=== PATIENT | male | born 1950 | race Caucasian/White ===

== ENCOUNTER → 2018-09-11 07:25 | Outpatient (CLI) | payer MEDICARE, SELFPAY ==
[2016-05-30 12:38] VITALS: BMI 26.3
[2018-09-11 08:30] LABS: PSA,Total - Annual Screen 5.43 ng/mL (0.00-4.00)
== END ==
PROVIDERS: Family Provider Family Medicine; PCP Family Medicine; Referring Provider Urology; Visit Provider Urology
DX: Z12.5 Encounter for screening for malignant neoplasm of prostate (principal)
CPT/HCPCS: 36415; 84153; G0103

== ENCOUNTER → 2019-07-04 13:02 | Outpatient (CLI) | payer MEDICARE, OTHER, SELFPAY ==
--- NOTE | 2019-07-04 13:06 | CDU_ITS ---
Reason For Study: Syncope Rt. Velocities/BP Lt. Velocities/BP Prox CCA 100.8/17.3 cm/sec. Prox CCA 110.1/22.5 cm/sec. Mid CCA 96.9/23.9 cm/sec. Mid CCA 101/22.5 cm/sec. Dist CCA 93/23.9 cm/sec. Dist CCA 88.8/17.6 cm/sec. Prox ICA 104.7/26.1 cm/sec. Prox ICA 84.6/11.5 cm/sec. Mid ICA 130.2/38.9 cm/sec. Mid ICA 72.9/21.2 cm/sec. Dist ICA 87.2/31.1 cm/sec. Dist ICA 70.7/20.1 cm/sec. Rt. ICA/CCA = 1.3. Lt. ICA/CCA = 0.8. Prox ECA 119.3/17 cm/sec. Prox ECA 104.8/13.9 cm/sec. Rt. Vert. 36.9/9.9 cm/sec. Lt. Vert. 21.8/6.2 cm/sec. Right Extracranial There is homogeneous, smooth atherosclerotic plaque noted in the right common carotid artery. There is heterogeneous, irregular atherosclerotic plaque noted in the right internal carotid artery. There is no significant atherosclerotic plaque noted in the right external carotid artery. Antegrade flow is noted in the right vertebral artery. Left Extracranial There is homogeneous, smooth atherosclerotic plaque noted in the left common carotid artery. There is homogeneous, smooth atherosclerotic plaque noted in the left internal carotid artery. There is no significant atherosclerotic plaque noted in the left external carotid artery. Antegrade flow is noted in the left vertebral artery. Procedure Carotid Duplex [id number]. Exam performed in department. Interpretation Summary Mild (<50%) stenosis right extracranial internal carotid. Mild (<50%) stenosis left extracranial internal carotid. Flow within the vertebral arteries is antegrade bilaterally. Ordering Physician: Perico Streeter Referring Physician: Perico Streeter Performed By: Annika Nunez RVT
== END ==
PROVIDERS: Family Provider Family Medicine; PCP Family Medicine; Referring Provider Family Medicine; Visit Provider Family Medicine
DX: R55 Syncope and collapse (principal)
CPT/HCPCS: 93880

== ENCOUNTER → 2019-07-11 07:39 | Outpatient (CLI) | payer MEDICARE, OTHER, SELFPAY ==
[2016-05-30 12:38] VITALS: BMI 26.3
--- NOTE | 2019-07-11 07:56 | CT_ITS ---
STUDY: CT BRAIN WITHOUT CONTRAST REASON FOR EXAM: Male, 69 years old. RADIATION DOSAGE (If Supplied By Facility): CTDIvol = ( 44.99 ) mGy, DLP = ( 796.11 ) mGycm TECHNIQUE: Transaxial CT imaging of the brain was performed without administration of intravenous contrast material. Individualized dose optimization techniques were used for this CT. COMPARISON: No relevant priors. FINDINGS: Normal soft tissue structures. Normal calvarium. Normal size ventricles and extra-axial spaces for the patient's age. Normal white matter tracts of the cerebral hemispheres. Normal basal ganglia and thalami. Normal brainstem. Normal cerebellum. There is no intracranial hemorrhage. There are no findings of an acute ischemic infarction. Normal visualized paranasal sinuses. CT/Brain/Head without Contrast IMPRESSION: Normal unenhanced CT scan of the brain. Electronically Signed: Elliott Gracia, at 15:08 EST Tel , Service support ,
[2019-07-11 09:04] LABS: Absolute Lymphocyte Count 1.39 X10^3/uL (0.83-4.51); Absolute Neutrophil Count 3.1 X10^3/uL (2.0-7.7); Basophil# 0.04 X10^3/uL; Basophil% 0.8 % (0-1); Eosinophil# 0.11 X10^3/uL; Eosinophils% 2.2 % (0-5); Hematocrit 50.1 % (40-54); Hemoglobin 16.6 g/dL (13.0-16.5); Lymphocyte # 1.39 X10^3/ul (4.0); Lymphocyte % 27.5 % (19-41); Mean Corp Hgb Conc 33.1 g/dL (32-36); Mean Corpuscular Hgb 29.9 pg (27.0-32.0); Mean Corpuscular Volume 90.3 fL (80-94); Mean Platelet Vol. 10.7 fl (6.2-12.0); Monocyte# 0.41 X10^3/uL; Monocyte% 8.1 % (0-10); NRBC Flagged by Analyzer 0 % (0-5); Neutrophil % 61.2 % (47-70); Platelet Count 247 K/mm3 (150-450); RBC Distribution Width CV 11.8 % (11.6-14.6); Red Blood Count 5.55 M/mm3 (4.6-6.2); White Blood Count 5.1 K/mm3 (4.4-11.0)
[2019-07-11 09:34] LABS: ALB/GLOB Ratio 1.1 RATIO (0.9-2.4); AST(SGOT) 19 U/L (15-37); Alanine Aminotransfer ALT/SGPT 30 U/L (16-61); Albumin, Serum 3.7 g/dL (3.2-5.0); Alkaline Phosphatase 93 U/L (45-117); Anion Gap 7 (5-15); BUN 11 mg/dL (7-18); CRP, High Sensitivity Cardiac < 0.16 mg/L; Calcium,Total 8.7 mg/dL (8.5-10.1); Chloride 105 mmol/L (98-107); Creatinine, Serum 0.73 mg/dL (0.70-1.30); EST Glomerular Filtration Rate 113 mL/min (>60); Est Glom Filt Rate - Afr Amer 137 mL/min (>60); Globulin 3.3 g/dL (2.2-4.2); Glucose 98 mg/dL (74-106); Potassium 3.9 mmol/L (3.5-5.1); Sodium Level 139 mmol/L (136-145)
[2019-07-11 09:50] LABS: Vitamin B12 565 pg/mL (211-911)
== END ==
PROVIDERS: Family Provider Family Medicine; PCP Family Medicine; Referring Provider Family Medicine; Visit Provider Family Medicine
DX: Z91.89 Other specified personal risk factors, not elsewhere classified (principal); Z86.59 Personal history of other mental and behavioral disorders; E78.5 Hyperlipidemia, unspecified
CPT/HCPCS: 36415; 70450; 80053; 82607; 85025; 86141

== ENCOUNTER → 2019-07-12 09:59 | Outpatient (CLI) | payer MEDICARE, OTHER, SELFPAY ==
[2016-05-30 12:38] VITALS: BMI 26.3
--- NOTE | 2019-07-12 10:01 | ECHOCS_ITS ---
Reason For Study: SYNCOPE Procedure This was a 2D Doppler, Color Flow transthoracic echocardiogram. The study was technically difficult. Contrast injection was performed. Exam performed in department. Left Ventricle Normal LV size. Left ventricular systolic function is normal. The estimated ejection fraction is 55 %. No regional wall motion abnormalities noted. Right Ventricle Normal RV size. Normal systolic function. Atria Normal left atrium. Normal right atrium. Mitral Valve Normal mitral valve. Tricuspid Valve Normal tricuspid valve. Mild tricuspid valve insufficiency. Aortic Valve The aortic valve is not well visualized. Pulmonic Valve Normal pulmonic valve. Great Vessels Normal aortic root. Pericardium/Pleural No pericardial effusion. Medication 22 gauge I.V. with prn adaptor inserted into right arm. Diluted definity 4.0ml given slow IV push to enhance endocardial definition. MMode/2D Measurements & Calculations LVIDd: 5.1 cm IVSd: 0.76 cm Ao root diam: 3.1 cm LVIDs: 3.4 cm LVPWd: 0.73 cm RVDd: 3.1 cm FS: 33.8 % LAV(MOD-bp): 36.8 ml LVAd ap4: 34.1 cm2 SV(MOD-sp4): 56.1 ml LAV(MOD-bp) Indexed: 19.8 ml/m2 EDV(MOD-sp4): 115.4 ml LAV(MOD-sp2): 37.4 ml EDV(sp4-el): 121.4 ml LAV(MOD-sp4): 30.1 ml LVAs ap4: 23.2 cm2 ESV(MOD-sp4): 59.3 ml ESV(sp4-el): 62.8 ml EF(MOD-sp4): 48.6 % EF(sp4-el): 48.3 % SV(sp4-el): 58.7 ml LA A4 area: 14.2 cm2 LA dimension(2D): 2.8 cm RA A4 area: 11.8 cm2 Time Measurements MV dec time: 0.17 sec Doppler Measurements & Calculations MV E max oziel: 67.7 cm/sec Lat Peak E' Oziel: 9.5 cm/sec Med Peak E' Oziel: 8.8 cm/sec MV A max oziel: 73.1 cm/sec E/E' lat: 7.1 E/E' med: 7.7 MV E/A: 0.93 Ao V2 max: 125.1 cm/sec LV V1 max: 87.6 cm/sec PA V2 max: 91.4 cm/sec Ao max P.3 mmHg LV V1 max P.1 mmHg PI end-d oziel: 78.1 cm/sec TR max oziel: 219.8 cm/sec TR max P.3 mmHg Interpretation Summary Normal LV size. Left ventricular systolic function is normal. The estimated ejection fraction is 55 %. Mild tricuspid valve insufficiency. Contrast injection was performed. Ordering Physician: Perico Alatorre Referring Physician: JUAN F ALATORRE Performed By: Enid Guardado RDCS, RVT
== END ==
PROVIDERS: Family Provider Family Medicine; PCP Family Medicine; Referring Provider Family Medicine; Visit Provider Family Medicine
DX: I07.1 Rheumatic tricuspid insufficiency (principal); R55 Syncope and collapse
CPT/HCPCS: 93306; Q9957; A4216; C8929

== ENCOUNTER → 2019-07-20 13:55 | Outpatient (CLI) | payer MEDICARE, OTHER, SELFPAY ==
[2016-05-30 12:38] VITALS: BMI 26.3
--- NOTE | 2019-07-20 14:06 | CT_ITS ---
STUDY: CARDIAC CALCIUM SCORING - CT CHEST REASON FOR EXAM: Male, 69 years old. Cardiac risk factors. RADIATION DOSAGE (If Supplied By Facility): CTDIvol = ( 24.98 ) mGy, DLP = ( 997.06 ) mGycm TECHNIQUE: Axial non-enhanced images were acquired through the heart for the sole purpose of measuring coronary artery calcium. Individualized dose optimization techniques were used for this CT. COMPARISON: None. FINDINGS: This portion of the report is being generated solely for the evaluation of noncoronary artery structures which have been assessed on plain another report. The visualized lungs are clear and free of infiltrate or mass. Heart is normal in size. There are coronary artery calcifications. There are calcifications at the root of the aorta. Nonspecific subcentimeter mediastinal lymphadenopathy. Normal agnieszka. Normal visualized pulmonary arteries. Normal visualized aorta. There are degenerative changes of the thoracic spine. Normal visualized upper abdomen. IMPRESSION: Coronary artery and aortic root calcifications. There is no other evidence of anatomic abnormality. Electronically Signed: Jesus Manuel White DO at 3:08 EST Tel [phone], Service support , STUDY: CARDIAC CALCIUM SCORING - CT CHEST REASON FOR EXAM: Male, 69 years old. Cardiac risk factors. RADIATION DOSAGE (If Supplied By Facility): CTDIvol = ( 24.98 ) mGy, DLP = ( 997.06 ) mGycm TECHNIQUE: Axial non-enhanced images were acquired through the heart for the sole purpose of measuring coronary artery calcium. Individualized dose optimization techniques were used for this CT. COMPARISON: None. FINDINGS: This portion of the report is being generated solely for the evaluation of noncoronary artery structures which have been assessed on plain another report. The visualized lungs are clear and free of infiltrate or mass. Heart is normal in size. There are coronary artery calcifications. There are calcifications at the root of the aorta. Nonspecific subcentimeter mediastinal lymphadenopathy. Normal agnieszka. Normal visualized pulmonary arteries. Normal visualized aorta. There are degenerative changes of the thoracic spine. Normal visualized upper abdomen. CT/Limited Chest CT w/CCTA IMPRESSION: Coronary artery and aortic root calcifications. There is no other evidence of anatomic abnormality. Electronically Signed: Jesus Manuel White DO at 3:01 EST Tel [phone], Service support ,
[2019-07-20 14:22] VITALS: BP 136/75; PULSE 68; RESP 16; O2SAT 96; BMI 27.4
[2019-07-20 14:49] VITALS: PULSE 68
[2019-07-20] MEDS: Nitroglycerin SL (ED/IMG/CATH) 0.4 MG TABLET SUBLINGUAL (14:49)
[2019-07-20 14:57] VITALS: BP 113/59; PULSE 68; RESP 16; O2SAT 93
--- NOTE | 2019-07-21 12:49 | CCTA.WCONT ---
CCTA w/Cont Coronary Arteries Date of Study:: 07/20/19 Cardiac risk factors The patient was brought to the radiology department and high-resolution computed tomographic imaging was performed with particular attention paid to the coronary arteries. Prospective gated coronary artery calcium scoring was performed images from the examination were analyzed for the presence and extent of coronary artery calcification as well as coronary angiography. Appropriate nitroglycerin as well as beta-bernadette doses were administered. The study quality was excellent. LEFT MAIN CORONARY ARTERY: The left main coronary artery demonstrated mild calcification with a total calcium score 34.2. No significant stenosis was noted in this vessel. [] LEFT ANTERIOR DESCENDING CORONARY ARTERY: [The left anterior descending artery was also noted to have an eccentric proximal calcification with approximately 50% luminal stenosis. The coronary calcium score was noted to be 62. The vessel coursed towards the apex giving off the first diagonal vessel with no significant stenosis noted.] LEFT CIRCUMFLEX CORONARY ARTERY: [The left circumflex artery was a nondominant but large vessel. There were mild eccentric scattered calcification areas noted. The coronary calcium score was noted to be 22. No significant stenosis was noted.] RIGHT CORONARY ARTERY: [This was a dominant vessel arising out of the right coronary cusp. It terminated with the posterior descending artery and posterolateral branch no significant plaque was noted in this vessel and the coronary calcium score was noted to be 0.] CORONARY CALCIUM SCORE: The total coronary calcium score was noted to be 118 with a percentile ranking of 25 to 50%. The above was suggestive of moderate nonobstructive coronary artery disease. [] Conclusion: Moderate nonobstructive coronary artery disease plaquing, especially in the left anterior descending artery distribution with no high-grade obstruction or stenosis noted.
== END ==
PROVIDERS: Family Provider Family Medicine; PCP Family Medicine; Referring Provider Family Medicine; Visit Provider Family Medicine
DX: I25.10 Atherosclerotic heart disease of native coronary artery without angina pectoris (principal); Z91.89 Other specified personal risk factors, not elsewhere classified; Z86.59 Personal history of other mental and behavioral disorders
CPT/HCPCS: 75571; 75574; 76380; Q9967; A4216

== ENCOUNTER → 2019-10-04 15:36 | Outpatient (CLI) | payer MEDICARE, OTHER, SELFPAY ==
[2019-07-20 14:22] VITALS: BMI 27.4
[2019-10-04 16:59] LABS: PSA,Total - Annual Screen 5.97 ng/mL (0.00-4.00)
== END ==
PROVIDERS: PCP Family Medicine; Referring Provider Urology; Visit Provider Urology
DX: Z12.5 Encounter for screening for malignant neoplasm of prostate (principal)
CPT/HCPCS: 36415; 84153; G0103

== ENCOUNTER → 2020-11-05 16:23 | Outpatient (CLI) | payer MEDICARE, SELFPAY ==
[2020-08-01 16:02] VITALS: BMI 26.7
[2020-11-05 17:38] LABS: PSA,Total- Diagnostic 7.82 ng/mL (0.0-4.0)
== END ==
PROVIDERS: PCP Internal Medicine; Referring Provider Urology; Visit Provider Urology
DX: R97.20 Elevated prostate specific antigen [PSA] (principal)
CPT/HCPCS: 36415; 84153

== ENCOUNTER → 2021-06-04 07:39 | Outpatient (CLI) | payer MEDICARE, SELFPAY ==
[2020-08-01 16:02] VITALS: BMI 26.7
[2021-06-04 09:23] LABS: PSA,Total- Diagnostic 7.68 ng/mL (0.0-4.0)
== END ==
PROVIDERS: PCP Internal Medicine; Referring Provider Urology; Visit Provider Urology
DX: R97.20 Elevated prostate specific antigen [PSA] (principal)
CPT/HCPCS: 36415; 84153

== ENCOUNTER → 2022-11-27 | Outpatient (CLI) | payer BC, MEDICARE, SELFPAY ==
[2022-11-27 17:16] LABS: PSA,Total- Diagnostic 9.52 ng/mL (0.0-4.0)
== END | disposition home or self-care (01) ==
LOC: LAB 16:22
PROVIDERS: PCP Internal Medicine; Visit Provider Urology
DX: R97.20 Elevated prostate specific antigen [PSA] (principal)
CPT/HCPCS: 36415; 84153

== ENCOUNTER → 2022-12-11 | Outpatient (CLI) | payer MEDICARE, SELFPAY ==
--- NOTE | 2022-12-11 08:15 | MRI_ITS ---
INDICATION: ELEVATED PSA, NO PREV BIOPSIES DONE EXAMINATION: MRI - MR Pelvis Male WO/W Contrast TECHNIQUE: Multiplanar and multisequence MR images of the pelvis were obtained. IV Contrast Dosage and Agent: 15cc clariscan 15 ML IV CLARISCAN COMPARISON: None. FINDINGS: Severe enlargement of the prostate. Prostate measures 6.6 cm transverse by 5.38 cm AP by 5.67 cm coronal. Within the anterior superior prostate there is a nodule visualized with peripheral contrast enhancement. This nodule measures 2.5 cm transverse. There is an adjacent nodule further anteriorly into the left measuring 1.06 cm in diameter with more subtle contrast enhancement. In the inferior right central zone there is a third nodule which is enhancing. This measures 2.36 cm. A fourth nodule is seen in the inferior central zone on the left with more subtle contrast enhancement 0.82 cm transverse. These nodules are seen within the central zone. The peripheral zone is hypertrophic but no evidence of discrete nodule. The capsule of the prostate is intact. There is no evidence of pelvic adenopathy. Bony pelvis is intact. MRI/Pelvis W/WO Contrast IMPRESSION: Multiple nodules within central zone. Given patient''s elevated PSA, if biopsy is, attention towards these nodules is advised. Electronically Signed: Avila Martinez MD, OLE at 18:28 EDT ,
[2022-12-11 08:41] LABS: CREATININE FINGERSTICK < 0.9 mg/dL (0.70-1.30); EGFR FINGERSTICK > 60.0000 mL/min (>60)
== END | disposition home or self-care (01) ==
PROVIDERS: PCP Internal Medicine; Referring Provider Urology; Visit Provider Urology
DX: N40.1 Benign prostatic hyperplasia with lower urinary tract symptoms (principal); R97.20 Elevated prostate specific antigen [PSA]
CPT/HCPCS: 72197; A9575; A4216

== ENCOUNTER 2023-02-05 08:40 | Day surgery (SDC) | payer MEDICARE, SELFPAY ==
[2023-02-05] VITALS (7 sets, daily range): BP systolic 104–140; BP diastolic 71–89; PULSE 77–95; RESP 16; TEMP 36.3–36.6; O2SAT 96–100; BMI 25.4
[2023-02-05] MEDS: Lactated Ringers 1,000 ML 15 ML IV (09:05)
--- NOTE | 2023-02-05 09:21 | PCM.HP.BLA ---
History and Physical Date of Admission: 02/05/23 Visit Reasons:?UPPER AND LOWER SCOPE Chief Complaint: c-scope/EGD [employer] Required: No Is patient in pain?: No Allergies terbinafine [From Lamisil] Allergy (Verified 12/19/22 07:45) Shortness of breathciprofloxacin [From Cipro] Adverse Reaction (Verified 12/19/22 07:45) PALPITATIONS Medications vitamin K2 40 mcg tablet 40 mcg PO DAILY 05/24/20 [History Confirmed 12/19/22] zinc gluconate-zinc picolinate 30 mg capsule mg PO 08/01/20 [History Confirmed 12/19/22] betainine hcl with pepsin PO 10/15/22 [History Confirmed 12/19/22] cbd oil PO 10/15/22 [History Confirmed 12/19/22] gummies for sleep PO 10/15/22 [History Confirmed 12/19/22] homestine PO 10/15/22 [History Confirmed 12/19/22] magnesium PO 10/15/22 [History Confirmed 12/19/22] magnesium PO 10/15/22 [History Confirmed 12/19/22] triamcinolone acetonide 0.1 % topical cream 1 applic topical BID 14 days #30 grams 10/15/22 [Rx Confirmed 12/19/22] PFSH Medical History? Arthritis Jha syndrome Osteopenia prostate issues Vision problem Surgical History? History of colonoscopy History of endoscopy History of scapula, ulna, humerous reconstruction Family History? Aunt Breast cancerUncle Colon cancer Diabetes Heart diseaseMother Cancer DiabetesOther Alcoholism Anxiety and depression Liver disease Melanoma Osteoporosis Social History? Smoking Status:? Former smoker alcohol intake:? current HPI HPI HPI: 72-year-old gentleman who is referred by Dr. Omaira Weir for surgical consultation regarding Jha's esophagus and need for screening colonoscopy.? A written copy of my surgical consult recommendations will return to him.? The patient is here to discuss his biopsy-proven history of Jha's esophagus and the need for screening colonoscopy.? He states that he takes Pepcid AC 2 tablets either twice or 3 times daily.? His reflux symptoms he says are controlled with that.? He was a [id number] history of smoking but he quit.? He now embraces a more healthy lifestyle including a healthy diet.? Previous screening colonoscopy approximately 2016.? The patient does recall that in the past he has had colon polyps.? No definitive of direct family member with colon cancer. ROS General General: No weight change, appetite, fatigue, colon cancer, breast cancer or weakness HEENT HEENT: No difficulty swallowing, eye injury, eye surgery, swollen glands or hoarseness Endo Endocrine: No thyroid disease, diabetes mellitus, thyroid cancer, Hair loss, heat intolerance or cold intolerance Skin Skin: No rash or changing moles Breast Breast: No left breast lump, right breast lump, nipple discharge, breast pain, abnormal mammogram, abnormal US or breast enlargement Musc Musculoskeletal: Yes arthritis; No back problems, rheumatoid arthritis, gout or joint pain Cardio Cardiovascular: No murmur, pacemaker, heart disease, atrial fibrillation, high blood pressure, heart attack, heart stent, palpitations, shortness of breat with exertion or chest pain Psych Psychiatric: No depression, anxiety or hearing voices Resp Respiratory: No shortness of breath, No sleep apnea, No cough, No COPD, No asthma, No emphysema and No wheezing Gastro Gastrointestinal: No abdominal pain, No nausea or vomiting, No diarrhea, No constipation, No blood in stool, No acid reflux, No hemorrhoids, No ulcers, No gallbladder problem and No black,tarry stools Edward Hematologic: No blood thinners, No blood disorders, No bleeding, No anemia and No blood clots Neuro Neurologic: No system reviewed and no additional complaints, except as documented, No as per HPI, No abnormal gait, No abnormal hearing, No abnormal movements, No abnormal speech, No behavioral changes, No burning sensations, No confusion, No convulsions, No disequilibrium, No dizziness, No localized weakness, No frequent falls, No headache(s), No lack of coordination, No loss of vision, No memory loss, Yes numbness, No other visual disturbances, No radicular pain, No restless legs, No sensory deficit, No syncope, Yes tingling, No tremor(s), No weakness and No other Exam Const General: cooperative, comfortable and no acute distress Nutritional Appearance: average body habitus HENMT Head: normal to inspection Eyes General: appearance normal, both eyes and all related structures Neck Neck: normal visual inspection Chest Chest palpation & inspection: normal inspection of the chest Resp Effort & Inspection: normal respiratory effort Auscultation: clear to auscultation bilaterally Cardio Rate: regular rate Rhythm: regular rhythm GI Inspection: normal to inspection Palpation: soft and no hepatosplenomegaly Musc Other: Mild kyphosis Skin General: no rashes or lesions noted Neuro General: patient alert, patient awake and patient oriented x3 Extrem General: no calf tenderness Psych Appearance: grossly normal Assessment and Plan Assessment and Plan (1) Jha syndrome: ?Status:?Acute ?Plan: I recommended the patient esophagogastroduodenoscopy with anticipated Jha's biopsies.? I have also recommended the patient a screening colonoscopy with possible biopsy or polypectomy.? Previous colonoscopy 2016.? By patient report personal history of colon polyps.? He is aware of the technique, benefit, risk, alternatives.? I appreciate the opportunity of assisting with the surgical care.? We will schedule and proceed at his discretion. Copy: Dr. Omaira Dockery M.D., F.A.C.S. I have examined the patient the following changes are noted: Rios Dockery M.D., F.A.C.S.
--- NOTE | 2023-02-05 09:45 | EGD_PTH ---
PATIENT: JYOTI CHOI LOC: EN U#:[id number] AGE/SX: 72/M ROOM: RE02/05/[address]: Dr. Rios Dockery MD : 1950 BED: DIS: 02/05/2023 SPEC #: [id number] RECD: 02/05/23 12:56 STATUS: JAI AKUA #: [id number] KHADAR: 02/05/23 09:[address]: Rios Dockery DEPT: SURGICAL PATHOLOGY RECD BY: Danita Yuen ENTERED: 02/05/23 13:23 SP TYPE: EGD BIOPSY LUIS DR: Dr. Omaira Weir MD Tissues: A - Duodenum, NOS B - Gastric mucous membrane C - Esophagus, NOS D - Sigmoid colon biopsy Procedures: Surgery Specimen Level IV HEADER OPERATION: Colonoscopy with biopsy, EGD ([facility] [place] with biopsies PRE-OP DIAGNOSIS: Jha?s syndrome TISSUE SUBMITTED: A ? Duodenum biopsy, B ? Antrum biopsy for H. pylori and histology, C ? Distal esophagus at EG junction biopsies 8.0 cm, D ? Distal sigmoid polyp biopsy x3 MICROSCOPIC DIAGNOSIS A. Duodenum, biopsy: Focal gastric metaplasia. Mild nonspecific chronic inflammation. B. Gastric antrum, biopsy: Mild chronic inflammation. See comment. C. Distal esophagus at EG junction, biopsy: Gastroesophageal junctional mucosa with chronic inflammation. 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 No evidence of dysplasia. See comment. D. Distal sigmoid colon polyp, biopsy: Fragments of hyperplastic polyp. AM:james 02/06/2023 COMMENT B. The results of immunohistochemistry for Helicobacter pylori will be reported separately ([id number]). C. Immunohistochemistry ([id number]) for P53 and Ki-67 will be performed and results will be reported separately. MICROSCOPIC DESCRIPTION Slides are reviewed. GROSS DESCRIPTION A - Received in fixative is one container labeled with the patient's name and designated duodenum biopsy. The specimen consists of one irregular fragment of light linares soft tissue that measures 0.5 x 0.5 x 0.1 cm. The specimen is totally submitted in one cassette. B - Received in fixative is one container labeled with the patient's name and designated antrum biopsy. The specimen consists of one irregular fragment of light linares soft tissue that measures 0.6 x 0.3 x 0.1 cm. The specimen is totally submitted in one cassette. C - Received in fixative is one container labeled with the patient's name and designated distal esophagus biopsy. The specimen consists of multiple irregular fragments of light linares soft tissue that in aggregate measure 2.0 x 1.0 x 0.1 cm. The specimen is totally submitted in one cassette. D - Received in fixative is one container labeled with the patient's name and designated distal sigmoid polyp. The specimen consists of multiple irregular fragments of light linares soft tissue that in aggregate measure 1.0 x 0.5 x 0.1 cm. The specimen is totally submitted in one cassette. / AM:james 02/05/2023 TC:3 CPT: 96960 x4
--- NOTE | 2023-02-05 09:45 | IMM_PTH ---
PATIENT: JYOTI CHOI LOC: EN U#:[id number] AGE/SX: 72/M ROOM: RE02/05/[address]: Dr. Rios Dockery MD : 1950 BED: DIS: 02/05/2023 SPEC #: [id number] RECD: 02/05/23 13:52 STATUS: JAI MARINDanielle #: [id number] KHADAR: 02/05/23 09:[address]: Rios Dockery DEPT: IMMUNOHISTOCHEMISTRY RECD BY: Marcela Max ENTERED: 02/05/23 13:53 SP TYPE: IMMUNO OTHR DR: Dr. Omaira Weir MD Tissues: B - Stomach, NOS C - Esophageal mucous membrane Procedures: H Pylori (initial) P53 (initial) KI-67 (add) PHYSICIAN & INSTITUTION [place] [phone] SPECIMEN INFORMATION: Tissue Source: B ? Antrum biopsy, C ? Distal esophagus Clinical Info: Jha?s syndrome Specimen Number: [id number] B & C CPT code: 61806 x2, 91614 METHODOLOGY: Deparaffinized sections of prefer/formalin-fixed tissue or PAP/DQ stained slides are incubated with monoclonal/polyclonal antibodies/oligonucleotide probes. Localization is made via biotin free immunoperoxidase method. Appropriate controls are performed and reacted as expected. Results on target cell population are indicated in the following table: RESULTS: ANTIBODY / CLONE RESULT Block B H Pylori (polyclonal) negative Block C P53 (DO-7) negative, wild-type pattern present Ki-67 (30-9) positive, low These tests were developed and their performance characteristics determined by [facility]. They may not have been cleared or approved by the U.[place]. Food and Drug Administration. The FDA has determined that such clearance or approval is not necessary. The above immunohistochemical/dualISH markers are ordered and reviewed by the Pathologist. INTERPRETATION: B. Antrum, biopsy: Negative for Helicobacter pylori organisms. C. Distal esophagus, biopsy: No evidence of dysplasia. AM:james 02/09/2023
--- NOTE | 2023-02-05 11:26 | OP.CCLET_ITS ---
02/05/2023 Omaira Weir [facility] [address] [place] [address] Re : Upper GI endoscopy procedure for Jeffrey Salvador Dear Dr. Weir This procedure was performed on January. My impressions and recommendations are as follows: Impressions : - Medium-sized hiatal hernia. 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 Biopsied. - Erythematous mucosa in the antrum. Biopsied. - Erythematous duodenopathy. Biopsied. Recommendations : - Discharge patient to home. - Resume previous diet. - Continue present medications. - Telephone my office for pathology results in 1 week. Multiple biopsies obtained at various levels very long segment Jha's at 8 cm. Pathology pending. The patient may very well benefit from consultation for ablative treatment. My findings are described in the full procedure note, which is enclosed. If I can be of further assistance, please feel free to contact me at Doctor phone number(s): Work: . Sincerely, Rios Dockery MD 02/05/2023 11:25:29 AM This report has been signed electronically.
--- NOTE | 2023-02-05 11:26 | OP.EGD_ITS ---
Patient Name: Jeffrey Franco Procedure Date: 02/05/2023 10:29 AM Date of : 1950 Age: 72 Procedure: Upper GI endoscopy Indications: Jha's esophagus Providers: Rios Dockery MD Referring MD: Rios Dockery MD Medicines: See the Anesthesia note for documentation of the administered medications Complications: No immediate complications. Procedure: Pre-Anesthesia Assessment: - Prior to the procedure, a History and Physical was performed, and patient medications and allergies were reviewed. The patient's tolerance of previous anesthesia was also reviewed. The risks and benefits of the procedure and the sedation options and risks were discussed with the patient. All questions were answered, and informed consent was obtained. Prior Anticoagulants: The patient has taken no previous anticoagulant or antiplatelet agents. ASA Grade Assessment: II - A patient with mild systemic disease. After reviewing the risks and benefits, the patient was deemed in satisfactory condition to undergo the procedure. After obtaining informed consent, the endoscope was passed under direct vision. Throughout the procedure, the patient's blood pressure, pulse, and oxygen saturations were monitored continuously. The was introduced through the mouth, and advanced to the second part of duodenum. The upper GI endoscopy was accomplished without difficulty. The patient tolerated the procedure well. Scope In: 10:36:35 AM Scope Out: 10:55:07 AM Total Procedure Duration Time 0 hours 18 minutes 32 seconds Findings: A medium-sized hiatal hernia was present. There were esophageal mucosal changes secondary to established long-segment Jha's disease present in the lower third of the esophagus. The maximum longitudinal extent of these mucosal changes was 8 cm in length. Mucosa was biopsied with a cold forceps for histology in 4 quadrants in the lower third of the esophagus. Diffuse mildly erythematous mucosa without bleeding was found in the gastric antrum. Biopsies were taken with a cold forceps for histology. Diffuse mildly erythematous mucosa without active bleeding and with no stigmata of bleeding was found in the duodenal bulb. Biopsies were taken with a cold forceps for histology. Impression: - Medium-sized hiatal hernia. 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 Biopsied. - Erythematous mucosa in the antrum. Biopsied. - Erythematous duodenopathy. Biopsied. Recommendation: - Discharge patient to home. - Resume previous diet. - Continue present medications. - Telephone my office for pathology results in 1 week. Multiple biopsies obtained at various levels very long segment Jha's at 8 cm. Pathology pending. The patient may very well benefit from consultation for ablative treatment. Procedure Code(s): --- Professional --- 90562, Esophagogastroduodenoscopy, flexible, transoral; with biopsy, single or multiple Diagnosis Code(s): --- Professional --- K44.9, Diaphragmatic hernia without obstruction or gangrene K22.70, Jha's esophagus without dysplasia K31.89, Other diseases of stomach and duodenum CPT copyright 2017 [employer]. All rights reserved. The codes documented in this report are preliminary and upon detective private eye review may be revised to meet current compliance requirements. Rios Dockery MD 02/05/2023 11:25:29 AM This report has been signed electronically. Number of Addenda: 0 Note Initiated On: 02/05/2023 10:29 AM
--- NOTE | 2023-02-05 11:31 | OP.COLON_ITS ---
Patient Name: Jeffrey Franco Procedure Date: 02/05/2023 10:56 AM Date of : 1950 Age: 72 Procedure: Colonoscopy Indications: Screening for colorectal malignant neoplasm Providers: Rios Dockery MD Referring MD: Rios Dockery MD Medicines: See the Anesthesia note for documentation of the administered medications Patient Profile: Last Colonoscopy: date unknown. Complications: No immediate complications. Procedure: Pre-Anesthesia Assessment: - Prior to the procedure, a History and Physical was performed, and patient medications and allergies were reviewed. The patient's tolerance of previous anesthesia was also reviewed. The risks and benefits of the procedure and the sedation options and risks were discussed with the patient. All questions were answered, and informed consent was obtained. Prior Anticoagulants: The patient has taken no previous anticoagulant or antiplatelet agents. ASA Grade Assessment: II - A patient with mild systemic disease. After reviewing the risks and benefits, the patient was deemed in satisfactory condition to undergo the procedure. After I obtained informed consent, the scope was passed under direct vision. Throughout the procedure, the patient's blood pressure, pulse, and oxygen saturations were monitored continuously. The Colonoscope was introduced through the anus and advanced to the cecum, identified by appendiceal orifice and ileocecal valve. The colonoscopy was performed without difficulty. The patient tolerated the procedure well. The quality of the bowel preparation was fair. The ileocecal valve and the appendiceal orifice were photographed. Scope In: 10:57:03 AM Scope Withdrawal Time 0 hours 12 minutes 18 seconds Scope Out: 11:18:35 AM Total Procedure Duration Time 0 hours 21 minutes 32 seconds Findings: The digital rectal exam findings include non-thrombosed external hemorrhoids, non-thrombosed internal hemorrhoids, internal hemorrhoids that prolapse with straining, but spontaneously regress to the resting position (Grade II) and enlarged prostate. Three sessile polyps were found in the distal sigmoid colon. The polyps were 3 to 4 mm in size. These polyps were removed with a cold biopsy forceps. Resection and retrieval were complete. Multiple diverticula were found in the left colon. Impression: - Preparation of the colon was fair. - Non-thrombosed external hemorrhoids, non-thrombosed internal hemorrhoids, internal hemorrhoids that prolapse with straining, but spontaneously regress to the resting position (Grade II) and enlarged prostate found on digital rectal exam. - Three 3 to 4 mm polyps in the distal sigmoid colon, removed with a cold biopsy forceps. Resected and retrieved. - Diverticulosis in the left colon. Recommendation: - Discharge patient to home. - Resume previous diet. - Continue present medications. - Repeat colonoscopy in 5 years for surveillance based on pathology results. - Telephone my office for pathology results in 1 week. Procedure Code(s): --- Professional --- 03797, Colonoscopy, flexible; with biopsy, single or multiple Diagnosis Code(s): --- Professional --- Z12.11, Encounter for screening for malignant neoplasm of colon K64.1, Second degree hemorrhoids K64.4, Residual hemorrhoidal skin tags D12.5, Benign neoplasm of sigmoid colon K57.30, Diverticulosis of large intestine without perforation or abscess without bleeding N40.0, Benign prostatic hyperplasia without lower urinary tract symptoms CPT copyright 2017 [employer]. All rights reserved. The codes documented in this report are preliminary and upon bridge rigger review may be revised to meet current compliance requirements. Rios Dockery MD 02/05/2023 11:31:16 AM This report has been signed electronically. Number of Addenda: 0 Note Initiated On: 02/05/2023 10:56 AM
--- NOTE | 2023-02-05 11:32 | OP.CCLET_ITS ---
02/05/2023 Omaira Weir [facility] [address] [place] [address] Re : Colonoscopy procedure for Jeffrey Franco Dear Dr. Weir This procedure was performed on January. My impressions and recommendations are as follows: Impressions : - Preparation of the colon was fair. - Non-thrombosed external hemorrhoids, non-thrombosed internal hemorrhoids, internal hemorrhoids that prolapse with straining, but spontaneously regress to the resting position (Grade II) and enlarged prostate found on digital rectal exam. - Three 3 to 4 mm polyps in the distal sigmoid colon, removed with a cold biopsy forceps. Resected and retrieved. - Diverticulosis in the left colon. Recommendations : - Discharge patient to home. - Resume previous diet. - Continue present medications. - Repeat colonoscopy in 5 years for surveillance based on pathology results. - Telephone my office for pathology results in 1 week. My findings are described in the full procedure note, which is enclosed. If I can be of further assistance, please feel free to contact me at Doctor phone number(s): Work: . Sincerely, Rios Dockery MD 02/05/2023 11:31:16 AM This report has been signed electronically.
== END 2023-02-05 12:13 | disposition home or self-care (01) ==
LOC: EN 08:41 → AC 08:42
PROVIDERS: PCP Internal Medicine; Referring Provider Internal Medicine; Visit Provider Surgery
PROC: 0DJD8ZZ Inspection of Lower Intestinal Tract, Via Natural or Artificial Opening Endoscopic (ICD-10-PCS; CPT 45378; principal; 2023-02-05 09:40)
DX: K57.30 Diverticulosis of large intestine without perforation or abscess without bleeding (principal); Z87.891 Personal history of nicotine dependence; K64.4 Residual hemorrhoidal skin tags; Z80.0 Family history of malignant neoplasm of digestive organs; K44.9 Diaphragmatic hernia without obstruction or gangrene; K22.70 Barrett's esophagus without dysplasia; N40.0 Benign prostatic hyperplasia without lower urinary tract symptoms; K64.1 Second degree hemorrhoids; D12.5 Benign neoplasm of sigmoid colon; K31.89 Other diseases of stomach and duodenum
CPT/HCPCS: 43239; 45380; 88305; 88341; 88342; J7120; J2405

== ENCOUNTER → 2023-08-21 | Outpatient (CLI) | payer SELFPAY | END | disposition home or self-care (01) | PROVIDERS: PCP Internal Medicine | DX: Z13.6 Encounter for screening for cardiovascular disorders (principal); E78.2 Mixed hyperlipidemia; R03.0 Elevated blood-pressure reading, without diagnosis of hypertension ==

== ENCOUNTER → 2023-08-27 | Outpatient (CLI) | payer SELFPAY ==
--- NOTE | 2023-08-27 14:57 | CT_ITS ---
STUDY: CT CHEST WITHOUT CONTRAST REASON FOR EXAM: Male, 73 years old. CAD SCREEN RADIATION DOSAGE (If Supplied By Facility): CTDIvol = ( 12.19 ) mGy, DLP = ( 219.42 ) mGycm TECHNIQUE: Transaxial imaging was performed without the administration of intravenous contrast material. Cardiac over read examination. Individualized dose optimization techniques were used for this CT. COMPARISON: No relevant priors. FINDINGS: CHEST Mild increased markings at the lung bases suggests mild scarring. There is no demonstrated pleural abnormality. There are calcifications of the coronary arteries. There are small lymph nodes within the mediastinum, which are normal in size and morphology most compatible with reactive lymph hyperplasia. Normal hilar regions. Normal unenhanced pulmonary arteries. Normal aorta arch and descending thoracic aorta. There are degenerative changes of the thoracic spine. There is no demonstrated abnormality of the visualized upper abdomen. CT/Limited Chest CT Cardiac Only IMPRESSION: Coronary artery calcification. Electronically Signed: Ta Byrnes MD at 15:49 EST ,
--- OUTSIDE RECORDS SUMMARY | 2023-08-27 15:05 | XMS RPT_ITS | CCD ---
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 investigate or prosecute any alcohol or drug abuse patient.[facility] the event this information is protected by the Federal Confidentiality of Alcohol and Drug Abuse Patient Records regulations: The Federal rules restrict any use of the information to criminally investigate or prosecute any alcohol or drug abuse patient.[facility] the event this information is protected by the Federal Confidentiality of Alcohol and Drug Abuse Patient Records regulations: The Federal rules restrict any use of the information to criminally investigate or prosecute any alcohol or drug abuse patient.[facility] Reason for Visit (unrecogniz ed section and content) Reason Comments NutrEval Reason Comments Established Patient Hood's esophagus Care Teams (unrecognized sec tion and content) Base Ply Hand Relationship Specialty Start Date End Date Juan F Streeter MD [address], [place] [phone] PCP - General Family Medicine 05/09/16 Base Ply Hand Relationship Specialty Start Date End Date Juan F Streeter MD [address] [place] [place] [phone] PCP - General Family Medicine 05/09/16 Base Ply Hand Relationship Specialty Start Date End Date Juan F Streeter MD [address] [place] [address] PCP - General Family Medicine 05/09/16 Base Ply Hand Relationship Specialty Start Date End Date Juan F Streeter MD [address] [place] [address] PCP - General Family Medicine 05/09/16 Base Ply Hand Relationship Specialty Start Date End Date Juan F Streeter MD [address] [place] [address] PCP - General Family Medicine 05/09/16 Base Ply Hand Relationship Specialty Start Date End Date Juan F Streeter MD [address] [place] [address] PCP - General Family Medicine 05/09/16 Base Ply Hand Relationship Specialty Start Date End Date Juan F Streeter MD [address] [place] [address] PCP - General Family Medicine 05/09/16 Base Ply Hand Relationship Specialty Start Date End Date Juan F Streeter MD [address] [place] [address] PCP - General Family Medicine 05/09/16 Base Ply Hand Relationship Specialty Start Date End Date Juan F Streeter MD [address] [place] [address] PCP - General Family Medicine 05/09/16 Base Ply Hand Relationship Specialty Start Date End Date Juan F Streeter MD [address] [place] [address] PCP - General Family Medicine 05/09/16 Base Ply Hand Relationship Specialty Start Date End Date Juan F Streeter MD [address] [place], [place] [id number] PCP - [facility] 05/09/16 Base Ply Hand Relationship Specialty Start Date End Date Juan F Streeter MD [address] [address] PCP - [facility] 05/09/16 (unrecognized sect ion and content) No Status Records Found INFORMATION SOURCE (unrecogn ized section and content) FOR RECORDS PERTAINING TO PATIENTS WHO ARE OR HAVE BEEN ENROLLED IN A CHEMICAL DEPENDENCY/SUBSTANCEABUSE PROGRAM, SOME INFORMATION MAY BE OMITTED. This clinical summary was aggregated from multiple sources. Caution should be exercised in using it in the provision of clinical care. This summary normalizes information from multiple sources, and as a consequence, information in this document may materially change the coding, format and clinical context of patient data. In addition, data may be omitted in some cases. CLINICAL DECISIONS SHOULD BE BASED ON THE PRIMARY CLINICAL RECORDS. [facility] [employer] [facility]. provides no warranty or guarantee of the accuracy or completeness of information in this document.
--- NOTE | 2023-08-27 19:34 | CA.SCORE ---
Calcium Scoring Date of Study:: 08/27/23 Indications Indications: High coronary disease risk Coronary Calcium Scoring: High-resolution Computed Tomographic imaging of the chest was performed on [08/27/2023], with particular attention paid to the coronary arteries. Images from the examination were analyzed for the presence and extent of coronary artery calcification , using coronary calcium quantification software. The patient tolerated the procedure well and there were no complications. The results of the coronary calcification analysis are provided below. Findings Coronary Artery Left Main (LM): 130 Left Anterior Descending (LAD): 54 Left Circumflex (LCX): 27 Right Coronary Artery (RCA): 3 Total Agatston Score: 214 Percentile Rankinth to 50th percentile Calcium Scoring Interpretation: Different methods to categorize the overall amount of coronary plaque. Overall amount CAC SIS Visual of coronary plaque P1 Mild -100 <2 1-2 vessels with mild amount of plaque P2 Moderate 101-300 3-4 1-2 vessels with moderate amount, 3 vessels with mild amount of plaque P3 Severe 301-999 5-7 3 vessels with moderate amount, 1 vessel with severe amount of plaque P4 Extensive >1000 >8 2-3 vessels with severe amount of plaque Calcium Score: Moderate: 1-2 vessels w/moderate amt, 3 vessels w/mild amt of plaque Conclusion: Moderate 1-2 vessel plaque noted involving parts of the left main and the left anterior descending artery.
== END | disposition home or self-care (01) ==
PROVIDERS: PCP Internal Medicine
DX: Z13.6 Encounter for screening for cardiovascular disorders (principal); E78.2 Mixed hyperlipidemia; R03.0 Elevated blood-pressure reading, without diagnosis of hypertension; N48.89 Other specified disorders of penis
CPT/HCPCS: 75571; 76380

== ENCOUNTER 2023-09-16 08:36 | Day surgery (SDC) | payer MEDICARE, SELFPAY ==
[2023-09-16] VITALS (8 sets, daily range): BP systolic 101–148; BP diastolic 61–89; PULSE 74–95; RESP 16–17; TEMP 36.2–36.6; O2SAT 16–100; BMI 25.8
[2023-09-16] MEDS: Lactated Ringers 1,000 ML 15 ML IV (08:55)
--- NOTE | 2023-09-16 08:59 | HP.PCM_ITS ---
History and Physical Date of Admission: 09/16/23 73 M who presents to the office today for initial consult. 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 WSA established 12.19.22 noting GERD well managed with use of Pepcid.?EGD and colonoscopy 02.05.23?EGD medium hiatal hernia; Jha?s changes, metaplasia +; gastritis; duodenitis, gastric metaplasia +. H.pylori neg? Colonoscopy hemorrhoids; three hyperplastic polyps; diverticulosis? OV 08.18.23- Pt reports long hx of Jha's that was dx 4-5 years ago. Was instructed to follow up with us for management. Has been taking OTC Pepcid daily. Sx are under control with medication and diet. Kulwant dysphagia. BM are normal. No other concerns. ROS Const Constitutional: No fatigue ENT ENT: No difficulty swallowing Gastro GI: No abdominal pain, belching, bloating, change in bowel habits, change in stool character, coffee ground emesis, constipation, cramping, diarrhea, heartburn, difficulty swallowing, feeling full early, excessive flatus, incontinent of stools, Vomiting blood/hematemesis, Blood in stool, loose stools, Black,tarry stools, nausea/dyspepsia, pain with swallowing, vomiting or other Musc Musculoskeletal: Positive for joint pain, numbness, tingling and Arthritis Skin Skin: No yellowing of the eye or itchy eyes Neuro Neurology: Positive for numbness and tingling Psych Psychiatric: No anxiety and No depression Endo Endocrine: No fatigue Aller/Imm Allergy/Immunologic: No itchy eyes Edward/Lymp Hematologic/Lymphatic: No easy bleeding or easy bruising Exam Const General: cooperative and comfortable Nutritional Appearance: average body habitus and well nourished HENMT Head: normal to inspection Ears: hearing grossly normal bilaterally Nose: external nose normal Face and sinus: normal facial exam Mouth: oral mucosae normal Throat: posterior oropharynx normal Eyes General: appearance normal, both eyes and all related structures Neck Neck: normal visual inspection Chest Chest palpation & inspection: normal inspection of the chest and normal palpation of entire chest wall Resp Effort & Inspection: normal respiratory effort Auscultation: Bilateral: Clear to Auscultation Cardio Palpation: normal PMI Rate: regular rate Rhythm: regular rhythm GI Inspection: normal to inspection Auscultation: normal bowel sounds Percussion: normal to percussion Palpation: no hepatosplenomegaly Skin General: no rashes or lesions noted Neuro General: patient alert Extrem General: normal to inspection Psych Affect: normal affect Quality Reporting Tobacco Screening ([facility] 138) Smoking Status: Former smoker Assessment and Plan Assessment and Plan (1) Jha syndrome: Status: Acute Qualifiers: Jha's esophagus type: without dysplasia Qualified Code(s): K22.70 - Jha's esophagus without dysplasia Plan: Very pleasant 72-year-old gentleman referred by Dr. 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 He has been on a H2 receptor bernadette for multiple years instead of a PPI because he does not want to have side effects from The proton pump inhibitors. He underwent a surveillance endoscopy back in January [address] Rios Dockery. During that endoscopy he was discovered to have 8 cm segment of Jha's esophagus. There was no hiatal hernia noted or signs of abnormal motility of the esophagus. Biopsies were positive for intestinal metaplasia and all the biopsies. There was no signs of low-grade, high-grade dysplasia or adenocarcinoma. He has lost a significant amount of weight and his reflux has gotten a lot better. He was getting symptoms more frequently but he does not have any symptoms with the use of famotidine and lifestyle changes. He does not drink any alcohol. He still does not smoke any cigarettes. He has no family history of gastrointestinal cancer except for a first-degree relative that did have stomach cancer. I discussed with him the current guidelines from [employer] [employer] and [place] [employer] for gastrointestinal endoscopy along with his recommendations from the [place] [employer] regarding nondysplastic Jha's esophagus. There have been some studies that have shown improved outcome of the patients that have long segment Jha's esophagus without dysplasia. However this has not admitted to mainstream guidelines. I told him that is very difficult to do surveillance on very long Jha's esophagus. Therefore I would recommend that he undergo ablation with HALO 360. However I do not know if his insurance will cover the radiofrequency ablation procedure because it is 3 procedures and not 1 procedure for eradication of long segment Jha's esoph ruma. He said he would get in contact with his insurance company and he would let us know as he does not want to pay [id number] for this procedure at this time. I did recommend him to take a proton pump inhibitor twice a day on a daily basis for prophylaxis of progression of his Jha's esophagus. He is already making lifestyle changes which I think are very beneficial. I have examined the patient and the H&P has been reviewed. There are no clinical changes since date of exam.
--- NOTE | 2023-09-16 09:30 | EGD_PTH ---
PATHOLOGY RESULTS PATIENT: JYOTI CHOI LOC: EN U#:[id number] AGE/SX: 73/M ROOM: RE09/16/[address]: Dr. Cameron Cohen DO : 1950 BED: DIS: 09/16/2023 SPEC #: [id number] RECD: 09/16/23 12:18 STATUS: JAI AKUA #: [id number] KHADAR: 09/16/23 09:[address]: Cameron Cohen DEPT: SURGICAL PATHOLOGY RECD BY: Silvia Rivers ENTERED: 09/16/23 12:18 SP TYPE: EGD BIOPSY LUIS DR: Dr. Omaira Weir MD Tissues: Esophageal mucous membrane Procedures: Special Stain Group II Surgery Specimen Level IV Alcian Blue/PAS (control) HEADER OPERATION: EGD with RFA, biopsy, hemostasis PRE-OP DIAGNOSIS: Jha's syndrome TISSUE SUBMITTED: Distal esophagus MICROSCOPIC DIAGNOSIS Distal esophagus, biopsy: Gastroesophageal junctional mucosa with chronic inflammation. 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 Focal changes of reflux. No evidence of dysplasia. See comment. AM:james 09/17/2023 COMMENT Alcian blue/PAS stain with matched control supports the above diagnosis. Immunohistochemistry ([id number]) for P53 and Ki-67 will be performed and results will be reported separately. MICROSCOPIC DESCRIPTION Slides are reviewed. GROSS DESCRIPTION Received in fixative is one container labeled with the patient's name and designated distal esophagus. The specimen consists of multiple irregular fragments of light linares soft tissue that in aggregate measure 2.5 x 0.5 x 0.1 cm. The specimen is totally submitted in one cassette. / SJ:james 09/16/2023 TC:3 CPT: 66182, 01821
--- NOTE | 2023-09-16 10:31 | OP.EGD_ITS ---
Patient Name: Jeffrey Franco Procedure Date: 09/16/2023 9:28 AM Date of : 1950 Age: 73 Procedure: Upper GI endoscopy Indications: For therapy of Jha's esophagus Providers: Cameron Cohen DO Medicines: Monitored Anesthesia Care Patient Profile: This is a 73 year old male. Refer to note in patient chart for documentation of history and physical. Patient has symptoms of chronic heartburn. Complications: No immediate complications. Procedure: Pre-Anesthesia Assessment: - Prior to the procedure, a History and Physical was performed, and patient medications and allergies were reviewed. The patient is competent. The risks and benefits of the procedure and the sedation options and risks were discussed with the patient. All questions were answered and informed consent was obtained. Patient identification and proposed procedure were verified by the physician in the pre-procedure area. Mental Status Examination: alert and oriented. Airway Examination: normal oropharyngeal airway and neck mobility. Respiratory Examination: clear to auscultation. CV Examination: normal. Prophylactic Antibiotics: The patient does not require prophylactic antibiotics. Prior Anticoagulants: The patient has taken no anticoagulant or antiplatelet agents. ASA Grade Assessment: II - A patient with mild systemic disease. After reviewing the risks and benefits, the patient was deemed in satisfactory condition to undergo the procedure. The anesthesia plan was to use monitored anesthesia care (MAC). Immediately prior to administration of medications, the patient was re-assessed for adequacy to receive sedatives. The heart rate, respiratory rate, oxygen saturations, blood pressure, adequacy of pulmonary ventilation, and response to care were monitored throughout the procedure. The physical status of the patient was re-assessed after the procedure. After obtaining informed consent, the endoscope was passed under direct vision. Throughout the procedure, the patient's blood pressure, pulse, and oxygen saturations were monitored continuously. The gastroscope was introduced through the mouth, and advanced to the second part of duodenum. The upper GI endoscopy was accomplished without difficulty. The patient tolerated the procedure well. Scope In: 9:44:07 AM Scope Out: 10:19:00 AM Total Procedure Duration Time 0 hours 34 minutes 53 seconds Findings: The esophagus and gastroesophageal junction were examined with white light and narrow band imaging (NBI) from a forward view and retroflexed position. There were esophageal mucosal changes secondary to established long-segment Jha's disease. These changes involved the mucosa at the upper extent of the gastric folds (42 cm from the incisors) extending to the Z-line (31 cm from the incisors). The maximum longitudinal extent of these esophageal mucosal changes was 11 cm in length. Mucosa was biopsied with a cold forceps for histology in 4 quadrants at intervals of 1 cm in the middle third of the esophagus and in the lower third of the esophagus. One specimen bottle was sent to pathology. Estimated blood loss: none. Circumferential radiofrequency ablation of Jha's esophagus was performed using the [employer] 360 Express catheter and balloon-based endoscopic ablation system. With the endoscope in place, the position and extent of the Jha's mucosa and the anatomic landmarks including proximal and distal extent of Jha's mucosa, top of gastric folds and crural pinch were noted. Endoscopic visualization identified an ablation site including the entire visible Jha's segment. The Jha's mucosa was irrigated with saline. Gastric contents were suctioned. A guidewire was passed down the biopsy channel of the endoscope. As the endoscope was withdrawn from the mouth, the guidewire was left in place. An auto-sizing radiofrequency ablation balloon catheter was passed transorally over the guidewire into the esophagus. The endoscope was introduced in a [id number] manner with the ablation catheter. Under direct endoscopic visualization, the balloon ablation catheter was positioned so that the proximal edge of the electrode was at 30 cm from the incisors. The balloon was automatically inflated, and energy was applied at 10 J/cm2. The balloon electrode was moved 4 cm distally, so that the proximal edge of the electrode was aligned with the distal edge of the ablation zone. The process of balloon inflation and ablation was repeated until the top of the gastric folds was reached. The ablation catheter and guidewire were removed, and the balloon was cleaned. The ablation zone was then cleaned of overlying coagulative debris using irrigation and suction via the endoscope and a cleaning cap. The guidewire was reinserted, and then the ablation catheter was reintroduced into the esophagus over the wire. The ablation catheter was positioned under direct endoscopic visualization so that the proximal edge of the electrode was at the proximal edge of the ablation zone. Reinflation and a second round of ablation were performed with the application of 10 J/cm2 to re-treat the Jha's epithelium already treated with the first round of ablation. The ablation catheter and guidewire were then removed. The areas of the esophagus where Jha's mucosa had been ablated were then examined with the endoscope. Areas of visible Jha's esophagus were completely ablated. A medium-sized hiatal hernia was present. No other significant abnormalities were identified in a careful examination of the stomach. The duodenal bulb was normal. Impression: - Esophageal mucosal changes secondary to established long-segment Jha's disease. Biopsied. Treated with radiofrequency ablation. - Medium-sized hiatal hernia. - Normal duodenal bulb. Recommendation: - Discharge patient to home. - Clear liquid diet. - Continue present medications. - Await pathology results. - Repeat upper endoscopy in 3 months per protocol. Procedure Code(s): --- Professional --- 27944, Esophagogastroduodenoscopy, flexible, transoral; with ablation of tumor(s), polyp(s), or other lesion(s) (includes pre- and post-dilation and guide wire passage, when performed) 91033, 59,51, Esophagogastroduodenoscopy, flexible, transoral; with biopsy, single or multiple CPT copyright 2021 [employer]. All rights reserved. The codes documented in this report are preliminary and upon desk pen set assembler review may be revised to meet current compliance requirements. Cameron Cohen DO 09/16/2023 10:30:45 AM This report has been signed electronically. Number of Addenda: 0 Note Initiated On: 09/16/2023 9:28 AM
--- NOTE | 2023-09-16 10:31 | OP.CCLET_ITS ---
09/16/2023 Omaira Weir [facility] [address] [place] [address] Re : Upper GI endoscopy procedure for Jeffrey Franco Dear Dr. Weir This procedure was performed on Saturday, September 16, 2023. My impressions and recommendations are as follows: Impressions : - Esophageal mucosal changes secondary to established long-segment Jha's disease. Biopsied. Treated with radiofrequency ablation. - Medium-sized hiatal hernia. - Normal duodenal bulb. Recommendations : - Discharge patient to home. - Clear liquid diet. - Continue present medications. - Await pathology results. - Repeat upper endoscopy in 3 months per protocol. My findings are described in the full procedure note, which is enclosed. If I can be of further assistance, please feel free to contact me at . Sincerely, Cameron Cohen, 09/16/2023 10:30:45 AM This report has been signed electronically.
[2023-09-16] MEDS: Pantoprazole Sodium 40 MG in 0.9% Normal Saline (100mL MB+) 100 ML 330 MG IV (10:34)
--- NOTE | 2023-09-17 | IMM_PTH ---
PATHOLOGY RESULTS PATIENT: JYOTI CHOI LOC: EN U#:[id number] AGE/SX: 73/M ROOM: RE09/16/[address]: Dr. Cameron Cohen DO : 1950 BED: DIS: 09/16/2023 SPEC #: [id number] RECD: 09/17/23 11:32 STATUS: JAI REDanielle #: [id number] KHADAR: 09/17/23 00:[address]: Cmaeron Cohen DEPT: IMMUNOHISTOCHEMISTRY RECD BY: Silvia Rivers ENTERED: 09/17/23 11:33 SP TYPE: IMMUNO OT DR: Dr. Omaira Weir MD Tissues: Esophageal mucous membrane Procedures: P53 (initial) KI-67 (add) MOC-31 (add) PHYSICIAN & INSTITUTION [place] [id number] SPECIMEN INFORMATION: Tissue Source: Distal Esophagus Clinical Info: Jha's syndrome Specimen Number: [id number] CPT code: 01404, 11651 x2 METHODOLOGY: Deparaffinized sections of prefer/formalin-fixed tissue or PAP/DQ stained slides are incubated with monoclonal/polyclonal antibodies/oligonucleotide probes. Localization is made via biotin free immunoperoxidase method. Appropriate controls are performed and reacted as expected. Results on target cell population are indicated in the following table: RESULTS: ANTIBODY / CLONE RESULT P53 (DO-7) positive, wild type pattern Ki-67 (30-9) positive MOC-31 (4561) positive These tests were developed and their performance characteristics determined by [facility]. They may not have been cleared or approved by the U.S. Food and Drug Administration. The FDA has determined that such clearance or approval is not necessary. The above immunohistochemical/dualISH markers are ordered and reviewed by the Pathologist. INTERPRETATION: Distal esophagus, biopsy: No evidence of dysplasia. AM:james 09/18/2023
== END 2023-09-16 11:50 | disposition home or self-care (01) ==
LOC: EN 08:41 → AC 08:41
PROVIDERS: PCP Internal Medicine; Referring Provider Internal Medicine; Visit Provider Internal Medicine Gastroenterology
PROC: (CPT 43257; principal; 2023-09-16 09:25)
DX: K22.70 Barrett's esophagus without dysplasia (principal); K44.9 Diaphragmatic hernia without obstruction or gangrene
CPT/HCPCS: 43239; 43270; 81002; 88305; 88313; 88341; 88342; J7120; C1769; J2405

== ENCOUNTER → 2023-09-24 | Outpatient (CLI) | payer MEDICARE, SELFPAY ==
--- OUTSIDE RECORDS SUMMARY | 2023-09-24 06:48 | XMS RPT_ITS | CCD ---
Author Name Unknown Address [id number] [place] [address] Organization [facility] Care Team Providers Care Delivery And Mail Sorter Name Role Phone Juan F Streeter MD Primary Care Provider KOCZAB, KERRY Referring Unavailable JUAN F STREETER Primary Care Unavailabl e JUAN F STREETER Primary Care Unavailabl e KOCZAB, KERRY Referring Unavailable JUAN F STREETER [...] [MILK] Drug Allergy 05-05-2016 Other: See Comments [place] Work Phone: (19 sources) terbinafine; Translations: [TERBINAFINE HCL] Drug Allergy 07-03-2016 Intolerance [place] Medications Completed/Discontinued Medications Medication Drug Class(es) Dates [...] other disease; Translations: [Compound heterozygous MTHFR mutation C677T/[id number]] Onset: Episodic Results Test Name Value Interpretation Reference Range Facil ity Vital Signs Date Time Vital Sign Value Performing Clinician Roque vu 08-28-2022 15:11-0500 Body height 170.2 cm Kerry Srtong DO Work Phone: [place] 08-28-2022 15:11-0500 Body temperature 98.01 [degF] Kerry Koczab DO Work Phone: [place] 08-28-2022 15:11-0500 Body weight 80.38 kg Kerry Koczab DO Work Phone: [place] 08-28-2022 15:11-0500 Diastolic blood pressure 83 mm[Hg] Kerry Koczab DO Work Phone: [place] 08-28-2022 15:11-0500 Heart rate 81 /min Kerry Koczab DO Work Phone: [place] 08-28-2022 15:11-0500 SaO2% (BldA) [Mass fraction] 97 % Kerry Koczab DO Work Phone: [place] 08-28-2022 15:11-0500 Systolic blood pressure 131 mm[Hg] Kerry Koczab DO Work Phone: [place] 06-05-2022 14:44-0400 Body height 170.2 cm Kerry Koczab DO Work Phone: [place] 06-05-2022 14:44-0400 Body temperature 97.81 [degF] Kerry Koczab DO Work Phone: [place] 06-05-2022 14:44-0400 Body weight 79.74 kg Kerry Koczab DO Work Phone: [place] 06-05-2022 14:44-0400 Diastolic blood pressure 75 mm[Hg] Kerry Koczab DO Work Phone: [place] 06-05-2022 14:44-0400 Heart rate 95 /min Kerry Koczab DO Work Phone: [place] 06-05-2022 14:44-0400 SaO2% (BldA) [Mass fraction] 95 % Kerry Koczab DO Work Phone: [place] 06-05-2022 14:44-0400 Systolic blood pressure 160 mm[Hg] Kerry Koczab DO Work Phone: [facility] Encounters Encounter Date Encounter Type Care Provider Facility Start: 08-12-2023 ambulatory Kerry Brook durand DO Work Phone: Functional Medicine Procedures Date Procedure Procedure Detail Performing Clinician Start: 12-21-2015 Colonoscopy Kerry Strong DO Work Phone: Plan of Treatment Date Care Activity Detail Author Start: 07-22-2026 Diabetes Screening Diabetes Screening [facility] Start: 10-24-2025 DIABETES SCREEN DIABETES SCREEN [place] Start: 10-24-2025 Diabetes Screening Diabetes Screening [place] Start: 06-30-2025 DIABETES SCREEN DIABETES SCREEN [place] Start: 06-21-2024 DIABETES SCREEN DIABETES SCREEN [facility] Start: 01-27-2024 Urine microalbumin profile DTaP,Tdap,Td Vaccine (2 - Td or Tdap) [facility] Start: 07-17-2023 End: 10-16-2023 25-hydroxyvitamin D3 [Mass/volume] in Serum or Plasma VITAMIN D 25 HYDROXY Lab Routine Hood's esophagus without dysplasia Mixed hyperlipidemia Vitamin deficiency Expected: 07/17/2023, Expires: 10/16/2023 [facility] Work Phone: Immunizations Immunization Date Immunization Notes Care Provider Fa miguel 06-06-2021 influenza virus vacc ine, unspecified formulation Kerry Strong DO Work Phone: [place] Payers Date Payer Category Payer Unknown [facility] [employer] [employer] O [id number] 2021-Present [phone] [address] [place] [address] O [id number] 2021 Unknown [id number] Social History Date Type Detail Facility Start: 06-05-2022 Tobacco smoking stat us NHIS Ex-smoker [place] End: 08-17-2004 History of tobacco use Current smoker [place] End: 08-17-2004 History of tobacco use Cigarette Smoker [place] Start: 06-05-2022 Tobacco use and exposure Smoke less tobacco non-user [facility] Start: 06-05-2022 End: 08-28-2022 Alcohol intake Current drinker of alcohol (finding) [facility] Start: 06-05-2022 End: 02-12-2023 Alcohol intake [facility] Start: 1950 Sex Assigned At Male C [facility] Start: 05-03-2022 End: 05-13-2022 Exposure to SARS-CoV-2 (event) Not sure [facility] Start: 08-28-2022 End: 02-12-2023 Tobacco use panel [place] National Score (1-10 0), lower number is lower risk 75 [place] Start: 12-05-2018 Gender identity Identifies as male gender (finding) [facility] Start: 12-05-2018 Sexual orientation Heterosexual (fin ding) [facility] Clinical Notes 06-05-2022 to 07-17-2023 Patient Kerry Shen DO - 07/17/2023 9:30 AM ESTTelephone Encounter - Jessica Borrero LPN - 07/03/2023 9:02 AM ESTPatient InstructionsKerry Strong DO - 02/12/2023 1:45 PM EDT Note Date & Type Note Facility 07-17-2023 Note HNO ID: [id number] Author: Kerry Strong DO Service: ? Author Type: Physician Type: Progress Notes Filed: 07/17/2023 10:01 AM Note Text: Follow-up Visit Virtual visit I have communicated my name and active licensure. The patient's identity and physical location were verified at the time of this visit. Either the patient or their legal marketing representative has been informed of the risks [...] daily, with a meal, 60 ct Homocysteine [place] (Equipio.com) Take 2 capsules by mouth daily with [...] high number of small particles. Consider taking [place]-Sitosterol 2.0 by Sogou, one tablet three times daily with meals. Had a normal calcium score test many years ago at [facility] 07/11 High need for Mg and B12 [...] tested for c (more content not included)... [facility] 07-17-2023 Instructions Kerry Strong DO - 07/17/2023 9:56 AM EST Plan: -Check labs -Stop BPC-157 -Consider adding a high quality multivitamin such as Phytomulti by Sogou, or ONE multi by Grid2020 Encapsulations (these contain high amounts of methylated [...] one of the Heart Math booklets off [employer] that fits your 'go to' emotion - [...] the [facility] Living Store at https://store.ProviderTrust .incuBET/ as we have thoroughly evaluated the research and use only highest quality supplements. Next available appointment During the next 6-8 weeks you'll be working on your diet plan discussed with our hot top liner helper, allowing for gentle detoxification and decreasing inflammation - while we are gathering your lab results and combining those with your complete history to formulate a very personalized treatment plan. LAB results: Due to the complexity of the testing performed, we are not able to review labs via MaestroDevhart or over the phone, but please know, [...] Also make sure to schedule with the hot top liner helper (this will not happen) documented in this encounter [place] 07-17-2023 History of Presen t illness Narrative Follow-up Visit Virtual visit I have communicated my name and active licensure. The patient's identity and physical location were verified at the time of this visit. Either the patient or their legal marketing representative has been informed of the risks [...] daily, with a meal, 60 ct Homocysteine [place] (Equipio.com) Take 2 capsules by mouth daily with [...] high number of small particles. Consider taking [place]-Sitosterol 2.0 by Sogou, one tablet three times daily with meals. Had a normal calcium score test many years ago at [facility] 07/11 High need for Mg and B12 [...] 730 am 1.multi pure encapsulation o.n.e. multi https://protect-Footbalistic.Casentric /s/[email or web address]-?doma in=2.omega 3 950 mg 3 times a day 3.tart granado 1200mg 4.zinc 50mg 1 a day https://protect-Footbalistic.Casentric /s/IDppF3ysYdipoX40yyDdrhu?doma in=5.red yeast rice 2-each day 6.vitamin k [...] still hard; if he uses chamomile, cortisol home health care case manager, red glasses, epsom salt bath for [...] on weekends. 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 He is looking forward to that Primary Concern: Transfer from [facility] 04/21/17 Ongoing Health Concerns : 1 - [...] high quality multivitamin such as Phytomulti by Sogou, or ONE multi by Pure Encapsulations (these [...] one of the Heart Math booklets off [employer] that fits your 'go to' emotion - [...] visit: I recommend the supplements from the [place] [employer] Store at https://store.ROVOP/ as we have thoroughly evaluated the research and use only highest quality supplements. Next available appointment During the next 6-8 weeks you'll be working on your diet plan discussed with our hot top liner helper, allowing for gentle detoxification and decreasing inflammation - while we are gathering your lab results and combining those with your complete history to formulate a very personalized treatment plan. LAB results: Due to the complexity of the testing performed, we are not able to review labs via DNA Responset or over the phone, but please know, [...] Also make sure to schedule with the hot top liner helper (this will not happen) Time spend with patient: 30 minutes and more than 50% of the time spent counseling, as regards above Kerry Strong DO documented in this encounter [place] 07-03-2023 Miscellaneous Notes how long i need to ta ke the bcp 157? documented in this encounter [place] 02-12-2023 Note HNO ID: [id number] Author: Kerry Strong DO Service: ? Author Type: Physician Type: Progress Notes Filed: 02/12/2023 2:22 PM Note Text: Follow-up Visit Virtual visit I have communicated my name and active licensure. The patient's identity and physical location were verified at the time of this visit. Either the patient or their legal marketing representative has been informed of the risks [...] Outpatient Medications Medication Sig Dispense Refill Homocysteine [place] (Equipio.com) Take 2 capsules by mouth daily with [...] menthol 4% - Rosa's Web Hemp Extract Prescott 450 mg No current facility-administered medications for [...] well balanced diet (more content not included)... [facility] 02-12-2023 Instructions Kerry Strong, - 02/12/2023 2:16 PM EDT Plan: Trial of BPC-157 PURE Peptide caps one daily on for 5 days off for 2. Stay on this until your next EGD https://EPISpeptides.com / 2. D3 4000 international unit(s) per [...] one of the Heart Math booklets off [employer] that fits your 'go to' emotion - [...] visit: I recommend the supplements from the [place] Healthy Living Store at https://store.ProviderTrust .incuBET/ as we have thoroughly evaluated the research and use only highest quality supplements. Next available appointment 6 mos During the next 6-8 weeks you'll be working on your diet plan discussed with our hot top liner helper, allowing for gentle detoxification and decreasing inflammation - while we are gathering your lab results and combining those with your complete history to formulate a very personalized treatment plan. LAB results: Due to the complexity of the testing performed, we are not able to review labs via DNA Responset or over the phone, but please know, [...] Also make sure to schedule with the hot top liner helper (this will not happen) Kerry Strong DO documented in this encounter [place] 02-12-2023 History of Presen t illness Narrative Follow-up Visit Virtual visit I have communicated my name and active licensure. The patient's identity and physical location were verified at the time of this visit. Either the patient or their legal marketing representative has been informed of the risks [...] Outpatient Medications Medication Sig Dispense Refill Homocysteine [place] (Equipio.com) Take 2 capsules by mouth daily with [...] menthol 4% - Rosa's Web Hemp Extract Prescott 450 mg No current facility-administered medications for [...] high number of small particles. Consider taking [place]-Sitosterol 2.0 by Sogou, one tablet three times daily with meals. Had a normal calcium score test many years ago at [facility] 07/11 High need for Mg and B12 [...] 730 am 1.multi pure encapsulation o.n.e. multi https://protectPensqr.Casentric /s/78SUO6xpCoAHhU44xsPKSX-?doma in=2.omega 3 950 mg 3 times a day 3.tart granado 1200mg 4.zinc 50mg 1 a day https://protectBraingaze /s/JBpgL2doPdnvjM71ckGxikq?doma in=5.red yeast rice 2-each day 6.vitamin k [...] still hard; if he uses chamomile, cortisol home health care case manager, red glasses, epsom salt bath for [...] on weekends. 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 He is looking forward to that Primary Concern: Transfer from [facility] 04/21/17 Ongoing Health Concerns : 1 - [...] plan -see Dr. Taina Watt, GI at [facility] main to follow up on Hood's -Continue Mg glycinate, Zinc, K Force, CBD, GoodPatch, Hemp extract, Pepsin HCL -Add Homocysteine supreme by BeanJockey 2 capsules per day for arterial health [...] Stay on this until your next EGD https://EPISpeptides.com / 2. D3 4000 international unit(s) per [...] one of the Heart Math booklets off [employer] that fits your 'go to' emotion - [...] visit: I recommend the supplements from the [place] [employer] at https://[employer].ProviderTrust .incuBET/ as we have thoroughly evaluated the research and use only highest quality supplements. Next available appointment 6 mos During the next 6-8 weeks you'll be working on your diet plan discussed with our hot top liner helper, allowing for gentle detoxification and decreasing inflammation [...] Also make sure to schedule with the hot top liner helper (this will not happen) Time spend with patient: 30 minutes and more than 50% of the time spent counseling, as regards above Kerry Strong DO documented in this encounter [place] 08-28-2022 Note HNO ID: [id number] Author: Kerry Strong DO Service: ? Author Type: Physician Type: Progress Notes Filed: 08/28/2022 3:47 PM Note Text: Follow-up Visit Patient: Jeffrey Franco ALLERGIES Allergen Reactions Lamisil [Terbinafin* Intolerance heart palp. Milk Other: See Comments phlegm, avoids daily Current Outpatient Medications Medication Sig Dispense Refill Homocysteine [place] (Equipio.com) Take 2 capsules by mouth daily with [...] menthol 4% - Rosa's Web Hemp Extract Prescott 450 mg No current facility-administered medications for [...] high number of small particles. Consider taking [place]-Sitosterol 2.0 by Sogou, one tablet three times daily with meals. Had a normal calcium score test many years ago at [facility] 07/11 High need for Mg and B12 [...] sleeping until 6a (more content not included)... [facility] 08-28-2022 Instructions Kerry Strong, - 08/28/2022 3:47 PM EST Plan/Instructions/Resources: Recommendations: -Continue current diet plan -see Dr. Taina Watt, GI at [facility] main to follow up on Hood's -Continue Mg glycinate, Zinc, K Force, CBD, GoodPatch, Hemp extract, Pepsin HCL -Add Homocysteine supreme [facility] 2 capsules per day for [...] one of the Heart Math booklets off [employer] that fits your 'go to' emotion - [...] Medications/Supplements Recommended: Orders Placed This Encounter Homocysteine [place] (imbookin (Pogby) for Geoloqi) Sig: Take 2 capsules by mouth daily with food. Follow up visit: I recommend the supplements from the [place] [employer] Store at https://store.ProviderTrust .incuBET/ as we have thoroughly evaluated the research and use only highest quality supplements. Follow up 6 months During the next 6-8 weeks you'll be working on your diet plan discussed with our hot top liner helper, allowing for gentle detoxification and decreasing inflammation [...] Also make sure to schedule with the hot top liner helper (this will not happen) Kerry Strong DO documented in this encounter [place] 08-28-2022 History of Presen t illness Narrative Follow-up Visit Patient: Jeffrey Franco ALLERGIES Allergen Reactions Lamisil [Terbinafin* Intolerance heart palp. Milk Other: See Comments phlegm, avoids daily Current Outpatient Medications Medication Sig Dispense Refill Homocysteine [place] (imbookin (Pogby) for Geoloqi) Take 2 capsules by mouth daily with [...] menthol 4% - Rosa's Web Hemp Extract Prescott 450 mg No current facility-administered medications for [...] high number of small particles. Consider taking [place]-Sitosterol 2.0 by Sogou, one tablet three times daily with meals. Had a normal calcium score test many years ago at [facility] 07/11 High need for Mg and B12 [...] rosehip,elderberrie,orange ,lemon juice half squessed dash of [facility] salt steeped 730 am 1.multi pure encapsulation o.n.e. multi https://protect-Footbalistic.Casentric /s/47NGD0cpNhQCpP28ufSMLE-?doma in=2.omega 3 950 mg 3 times a day 3.tart granado 1200mg 4.zinc 50mg 1 a day https://protectPensqr.Casentric /s/RMzjP5kjVernkW67rkQhgfm?doma in=5.red yeast rice 2-each day 6.vitamin k vegan 1 a day 7. kulwinder gla 1 a day Breakfast food rotate oats/rice cereal With flax ,cinnamin fresh fruit Breaktime in mornings Fredy/sunflower butter/avocado/raisins Coffee with almond milk daily Late morning Light cooked carrots small jar 4 ounces or so organic chicken bone broth Lunc Light cooked broccoli,cauliflower,steam spinach light salt [facility] and pepper With avocado Supper I home [...] still hard; if he uses chamomile, cortisol home health care case manager, red glasses, epsom salt bath for [...] on weekends. 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 He is looking forward to that Primary Concern: Transfer from [facility] 04/21/17 Ongoing Health Concerns : 1 - [...] Plan/Instructions/Resources: When NoW 3-6-9 runs out, get [employer] Algae based omega-3 Assessment P ICD-10-CM PL 1. Compound heterozygous MTHFR mutation C677T/[id number] Z15.89 Change Dx 2. Deficiency of nutrient [...] plan -see Dr. Taina Watt, GI at [facility] main to follow up on Hood's [...] one of the Heart Math booklets off [employer] that fits your 'go to' emotion - [...] Medications/Supplements Recommended: Orders Placed This Encounter Homocysteine (imbookin (Pogby) for Geoloqi) Sig: Take 2 capsules by mouth daily with food. Follow up visit: I recommend the supplements from the [place] [employer] at https://store.ROVOP/ as we have thoroughly evaluated the research and use only highest quality supplements. Follow up 6 months During the next 6-8 weeks you'll be working on your diet plan discussed with our hot top liner helper, allowing for gentle detoxification and decreasing inflammation - while we are gathering your lab results and combining those with your complete history to formulate a very personalized treatment plan. LAB results: Due to the complexity of the testing performed, we are not able to review labs via DNA Responset or over the phone, but please know, [...] Also make sure to schedule with the hot top liner helper (this will not happen) Time spend with patient: 30 minutes and more than 50% of the time spent counseling, as regards above Kerry Strong DO documented in this encounter [place] 06-23-2022 Miscellaneous Notes Patient called back with [...] menthol 4% - Rosa's Web Hemp Extract Prescott 450 mg Images from the original note [...] & Pains Cream Rosa's Web Hemp Extract Prescott 450 mg documented in this encounter [place] 06-05-2022 History of Presen t illness Narrative Follow-up Visit Patient: Jeffrey Franco ALLERGIES Allergen Reactions Lamisil [Terbinafin* Intolerance heart palp. Milk Other: See Comments phlegm, avoids daily Current Outpatient Medications Medication Sig Dispense Refill Digestion GB 180 ct. (Pure Encapsulations) Take 1 capsule with meals GI-Revive 225 gram Powder (Equipio.com) Take 1 tablespoons twice daily (1 tablespoon = 1.5 grams L-glut) PhytoMulti (Metagenics) 2 capsules daily with food Vitamin D [place] (Equipio.com) Take 1 capsule by mouth daily with food. OTC PRODUCT - Vitamin C 500 mg once daily - Pure Encapsulations Multivitamin once daily - Devers 3 950 mg twice daily (Devers EPA 504 DHA 378) - Betaine HCL [...] 730 am 1.multi pure encapsulation o.n.e. multi https://protect-Footbalistic.Casentric /s/32AUJ9meSdVUoC09isDRCP-?doma in=2.omega 3 950 mg 3 times a day 3.tart granado 1200mg 4.zinc 50mg 1 a day https://protectPensqr.Casentric /s/GAsmL2qnGycchS75yaMrrat?doma in=5.red yeast rice 2-each day 6.vitamin k [...] still hard; if he uses chamomile, cortisol home health care case manager, red glasses, epsom salt bath for [...] on weekends. 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 He is looking forward to that Primary Concern: Transfer from [facility] 04/21/17 Ongoing Health Concerns : 1 - [...] Plan/Instructions/Resources: When NoW 3-6-9 runs out, get [place] [employer] Algae based omega-3 Future Plans: Functional [...] one of the Heart Math booklets off [employer] that fits your 'go to' emotion - [...] 10 days) Insight Meditation Timer- (Free)-Great all-around richadr to use for guided meditations of many [...] visit: I recommend the supplements from the [place] Healthy Living Store at https://store.ProviderTrust .incuBET/ as we have thoroughly evaluated the research and use only highest quality supplements. Follow up in 8-10 weeks During the next 6-8 weeks you'll be working on your diet plan discussed with our hot top liner helper, allowing for gentle detoxification and decreasing inflammation - while we are gathering your lab results and combining those with your complete history to formulate a very personalized treatment plan. 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 of nutrient element Unspecified nutritional deficiency Mixed hyperlipidemia documented [facility]* Diagnosis Mixed hyperlipidemia- Primary Borderline diabetes mellitus Other abnormal glucose Hood's esophagus without dysplasia Hood's esophagus Abnormal stool test Nonspecific abnormal finding in stool contents documented [facility]* Diagnosis Hood's esophagus without dysplasia- Primary Hood's esophagus Vitamin deficiency Unspecified vitamin deficiency Mixed hyperlipidemia [facility] in [facility]* Diagnosis Hood's esophagus without dysplasia- Primary Hood's esophagus Mixed hyperlipidemia Vitamin deficiency Unspecified vitamin deficiency [facility]* Diagnosis Increased glucose level- Primary Other abnormal glucose Hood's esophagus without dysplasia Hood's esophagus documented in this encounter [place] Summary Purpose Family History No Family History [...] or prosecute any alcohol or drug abuse patient.[place] the event this information is protected by the Federal Confidentiality of Alcohol and Drug Abuse Patient Records regulations: The Federal rules restrict any use of the information to criminally investigate or prosecute any alcohol or drug abuse patient.CentervilleIn the event this information is protected by the Federal Confidentiality of Alcohol and Drug Abuse Patient Records regulations: The Federal rules restrict any use of the information to criminally investigate or prosecute any alcohol or drug abuse patient.CentervilleIn the event this information is protected by the Federal Confidentiality of Alcohol and Drug Abuse Patient Records regulations: The Federal rules restrict any use of the information to criminally investigate or prosecute any alcohol or drug abuse patient.CentervilleIn the event this information is protected by the Federal Confidentiality of Alcohol and Drug Abuse Patient Records regulations: The Federal rules restrict any use of the information to criminally investigate or prosecute any alcohol or drug abuse patient.CentervilleIn the event this information is protected by the Federal Confidentiality of Alcohol and Drug Abuse Patient Records regulations: The Federal rules restrict any use of the information to criminally investigate or prosecute any alcohol or drug abuse patient.CentervilleIn the event this information is protected by the Federal Confidentiality of Alcohol and Drug Abuse Patient Records regulations: The Federal rules restrict any use of the information to criminally investigate or prosecute any alcohol or drug abuse patient.CentervilleIn the event this information is protected by the Federal Confidentiality of Alcohol and Drug Abuse Patient Records regulations: The Federal rules restrict any use of the information to criminally investigate or prosecute any alcohol or drug abuse patient.CentervilleIn the event this information is protected by the Federal Confidentiality of Alcohol and Drug Abuse Patient Records regulations: The Federal rules restrict any use of the information to criminally investigate or prosecute any alcohol or drug abuse patient.CentervilleIn the event this information is protected by the Federal Confidentiality of Alcohol and Drug Abuse Patient Records regulations: The Federal rules restrict any use of the information to criminally investigate or prosecute any alcohol or drug abuse patient.CentervilleIn the event this information is protected by the Federal Confidentiality of Alcohol and Drug Abuse Patient Records regulations: The Federal rules restrict any use of the information to criminally investigate or prosecute any alcohol or drug abuse patient.CentervilleIn the event this information is protected by the Federal Confidentiality of Alcohol and Drug Abuse Patient Records regulations: The Federal rules restrict any use of the information to criminally investigate or prosecute any alcohol or drug abuse patient.CentervilleIn the event this information is protected by the Federal Confidentiality of Alcohol and Drug Abuse Patient Records regulations: The Federal rules restrict any use of the information to criminally investigate or prosecute any alcohol or drug abuse patient.CentervilleIn the event this information is protected by the Federal Confidentiality of Alcohol and Drug Abuse Patient Records regulations: The Federal rules restrict any use of the information to criminally investigate or prosecute any alcohol or drug abuse patient.CentervilleIn the event this information is protected by the Federal Confidentiality of Alcohol and Drug Abuse Patient Records regulations: The Federal rules restrict any use of the information to criminally investigate or prosecute any alcohol or drug abuse patient.CentervilleIn the event this information is protected by the Federal Confidentiality of Alcohol and Drug Abuse Patient Records regulations: The Federal rules restrict any use of the information to criminally investigate or prosecute any alcohol or drug abuse patient.CentervilleIn the event this information is protected by the Federal Confidentiality of Alcohol and Drug Abuse Patient Records regulations: The Federal rules restrict any use of the information to criminally investigate or prosecute any alcohol or drug abuse patient.CentervilleIn the event this information is protected by the Federal Confidentiality of Alcohol and Drug Abuse Patient Records regulations: The Federal rules restrict any use of the information to criminally investigate or prosecute any alcohol or drug abuse patient.[place] Reason for Visit (unrecogniz ed section and content) Reason Comments NutrEval Reason Comments Established Patient Hood's esophagus Care Teams (unrecognized sec tion and content) Delivery And Mail Sorter Relationship Specialty Start Date End Date Juan F Streeter MD [address], [place] [id number] PCP - General Family Medicine 05/09/16 Delivery And Mail Sorter Relationship Specialty Start Date End Date Juan F Streeter MD [address] [facility] [place] [place] [id number] PCP - General Family Medicine 05/09/16 Delivery And Mail Sorter Relationship Specialty Start Date End Date Juan F Streeter MD [address] [place] [address] PCP - General Family Medicine 05/09/16 Delivery And Mail Sorter Relationship Specialty Start Date End Date Juan F Streeter MD [address] [place] [address] PCP - General Family Medicine 05/09/16 Delivery And Mail Sorter Relationship Specialty Start Date End Date Juan F Streeter MD [address] [place] [address] PCP - General Family Medicine 05/09/16 Delivery And Mail Sorter Relationship Specialty Start Date End Date Juan F Streeter MD [address] [place] [address] PCP - General Family Medicine 05/09/16 Delivery And Mail Sorter Relationship Specialty Start Date End Date Juan F Streeter MD [address] [place] [address] PCP - General Family Medicine 05/09/16 Delivery And Mail Sorter Relationship Specialty Start Date End Date Juan F Streeter MD [address] [facility] [place] [address] PCP - General Family Medicine 05/09/16 Delivery And Mail Sorter Relationship Specialty Start Date End Date Juan F Streeter MD [address] [place] [address] PCP - General Family Medicine 05/09/16 Delivery And Mail Sorter Relationship Specialty Start Date End Date Juan F Streeter MD [address] [place] [address] PCP - General Family Medicine 05/09/16 Delivery And Mail Sorter Relationship Specialty Start Date End Date Juan F Streeter MD [address] [facility] [place], [place] [address] PCP - [facility] 05/09/16 Delivery And Mail Sorter Relationship Specialty Start Date End Date Juan F Streeter MD [address] [place] [address] PCP - [facility] 05/09/16 (unrecognized sect ion and content) [...] BE BASED ON THE PRIMARY CLINICAL RECORDS. [facility] [employer] [facility]. provides no warranty or guarantee of the accuracy or completeness of information in this document.
--- NOTE | 2023-09-24 15:37 | STRESSREP_ITS ---
Stress Test Report Date: 09/24/2023 Procedure: Exercise tolerance test/imaging study Indications: Coronary artery disease Consent: Per the patient Procedure: The patient exercised on a Suraj protocol for 3 minutes and 30 seconds achieving a peak heart rate of 151 bpm (101% predicted maximal heart rate) with a peak blood pressure 160/72 mmHg and a peak MET capacity of 5.8 METs. The baseline ECG demonstrated sinus rhythm with nonspecific ST changes. The peak exercise ECG demonstrated exaggeration of the baseline ST changes. There were no cardiac dysrhythmias pretest, during exercise, or recovery. The functional capacity was considered below average. There was no complaint of chest discomfort during exercise or recovery. The examination was discontinued secondary to target heart rate being achieved. The patient was injected with 12.0 mCi of technetium 99m Cardiolite and subsequently rest SPECT Cardiolite nuclear imaging was obtained in the horizontal long, vertical long, and short axis views. Post-exercise, the patient was injected with 34.8 mCi of technetium 99m Cardiolite and subsequently stress SPECT Cardiolite nuclear imaging was obtained in the horizontal long, vertical long, and short axis views. A gated Cardiolite study at peak stress was obtained. Rest and stress SPECT Cardiolite nuclear imaging status post realignment, normalization, and attenuation correction, demonstrates the appearance of relative uniform tracer uptake and myocardial perfusion appearing within normal limits. There is end systolic thickening and brightening. The gated Cardiolite study demonstrates myocardial thickening and inward wall motion. The reported LVEF is 62%. Impression: 1. Technically adequate (percent predicted maximal heart rate greater than 85%) exercise tolerance test 2. Peak exercise ECG with exaggeration of the baseline changes. Nondiagnostic. 3. There were no cardiac dysrhythmias pretest, during exercise, or recovery 4. Rest and stress SPECT Cardiolite nuclear imaging demonstrate relative uniform tracer uptake and myocardial perfusion appearing within normal limits. 5. The gated Cardiolite study reports an LVEF of 62%. This note was generated with [employer] software. It may contain incorrect words, spelling, and punctuation that were not noted in checking the note before signing.
== END | disposition home or self-care (01) ==
LOC: CVS 06:45
PROVIDERS: PCP Internal Medicine; Referring Provider Internal Medicine; Visit Provider Internal Medicine
DX: R94.31 Abnormal electrocardiogram [ECG] [EKG] (principal); R93.1 Abnormal findings on diagnostic imaging of heart and coronary circulation
CPT/HCPCS: 78452; 93017; A9500; A4216

== ENCOUNTER → 2023-10-05 | Outpatient (CLI) | payer MEDICARE, SELFPAY | END | disposition home or self-care (01) | PROVIDERS: PCP Internal Medicine; Referring Provider Internal Medicine; Visit Provider Internal Medicine | DX: E78.5 Hyperlipidemia, unspecified (principal) | CPT/HCPCS: 36415 ==

== ENCOUNTER 2023-10-22 08:27 | Day surgery (SDC) | payer MEDICARE, SELFPAY ==
--- NOTE | 2023-10-22 | ESO_PTH ---
PATHOLOGY RESULTS PATIENT: JYOTI CHOI LOC: EN U#:[id number] AGE/SX: 73/M ROOM: RE10/22/[address]: Dr. Cameron Cohen DO : 1950 BED: DIS: 10/22/2023 SPEC #: [id number] RECD: 10/22/23 13:43 STATUS: JAI AKUA #: [id number] KHADAR: 10/22/23 00:[address]: Cameron Cohen DEPT: SURGICAL PATHOLOGY RECD BY: Nishant Hartley ENTERED: 10/22/23 13:43 SP TYPE: JAYDON SMITH DR: Dr. Omaira Weir MD Tissues: Esophagus, NOS Procedures: Special Stain Group II Surgery Specimen Level IV Alcian Blue/PAS (control) HEADER OPERATION: EGD with radiofrequency ablation and biopsies PRE-OP DIAGNOSIS: Jha's syndrome TISSUE SUBMITTED: 35.0 cm in esophagus at 7 o'clock position biopsy MICROSCOPIC DIAGNOSIS Esophagus at 35.0 cm, 7 o'clock position, biopsy: Fragments of gastroesophageal mucosa with focal intestinal metaplasia (goblet cell metaplasia), consistent with Jha's esophagus. Focal ulceration, acute and chronic inflammation. Negative for dysplasia. See comment. ERIKA:james 10/23/2023 COMMENT Alcian blue/PAS stain with matched control is used in the evaluation of the specimen. Immunohistochemistry ([id number]) for P53 and Ki-67 will be performed and results will be reported separately. MICROSCOPIC DESCRIPTION Slides are reviewed. GROSS DESCRIPTION Received in fixative is one container labeled with the patient's name and designated 35.0 cm in esophagus at 7 o'clock position. The specimen consists of multiple irregular fragments of light linares soft tissue that in aggregate measure 0.8 x 0.2 x 0.1 cm. The specimen is totally submitted in one cassette. / ERIKA:james 10/22/2023 TC:5 CPT: 17463, 11810
--- NOTE | 2023-10-22 | IMM_PTH ---
PATHOLOGY RESULTS PATIENT: JYOTI CHOI LOC: EN U#:[id number] AGE/SX: 73/M ROOM: RE10/22/[address]: Dr. Cameron Cohen DO : 1950 BED: DIS: 10/22/2023 SPEC #: [id number] RECD: 10/23/23 12:43 STATUS: JAI REDanielle #: [id number] KHADAR: 10/22/23 00:[address]: Cameron Cohen DEPT: IMMUNOHISTOCHEMISTRY RECD BY: Marcela Max ENTERED: 10/23/23 12:44 SP TYPE: IMMUNO OTHR DR: Dr. Omaira Weir MD Tissues: Esophagus, NOS Procedures: P53 (initial) KI-67 (add) PHYSICIAN & INSTITUTION [address] [address] SPECIMEN INFORMATION: Tissue Source: Esophagus at 35.0 cm, 7 o'clock position Clinical Info: Jha's syndrome Specimen Number: [id number] CPT code: 57190, 28485 METHODOLOGY: Deparaffinized sections of prefer/formalin-fixed tissue or PAP/DQ stained slides are incubated with monoclonal/polyclonal antibodies/oligonucleotide probes. Localization is made via biotin free immunoperoxidase method. Appropriate controls are performed and reacted as expected. Results on target cell population are indicated in the following table: RESULTS: ANTIBODY / CLONE RESULT P53 (DO-7) positive, focal (wild type pattern) Ki-67 (30-9) positive, low These tests were developed and their performance characteristics determined by [facility]. They may not have been cleared or approved by the U.S. Food and Drug Administration. The FDA has determined that such clearance or approval is not necessary. The above immunohistochemical/dualISH markers are ordered and reviewed by the Pathologist. INTERPRETATION: Esophagus at 35.0 cm, 7 o'clock position, biopsy: Negative for dysplasia. ERIKA:james 10/26/2023
[2023-10-22 08:51] VITALS: BP 138/77; PULSE 78; RESP 17; TEMP 36.4; O2SAT 98; BMI 25.5
[2023-10-22] MEDS: Lactated Ringers 1,000 ML 15 ML IV (08:54)
--- NOTE | 2023-10-22 09:01 | HP.PCM_ITS ---
History and Physical Date of Admission: 10/22/23 73 M who presents to the office today for initial consult. 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 WSA established 12.19.22 noting GERD well managed with use of Pepcid.?EGD and colonoscopy 02.05.23?EGD medium hiatal hernia; Jha?s changes, metaplasia +; gastritis; duodenitis, gastric metaplasia +. H.pylori neg? Colonoscopy hemorrhoids; three hyperplastic polyps; diverticulosis? OV .24- Pt reports long hx of Jha's that was dx 4-5 years ago. Was instructed to follow up with us for management. Has been taking OTC Pepcid daily. Sx are under control with medication and diet. Kulwant dysphagia. BM are normal. No other concerns. ROS Const Constitutional: No fatigue ENT ENT: No difficulty swallowing Gastro GI: No abdominal pain, belching, bloating, change in bowel habits, change in stool character, coffee ground emesis, constipation, cramping, diarrhea, heartburn, difficulty swallowing, feeling full early, excessive flatus, incontinent of stools, Vomiting blood/hematemesis, Blood in stool, loose stools, Black,tarry stools, nausea/dyspepsia, pain with swallowing, vomiting or other Musc Musculoskeletal: Positive for joint pain, numbness, tingling and Arthritis Skin Skin: No yellowing of the eye or itchy eyes Neuro Neurology: Positive for numbness and tingling Psych Psychiatric: No anxiety and No depression Endo Endocrine: No fatigue Aller/Imm Allergy/Immunologic: No itchy eyes Edward/Lymp Hematologic/Lymphatic: No easy bleeding or easy bruising Exam Const General: cooperative and comfortable Nutritional Appearance: average body habitus and well nourished HENMT Head: normal to inspection Ears: hearing grossly normal bilaterally Nose: external nose normal Face and sinus: normal facial exam Mouth: oral mucosae normal Throat: posterior oropharynx normal Eyes General: appearance normal, both eyes and all related structures Neck Neck: normal visual inspection Chest Chest palpation & inspection: normal inspection of the chest and normal palpation of entire chest wall Resp Effort & Inspection: normal respiratory effort Auscultation: Bilateral: Clear to Auscultation Cardio Palpation: normal PMI Rate: regular rate Rhythm: regular rhythm GI Inspection: normal to inspection Auscultation: normal bowel sounds Percussion: normal to percussion Palpation: no hepatosplenomegaly Skin General: no rashes or lesions noted Neuro General: patient alert Extrem General: normal to inspection Psych Affect: normal affect Quality Reporting Tobacco Screening ([facility] 138) Smoking Status: Former smoker Assessment and Plan Assessment and Plan (1) Jha syndrome: Status: Acute Qualifiers: Jha's esophagus type: without dysplasia Qualified Code(s): K22.70 - Jha's esophagus without dysplasia Plan: Very pleasant 72-year-old gentleman referred by Dr. 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 He has been on a H2 receptor bernadette for multiple years instead of a PPI because he does not want to have side effects from The proton pump inhibitors. He underwent a surveillance endoscopy back in January [address] Rios Dockery. During that endoscopy he was discovered to have 8 cm segment of Jha's esophagus. There was no hiatal hernia noted or signs of abnormal motility of the esophagus. Biopsies were positive for intestinal metaplasia and all the biopsies. There was no signs of low-grade, high-grade dysplasia or adenocarcinoma. He has lost a significant amount of weight and his reflux has gotten a lot better. He was getting symptoms more frequently but he does not have any symptoms with the use of famotidine and lifestyle changes. He does not drink any alcohol. He still does not smoke any cigarettes. He has no family history of gastrointestinal cancer except for a first-degree relative that did have stomach cancer. I discussed with him the current guidelines from [place] [employer] and [place] [employer] for gastrointestinal endoscopy along with his recommendations from the [place] [employer] regarding nondysplastic Jha's esophagus. There have been some studies that have shown improved outcome of the patients that have long segment Jha's esophagus without dysplasia. However this has not admitted to mainstream guidelines. I told him that is very difficult to do surveillance on very long Jha's esophagus. Therefore I would recommend that he undergo ablation with HALO 360. However I do not know if his insurance will cover the radiofrequency ablation procedure because it is 3 procedures and not 1 procedure for eradication of long segment Jha's esoph ruma. He said he would get in contact with his insurance company and he would let us know as he does not want to pay [id number] for this procedure at this time. I did recommend him to take a proton pump inhibitor twice a day on a daily basis for prophylaxis of progression of his Jha's esophagus. He is already making lifestyle changes which I think are very beneficial. I have examined the patient and the H&P has been reviewed. There are no clinical changes since date of exam.
[2023-10-22 09:45] VITALS: BP 138/77; BP 99/70; PULSE 98; RESP 18; TEMP 36.5; O2SAT 94
[2023-10-22 09:50] VITALS: BP 110/76; BP 138/77; PULSE 85; RESP 18; O2SAT 94
[2023-10-22 09:55] VITALS: BP 125/82; BP 138/77; PULSE 95; RESP 18; O2SAT 94
[2023-10-22 10:00] VITALS: BP 124/84; BP 138/77; PULSE 78; RESP 18; TEMP 36.3; O2SAT 96
[2023-10-22 10:13] VITALS: BP 138/77
== END 2023-10-22 10:34 | disposition home or self-care (01) ==
LOC: EN 08:27 → AC 08:28
PROVIDERS: PCP Internal Medicine; Referring Provider Internal Medicine; Visit Provider Internal Medicine Gastroenterology
PROC: (CPT 43257; principal; 2023-10-22 09:25)
DX: K22.70 Barrett's esophagus without dysplasia (principal); K44.9 Diaphragmatic hernia without obstruction or gangrene; Z90.49 Acquired absence of other specified parts of digestive tract; Z87.891 Personal history of nicotine dependence
CPT/HCPCS: 43270; 43239; 88305; 88313; 88341; 88342; J7120; C1769; J2405

== ENCOUNTER → 2023-11-30 | Outpatient (CLI) | payer MEDICARE, SELFPAY ==
[2023-12-02 13:08] LABS: PSA, Free 2.32 ng/mL; PSA, Free % 21.7 % (.)
== END | disposition home or self-care (01) ==
LOC: LAB 16:22
PROVIDERS: PCP Internal Medicine; Referring Provider Urology; Visit Provider Urology
DX: R97.20 Elevated prostate specific antigen [PSA] (principal)
CPT/HCPCS: 36415; 84153; 84154

== ENCOUNTER 2023-12-03 05:28 | Day surgery (SDC) | payer MEDICARE, SELFPAY ==
[2023-12-03] VITALS (7 sets, daily range): BP systolic 102–131; BP diastolic 67–82; PULSE 71–80; RESP 16–18; TEMP 36.2–36.6; O2SAT 84–99; BMI 24.5
[2023-12-03] MEDS: Lactated Ringers 1,000 ML 15 ML IV (06:05)
--- NOTE | 2023-12-03 06:45 | PCM.HP.BLA ---
History and Physical Date of Admission: 12/03/23 73 M who presents to the office today for initial consult. 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 WSA established 12.19.22 noting GERD well managed with use of Pepcid.?EGD and colonoscopy 02.05.23?EGD medium hiatal hernia; Jha?s changes, metaplasia +; gastritis; duodenitis, gastric metaplasia +. H.pylori neg? Colonoscopy hemorrhoids; three hyperplastic polyps; diverticulosis? OV ..24- Pt reports long hx of Jha's that was dx 4-5 years ago. Was instructed to follow up with us for management. Has been taking OTC Pepcid daily. Sx are under control with medication and diet. Kulwant dysphagia. BM are normal. No other concerns. ROS Const Constitutional: No fatigue ENT ENT: No difficulty swallowing Gastro GI: No abdominal pain, belching, bloating, change in bowel habits, change in stool character, coffee ground emesis, constipation, cramping, diarrhea, heartburn, difficulty swallowing, feeling full early, excessive flatus, incontinent of stools, Vomiting blood/hematemesis, Blood in stool, loose stools, Black,tarry stools, nausea/dyspepsia, pain with swallowing, vomiting or other Musc Musculoskeletal: Positive for joint pain, numbness, tingling and Arthritis Skin Skin: No yellowing of the eye or itchy eyes Neuro Neurology: Positive for numbness and tingling Psych Psychiatric: No anxiety and No depression Endo Endocrine: No fatigue Aller/Imm Allergy/Immunologic: No itchy eyes Edward/Lymp Hematologic/Lymphatic: No easy bleeding or easy bruising Exam Const General: cooperative and comfortable Nutritional Appearance: average body habitus and well nourished HENMT Head: normal to inspection Ears: hearing grossly normal bilaterally Nose: external nose normal Face and sinus: normal facial exam Mouth: oral mucosae normal Throat: posterior oropharynx normal Eyes General: appearance normal, both eyes and all related structures Neck Neck: normal visual inspection Chest Chest palpation & inspection: normal inspection of the chest and normal palpation of entire chest wall Resp Effort & Inspection: normal respiratory effort Auscultation: Bilateral: Clear to Auscultation Cardio Palpation: normal PMI Rate: regular rate Rhythm: regular rhythm GI Inspection: normal to inspection Auscultation: normal bowel sounds Percussion: normal to percussion Palpation: no hepatosplenomegaly Skin General: no rashes or lesions noted Neuro General: patient alert Extrem General: normal to inspection Psych Affect: normal affect Quality Reporting Tobacco Screening ([facility] 138) Smoking Status: Former smoker Assessment and Plan Assessment and Plan (1) Jha syndrome: Status: Acute Qualifiers: Jha's esophagus type: without dysplasia Qualified Code(s): K22.70 - Jha's esophagus without dysplasia Plan: Very pleasant 72-year-old gentleman referred by Dr. 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 He has been on a H2 receptor bernadette for multiple years instead of a PPI because he does not want to have side effects from The proton pump inhibitors. He underwent a surveillance endoscopy back in January [address] Rios Dockery. During that endoscopy he was discovered to have 8 cm segment of Jha's esophagus. There was no hiatal hernia noted or signs of abnormal motility of the esophagus. Biopsies were positive for intestinal metaplasia and all the biopsies. There was no signs of low-grade, high-grade dysplasia or adenocarcinoma. He has lost a significant amount of weight and his reflux has gotten a lot better. He was getting symptoms more frequently but he does not have any symptoms with the use of famotidine and lifestyle changes. He does not drink any alcohol. He still does not smoke any cigarettes. He has no family history of gastrointestinal cancer except for a first-degree relative that did have stomach cancer. I discussed with him the current guidelines from [employer] [place] [employer] and [place] [employer] for gastrointestinal endoscopy along with his recommendations from the [employer] [place] [employer] regarding nondysplastic Jha's esophagus. There have been some studies that have shown improved outcome of the patients that have long segment Jha's esophagus without dysplasia. However this has not admitted to mainstream guidelines. I told him that is very difficult to do surveillance on very long Jha's esophagus. Therefore I would recommend that he undergo ablation with HALO 360. However I do not know if his insurance will cover the radiofrequency ablation procedure because it is 3 procedures and not 1 procedure for eradication of long segment Jha's esophagus. He said he would get in contact with his insurance company and he would let us know as he does not want to pay [id number] for this procedure at this time. I did recommend him to take a proton pump inhibitor twice a day on a daily basis for prophylaxis of progression of his Jha's esophagus. He is already making lifestyle changes which I think are very beneficial. I have examined the patient and the H&P has been reviewed. There are no clinical changes since date of exam.
--- NOTE | 2023-12-03 07:20 | OP.EGD_ITS ---
Patient Name: Jeffrey Franco Procedure Date: 12/03/2023 6:25 AM Date of : 1950 Age: 73 Procedure: Upper GI endoscopy Indications: For therapy of Jha's esophagus Providers: Cameron Cohen DO Referring MD: Omaira Weir Medicines: Monitored Anesthesia Care Patient Profile: This is a 73 year old male. Refer to note in patient chart for documentation of history and physical. Patient has symptoms of chronic heartburn. Complications: No immediate complications. Procedure: Pre-Anesthesia Assessment: - Prior to the procedure, a History and Physical was performed, and patient medications and allergies were reviewed. The patient is competent. The risks and benefits of the procedure and the sedation options and risks were discussed with the patient. All questions were answered and informed consent was obtained. Patient identification and proposed procedure were verified by the physician. Mental Status Examination: alert and oriented. Airway Examination: normal oropharyngeal airway and neck mobility. Respiratory Examination: clear to auscultation. CV Examination: normal. Prophylactic Antibiotics: The patient does not require prophylactic antibiotics. Prior Anticoagulants: The patient has taken no anticoagulant or antiplatelet agents. ASA Grade Assessment: II - A patient with mild systemic disease. After reviewing the risks and benefits, the patient was deemed in satisfactory condition to undergo the procedure. The anesthesia plan was to use monitored anesthesia care (MAC). Immediately prior to administration of medications, the patient was re-assessed for adequacy to receive sedatives. The heart rate, respiratory rate, oxygen saturations, blood pressure, adequacy of pulmonary ventilation, and response to care were monitored throughout the procedure. The physical status of the patient was re-assessed after the procedure. After obtaining informed consent, the endoscope was passed under direct vision. Throughout the procedure, the patient's blood pressure, pulse, and oxygen saturations were monitored continuously. The Endoscope was introduced through the mouth, and advanced to the second part of duodenum. The upper GI endoscopy was accomplished without difficulty. The patient tolerated the procedure well. Scope In: 6:50:56 AM Scope Out: 7:10:46 AM Total Procedure Duration Time 0 hours 19 minutes 50 seconds Findings: There were esophageal mucosal changes consistent with long-segment Jha's esophagus present in the lower third of the esophagus. The maximum longitudinal extent of these mucosal changes was 7 cm in length. Circumferential radiofrequency ablation of Jha's esophagus was performed using the Barrx 360 Express catheter and balloon-based endoscopic ablation system. With the endoscope in place, the position and extent of the Jha's mucosa and the anatomic landmarks including top of gastric folds were noted. Endoscopic visualization identified an ablation site including the entire visible Jha's segment. The Jha's mucosa was irrigated with water. Gastric contents were suctioned. A guidewire was passed down the biopsy channel of the endoscope. As the endoscope was withdrawn from the mouth, the guidewire was left in place. An auto-sizing radiofrequency ablation balloon catheter was passed transorally over the guidewire into the esophagus. The endoscope was introduced in a [id number] manner with the ablation catheter. Under direct endoscopic visualization, the balloon ablation catheter was positioned so that the proximal edge of the electrode was slightly above the proximal edge of the Jha's mucosa. The balloon was automatically inflated, and energy was applied at 10 J/cm2. The balloon electrode was moved 4 cm distally, so that the proximal edge of the electrode was aligned with the distal edge of the ablation zone. The process of balloon inflation and ablation was repeated until the top of the gastric folds was reached. The ablation catheter and guidewire were removed, and the balloon was cleaned. The ablation zone was then cleaned of overlying coagulative debris using irrigation and suction via the endoscope and a cleaning cap. The guidewire was reinserted, and then the ablation catheter was reintroduced into the esophagus over the wire. The ablation catheter was positioned under direct endoscopic visualization so that the proximal edge of the electrode was at the proximal edge of the ablation zone. Reinflation and a second round of ablation were performed with the application of 10 J/cm2 to re-treat the Jha's epithelium already treated with the first round of ablation. The ablation catheter and guidewire were then removed. The areas of the esophagus where Jha's mucosa had been ablated were then examined with the endoscope. Areas of visible Jha's esophagus were completely ablated. A hiatal hernia was present. No gross lesions were noted in the first portion of the duodenum. Impression: - Esophageal mucosal changes consistent with long-segment Jha's esophagus. Treated with radiofrequency ablation. - Hiatal hernia. - No gross lesions in the first portion of the duodenum. - No specimens collected. Recommendation: - Discharge patient to home. - Full liquid diet. - Continue present medications. Procedure Code(s): --- Professional --- 88597, Esophagogastroduodenoscopy, flexible, transoral; with ablation of tumor(s), polyp(s), or other lesion(s) (includes pre- and post-dilation and guide wire passage, when performed) CPT copyright 2021 [employer]. All rights reserved. The codes documented in this report are preliminary and upon florist designer review may be revised to meet current compliance requirements. Cameron Cohen DO 12/03/2023 7:19:29 AM This report has been signed electronically. Number of Addenda: 0 Note Initiated On: 12/03/2023 6:25 AM
--- NOTE | 2023-12-03 07:20 | OP.CCLET_ITS ---
12/03/2023 Omaira Weir [facility] [address] [place] [address] Re : Upper GI endoscopy procedure for Jeffrey Franco Dear Dr. Weir This procedure was performed on November. My impressions and recommendations are as follows: Impressions : - Esophageal mucosal changes consistent with long-segment Jha's esophagus. Treated with radiofrequency ablation. - Hiatal hernia. - No gross lesions in the first portion of the duodenum. - No specimens collected. Recommendations : - Discharge patient to home. - Full liquid diet. - Continue present medications. My findings are described in the full procedure note, which is enclosed. If I can be of further assistance, please feel free to contact me at . Sincerely, Cameron Cohen, 12/03/2023 7:19:29 AM This report has been signed electronically.
== END 2023-12-03 08:03 | disposition home or self-care (01) ==
LOC: EN 05:30 → AC 05:31
PROVIDERS: PCP Internal Medicine; Referring Provider Internal Medicine; Visit Provider Internal Medicine Gastroenterology
PROC: 0DJ08ZZ Inspection of Upper Intestinal Tract, Via Natural or Artificial Opening Endoscopic (ICD-10-PCS; CPT 43235; principal; 2023-12-03 06:25)
DX: K22.70 Barrett's esophagus without dysplasia (principal); K44.9 Diaphragmatic hernia without obstruction or gangrene; Z87.891 Personal history of nicotine dependence
CPT/HCPCS: 43270; J7120; C1769; J2405

== ENCOUNTER → 2024-09-01 | Outpatient (CLI) | payer MEDICARE, SELFPAY ==
[2024-09-01 10:49] LABS: AST(SGOT) 20 U/L (15-37); Alanine Aminotransfer ALT/SGPT 30 U/L (16-61); Albumin, Serum 3.7 g/dL (3.2-5.0); Alkaline Phosphatase 101 U/L (45-117); Bilirubin, Direct 0.14 mg/dL (0.00-0.30); Cholesterol 274 mg/dL (200); Globulin 3.4 g/dL (2.2-4.2); High Density Lipoprotein 61 mg/dL; Protein, Total 7.1 g/dL (6.4-8.2); Triglycerides 82 mg/dL; Very Low Density Lipoprotein 16 mg/dL (5-40)
== END | disposition home or self-care (01) ==
PROVIDERS: PCP Internal Medicine; Referring Provider Internal Medicine Cardiovascular Disease; Visit Provider Internal Medicine Cardiovascular Disease
DX: R06.09 Other forms of dyspnea (principal); E78.5 Hyperlipidemia, unspecified
CPT/HCPCS: 36415; 80061; 80076

== ENCOUNTER → 2024-09-06 | Outpatient (CLI) | payer MEDICARE, SELFPAY | END | disposition home or self-care (01) | LOC: PSN 06:57 | PROVIDERS: PCP Internal Medicine; Referring Provider Internal Medicine Cardiovascular Disease; Visit Provider Internal Medicine Cardiovascular Disease | DX: R06.09 Other forms of dyspnea (principal) | CPT/HCPCS: 94060; 94726; 94729 ==

== ENCOUNTER → 2024-09-21 | Outpatient (CLI) | payer MEDICARE, SELFPAY ==
--- NOTE | 2024-09-21 08:08 | ECHOD_ITS ---
Reason For Study: Dyspnea/SOB Procedure This was a 2D Doppler, Color Flow transthoracic echocardiogram. Technically difficult apical images, patient unable to raise left arm. Exam performed in department. Left Ventricle Normal LV size. Left ventricular systolic function is normal. The left ventricular ejection fraction is 55 %. Stage 1 diastolic dysfunction. No regional wall motion abnormalities noted. Right Ventricle Normal RV size. Normal systolic function. Atria Normal left atrium. Normal right atrium. Mitral Valve Normal mitral valve. Tricuspid Valve Normal tricuspid valve. Aortic Valve Trisinus/trileaflet aortic valve. Pulmonic Valve Normal pulmonic valve. Great Vessels Normal aortic root. The pulmonary artery is normal size. Normal inferior vena cava. Pericardium/Pleural No pericardial effusion. MMode/2D Measurements & Calculations LVIDd: 4.2 cm IVSd: 1.2 cm Ao root diam: 3.2 cm LVIDs: 2.8 cm LVPWd: 0.99 cm RVDd: 3.8 cm FS: 33.3 % _ LAV(MOD-bp): 26.6 ml LVAd ap4: 29.5 cm2 SV(MOD-sp4): 53.2 ml LAV(MOD-bp) Indexed: 13.9 ml/m2 LVLd ap4: 7.3 cm SI(MOD-sp4): 27.7 ml/m2 LAV(MOD-sp2): 22.6 ml EDV(MOD-sp4): 97.0 ml LAV(MOD-sp4): 27.0 ml EDV(sp4-el): 101.5 ml LVAs ap4: 17.7 cm2 LVLs ap4: 6.0 cm ESV(MOD-sp4): 43.8 ml ESV(sp4-el): 44.5 ml EF(MOD-sp4): 54.9 % EF(sp4-el): 56.2 % _ SV(sp4-el): 57.0 ml LA A4 area: 12.5 cm2 LA dimension(2D): 3.3 cm _ RA A4 area: 12.2 cm2 TAPSE: 1.5 cm Time Measurements MV dec time: 0.21 sec Doppler Measurements & Calculations MV E max oziel: 61.5 cm/sec Lat Peak E' Oziel: 10.8 cm/sec Med Peak E' Oziel: 11.8 cm/sec MV A max oziel: 82.7 cm/sec E/E' lat: 5.7 E/E' med: 5.2 MV E/A: 0.74 _ MV V2 max: 94.1 cm/sec MV P1/2t max oziel: 70.4 cm/sec Ao V2 max: 109.1 cm/sec MV max P.5 mmHg MV P1/2t: 70.8 msec Ao max P.8 mmHg MV V2 mean: 52.7 cm/sec Ao V2 mean: 74.2 cm/sec MV mean P.3 mmHg MV dec slope: 291.1 cm/sec2 Ao mean P.5 mmHg MV V2 VTI: 18.9 cm MVA(P1/2t): 3.1 cm2 Ao V2 VTI: 21.2 cm AV (velocity ratio): 0.80 _ LV V1 max: 81.1 cm/sec PA V2 max: 86.5 cm/sec LV V1 max P.6 mmHg LV V1 mean P.3 mmHg LV V1 mean: 51.4 cm/sec LV V1 VTI: 16.9 cm ECHO/Echo Complete Interpretation Summary Normal LV size. Left ventricular systolic function is normal. The left ventricular ejection fraction is 55 %. Stage 1 diastolic dysfunction. Structurally normal valves. Ordering Physician: Felipe Landis Referring Physician: Felipe Landis Performed By: Scott Randolph RCS
== END | disposition home or self-care (01) ==
LOC: CVS 08:07
PROVIDERS: PCP Internal Medicine; Referring Provider Internal Medicine Cardiovascular Disease; Visit Provider Internal Medicine Cardiovascular Disease
DX: R06.09 Other forms of dyspnea (principal)
CPT/HCPCS: 93306

== ENCOUNTER → 2024-10-12 | Outpatient (CLI) | payer MEDICARE, SELFPAY ==
[2024-10-12 10:49] LABS: AST(SGOT) 33 U/L (<=37); Alanine Aminotransfer ALT/SGPT 40 U/L (<=46); Albumin, Serum 4.3 g/dL (3.4-4.8); Alkaline Phosphatase 89 U/L (40-129); Bilirubin, Direct 0.26 mg/dL (0.00-0.30); Cholesterol 149 mg/dL (<=200); Globulin 2.6 g/dL (2.2-4.2); High Density Lipoprotein 67 mg/dL; Low Density Lipoprotein Calc. 71 mg/dL; Protein, Total 6.8 g/dL (5.9-8.4); Total Bilirubin 0.59 mg/dL (0.00-1.30); Triglycerides 58 mg/dL; Very Low Density Lipoprotein 12 mg/dL (5-40); cholesterol:hdl ratio screen 2.22
== END | disposition home or self-care (01) ==
LOC: MTLAB 07:28
PROVIDERS: PCP Internal Medicine; Referring Provider Internal Medicine Cardiovascular Disease; Visit Provider Internal Medicine Cardiovascular Disease
DX: E78.00 Pure hypercholesterolemia, unspecified (principal)
CPT/HCPCS: 36415; 80061; 80076

== ENCOUNTER 2024-10-31 07:27 | Day surgery (SDC) | payer MEDICARE, SELFPAY ==
--- NOTE | 2024-10-26 12:36 | HP.PCM_ITS ---
History and Physical Date of Admission: 10/31/24 Patient is a very pleasant 74-year-old white male who works at [employer]. Patient comes in as a new patient referral for abnormal EKG and dyspnea on exertion. The patient reports that he has been doing fairly well in his home environment he walks routinely but when he walks fast he is noticed to be short of breath by his and other individuals. He does not personally feel like that he is short of breath. He denies any chest tightness or squeezing denies any claudication denies any PND orthopnea or any lower extremity edema. The patient's EKG in the office here showed a normal sinus rhythm and is within normal limits. He did have some old EKGs that were read as left atrial enlargement which is really borderline looking at the EKG and a possible old anterior septal infarct. The patient had a remote echocardiogram in 2018 that showed a normal EF of 55% mild TR and otherwise was unremarkable. He had negative carotids done June 2019. The patient had a coronary calcium scoring in 2022 that was about 100 this was repeated August 2023 and had increased to 214. It was still under the significant threshold of 400. The patient subsequent underwent a stress test where he only went a little over 3 minutes. He had some nonspecific ST changes and the Cardiolite nuclear scan showed no evidence of ischemia. His gated EF was estimated at 60%. Apparently the stress test was stopped due to shortness of breath and attaining 85% of age- predicted heart rate at a low level of activity. The patient O2 saturation was 91% at rest in the office we had him walk up and down the halls and his heart rate went up to 115 but his O2 sat remained 91%. The patient does have a [id number] smoking history by his report. He stopped smoking in 2004. The patient does have a significant family history for coronary disease and he has significant hyperlipidemia LDL cholesterol was 184 in March 2024 he was either on no treatment or red yeast rice at the time. Pt underwent a PFT in 08/2024m this demonstrated Irreversible mild large airways obstructive ventilatory defect with preserved lung volumes and diffusing capacity. Echo in 2024 is essentially normal for his age. LVEF 55%, normal valves and all chambers are normal size. With his decrease in exercise tolerance, abnormal coronary calcium score and normal echocardiogram and pulmonary function test with his continued shortness of breath it was recommended that he undergo of right and left heart catheterization. [facility] Medical History Carpal tunnel syndrome, bilateral Dyspnea on exertion Poor historian History of stress test Wears glasses Alcohol use Back pain History of hiatal hernia Former smoker History of echocardiogram Jha syndrome prostate issues Osteopenia Arthritis Surgical History Hx of appendectomy History of scapula, ulna, humerous reconstruction History of endoscopy History of colonoscopy Family History Aunt Breast cancer Uncle Colon cancer Diabetes Heart disease Mother Cancer Diabetes Other Alcoholism Anxiety and depression Liver disease Melanoma Osteoporosis Social History Smoking Status: Former smoker alcohol intake: current substance use type: does not use caffeine: Yes ROS Const Const: Negative for fatigue or weakness ENT ENT: Negative for dizziness or balance problems Cardio Chest Pain: No Palpitations: No Edema: None Muscle aches with walking: None Resp Respiratory: Positive for SOB with activity (pt states other people think I'm gasping for air); Negative for SOB at rest or SOB orthopnea\SOB lying down GI GI: Negative nausea, vomiting or heartburn Musc Musc: Negative for muscle weakness or balance problems Neuro Neuro: Negative for dizziness, lightheadedness, near syncope, syncope or weakness Endo Endo: Negative for fatigue Cardiology Exam Const Appearance: cooperative, comfortable, no acute distress and well developed Head Head: normal to inspection Eyes General: appearance normal, both eyes and all related structures Neck Neck: normal visual inspection and no JVD Carotids: Negative bruit Chest Chest inspection: normal inspection of the chest Auscultation: Bilateral: Clear to Auscultation Cardio Rate: regular rate Rhythm: regular rhythm Heart sounds: S1 normal and S2 normal; Negative rub, gallop or murmur GI GI: normal to inspection and soft Neuro General: patient alert and patient oriented x3 Skin Skin: no rashes or lesions noted Extremities Pulses: Normal: Right Posterior Tibial Pulse, Left Posterior Tibial Pulse, Right Radial Pulse and Left Radial Pulse Lower Extremity Edema: None: Bilateral Psych Psychological: normal affect Assessment & Plan Assessment/Plan (1) Abnormal findings on diagnostic imaging of heart/coronary circulation: (2) Dyspnea on exertion: PLAN: Plan Patient is scheduled to undergo a right and left heart catheterization. Follow- up will be based upon findings.
--- NOTE | 2024-10-26 17:11 | RAD_ITS ---
PROCEDURE: CHEST PA AND LATERAL REASON FOR EXAM: FOR CARDIAC CATHETERIZATION TECHNIQUE: Frontal and lateral views of the chest. COMPARISON: None. FINDINGS: Cardiomediastinal silhouette is within normal limits. Lungs are clear. No sizable pneumothorax. RAD/Chest PA and Lateral IMPRESSION: No acute airspace abnormality. Reading Location: [facility]
[2024-10-26 17:33] LABS: Prothrombin Time (Protime)PT. 12.9 SECONDS (11.7-14.9)
[2024-10-26 18:42] LABS: ALB/GLOB Ratio 1.6 RATIO (0.9-2.4); AST(SGOT) 24 U/L (<=37); Alanine Aminotransfer ALT/SGPT 26 U/L (<=46); Albumin, Serum 4.3 g/dL (3.4-4.8); Alkaline Phosphatase 101 U/L (40-129); Anion Gap 10 (5-15); BUN 12 mg/dL (4-19); BUN/Creat Ratio 14.3 RATIO (10-20); Calcium,Total 9.9 mg/dL (7.6-11.0); Carbon Dioxide 27.6 mmol/L (21.0-32.0); Chloride 98 mmol/L (98-108); EST Glomerular Filtration Rate 94 (>60); Globulin 2.7 g/dL (2.2-4.2); Glucose 117 mg/dL (70-99); Potassium 4.4 mmol/L (3.3-5.1); Sodium Level 136 mmol/L (133-145); Total Bilirubin 0.33 mg/dL (0.00-1.30)
[2024-10-28 09:13] VITALS: BMI 27.0
--- NOTE | 2024-10-31 10:01 | CL.D_ITS ---
Patient Name: JYOTI CHOI Study Date: 10/31/2024 Performing: Brendan Mantilla MD Ht: 68 inches 172.72 cm : 1950 Wt: 178 lbs 80.74 kg Age: 74 Gender: male BSA: 1.95 PROCEDURE(S) PERFORMED DC01-(50050)LHC/COR/LV CLINICAL PROFILE AND INDICATIONS Indications: Suspected CAD Heart Failure: None Stress/Imaging Coronary Calcium Score: Yes Calcium Score: 200Calcium Score: 200 CAD Presentations: Other: SOB CONCLUSIONS Severe single-vessel disease involving the second obtuse marginal branch and a small vessel with 2 areas of high-grade stenosis and collateralization present. The rest of the vessels have mild diffuse disease and proximal calcification of the right coronary artery and the left main coronary artery. Preserved ejection fraction. RECOMMENDATIONS Medical therapy Will recommend increase statin and add calcium bernadette 5 mg a day of amlodipine. DESCRIPTION OF PROCEDURE The patient arrived to the procedure lab. The risks and benefits of the procedure as well as a full description of our services here and current unavailability of surgical backup were fully explained to the patient and/or their significant other prior to the catheterization. The Timeout was completed, verifying the correct patient and procedure. The patient's procedural site was prepped and draped in the usual fashion. Local anesthetic was given subcutaneously to right radial region with Lidocaine 2%. Using a modified Seldinger technique, arterial access was obtained via the right radial artery, a 6Fr sheath was inserted. Right Coronary Artery selective angiography was then performed in multiple views using a 5 Fr. 4.0 [place] catheter. Left Coronary Artery selective angiography was performed in multiple views using a 5 Fr. 4.0 [place] catheter. Left Ventriculography was performed in [place] projection using a 5 Fr. Pig[place] catheter. LV to AO pullback pressures were then recorded.The arterial sheath was pulled and a TR Band was applied for hemostasis CORONARY ANGIOGRAPHY DOMINANCE: Right Dominant LEFT HEART ASSESSMENT Left Ventricular Ejection Fraction: by LV Gram 60 % Normal LV wall motion Normal Left Ventricular systolic function LEFT MAIN: Mild calcification, Non-obstructive LEFT ANTERIOR DESCENDING ARTERY: Left anterior descending artery is a medium size vessel with a first diagonal branch with mild luminal irregularities. CIRCUMFLEX ARTERY: Mild luminal irregularities less than 30% OM 2: Proximal - 80 presents proximal stenosis and distal 80% stenosis prior to bifurcation any small vessel measuring at most 2 mm. RIGHT CORONARY ARTERY: Mild luminal irregularities less than 30% COLLATERAL FLOW: Collateral flow from Right to Left COMPLICATIONS No Complications PROCEDURE MEDICATIONS Versed 1 mg IV Fentanyl 50 mcg IV Versed 1 mg IV Versed 1 mg IV Oxygen: 2 L/min via nasal cannula Baby Aspirin (81mg) 1 Tabs PO @ 10/31/2024 07:45:21 SUMMARY OF HEMODYNAMIC DATA Time AIR REST ECG 07:47:44 AO 148/76 (111) SA 08:55:45 LV 127/-2, 28 09:03:24 LV 128/0, 7 09:03:31 LV 114/2, 15 09:04:06 LV 118/2, 15 09:04:13 LVp 119/2, 14 09:04:16 AOp 131/69 (99) 09:04:21 Signed By Brendan Mantilla MD On 10/31/2024 10:00:05 Brendan Mantilla MD
== END 2024-10-31 11:11 | disposition home or self-care (01) ==
PROVIDERS: Internal Medicine Cardiovascular Disease; PCP Internal Medicine; Referring Provider Internal Medicine Cardiovascular Disease; Visit Provider Internal Medicine Cardiovascular Disease
DX: I25.10 Atherosclerotic heart disease of native coronary artery without angina pectoris (principal); E11.9 Type 2 diabetes mellitus without complications; R06.09 Other forms of dyspnea; Z87.891 Personal history of nicotine dependence; R94.31 Abnormal electrocardiogram [ECG] [EKG]; E78.5 Hyperlipidemia, unspecified
CPT/HCPCS: 36415; 71046; 80053; 85610; 93458; 99152; 99153; Q9967; C1769; C1894

== ENCOUNTER → 2024-11-18 | Outpatient (CLI) | payer MEDICARE, SELFPAY | END | disposition home or self-care (01) | LOC: MTLAB 16:47 | PROVIDERS: PCP Internal Medicine; Referring Provider Urology; Visit Provider Urology | DX: R97.20 Elevated prostate specific antigen [PSA] (principal) | CPT/HCPCS: 36415; 84153 ==

== ENCOUNTER → 2024-12-06 | Outpatient (CLI) | payer MEDICARE, SELFPAY ==
--- NOTE | 2024-12-06 08:00 | PROSBIL_PTH ---
PATIENT: JYOTI CHOI LOC: [facility] U#:[id number] AGE/SX: 74/M ROOM: RE12/06/[address]: Dr. Bertrand Zapien MD : 1950 BED: DIS: 12/06/2024 SPEC #: [id number] RECD: 12/06/24 15:35 STATUS: JAI REDanielle #: [id number] KHADAR: 12/06/24 08:[address]: Bertrand Zapien DEPT: SURGICAL PATHOLOGY RECD BY: Danita Yuen ENTERED: 12/07/24 08:21 SP TYPE: PROST BX LUIS DR: Dr. Omaira Weir MD Tissues: A - PROSTATE RIGHT B - PROSTATE RIGHT C - PROSTATE RIGHT D - PROSTATE LEFT E - PROSTATE LEFT F - PROSTATE LEFT Procedures: PROSTATE BX HEADER OPERATION: Prostate biopsy PRE-OP DIAGNOSIS: Elevated PSA TISSUE SUBMITTED: A - Right apex, B - Right mid, C - Right base, D - Left apex, E - Left mid, F - Left base MICROSCOPIC DIAGNOSIS A. Prostate, right apex, biopsy: * Benign prostate tissue. B. Prostate, right mid, biopsy: * Benign prostate tissue with focal acute inflammation. C. Prostate, right base, biopsy: * Benign prostate tissue. D. Prostate, left apex, biopsy: * Benign prostate tissue with focal mild acute inflammation. E. Prostate, left mid, biopsy: * Benign prostate tissue with focal mild acute inflammation. F. 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 MICROSCOPIC DESCRIPTION Slides are reviewed. GROSS DESCRIPTION A. Received in formalin in a container labeled with the patient's name, date of , and RA are 2 white and wispy core biopsies of soft tissue each measuring 1.2 x 0.1 cm. Submitted in toto in A1. B. Received in formalin in a container labeled with the patient's name, date of , and RM are 2 white and wispy core biopsies of soft tissue measuring 1.2 x 0.1 cm and 1.5 x 0.1 cm. Submitted in toto in B1. C. Received in formalin in a container labeled with the patient's name, date of , and RM are 2 white and wispy core biopsies of soft tissue each measuring 1.0 x 0.1 cm. Submitted in toto in C1. D. Received in formalin in a container labeled with the patient's name, date of , and LA is a 1.2 x 0.1 cm white and wispy core biopsy of soft tissue. Submitted in toto in D1. E. Received in formalin in a container labeled with the patient's name, date of , and LM are 2 white and wispy core biopsies of soft tissue measuring 0.9 x 0.1 cm and 1.1 x 0.1 cm. Submitted in toto in E1. F. Received in formalin in a container labeled with the patient's name, date of , and LB are 2 white and wispy core biopsies of soft tissue each measuring 1.0 x 0.1 cm. Submitted in toto in F1. [facility] 12/07/2024 CPT:G0146
== END | disposition home or self-care (01) ==
LOC: LABSPEC 15:41
PROVIDERS: PCP Internal Medicine; Referring Provider Urology; Visit Provider Urology
DX: C61 Malignant neoplasm of prostate (principal); R97.20 Elevated prostate specific antigen [PSA]
CPT/HCPCS: 88305; G0416

== ENCOUNTER → 2024-12-22 | Outpatient (CLI) | payer MEDICARE, SELFPAY ==
[2024-12-22 11:16] LABS: Absolute Lymphocyte Count 1.55 X10^3/uL (0.83-4.51); Absolute Neutrophil Count 4.9 X10^3/uL (2.0-7.7); Basophil# 0.06 X10^3/uL; Basophil% 0.8 % (0-1); Eosinophil# 0.13 X10^3/uL; Eosinophils% 1.8 % (0-5); Hematocrit 46.8 % (40-54); Hemoglobin 15.5 g/dL (13.0-16.5); Lymphocyte # 1.55 X10^3/ul (0.83-4.51); Lymphocyte % 21.1 % (19-41); Mean Corp Hgb Conc 33.1 g/dL (32-36); Mean Corpuscular Hgb 28.9 pg (27.0-32.0); Mean Corpuscular Volume 87.2 fL (80-94); Mean Platelet Vol. 10.7 fl (6.2-12.0); Monocyte# 0.65 X10^3/uL; Monocyte% 8.9 % (0-10); NRBC Flagged by Analyzer 0 % (0-5); Neutrophil # 4.92 X10^3/uL (2.7-7.7); Neutrophil % 67.1 % (47-70); Platelet Count 278 K/mm3 (150-450); RBC Distribution Width CV 12.1 % (11.6-14.6); RBC Distribution Width SD 38.7 fl (35.1-43.9); Red Blood Count 5.37 M/mm3 (4.6-6.2); White Blood Count 7.3 K/mm3 (4.4-11.0)
[2024-12-22 11:33] LABS: Anion Gap 9 (5-15); BUN 12 mg/dL (4-19); BUN/Creat Ratio 14.3 RATIO (10-20); Calcium,Total 9.5 mg/dL (7.6-11.0); Carbon Dioxide 27.5 mmol/L (21.0-32.0); Chloride 98 mmol/L (98-108); Creatinine, Serum 0.85 mg/dL (0.70-1.20); EST Glomerular Filtration Rate 92 (>60); Glucose 90 mg/dL (70-99); Potassium 3.9 mmol/L (3.3-5.1); Sodium Level 135 mmol/L (133-145)
== END | disposition home or self-care (01) ==
LOC: MTLAB 08:00
PROVIDERS: PCP Internal Medicine; Referring Provider Internal Medicine Cardiovascular Disease; Visit Provider Internal Medicine Cardiovascular Disease
DX: I10 Essential (primary) hypertension (principal); R93.1 Abnormal findings on diagnostic imaging of heart and coronary circulation
CPT/HCPCS: 36415; 80048; 85025

== ENCOUNTER → 2025-01-10 | Outpatient (CLI) | payer MEDICARE, SELFPAY | END | disposition home or self-care (01) | LOC: LABSPEC 16:40 | PROVIDERS: PCP Internal Medicine; Visit Provider Physician Assistant | DX: R30.0 Dysuria (principal) | CPT/HCPCS: 87086 ==

== ENCOUNTER → 2025-06-07 | Outpatient (CLI) | payer MEDICARE, SELFPAY ==
--- OUTSIDE RECORDS SUMMARY | 2025-06-07 06:55 | XMS RPT_ITS | CCD ---
Author Organization [facility] Care Team Providers Care Web Consultant Name Role Phone Juan F Streeter MD Primary Care Provider Dr. Omaira Weir Primary Care Provider Dr. Omaira Weir Attending Provider Dr. Omaira Weir Primary Care Provider Dr. Omaira Weir Attending Provider Dr. Omaira Weir Referring Provider Dr. Rios Dockery Attending Provider Dr. Rios Dockery Other Provider Juan F Streeter MD Primary Care Provider Juan F Streeter MD Primary Care Provider Juan F Streeter MD Primary Care Provider Dr. Omaira Weir Primary Care Provider Dr. Omaira Weir Referring Provider Dr. Cameron Cohen Attending Provider [phone] KERRY STRONG Referring Provider KERRY STRONG Other Provider Dr. Brendan Mantilla Attending Provider Dr. Omaira Weir Attending Provider Dr. Cameron Cohen Other Provider Dr. Omaira Weir Other Provider Dr. Ramses Conway Attending Provider Dr. Omaira Weir Primary Care Provider Dr. Omaira Weir Referring Provider Dr. Cameron Cohen Attending Provider [phone] KOCZAB, KERRY Referring Provider KOCZAB, KERRY Other Provider Dr. Brendan Mantilla Attending Provider Dr. Omaira Weir Attending Provider Dr. Cameron Cohen Other Provider Dr. Omaira Weir Other Provider Dr. Ramses Conway Attending Provider Ferdinand SAHU, Juan F Patel Primary Care Provider KOCZAB, KERRY Referring Unavailable RANNEY, CHRISTOPHER B Primary Care Unavailabl e RANCARMEN, CHRISTOPHER B Primary Care Unavailabl e KOCZAB, KERRY Referring Unavailable RANNEY, CHRISTOPHER B Primary Care Unavailabl e KOCZAB, KERRY Attending Unavailable KOCZAB, KERRY Referring Unavailable RANNEY, CHRISTOPHER B Primary Care Unavailabl e KOCZAB, KERRY Attending Unavailable RANNEY, CHRISTOPHER B Primary Care Unavailabl e KOCZAB, KERRY Referring Unavailable RANNEY, CHRISTOPHER B Primary Care Unavailabl brad Weir MD, Dr. Castano Primary Care Provider Dr. Omaira Weir MD Attending Provider Dr. Omaira Weir MD Referring Provider Dr. Cameron Cohen DO Attending Provider Dr. Felipe Landis MD Attending Provider Dr. Felipe Landis MD Referring Provider Dr. Brendan Mantilla MD Attending Provider [phone] Dr. Brendan Mantilla MD Other Provider Yuki Shepard Attending Provider [phone] Dr. Brendan Mantilla MD Referring Provider [phone] Boby SAHU, Dr. Wang Other Provider [phone] Carmella SAHU, Dr. Castano Primary Care Provider [phone] Carmella SAHU, Dr. Castano Attending Provider Curry SAHU, Dr. Bertrand Josue Attending Provider Curry SAHU, Dr. Bertrand Josue Referring Provider [phone] Carmella SAHU, Dr. Castano Primary Care Provider [phone] Carmella SAHU, Dr. Castano Referring Provider CAROLYN, LAURA Attending Unavailable JUAN F STREETER Primary Care Unavailabl e SELF Referring Unavailable SAMARA COVINGTON Attending Unavailable JUAN F STREETER Primary Care Unavailabl e CAROLYN, LAURA Referring Unavailable JUAN F STREETER Primary Care Unavailabl e SELF Referring Unavailable SAMARA COVINGTON Attending Unavailable JUAN F STREETER Primary Care Unavailabl e CAROLYN, LAURA Referring Unavailable JUAN F STREETER Primary Care Unavailabl e Carmella SAHU, Dr. Castano Primary Care Provider [phone] Boby SAHU, Dr. Wang Attending Provider Boby SAHU, Dr. Wang Referring Provider Carmella SAHU, Dr. Castano Referring Provider Wan Dave Attending Provider [phone] Carmella SAHU, Dr. Castano Primary Care Provider [phone] Jose Rafael SAHU, Dr. Cardona Attending Provider [phone] Boby SAHU, Dr. Wang Attending Provider Boby SAHU, Dr. Wang Referring Provider Yuki Shepard Attending Provider [phone] Carmella SAHU, Dr. Castano Primary Care Provider [phone] Boby SAHU, Dr. Wang Attending Provider Carmella SAHU, Dr. Castano Referring Provider Carmella SAHU, Dr. Castano Attending Provider Omaira Weir Attending Unavailable Carmella, Omaira Primary Care Unavailable Carmella, Omaira Primary Care Unavailable Carmella, Omaira Attending Unavailable Carmella, Omaira Referring Unavailable Carmella, Omaira Primary Care Unavailable Yuki Shepard Attending Unavail able Carmella, Omaira Primary Care Unavailable Jose Rafael, Brendan Attending Unavailable Carmella, Omaira Referring Unavailable Carmella, Omaira Attending Unavailable Carmella, Omaira Primary Care Unavailable Carmella, Omaira Primary Care Unavailable Felipe Landis Referring Unavailable Felipe Landis Attending Unavailable Boby, Felipe Referring Unavailable Carmella, Omaira Primary Care Unavailable Felipe Landis Attending Unavailable Curry, Bertrand Josue Attending Unavailable Carmella, Omaira Primary Care Unavailable CurryBerrtand Referring Unavailable Felipe Landis Consulting Unavailable Carmella, Omaira Primary Care Unavailable Jose Rafael, [place] Attending Unavailable Jose Rafael, Brendan Referring Unavailable Boby, Felipe Referring Unavailable Carmella, Omaira Primary Care Unavailable Felipe Landis Attending Unavailable Carmella, Omaira Primary Care Unavailable Jose Rafael, [place] Consulting Unavailable Yuki Shepard Attending Unavail able CarmellaOmaira Attending Unavailable Carmella, Omaira Primary Care Unavailable Carmella, Omaira Referring Unavailable Carmella, Omaira Primary Care Unavailable Wan Dave Attending Unavailable Carmella, Omaira Referring Unavailable Carmella, Omaira Primary Care Unavailable Felipe Landis Attending Unavailable Felipe Landis Referring Unavailable Carmella, Omaira Primary Care Unavailable Felipe Landis Attending Unavailable Carmella, Omaira Primary Care Unavailable Wan Dave Attending Unavailable CurryBertrand Referring Unavailable CurryBertrand Attending Unavailable Carmella, Omaira Primary Care Unavailable Felipe Landis Attending Unavailable Felipe Landis Referring Unavailable Carmella, Omaira Primary Care Unavailable Carmella, Omaira Primary Care Unavailable Felipe Landis Referring Unavailable Felipe Landis Attending Unavailable Boby, Felipe Referring Unavailable Carmella, Omaira Primary Care Unavailable Felipe Landis Attending Unavailable CurryBertrand Attending Unavailable Carmella, Omaira Primary Care Unavailable Carmella, Omaira Primary Care Unavailable Carmella, Omaira Attending Unavailable Carmella, Omaira Primary Care Unavailable Carmella, Omaira Referring Unavailable Cameron Cohen Attending Unavailable Carmella, Omaira Primary Care Unavailable Omaira Weir Referring Unavailable Felipe Landis Attending Unavailable Allergies Allergy Classification Reported Allergen(s) Allergy Type Date of Onset Reaction(s) Facility (20 sources) cow milk allergenic extract; Translations: [MILK] Drug Allergy 6 Other: See Comments [facility] Work Phone: (20 sources) terbinafine; Translations: [TERBINAFINE HCL] Drug Allergy 6 Intolerance [facility] (20 sources) Ciprofloxacin Drug Allergy 3 PALPITATIONS [facility] (20 sources) terbinafine Drug Allergy 3 Shortness of breath [facility] (1 source) Ciprofloxacin Drug Allergy 5 [facility] Repository (1 source) terbinafine Drug Allergy 5 [facility] Repository Medications Current Medications Medication Drug Class(es) Dates Sig (Normalized) Sig (Original) amLODIPine 5 mg oral tablet (11 sources) Dihydropyridine Calcium Channel Bernadette Start: 10-31-2024 End: 02-28-2025 take 1 tablet by mouth once daily Amlodipine (Norvasc) 5 mg tablet Active 5 mg PO daily 90 3 February 28, 2025 8:44am ascorbic acid 500 mg oral tablet (1 source) Vitamin C Start: 10-19-2023 take 1 tablet by mouth once daily Ascorbic Acid (Vitamin C) (Vitamin C) 500 mg tablet Active 500 MG PO DAILY October 19, 2023 12:00am aspirin 81 mg chewable tablet (15 sources) Platelet Aggregation Inhibitor, Nonsteroidal Anti-inflammatory Drug Start: 08-31-2024 take 1 tablet by mouth once daily Aspirin 81 mg tablet,chewable Active 81 mg PO daily 30 August 31, 2024 1:00am aspirin 81 mg ca p Take by mouth once daily. Active betainine hcl with pepsin (2 sources) Start: 10-15-2022 betainine hcl with pepsin Active PO October 15, 2022 1:00am biotin 2.5 mg oral capsule (18 sources) Start: 10-19-2023 take 2500 ug by mouth once daily Biotin Active 2500 MCG PO DAILY October 19, 2023 12:00am Start: 08-31-2023 End: 10-19-2023 biotin Discontinued PO 2023 1:00am October 19, 2023 4:24pm 250mg Start: 08-31-2023 End: 10-19-2023 biotin Discontinued PO 2023 12:00am October 19, 2023 3:24pm 250mg Start: 08-31-2023 biotin Active PO August 31, 2023 12:00am 250mg carvedilol 6.25 mg oral tablet (4 sources) alpha-Adrenergic Bernadette, beta-Adrenergic Bernadette Start: 01-24-2025 End: 02-28-2025 take 1 tablet by mouth twice daily at mealtime Carvedilol (Coreg) 6.25 mg tablet Active 6.25 mg PO TWICE A DAY 180 3 February 28, 2025 8:44am must administer with a meal/food cbd oil (2 sources) Start: 10-15-2022 cbd oil Active PO October 15, 2022 1:00am chlorel/chloroph/D3/B 2/FA/iron (CHLORELLA CAPS ORAL) (5 sources) take 1 capsule by mouth once daily chlorel/chloroph/D3/B 2/FA/iron (CHLORELLA CAPS ORAL) Take 5 mg by mouth once daily. Active dimercaptosuccinic acid (DMSA) capsule 500 mg (CPD) (2 sources) Start: 03-08-2024 End: 03-08-2024 take 2 capsules by mouth once dimercaptosuccinic acid (DMSA) capsule 500 mg (CPD) Indications: Heavy metal exposure Take 2 capsules by mouth one time only for 1 dose. 2 capsule 0 03/08/2024 03/08/2024 Active Start: 2024 End: 2024 take 2 capsules by mouth once dimercaptosuccinic acid (DMSA) capsule 500 mg (CPD) Indications: Heavy metal exposure Take 2 capsules by mouth one time only for 1 dose. 2 capsule 0 2024 2024 Active finasteride 5 mg oral tablet (3 sources) 5-alpha Reductase Inhibitor Start: 01-16-2025 take 1 tablet by mouth once daily Finasteride 5 mg tablet Active 5 mg PO daily January 16, 2025 12:00am gummies for sleep (2 sources) Start: 10-15-2022 gummies for sleep Active PO October 15, 2022 1:00am homestine (2 sources) Start: 10-15-2022 homestine Active PO October 15, 2022 1:00am hydroCHLOROthiazide 12.5 mg oral capsule (9 sources) Thiazide Diuretic Start: 11-29-2024 End: 02-28-2025 take 1 capsule by mouth once daily in the morning Hydrochlorothiazide 12.5 mg capsule Active 12.5 mg PO EVERY MORNING 90 3 February 28, 2025 8:44am kforce (5 sources) Start: 08-31-2023 kforce Active PO August 31, 2023 12:00am Magnesium (20 sources) Start: 10-19-2023 take 1 tablet by mouth once daily Magnesium 250 mg tablet Active 250 mg PO DAILY October 19, 2023 1:00am Start: 10-19-2023 take 250 mg by mouth once daily Magnesium Active 250 MG PO DAILY October 19, 2023 1:00am Start: 10-19-2023 take 250 mg by mouth once daily Magnesium Active 250 MG PO DAILY October 19, 2023 12:00am Start: 08-31-2023 End: 10-19-2023 magnesium Discontinued PO [facility] 2023 1:00am October 19, 2023 4:25pm 350 mg Start: 08-31-2023 End: 10-19-2023 magnesium Discontinued PO [facility] 2023 12:00am October 19, 2023 3:25pm 350 mg Start: 08-31-2023 magnesium Acti ve PO August 31, 2023 12:00am 350 mg Start: 10-15-2022 magnesium Acti ve PO October 15, 2022 1:00am 300gm 4 daily Start: 10-15-2022 take 300 mg by mouth four times daily magnesium Active PO October 15, 2022 1:00am 300mg 4 times daily magnesium gluconate 500 mg oral tablet (1 source) Start: 04-20-2025 Magnesium Gluc lucy 27 mg magnesium (500 mg) tablet Active mg PO April 20, 2025 12:00am Magnesium glycinate (5 sources) take 350 mg by mouth once daily MAGNESIUM GLYCINATE ORAL Take 350 mg by mouth once daily. (SOLARAY) Active melatonin 3 mg oral capsule (1 source) Start: 04-20-2025 take 1 capsule by mouth at bedtime as needed Melatonin 3 mg capsule Active 3 mg PO BEDTIME as needed April 20, 2025 12:00am Multivitamin preparation (20 sources) Start: 08-31-2023 take 1 tablet by mouth once daily Multivitamin Active 1 TABLET PO DAILY August 31, 2023 1:00am Start: 08-31-2023 take 1 tablet by galilea once daily Multivitamin Active 1 TABLET PO DAILY August 31, 2023 12:00am Start: 07-17-2023 O.N.E. Multivi tamin (Pure Encapsulations) Indications: Hood's esophagus without dysplasia , Mixed hyperlipidemia , Vitamin deficiency 1 capsule daily, with a meal, 60 ct 07/17/2023 Active Start: 07-17-2023 O.N.E. Multivi tamin (Pure Encapsulations) Indications: Hood's esophagus without dysplasia , Mixed hyperlipidemia , Vitamin deficiency 1 capsule daily, with a meal, 60 ct 0 07/17/2023 Active Start: 05-24-2020 End: 10-15-2022 take 1 capsule by mouth once daily multivitamin Discontinued 1 CAP PO DAILY May 23, 2020 11:00pm October 15, 2022 8:13am Start: 05-24-2020 End: 10-15-2022 take 1 capsule by mouth once daily multivitamin Discontinued 1 CAP PO DAILY May 24, 2020 12:00am October 15, 2022 9:13am Comment on above: 1 capsule daily, wit h a meal, 60 ct Multivitamin tablet (10 sources) Start: 4 Multivitamin tablet Active 1 {tbl} PO DAILY August 31, 2023 1:00am Ov-1-Ihd-Epa-Fish Oil-Vit D3 (7 sources) Start: 4 take 1 capsule by mouth once daily Er-2-Hgc-Epa-Fish Oil-Vit D3 Active 1 CAP PO DAILY August 31, 2023 1:00am Start: 08-31-2023 take 1 capsule by mo [facility] once daily Qr-4-Mqv-Epa-Fish Oil-Vit D3 Active 1 CAP PO DAILY August 31, 2023 12:00am Start: 08-31-2023 Gj-0-Awf-Epa-F aaron Oil-Vit D3 Active CAP PO August 31, 2023 12:00am Ma-0-Eex-Epa-Fish Oil-Vit D3 [id number] rq-me-nu-unit capsule (10 sources) Start: 08-31-2023 Me-3-Knr-Epa-Fish Oil-Vit D3 [phone] et-bk-fs-unit capsule Active 1 NMA PO DAILY August 31, 2023 1:00am omega-3 fatty acids/fish oil (OMEGA 3 FISH OIL ORAL) (5 sources) take 1000 mg by mouth twice daily omega-3 fatty acids/fish oil (OMEGA 3 FISH OIL ORAL) Take 1,000 mg by mouth two times a day. (NOW) Active ondansetron 4 mg disintegrating oral tablet (4 sources) Serotonin-3 Receptor Antagonist Start: 09-16-2023 take 4 mg by mouth every eight hours Ondansetron Active 4 MG PO Q8H September 16, 2023 12:00am oxyCODONE hydrochloride 5 mg oral tablet (4 sources) Opioid Agonist Start: 09-16-2023 take 5 mg by mouth every six hours Oxycodone Active 5 MG PO EVERY 6 HOURS 20 September 16, 2023 pantoprazole 40 mg delayed release oral tablet (20 sources) Proton Pump Inhibitor Start: 10-19-2023 End: 02-27-2025 take 1 tablet by mouth once daily Pantoprazole 40 mg tablet,delayed release (DR/EC) Active 40 mg PO daily 180 0 February 27, 2025 11:06am Start: 09-16-2023 End: 10-19-2023 take 1 tablet by mouth every twelve hours Pantoprazole 40 mg tablet,delayed release (DR/EC) Discontinued 40 mg PO Q12H 180 90 September 16, 2023 1:00am October 19, 2023 4:15pm take 40 mg by mouth once daily p antoprazole sodium (PANTOPRAZOLE ORAL) Take 40 mg by mouth once daily. Active rosuvastatin calcium 20 mg oral tablet (20 sources) HMG-CoA Reductase Inhibitor Start: 10-31-2024 End: 02-28-2025 take 1 tablet by mouth once daily Rosuvastatin 20 mg tablet Active 20 mg PO daily 90 3 February 28, 2025 8:44am Start: 10-18-2024 End: 10-31-2024 take 10 mg by mouth once daily Rosuvastatin 20 mg tabl et Discontinued 10 mg PO daily 30 October 18, 2024 5:31pm October 31, 2024 9:29am Start: 08-31-2024 End: 10-18-2024 take 1 tablet by mouth once daily Rosuvastatin 20 mg tablet Discontinued 20 mg PO daily 30 August 31, 2024 1:00am October 18, 2024 5:32pm take 1 tablet by galilea th once daily rosuvastatin (CRESTOR) 10 mg tablet Take 10 mg by mouth once daily. Active sucralfate 100 mg/ml oral suspension (17 sources) Aluminum Complex Start: 10-19-2023 take 1 g by mouth at bedtime Sucralfate Active 1 GM PO BEFORE MEALS AND AT BEDTIME October 19, 2023 12:00am Start: 09-16-2023 End: 10-19-2023 take 1 mL by mouth every six hours Sucralfate (Carafate) 100 mg/mL suspension Discontinued 10 mL PO EVERY 6 HOURS 200 5 0 September 16, 2023 1:00am October 19, 2023 4:15pm triamcinolone acetonide 1 mg/ml topical cream (2 sources) Corticosteroid Start: 10-15-2022 Triamcinolone Acetonide Active 1 APPLIC TOPICAL TWICE A DAY October 15, 2022 1:00am vitamin k2 0.04 mg oral tablet (2 sources) Start: 05-24-2020 take 40 ug by mouth once daily Vitamin K2 Active 40 MCG PO DAILY May 24, 2020 12:00am zinc gluconate-zinc picolinate 30 mg capsule (2 sources) Start: 08-01-2020 zinc gluconate -zinc picolinate 30 mg capsule Active MG PO August 01, 2020 1:00am Completed/Discontinued Medications Medication Drug Class(es) Dates Sig (Normalized) Sig (Original) azithromycin 250 mg oral tablet (8 sources) Macrolide Antimicrobial Start: 11-02-2024 End: 11-29-2024 Azithromycin 250 mg tablet Discontinued 0 PO .COMPLEX 6 0 November 02, 2024 12:00am November 29, 2024 10:57am For 250 mg dose pack: take 500 mg today (day 1), then 250 mg for 4 days (days 2-5) PO betamethasone 3 mg/ml / betamethasone acetate 3 mg/ml injectable suspension (10 sources) Corticosteroid Start: 10-21-2024 End: 10-21-2024 6 mg, Injection - FOR ORTHO USE ONLY, ONCE, 1 dose, Starting on Thu10/21/24 at 1148, Until Thu10/21/24 at 1148 Start: 10-21-2024 End: 10-21-2024 betamethasone acetate-betame thasone sodium phosphate 6 mg injection (CELESTONE) Start: 06-08-2024 End: 06-08-2024 betamethasone acetate-betame thasone sodium phosphate 12 mg injection (CELESTONE) Start: 06-08-2024 End: 06-08-2024 12 mg, Injection - FOR ORTHO USE ONLY, ONCE, 1 dose, Starting on Thu06/08/24 at 1322, Until Thu06/08/24 at 1322 biocidin (20 sources) Start: 08-01-2020 End: 10-15-2022 biocidin Discontinued PO 0 D ecember 2019 1:00am October 15, 2022 9:12am Start: 08-01-2020 End: 10-15-2022 biocidin Discontinued PO Dec 2019 12:00am October 15, 2022 8:12am Start: 08-01-2020 End: 10-15-2022 biocidin Discontinued PO Dec ember 2019 1:00am October 15, 2022 9:12am brown rice preparation (10 sources) Non-Standardized Food Allergenic Extract Start: 05-11-2024 End: 08-31-2024 red rice Discontinued PO May 11, 2024 12:00am August 31, 2024 10:02am bid, somtimes qd per pt cephalexin 500 mg oral capsule (5 sources) Cephalosporin Antibacterial Start: 01-10-2025 End: 01-16-2025 take 1 capsule by mouth three times daily Cephalexin 500 mg capsule Discontinued 500 mg PO THREE TIMES A DAY 15 0 January 10, 2025 12:00am January 16, 2025 9:38am cholest (17 sources) Start: 08-31-2023 End: 10-19-2023 cholest Discontinued PO August 31, 2023 1:00am October 19, 2023 4:24pm Start: 08-31-2023 End: 10-19-2023 cholest Discontinued PO James [email or web address] 12:00am October 19, 2023 3:24pm Start: 08-31-2023 cholest Active PO August 31, 2023 12:00am ciprofloxacin 250 mg oral tablet (2 sources) Quinolone Antimicrobial Start: 01-16-2025 End: 01-23-2025 take 1 tablet by mouth twice daily at mealtime Ciprofloxacin Hcl 250 mg tablet Discontinued 250 mg PO TWICE A DAY 14 7 0 January 16, 2025 12:00am January 22, 2025 12:00am January 23, 2025 12:07am Take with food. Cranberry Fruit (20 sources) Non-Standardized Food Allergenic Extract, Non-Standardized Plant Allergenic Extract Start: 05-24-2020 End: 10-15-2022 take 1 capsule by mouth once daily Cranberry Fruit 400 mg capsule Discontinued 400 mg PO DAILY May 24, 2020 12:00am October 15, 2022 9:13am administer with a meal Start: 05-24-2020 End: 10-15-2022 take 400 mg by mouth once daily Cranberry Discontinued 400 MG PO DAILY May 23, 2020 11:00pm October 15, 2022 8:13am administer with a meal Start: 05-24-2020 End: 10-15-2022 take 400 mg by mouth once daily Cranberry Discontinued 400 MG PO DAILY May 24, 2020 12:00am October 15, 2022 9:13am administer with a meal Digestion GB 180 ct. (Pure Encapsulations) (1 source) Start: 07-01-2021 End: 06-05-[address] (Pure Encapsulations) Take 1 capsule with meals 0 07/01/2021 06/05/2022 Discontinued (Course of therapy completed) Comment on above: Take 1 capsule with meals GI-Revive 225 gram Powder (Newshubby) (1 source) Start: 07-01-2021 End: 06-05-2022 GI-Revive 225 gram Powder (Newshubby) Take 1 tablespoons twice daily (1 tablespoon = 1.5 grams L-glut) 0 07/01/2021 06/05/2022 Discontinued (Course of therapy completed) Comment on above: Take 1 tablespoons t wice daily (1 tablespoon = 1.5 grams L-glut) Jazmín (19 sources) Start: 02-02-2023 End: 08-31-2023 Jazmín Discontinued 1 NMA SL/PO TWICE A DAY February 02, 2023 12:00am August 31, 2023 11:32am Start: 02-02-2023 End: 08-31-2023 take 1 capsule by mouth twice daily Jazmín Discontinued 1 CAP SL/PO TWICE A DAY February 02, 2023 12:00am August 31, 2023 11:32am Start: 02-02-2023 End: 08-31-2023 take 1 capsule by mouth twice daily Jazmín Discontinued 1 CAP SL/PO TWICE A DAY February 01, 2023 11:00pm August 31, 2023 10:32am Start: 02-02-2023 take 1 capsule by mo uth twice daily Luciastein Active 1 CAP SL/PO TWICE A DAY February 01, 2023 11:00pm Start: 02-02-2023 take 1 capsule by mo uth twice daily Luciastein Active 1 CAP SL/PO TWICE A DAY February 02, 2023 12:00am Homocysteine [place] (Newshubby) (14 sources) Start: 08-28-2022 End: 2024 take 2 capsules by mouth once daily at mealtime Homocysteine [place] (Newshubby) Indications: Compound heterozygous MTHFR mutation 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 0 08/28/2022 2024 Discontinued Start: 08-28-2022 take 2 capsules by m outh once daily at mealtime Homocysteine [place] (Newshubby) Indications: Compound heterozygous MTHFR mutation [id number] , Deficiency of nutrient element , Mixed hyperlipidemia Take 2 capsules by mouth daily with food. 0 08/28/2022 Active Comment on above: Take 2 capsules by m outh daily with food. K-Force (OrthoMolecular) (1 source) Start: 08-12-2023 End: 2024 K-Force (OrthoMolecular) 1 capsule per day or as recommended by your health chronic care nurse 0 08/12/2023 2024 Discontinued Lactobac 40-Bifido 3-S.Thermop (Probiotic) 100 billion cell Capsule (19 sources) Start: 02-02-2023 End: 08-31-2023 Lactobac 40-Bifido 3-S.Thermop (Probiotic) 100 billion cell Capsule Discontinued 50 NMA PO DAILY February 02, 2023 12:00am August 31, 2023 11:31am Start: 02-02-2023 End: 08-31-2023 Lactobac 40-Bifido 3-S.Therm op (Probiotic) 100 billion cell Capsule Discontinued 50 CAP PO DAILY February 02, 2023 12:00am August 31, 2023 11:31am Start: 02-02-2023 End: 08-31-2023 Lactobac 40-Bifido 3-S.Therm op (Probiotic) 100 billion cell Capsule Discontinued 50 CAP PO DAILY February 01, 2023 11:00pm August 31, 2023 10:31am Start: 02-02-2023 Lactobac 40-Bi fido 3-S.Thermop (Probiotic) 100 billion cell Capsule Active 50 CAP PO DAILY February 01, 2023 11:00pm Start: 02-02-2023 Lactobac 40-Bi fido 3-S.Thermop (Probiotic) 100 billion cell Capsule Active 50 CAP PO DAILY February 02, 2023 12:00am Lidocaine (14 sources) Antiarrhythmic, Amide Local Anesthetic Start: 10-21-2024 End: 10-21-2024 lidocaine 10 mg/mL (1 %) 1 mL injection (XYLOCAINE) Start: 10-21-2024 End: 10-21-2024 1 mL, Injection - FOR ORTHO USE ONLY, ONCE, 1 dose, Starting on Thu10/21/24 at 1148, Until Thu10/21/24 at 1148 Start: 10-21-2024 End: 10-21-2024 lidocaine 10 mg/mL (1 %) 1 m L injection (XYLOCAINE) Start: 10-21-2024 End: 10-21-2024 1 mL, Injection - FOR ORTHO USE ONLY, ONCE, 1 dose, Starting on Thu10/21/24 at 1147, Until Thu10/21/24 at 1147 Start: 06-08-2024 End: 06-08-2024 lidocaine 10 mg/mL (1 %) 1 m L injection (XYLOCAINE) Start: 06-08-2024 End: 06-08-2024 1 mL, Injection - FOR ORTHO USE ONLY, ONCE, 1 dose, Starting on Thu06/08/24 at 1322, Until 10/23/24 at 1322 Start: 09-16-2023 Lidocaine Hcl (Lidocaine Viscous) 2 % solution Active 1 APPLIC MUCOUS MEM Q3H 100 2 September 16, 2023 12:00am MEDICATION, NON-DATABASE (15 sources) End: 07-17-2023 MEDICATION, NON-DATABASE -Pu re Encapsulation ONE a Day Multi - CBD [...] menthol 4% - [employer] Hemp Extract [place] 450 mg 0 07/17/2023 Discontinued MEDICATION, NON- DATABASE -Pure Encapsulation ONE a Day Multi - [...] menthol 4% - [employer] Hemp Extract [place] 450 mg 0 Active MEDICATION, NON- DATABASE - Barlean's CBD Oil 25 mg, 2 [...] menthol 4% - [employer] Hemp Extract [place] 450 mg 0 Active Comment on above: - [employer]lean's CBD Oil 25 mg, 2 [...] menthol 4% - [employer] Hemp Extract [place] 450 mg -Pure Encapsulation ONE a Day Multi - [...] menthol 4% - [employer] Hemp Extract [place] 450 mg metoprolol tartrate 50 mg oral tablet (1 source) beta-Adrenergic Bernadette Start: 08-25-19 End: 03-03-20 take 1 tablet by mouth once metoprolol tartrate, short acting, (LOPRESSOR) 50 mg tablet Indications: Elevated blood pressure reading Take 1 tablet by mouth one time only for 1 dose. 1 tablet 0 08/25/2023 2024 Discontinued Multivitamin capsule (10 sources) Start: 05-24-20 End: 10-16-19 Multivitamin capsule Discontinued 1 NMA PO DAILY May 24, 2020 12:00am October 15, 2022 9:13am naltrexone hydrochloride 50 mg oral tablet (20 sources) Opioid Antagonist Start: 08-01-20 End: 10-16-19 take 1 tablet by mouth once daily Naltrexone 50 mg tablet Discontinued 4 mg PO DAILY August 01, 2020 1:00am October 15, 2022 9:13am Start: 08-01-2020 End: 10-15-2022 take 4 mg by mouth once daily Naltrexone Discontinued 4 MG PO DAILY August 01, 2020 1:00am October 15, 2022 9:13am [place]-3 Fatty Acids (11 sources) Start: 05-24-2020 End: 10-15-2022 take 1000 mg by mouth twice daily [place]-3 Fatty Acids Discontinued 1000 MG PO TWICE A DAY May 23, 2020 11:00pm October 15, 2022 8:13am Start: 05-24-2020 End: 10-15-2022 take 1000 mg by mouth twice daily [place]-3 Fatty Acids Discontinued 1000 MG PO TWICE A DAY May 24, 2020 12:00am October 15, 2022 9:13am [place]-3 Fatty Acids 1,000 mg capsule (10 sources) Start: 05-24-2020 End: 10-15-2022 take 1 capsule by mouth twice daily [place]-3 Fatty Acids 1,000 mg capsule Discontinued 1000 mg PO TWICE A DAY May 24, 2020 12:00am October 15, 2022 9:13am OTC PRODUCT (1 source) End: 06-05-2022 apply 10 mg transdermal route once daily at bedtime OTC PRODUCT - Vitamin C 500 mg once daily - Pure Encapsulations Multivitamin once daily - [place] 3 950 mg twice daily ([place] EPA 504 DHA 378) - Betaine HCL + Pepsin 250 mg, 2 capsules twice daily - Tart Wu - Celery Seed - Melatonin Gummies at bedtime - "Pain patch" (name not specified) 20 mg. 1 patch "as needed" - Immunity patch (name not specified) - (handwritten list ilegible) + Hemp Extra, 30 mg at bedtime - Red Yeast Rice 600mg 2 times daily - Kulwinder GLA with sesame lignans 1 softgel daily (400mg gla sesame seed ligns extract 10mg) 0 06/05/2022 Discontinued (Course of therapy completed) Comment on above: - Vitamin C 500 mg once daily - Pure Encapsulations Multivitamin once daily - [place] 3 950 mg twice daily ([place] EPA 504 DHA 378) - Betaine HCL + Pepsin 250 mg, 2 capsules twice daily - Tart Wu - Celery Seed - Melatonin Gummies at bedtime - "Pain patch" (name not specified) 20 mg. 1 patch "as needed" - "Immunity patch" (name not specified) - (handwritten list ilegible) + Hemp Extra, 30 mg at bedtime - Red Yeast Rice 600mg 2 times daily - Kulwinder GLA with sesame lignans 1 softgel daily (400mg gla sesame seed ligns extract 10mg) PhytoMulti (Metagenics) (1 source) Start: 07-01-2021 End: 06-05-2022 PhytoMulti (Metagenics) 2 capsules daily with food 0 07/01/2021 06/05/2022 Discontinued (Course of therapy completed) Comment on above: 2 capsules daily with food red yeast rice 600 mg oral capsule (20 sources) Start: 05-24-2020 End: 10-15-2022 take 1 capsule by mouth once daily Red Yeast Rice 600 mg capsule Discontinued 600 mg PO DAILY May 24, 2020 12:00am October 15, 2022 9:13am give with meal/snack vit c (17 sources) Start: 08-31-2023 End: 10-19-2023 vit c Discontinued PO August 31, 2023 1:00am October 19, 2023 4:25pm Start: 08-31-2023 End: 10-19-2023 vit c Discontinued PO 2023 12:00am October 19, 2023 3:25pm Start: 08-31-2023 vit c Active P O August 31, 2023 12:00am Vitamin D [place] ([place]) (1 source) Start: 07-01-2021 End: 06-05-2022 take 1 capsule by mouth once daily at mealtime Vitamin D [place] ([place]) Take 1 capsule by mouth daily with food. 0 07/01/2021 06/05/2022 Discontinued Comment on above: Take 1 capsule by mouth daily with food. Zinc (17 sources) Start: 08-31-2023 End: 10-19-2023 zinc Discontinued PO August 31, 2023 1:00am October 19, 2023 4:26pm 50mg Start: 08-31-2023 End: 10-19-2023 zinc Discontinued PO August 31, 2023 12:00am October 19, 2023 3:26pm 50mg Start: 08-31-2023 zinc Active PO August 31, 2023 12:00am 50mg Problems Active Problems Problem Classification Problem Date Documented Da te Episodic/Chronic Cancer of prostate (5 sources) Malignant tumor of prostate; Translations: [Malignant neoplasm of prostate] Onset: 04-20-2025 01-16-2025 Chronic Cardiac dysrhythmias (2 sources) Paroxysmal atrial fibrillation; Translations: [Unspecified atrial flutter] Onset: 12-30-2024 Chronic Coronary atherosclerosis and other heart disease (5 sources) Coronary arteriosclerosis; Translations: [Atherosclerotic heart disease of [place] coronary artery without angina pectoris] Onset: 02-28-2025 02-28-2025 Chronic Coronary atherosclerosis and other heart disease (2 sources) Coronary atherosclerosis and other heart disease Disorders of lipid metabolism (20 sources) Mixed hyperlipidemia; Translations: [Mixed hyperlipidemia] Onset: 05-05-2016 Chronic Esophageal disorders (20 sources) Hood's esophagus; Translations: [Hood's esophagus without dysplasia] Onset: 05-05-2016 Chronic Essential hypertension (16 sources) Hypertensive disorder; Translations: [Essential (primary) hypertension] Onset: 02-28-2025 11-29-2024 Chronic Hyperplasia of prostate (4 sources) Large prostate ; Translations: [Benign prostatic hyperplasia without lower urinary tract symptoms] 01-16-2025 Chronic Nutritional deficiencies (15 sources) Vitamin deficiency; Translations: [Deficiency of nutrient element, unspecified] Onset: 03-23-2024 Episodic Open wounds of head; neck; and trunk (20 sources) Laceration - injury; Translations: [Laceration] 01-27-2014 Episodic Osteoarthritis (20 sources) Arthritis; Translations: [Unspecified osteoarthritis, unspecified site] Onset: 10-21-2024 10-15-2022 Chronic Other connective tissue disease (4 sources) Pain of bilateral hands; Translations: [Pain in right hand] 06-04-2024 Episodic Other connective tissue disease (6 sources) Triggering of digit; Translations: [Trigger finger, right little finger] 10-21-2024 Episodic Other connective tissue disease (1 source) Trigger finger, right little finger; Translations: [Trigger little finger of right hand] Onset: 10-21-2024 Episodic Other connective tissue disease (1 source) Trigger finger, right middle finger; Translations: [Trigger middle finger of right hand] Onset: 10-21-2024 Episodic Other connective tissue disease (1 source) Trigger finger, left little finger; Translations: [Trigger little finger of left hand] Onset: 10-21-2024 Episodic Other ear and sense organ disorders (20 sources) Impacted cerumen; Translations: [Impacted cerumen, right ear] 12-31-2021 Episodic Other gastrointestinal disorders (2 sources) Abnormal feces; Translations: [Other fecal abnormalities] Episodic Other lower respiratory disease (20 sources) Dyspnea on exertion; Translations: [Other forms of dyspnea] 07-21-2024 Episodic Other lower respiratory disease (2 sources) Other forms of dyspnea; Translations: [Other forms of dyspnea] Onset: 10-06-2024 Episodic Other nervous system disorders (4 sources) Bilateral carpal tunnel syndrome; Translations: [Carpal tunnel syndrome, bilateral upper limbs] 06-01-2024 Chronic Other nervous system disorders (10 sources) Carpal tunnel syndrome; Translations: [Carpal tunnel syndrome, bilateral upper limbs] 08-15-2024 Chronic Other nervous system disorders (1 source) Carpal tunnel syndrome, bilateral upper limbs; Translations: [Carpal tunnel syndrome, bilateral] Onset: 10-21-2024 Chronic Other non-traumatic joint disorders (1 source) Arthritis of first carpometacarpal joint of left hand 10-21-2024 Chronic Other non-traumatic joint disorders (1 source) Arthritis of first carpometacarpal joint of right hand 10-21-2024 Chronic Other non-traumatic joint disorders (20 sources) Pain in wrist; Translations: [Pain in unspecified wrist] 10-15-2022 Episodic Other non-traumatic joint disorders (20 sources) Pain in left knee; Translations: [Left knee pain] 11-26-2021 Episodic Other non-traumatic joint disorders (3 sources) Pain in unspecified wrist; Translations: [Pain in joint, forearm] 10-15-2022 Episodic Other skin disorders (20 sources) Eruption; Translations: [Rash and other nonspecific skin eruption] 10-15-2022 Episodic Other skin disorders (3 sources) Rash and other nonspecific skin eruption; Translations: [Rash and other nonspecific skin eruption] 10-15-2022 Episodic Other upper respiratory infections (15 sources) Acute sinusitis; Translations: [Acute sinusitis, unspecified] 11-02-2024 Episodic Residual codes; unclassified (16 sources) Pain; Translations: [Pain, unspecified] 09-16-2023 Episodic Residual codes; unclassified (3 sources) Contact with and (suspected) exposure to other hazardous metals; Translations: [Contact with and (suspected) exposure to other hazardous metals] 2024 Episodic Residual codes; unclassified (2 sources) Difficulty sleeping ; Translations: [Sleep disorder, unspecified] 04-20-2025 Episodic Past or Other Problems Problem Classification Problem Date Documented Date Episodic/Chronic Cardiac dysrhythmias (1 source) Palpitations; Translations: [Palpitations] Onset: 12-31-19 Episodic Diabetes mellitus without complication (20 sources) Prediabetes; Translations: [Prediabetes] Onset: 05-05-20 Episodic Genitourinary symptoms and ill-defined conditions (6 sources) Dysuria; Translations: [Dysuria] Onset: 01-17-20 25 01-16-2025 Episodic Miscellaneous mental health disorders (20 sources) Acute insomnia; Translations: [Adjustment insomnia] Onset: 05-05-20 16 05-05-2016 Episodic Mycoses (20 sources) Candidiasis; Translations: [Candidiasis, unspecified] Onset: 07-03-20 16 07-03-2016 Episodic Other circulatory disease (20 sources) Elevated blood pressure; Translations: [Elevated blood-pressure reading, without diagnosis of hypertension] Onset: 09-01-19 18 09-01-2017 Episodic Other connective tissue disease (1 source) Pain in right hand; Translations: [Bilateral hand pain] Onset: 06-08-20 Episodic Other connective tissue disease (1 source) Pain in left hand; Translations: [Bilateral hand pain] Onset: 06-08-20 Episodic Other non-traumatic joint disorders (11 sources) Shoulder pain; Translations: [Pain in left shoulder] Onset: 05-05-20 16 05-05-2016 Episodic Other non-traumatic joint disorders (20 sources) Pain in left shoulder; Translations: [Pain in joint, shoulder region] Onset: 05-05-20 16 05-05-2016 Episodic Other screening for suspected conditions (not mental disorders or infectious disease) (20 sources) Patient encounter status; Translations: [Encounter for screening for malignant neoplasm of intestinal tract, unspecified] Onset: 11-09-19 25 12-19-2022 Episodic Residual codes; unclassified (20 sources) Heterozygous methylenetetrahydrofolate reductase mutation; Translations: [Genetic susceptibility to other disease] Onset: 07-03-20 16 07-03-2016 Episodic Unclassified (20 sources) History of scapula, ulna, humerous reconstruction 03-06-2022 Comment on above: LEFT SHOULDER Unclassified (20 sources) prostate issues 03-06-2022 Results Test Name Value Interpretation Reference Range Facility MR/IMBon 04-20-2025 MR/BMSMorenaB [facility] [address] [place], [place] [address] OFFICE VISIT Date of Service: 04/20/25 MR#: [id number] Acct: [id number] Name: JYOTI CHOI Rep #: [id number] : 1950 Provider: Dr. Omaira stein MD Age/Sex: 75/M Location: [facility] Status: Signed Intake Vital Signs 02/28/25 08:22 04/20/25 08:02 Height 5 ft 8 in 5 ft 8 in Weight: 171 lb 172 lb BMI 25.9 26.1 BP 113/68 142/81 H Blood Pressure Location Lt brachial Lt brachial Position Sitting Sitting Respiration 16 16 Pulse 66 80 Pulse Source NIBP Monitor Temp 98.4 F Temp Source Temporal Pulse Oximetry (%) 92 Oxygen Delivery Method room air Intake Visit Reasons: Insomnia Chief Complaint: Trouble sleeping Air Sampler Required: No Accompanied by: Self Is patient in pain?: No Allergies terbinafine (From Lamisil) Allergy (Verified 04/20/25 07:55) Shortness of breath ciprofloxacin (From Cipro) Adverse Reaction (Verified 04/20/25 07:55) PALPITATIONS Medications ???Medication ???Instructions ???Recorded ???Confirmed ???Type multivitamin 1 tab PO DAILY 08/31/23 04/20/25 H istory omega-3 650 mg-dha 400 mg-epa 200 1 cap PO DAILY 08/31/23 04/20/25 History mg-fish oil-vit D3 300 unit capsule magnesium 250 mg tablet 250 mg PO DAILY 10/19/23 04/20/25 History aspirin 81 mg chewable tablet 81 mg PO QDAY #30 tabs 08/31/24 Rx finasteride 5 mg tablet 5 mg PO QDAY 01/16/25 04/20/25 His tory pantoprazole 40 mg tablet,delayed 40 mg PO QDAY #180 TABLETS 04/20/25 Rx release amlodipine 5 mg tablet (Norvasc) 5 mg PO QDAY #90 tabs 02/28/2512/09 Rx carvedilol 6.25 mg tablet (Coreg) 6.25 mg PO BID #180 tabs 02/28/25 04/20/25 Rx hydrochlorothiazide 12.5 mg capsule 12.5 mg PO QAM #90 caps 5 04/20/25 Rx rosuvastatin 20 mg tablet 20 mg PO QDAY #90 tabs 02/28/25 Rx magnesium gluconate 27 mg mg PO 04/20/25 04/20/25 History magnesium (500 mg) tablet melatonin 3 mg capsule 3 mg PO HS PRN 04/20/25 04/20/25 H istory trazodone 50 mg tablet 25 mg (1/2 x 50 mg) PO QHS PRN 12/0904/20/25 Rx sleep #14 tabs Have you fallen in the past year?: No PFSH Medical History (Updated 04/20/25 @ 08:[address] Omaira Weir MD) Difficulty sleeping CAD (coronary artery disease) Enlarged prostate Prostate cancer Dysuria Acute sinusitis Carpal tunnel syndrome, bilateral Dyspnea on exertion Poor historian History of stress test Wears glasses Alcohol use Back pain History of hiatal hernia Former smoker History of echocardiogram Hood syndrome prostate issues Osteopenia Arthritis Surgical History History of biopsy H/O cardiac catheterization Hx of appendectomy History of scapula, ulna, humerous reconstruction History of endoscopy History of colonoscopy Family History Aunt Breast cancer Uncle Colon cancer Diabetes Heart disease Mother Cancer Diabetes Other Alcoholism Anxiety and depression Liver disease Melanoma Osteoporosis Social History Smoking Status: Former smoker alcohol intake: current substance use type: does not use caffeine: Yes HPI HPI Chief Complaint: Trouble sleeping Details: JYOTI CHOI, is a 75 M who presents to the office today for an acute care follow-up visit. 75-year-old gentleman has a history of CAD, hypertension, issues that have been stable. GERD. He is on rosuvastatin, pantoprazole, low-dose HCTZ, finasteride, carvedilol, aspirin and Norvasc. He has been having difficulties with sleep for some time. See prior notes where we have at least partially addressed this. He notes, sometimes he is waking up around 2 to 3 AM in the morning. He ultimately is able to go back to sleep but tends to get up around 530 on a regular basis. That is his normal schedule. He does try and do some things with sleep hygiene, avoiding light in the evening time. He is well read, well-informed about issues such as this. He is doing some delta 9 supplement after discussing with the [employer] store staff. That seems to help. He is using melatonin 3 mg which seems to help to some degree he states. He has some sleep teas, chamomile that he has been using if needed as well. He and his spouse sleep in separate rooms and that has just been perhaps the last 6 months or so he states. He does not feel that he wakes up with snoring, does not wake up abruptly short of breath or gasping. He is not overweight. He does not feel as if he has any abnormal limb movement issues. He states his usual lifetime pattern has been 1 where he does not routinely dream. Review of systems per chart. (more content not included)... Normal [facility] Cardiology Visit Reporton Cardiology Visit Report [facility] [address] [place] [address]. [address] [place] [address] OFFICE VISIT Date of Service: 02/28/25 MR#: [id number] Acct: [id number] Name: JYOTI CHOI Rep #: [id number] : 1950 Provider: KYLIE Melgoza Age/Sex: 74/M [place] [facility] Status: Signed HPI HPI History of Present Illness Details: Patient comes in today for monitoring of his cardiovascular status. Patient undergone left heart catheterization in October of 2024 which showed a small posterolateral circumflex with severe disease. He was not felt that this was clinically significant and he has been treated medically. He also has a history of hypertension and hyperlipidemia. He was recently diagnosed with prostate cancer. They are just monitoring this. From a cardiac standpoint, patient is doing well. He does not have any chest discomfort/heaviness/tig htness. His exercise tolerance is stable for his age. He does not have any worsening symptoms of shortness of breath. He denies any PND. He does not have any orthopnea. He does not have any symptoms of congestive heart failure. He does not have any palpitations that he is aware of. He does not have any lightheadedness or dizziness. He does not have any near-syncope or syncope. He does not have any lower extremity edema. He does not have any symptoms of claudication. Intake Vital Signs 11/29/24 10:55 01/16/25 09:42 02/28/25 08:22 Height 5 ft 8 in 5 ft 8 in 5 ft 8 in Weight: 171 lb BMI 25.9 BP 113/68 Blood Pressure Location Lt brachial Position Sitting Respiration 16 Pulse 66 Pulse Source NIBP Intake Visit Reasons: 3 M FU Allergies terbinafine (From Lamisil) Allergy (Verified 01/16/25 09:31) Shortness of breath ciprofloxacin (From Cipro) Adverse Reaction (Verified 01/16/25 09:31) PALPITATIONS Medications ???Medication ???Instructions ???Recorded ???Confirmed ???Type multivitamin 1 tab PO DAILY 08/31/23 02/28/25 H istory omega-3 650 mg-dha 400 mg-epa 200 1 cap PO DAILY 08/31/23 02/28/25 History mg-fish oil-vit D3 300 unit capsule magnesium 250 mg tablet 250 mg PO DAILY 10/19/23 02/28/25 History aspirin 81 mg chewable tablet 81 mg PO QDAY #30 tabs 08/31/24 Rx finasteride 5 mg tablet 5 mg PO QDAY 01/16/25 02/28/25 His tory pantoprazole 40 mg tablet,delayed 40 mg PO QDAY #180 TABLETS 02/28/25 Rx release amlodipine 5 mg tablet (Norvasc) 5 mg PO QDAY #90 tabs 02/28/25 Rx carvedilol 6.25 mg tablet (Coreg) 6.25 mg PO BID #180 tabs 02/28/25 02/28/25 Rx hydrochlorothiazide 12.5 mg capsule 12.5 mg PO QAM #90 caps 5 02/28/25 Rx rosuvastatin 20 mg tablet 20 mg PO QDAY #90 tabs 02/28/25 Rx Ejection fraction %: 55 Have you fallen in the past year?: No PFSH Medical History (Updated 02/28/25 @ 08:42 by Yuki Vicente PA, PA) CAD (coronary artery disease) Enlarged prostate Prostate cancer Dysuria Acute sinusitis Carpal tunnel syndrome, bilateral Dyspnea on exertion Poor historian History of stress test Wears glasses Alcohol use Back pain History of hiatal hernia Former smoker History of echocardiogram Hood syndrome prostate issues Osteopenia Arthritis Surgical History History of biopsy H/O cardiac catheterization Hx of appendectomy History of scapula, ulna, humerous reconstruction History of endoscopy History of colonoscopy Family History Aunt Breast cancer Uncle Colon cancer Diabetes Heart disease Mother Cancer Diabetes Other Alcoholism Anxiety and depression Liver disease Melanoma Osteoporosis Social History Smoking Status: Former smoker alcohol intake: current substance use type: does not use caffeine: Yes ROS Const Const: Negative for fatigue or weakness Eyes Eyes: Negative for change in vision ENT ENT: Negative for dizziness or balance problems Cardio Chest Pain: No Palpitations: Yes (infrequently) Edema: None Resp Respiratory: Negative for SOB with activity, SOB at rest or SOB orthopnea SOB lying down GI GI: Negative nausea or heartburn Musc Musc: Negative for balance problems Neuro Neuro: Negative for dizziness, lightheadedness, near syncope, syncope or weakness Endo Endo: Negative for fatigue Cardiology Exam Const Appearance: cooperative, healthy appearing, comfortable, no acute distress and well developed Head Head: normal to inspection Eyes General: appearance normal, both eyes and all related structures Neck Neck: normal visual inspection and no JVD Carotids: Negative bruit Chest Chest inspection: normal inspection of the chest Auscultation: (more content not included)... Normal [facility] - Chemistry and C hemistry - challengeOrdered By: Omaira Weir on 01-16-2025 Bilirubin Ql (U) Negative [facility] Glucose Ql (U) Negative [facility] Ketones Ql (U) Negative [facility] pH (U) 6.5 [pH] [facility] Specific gravity (U) [Rel density] 1.015 [facility] Urobilinogen (U) [Mass/Vol] 0.5382768 mg/dL [facility] - Hematology and Cell countsOrdered By: Omaira Weir on 01-16-2025 Hemoglobin Ql (U) Negative [facility] - Specimen inform ationOrdered By: Omaira Weir on 01-16-2025 Clarity (U) Clear [facility] Color (U) YELLOW [facility] - UrinalysisOrder ed By: Omaira Weir on 01-16-2025 Nitrite Ql (U) Negative [facility] Protein Ql (U) Negative [facility] MR/BMS.IMBon 01-16-2025 MR/BMS.B [facility] [address] [place] [address] OFFICE VISIT Date of Service: 01/16/25 MR#: [id number] Acct: [id number] Name: JYOTI CHOI Rep #: [id number] : 1950 Provider: Dr. Omaira stein MD Age/Sex: 74/M Location: [facility] Status: Signed Intake Vital Signs 01/10/25 15:42 01/16/25 09:42 Height 5 ft 8 in 5 ft 8 in Weight: 169 lb 8 oz 168 lb 4 oz BMI 25.7 25.5 BP 142/84 H 153/71 H Blood Pressure Location Rt brachial Position Sitting Sitting Respiration 16 Pulse 98 90 Pulse Source Monitor Temp 97.4 F L 98.6 F Temp Source Oral Temporal Pulse Oximetry (%) 98 95 Oxygen Delivery Method room air room air Intake Visit Reasons: FU [facility] Chief Complaint: [facility] FU Air Sampler Required: No Accompanied by: Self Is patient in pain?: No Allergies terbinafine (From Lamisil) Allergy (Verified 01/16/25 09:31) Shortness of breath ciprofloxacin (From Cipro) Adverse Reaction (Verified 01/16/25 09:31) PALPITATIONS Medications ???Medication ???Instructions ???Recorded ???Confirmed ???Type multivitamin 1 tab PO DAILY 08/31/23 01/16/25 H istory omega-3 650 mg-dha 400 mg-epa 200 1 cap PO DAILY 08/31/23 01/16/25 History mg-fish oil-vit D3 300 unit capsule magnesium 250 mg tablet 250 mg PO DAILY 10/19/23 01/16/25 History pantoprazole 40 mg tablet,delayed 40 mg PO DAILY 10/19/23 01/16/25 History release aspirin 81 mg chewable tablet 81 mg PO QDAY #30 tabs 08/31/24 Rx amlodipine 5 mg tablet (Norvasc) 5 mg PO QDAY #60 tabs 10/31/2410/11 Rx rosuvastatin 20 mg tablet 20 mg PO QDAY #30 tabs 10/31/24 Rx hydrochlorothiazide 12.5 mg capsule 12.5 mg PO QAM #30 caps 5 01/16/25 Rx ciprofloxacin HCl 250 mg tablet 250 mg PO BID 7 days #14 tabs 10/1101/16/25 Rx finasteride 5 mg tablet 5 mg PO QDAY 01/16/25 01/16/25 His tory Have you fallen in the past year?: No PFSH Medical History (Updated 01/16/25 @ 10:[address] Omaira Weir MD) Enlarged prostate Prostate cancer Dysuria Acute sinusitis Carpal tunnel syndrome, bilateral Dyspnea on exertion Poor historian History of stress test Wears glasses Alcohol use Back pain History of hiatal hernia Former smoker History of echocardiogram Hood syndrome prostate issues Osteopenia Arthritis Surgical History (Updated 01/16/25 @ 09:41 by Khushbu Salomon RN) History of biopsy H/O cardiac catheterization Hx of appendectomy History of scapula, ulna, humerous reconstruction History of endoscopy History of colonoscopy Family History Aunt Breast cancer Uncle Colon cancer Diabetes Heart disease Mother Cancer Diabetes Other Alcoholism Anxiety and depression Liver disease Melanoma Osteoporosis Social History Smoking Status: Former smoker alcohol intake: current substance use type: does not use caffeine: Yes HPI HPI Chief Complaint: [facility] FU Details: JYOTI CHOI, is a 74 M who presents to the office today for an acute care follow-up visit. 74-year-old gentleman who has a history of BPH, LUTS, with rising PSA, following with local urology. He underwent biopsy about a month ago. I do not have those reports as they were not sent to me. The biopsy shows: A. Prostate, right apex, biopsy: * Benign prostate tissue. B. Prostate, right mid, biopsy: * Benign prostate tissue with focal acute inflammation. C. Prostate, right base, biopsy: * Benign prostate tissue. D. Prostate, left apex, biopsy: * Benign prostate tissue with focal mild acute inflammation. E. Prostate, left mid, biopsy: * Benign prostate tissue with focal mild acute inflammation. F. Prostate, left base, biopsy: * Adenocarcinoma [place] 3+3=6, 2 of 2 cores, involving 40% of the tissue. He states he was seemingly doing okay after the biopsy. On 10 January, [facility] for concerns about possible UTI. Urine showed some elevated WBC counts, few red cells, prompting a course of cephalexin. He states that he did get improvement in the symptoms after the course of cephalexin but not completely. States last night, felt slight bit of discomfort once again similar to when he went to urgent care. Has been trying to push more fluids, keeping concentrated beverages out, and particularly limiting caffeinated beverages such as coffee or tea. He does not drink pop, overall continues to eat a very good high-quality diet. Cipro is listed as an allergy per the chart although he states it was "a long time ago." He did not have allergy per se, but thought it may have been associated with palpitations. Review of systems per chart. Physical exam. Vital s (more content not included)... Normal [facility] No Panel InformationOrdered By: Omaira Weir on 01-16-2025 Urine Leukocytes Negatve [facility] Urine Non-Hemolyzed Blood Negative [facility] Urine Cultureon 01-11-2025 URC Culture exhibits no growth. Normal [facility] Comment on above: Performed By: #### M 100.2200 ####[facility] [id number] [place], [address] Laboratory - Chemistry and C hemistry - challengeOrdered By: Wan Plaza on 01-10-2025 Bilirubin Ql (U) Negative [facility] Glucose Ql (U) Negative [facility] Ketones Ql (U) Moderate (40+) [facility] pH (U) 6.0 [pH] [facility] Specific gravity (U) [Rel density] 1.010 [facility] Urobilinogen (U) [Mass/Vol] 0.9058138 mg/dL [facility] Laboratory - Hematology and Cell countsOrdered By: Wan Plaza on 01-10-2025 Hemoglobin Ql (U) Moderate [facility] Laboratory - Specimen inform ationOrdered By: Wan Plaza on 01-10-2025 Clarity (U) Clear [facility] Color (U) YELLOW [facility] Laboratory - UrinalysisOrder ed By: Wan Plaza on 01-10-2025 Nitrite Ql (U) Negative [facility] Protein Ql (U) Negative [facility] No Panel InformationOrdered By: Wan Plaza on 01-10-2025 Urine Leukocytes Positive [facility] Comment on above: Trace Urine Non-Hemolyzed Blood Non-Hemolyzed [facility] Urgent Care Visit Reporton 0 01-10-2025 Urgent Care Visit Report [facility] [address], [address] [place] [address] OFFICE VISIT Date of Service: 01/10/25 MR#: [id number] Acct: [id number] Name: JYOTI CHOI Rep #: [id number] : 1950 Provider: KYLIE Ho Age/Sex: 74/M Location[place] [facility] Status: Signed Intake Vital Signs 11/29/24 10:55 01/10/25 15:42 Height 5 ft 8 in 5 ft 8 in Weight: 171 lb 169 lb 8 oz BMI 25.9 25.7 BP 146/72 H 142/84 H Blood Pressure Location Lt brachial Position Sitting Sitting Respiration 18 Pulse 89 98 Pulse Source Monitor Temp 97.4 F L Temp Source Oral Pulse Oximetry (%) 94 98 Oxygen Delivery Method room air Intake Visit Reasons: CONCERN FOR UTI Accompanied by: Self Allergies terbinafine (From Lamisil) Allergy (Verified 01/10/25 15:36) Shortness of breath ciprofloxacin (From Cipro) Adverse Reaction (Verified 01/10/25 15:36) PALPITATIONS Medications ???Medication ???Instructions ???Recorded ???Confirmed ???Type multivitamin 1 tab PO DAILY 08/31/23 01/10/25 H istory omega-3 650 mg-dha 400 mg-epa 200 1 cap PO DAILY 08/31/23 01/10/25 History mg-fish oil-vit D3 300 unit capsule magnesium 250 mg tablet 250 mg PO DAILY 10/19/23 01/10/25 History pantoprazole 40 mg tablet,delayed 40 mg PO DAILY 10/19/23 01/10/25 History release aspirin 81 mg chewable tablet 81 mg PO QDAY #30 tabs 08/31/24 Rx amlodipine 5 mg tablet (Norvasc) 5 mg PO QDAY #60 tabs 10/31/24 Rx rosuvastatin 20 mg tablet 20 mg PO QDAY #30 tabs 10/31/24 Rx hydrochlorothiazide 12.5 mg capsule 12.5 mg PO QAM #30 caps 5 01/10/25 Rx cephalexin 500 mg capsule 500 mg PO TID #15 caps 01/10/25 Rx Have you fallen in the past year?: No Nurse's Note: Patient has concerns for a UTI. Patient has burning and frequency and painful urination that has been going on about a week. [facility] Medical History Acute sinusitis Carpal tunnel syndrome, bilateral Dyspnea on exertion Poor historian History of stress test Wears glasses Alcohol use Back pain History of hiatal hernia Former smoker History of echocardiogram Hood syndrome prostate issues Osteopenia Arthritis Surgical History H/O cardiac catheterization Hx of appendectomy History of scapula, ulna, humerous reconstruction History of endoscopy History of colonoscopy Family History Aunt Breast cancer Uncle Colon cancer Diabetes Heart disease Mother Cancer Diabetes Other Alcoholism Anxiety and depression Liver disease Melanoma Osteoporosis Social History Smoking Status: Former smoker alcohol intake: current substance use type: does not use caffeine: Yes HPI HPI Details: JYOTI CHOI, is a 74 M who presents to the office today for initial evaluation at [facility] for approximately 3-4 day history of dysuria and urinary frequency with suprapubic pressure. No complaints of fever, chills, sweats, lightheadedness/dizzines s, nausea/vomiting, or chest pain/shortness of breath/dyspnea on exertion/back pain. No changes in color/ character of urine or stool. No sgwu-nnl-[id number] products taken to assist. No other associated symptoms and no alleviating/aggravating factors. ROS Const Constitutional: No other (As above) Exam Const General: cooperative, healthy appearing and no acute distress Orientation: alert, awake and oriented x3 Chest Chest palpation inspection: normal inspection of the chest Resp Effort Inspection: normal respiratory effort and able to speak in complete sentences Cardio Rate: regular rate Pulses: radial pulses present GI Inspection: normal to inspection Palpation: soft and tender suprapubic (Patient describes upon self-palpation) General: No CVA tenderness Skin General: no rashes or lesions noted Neuro General: patient alert, patient awake and patient oriented x3 Cognition: normal cognition Speech: speech normal Psych Appearance: grossly normal Mental Status: mental status grossly normal Mood: congruent mood Affect: normal affect Speech and Movement: speech and movement normal Attitude: cooperative Diagnoses Urinary tract infection N39.0 Assessment and Plan Assessment and Plan (1) Urinary tract infection: Status: Acute Plan: See POC results; urine sent to lab for C/S. Cephalexin as prescribed today. Supportive measures as instructed today. Follow-up with PCP in 3 to 5 days should symptoms not improve, sooner should symptoms only worsen or any other concerns develop. Patient states acknow (more content not included)... Normal [facility] Urine cultureOrdered By: Jose David Plaza on 01-10-2025 Bacteria identified Cx Nom (U) Culture exhibits no growth. [facility] [id number] 12-31-2024 [id number] HNO ID: [id number] Author: SETH ELLISON OTR/L Service: ? Author Type: Occupational Therapist Type: [id number] Filed: 12/31/2024 22:02 Note Text: [facility] Occupational Therapy Plan of Care Certification Patient Name: Jyoti Choi : 1950 [facility] #: [id number] Date: 12/30/2024 To: Laura Leon PA-C From Therapist: Seth Ellison OTR/Blossom RE: Patient Certification/ Recertification Your review, approval and electronic signature are required in order to comply with Payor: [facility] [employer] / Plan: [facility] MEDICARE ADVANTAGE HMO / Product Type: HMO / regulations. The identified Occupational Therapy PLAN OF CARE for the patient is as follows: M79.641, M79.642 Bilateral hand pain (primary encounter diagnosis) PLAN OF CARE UPDATE: Assessment: Jyoti Choi demonstrates improvements in gripping. The patient has progressed toward goals. Patient continues to present with impairments in overall function, strength, and symptom management that interfere with lifting, physical activities, recreational activities . Current prognosis is Good due to: current objective clinical presentation, acuteness of condition . The patient will benefit from continued skilled therapy services to meet the updated goals for this plan of care as noted below. PLAN FOR NEXT VISIT: Progress CMC stabilization exercises as tolerated. Review use of kineosiotape to support CMC joint during activities. Goals for Episode of Care: established 10/21/24 (reviewed on 12/30/24) Patient reported outcome of pain Interference will decrease T -score by a minimum of 5 points. (PA, ongoing) Patient will report a good understanding of diagnosis and OT recommendations for progression of program.(PA, ongoing) Patient will demonstrate independence with ongoing home recommendations/exercise program throughout therapy plan of care.(PA, ongoing) Patient will improve function in Bilateral hand in order to be able to perform basic self-care tasks and prior functional tasks.(PA, ongoing) Patient will report a decrease in pain in Bilateral hand to 2/10 with basic self-care tasks and prior functional tasks.(PA, ongoing) Patient will independently demonstrate correct application of PREFABRICATED orthosis and verbalize understanding of proper wear/care. (A) Additional goal added 12/30/24 Patient will increase Bilateral consulting nurse strength by 5#, so that patient will be able to improve function for prior functional tasks. Goal Gonzalez A=achieved PA=partially achieved NA=not achieved NT=not tested Patient Goals: Increased functional hand use Time Frame for Goals and Treatment : 12/20/24 Time Frame for Goals and Treatment : 02/13/25 Patient Goals: avoid surgery. Planned Interventions, Frequency, and Duration: 1x every other week, 6 weeks Total Number of Visits Planned: 5 Planned Treatment Interventions: Custom orthosis fabrication, Therapeutic exercise (73864), Self-custodial management (95929), Orthotics management and training (44025,24263) For further details regarding this patient refer to the Occupational Therapy electronically documented visit dated 12/30/2024. Provider Attestation I have reviewed the treatment plan for Jyoti Choi, [facility]# [id number] for the period of 10/21/24 -- 02/13/25, established on 12/30/2024. Signature certifies the need for therapy services. Normal [facility] CNTHERAPYon 12-30-2024 CNTHERAPY OT/PT/Speech Visit (AKOTB) -------- JYOTI CHOI ([id number]) 1950 M Date Time Provider Department 12/30/24 7:00 AM SETH ELLISON Date Time Provider Department Center 12/30/2024 7:00 AM [id number], ANAS*AKKING [facility] Reason for Visit: Occupational Therapy [504] Primary Visit Diagnosis:Bilateral hand pain [M79.641, M79.642] Allergies As of Date: 12/30/2024 Noted Allergy Reaction LAMISIL (TERBINAFINE HCL) 07/03/2016 5 - Intolerance Comments: heart palp. MILK 05/05/2016 14 - Other: See Comments Comments: phlegm, avoids daily Date Reviewed: 10/21/2024 Reviewed by: Laura Leon PA-C - Fully Assessed Prescriptions as of 12/31/2024 - omega-3 fatty acids/fish oil (OMEGA 3 FISH OIL ORAL) Take 1,000 mg by mouth two times a day. (NOW) - MAGNESIUM GLYCINATE ORAL Take 350 mg by mouth once daily. (SOLARAY) - chlorel/chloroph/D3/B2/F A/iron (CHLORELLA CAPS ORAL) Take 5 mg by mouth once daily. - pantoprazole sodium (PANTOPRAZOLE ORAL) Take 40 mg by mouth once daily. - aspirin 81 mg cap Take by mouth once daily. - rosuvastatin (CRESTOR) 10 mg tablet Take 10 mg by mouth once daily. - O.N.E. Multivitamin (Pure Encapsulations) 1 capsule daily, with a meal, 60 ct Rod Straightener: Therapy (PT/OT/Speech/Resp) ID: [id number] 12/30/2024 8:05 AM Author: SETH ELLISON Signed by SETH ELLISON OTR/L on 12/30/2024 at 8:05 AM Document text: Program_ID:[id number] Access Code: [email or web address] URL: [email or web address]/ Date: 12-30-2024 Prepared By: Ezequiel Patel Program Notes Soft Tissue Mobilization - Soft tissue (also known as connective tissue) includes tissues that connect, surround, or support structures in the body (not including bone) - Some of these tissues include: tendons, nerves, ligaments, and muscles - These tissues can become shortened and/or tight when the joints become unstable due to arthritis - The exercises below target the tight tissues that occur when the base of the thumb joint begins to get pulled into the palm Goal: to improve the flexibility and to decrease the tightness in the thumb web space Exercises - Thumb Stablization Adductor Release - 1 x daily - 7 x weekly - 2 sets - 10 reps - Thumb Stabilization Web Space Release: Using Another Object - 1 x daily - 7 x weekly - 2 sets - 10 reps - Thumb Stabilization Web Space Release: Using Other Hand - 1 x daily - 7 x weekly - 3 sets - 10 reps - Thumb Stabilization Web Space Release: Web Space to Web Space - 1 x daily - 7 x weekly - 3 sets - 10 reps - cc Self CMC Stretch - 1 x daily - 7 x weekly - 2 sets - 10 reps - cc Self CMC Stretch Behind Back - 1 x daily - 7 x weekly - 2 sets - 10 reps - Thumb Strengthening Stabilization CMC - 1 -2 x daily - 7 x weekly - 1 sets - 10 reps - Thumb Stabilization: "C" Position Isometric Around Ball - 1 -2 x daily - 7 x weekly - 1 sets - 10 reps - Thumb Stabilization: Isometric Opposition With Bunny Ears - 1-2 x daily - 7 x weekly - 1 sets - 10 reps - Seated Thumb CMC Isometric Radial Abduction - 1-2 x daily - 7 x weekly - 1 sets - 10 reps - Thumb Strengthening Stabilization CMC First Dorsal Interossei - 1-2 x daily - 7 x weekly - 1 sets - 10 reps - First Dorsal Interosseous Isotonic Strengthening With Rubber Band Resistance - 1-2 x daily - 7 x weekly - 1 sets - 10 reps Annotated image of OT HAND/CMC SOFT TISSUE MOBILIZATION last updated by Seth Ellison OTR/L on 12/30/2024 7:27 AM Annotated image of OT HAND/CMC STRETCHING last updated by Seth Ellison OTR/L on 12/30/2024 7:27 AM Annotated image of OT HAND/CMC STRENGTHENING last updated by Seth Ellison OTR/L on 12/30/2024 7:27 AM [facility] THERAPY NTon 12-30-2024 THERAPY NT HNO ID: [id number] Author: SETH ELLISON OTR/L Service: ? Author Type: Occupational Therapist Type: Therapy (PT/OT/Speech/Resp) Filed: 12/30/2024 08:05 Note Text: Program_ID:[id number] Access Code: [email or web address] URL: [email or web address] Date: 12-30-2024 Prepared By: Ezequiel Patel Program Notes Soft Tissue Mobilization - Soft tissue (also known as connective tissue) includes tissues that connect, surround, or support structures in the body (not including bone) - Some of these tissues include: tendons, nerves, ligaments, and muscles - These tissues can become shortened and/or tight when the joints become unstable due to arthritis - The exercises below target the tight tissues that occur when the base of the thumb joint begins to get pulled into the palm Goal: to improve the flexibility and to decrease the tightness in the thumb web space Exercises - Thumb Stablization Adductor Release - 1 x daily - 7 x weekly - 2 sets - 10 reps - Thumb Stabilization Web Space Release: Using Another Object - 1 x daily - 7 x weekly - 2 sets - 10 reps - Thumb Stabilization Web Space Release: Using Other Hand - 1 x daily - 7 x weekly - 3 sets - 10 reps - Thumb Stabilization Web Space Release: Web Space to Web Space - 1 x daily - 7 x weekly - 3 sets - 10 reps - cc Self CMC Stretch - 1 x daily - 7 x weekly - 2 sets - 10 reps - cc Self CMC Stretch Behind Back - 1 x daily - 7 x weekly - 2 sets - 10 reps - Thumb Strengthening Stabilization CMC - 1 -2 x daily - 7 x weekly - 1 sets - 10 reps - Thumb Stabilization: "C" Position Isometric Around Ball - 1 -2 x daily - 7 x weekly - 1 sets - 10 reps - Thumb Stabilization: Isometric Opposition With Bunny Ears - 1-2 x daily - 7 x weekly - 1 sets - 10 reps - Seated Thumb CMC Isometric Radial Abduction - 1-2 x daily - 7 x weekly - 1 sets - 10 reps - Thumb Strengthening Stabilization CMC First Dorsal Interossei - 1-2 x daily - 7 x weekly - 1 sets - 10 reps - First Dorsal Interosseous Isotonic Strengthening With Rubber Band Resistance - 1-2 x daily - 7 x weekly - 1 sets - 10 reps Normal [facility] Absolute lymphocyte countOrd ered By: Felipe Landis on 12-22-2024 Lymphocytes Auto (Unsp spec) [#/Vol] 1.55 10*3/uL 0.83-4.51 [facility] Absolute neutrophil countOrd ered By: Felipe Landis on 12-22-2024 Neutrophils (Bld) [#/Vol] 4.9 10*3/uL 2.0-7.7 [facility] Anion gap in Serum or Plasma Ordered By: Felipe Landis on 12-22-2024 Anion gap [Moles/Vol] 9 mmol/L 5-15 [facility] Automated lymphocyte count a s percentage of total leukocytesOrdered By: Felipe Landis on 12-22-2024 Lymphocytes/100 WBC Auto (Unsp spec) 21.1 % - [facility] BUN/creatinine ratioOrdered By: Felipe Landis on 12-22-2024 Urea nitrogen/Creatinine [Mass ratio] 14.3 mg/mg - [facility] Basic Metabolic Profile (BMP )on 12-22-2024 BUN/CRE 14.3 RATIO Normal - [facility] Comment on above: Performed By: #### L 100.0100, L500.2500 #### [facility] [address] [place], [address] Calcium [Mass/Vol] 9.5 mg/dL Normal 7.6-11.0 [facility] Comment on above: Performed By: #### L 100.0100, L500.2500 #### [facility] [address] [place], [address] Chloride [Moles/Vol] 98 mmol/L Normal 98-108 [facility] Comment on above: Performed By: #### L 100.0100, L500.2500 #### [facility] [address] [place], [address] CO2 [Moles/Vol] 27.5 mmol/L Normal 21.0-32.0 [facility] Comment on above: Performed By: #### L 100.0100, L500.2500 #### [facility] [address] [place], [address] Creatinine [Mass/Vol] 0.85 mg/dL Normal 0.70-1.20 [facility] Comment on above: Performed By: #### L 100.0100, L500.2500 #### [facility] [address] [place], [address] GAP 9 Normal -15 [facility] Comment on above: Performed By: #### L 100.0100, L500.2500 #### [facility] [address] [place], [address] GFR/1.73 sq M.predicted among non-blacks MDRD (S/P/Bld) [Vol rate/Area] 92 mL/min/{1.73_m2} Normal >60 [facility] Comment on above: Result Comment: mL/m in/1.73m2 CKD-EPI Creatinine Equation (2020) Performed By: #### L 100.0100, L500.2500 #### [facility] [address] [place], [address] Glucose [Mass/Vol] 90 mg/dL Normal 70-99 [facility] Comment on above: Performed By: #### L 100.0100, L500.2500 #### [facility] [address] [place], [address] Potassium [Moles/Vol] 3.9 mmol/L Normal 3.3-5.1 [facility] Comment on above: Performed By: #### L 100.0100, L500.2500 #### [facility] [address] [place], [address] Sodium [Moles/Vol] 135 mmol/L Normal 133-145 [facility] Comment on above: Performed By: #### L 100.0100, L500.2500 #### [facility] [address] [place], [address] Urea nitrogen [Mass/Vol] 12 mg/dL Normal 4-19 [facility] Comment on above: Performed By: #### L 100.0100, L500.2500 #### [facility] [address] [place], [address] Basophil percentageOrdered B y: Felipe Landis on 12-22-2024 Basophils/100 WBC (Bld) 0.8 % 0-1 [facility] CBC W/Diff, Automatedon Absolute Lymph 1.55 X10 3/uL Normal 0.83-4.51 [facility] Comment on above: Performed By: #### L 100.0100, L500.2500 #### [facility] [address] [place], [address] Absolute Neut 4.9 X10 3/uL Normal 2.0-7.7 [facility] Comment on above: Performed By: #### L 100.0100, L500.2500 #### [facility] [address] [place], [address] Basophils/100 WBC (Bld) 0.8 % Normal 0-1 [facility] Comment on above: Performed By: #### L 100.0100, L500.2500 #### [facility] [address] [place], [address] Eosinophils/100 WBC (Bld) 1.8 % Normal 0-5 [facility] Comment on above: Performed By: #### L 100.0100, L500.2500 #### [facility] [address] [place], [address] Erythrocyte distribution width (RBC) [Ratio] 12.1 % Normal 11.6-14.6 [facility] Comment on above: Performed By: #### L 100.0100, L500.2500 #### [facility] [address] [place], [address] Hematocrit (Bld) [Volume fraction] 46.8 % Normal 40-54 [facility] Comment on above: Performed By: #### L 100.0100, L500.2500 #### [facility] [address] [place], [address] Hemoglobin (Bld) [Mass/Vol] 15.5 g/dL Normal 13.0-16.5 [facility] Comment on above: Performed By: #### L 100.0100, L500.2500 #### [facility] [address] [place], [address] IG% 0.300 Normal 0.0-0.9 [facility] Comment on above: Result Comment: IG% - Immature Granulocytes (promyelocytes, myelocytes and metamyelocytes) > 1% indicates that a LEFT SHIFT is Present. Performed By: #### L 100.0100, L500.2500 #### [facility] [address] [place], [address] Lymphocytes/100 WBC (Bld) 21.1 % Normal 19-41 [facility] Comment on above: Performed By: #### L 100.0100, L500.2500 #### [facility] [address] [place], [address] MCH (RBC) [Entitic mass] 28.9 pg Normal 27.0-32.0 [facility] Comment on above: Performed By: #### L 100.0100, L500.2500 #### [facility] [address] [place], [address] MCHC (RBC) [Mass/Vol] 33.1 g/dL Normal 32-36 [facility] Comment on above: Performed By: #### L 100.0100, L500.2500 #### [facility] [address] [place], [address] MCV (RBC) [Entitic vol] 87.2 fL Normal 80-94 [facility] Comment on above: Performed By: #### L 100.0100, L500.2500 #### [facility] [address] [place], [address] Monocytes/100 WBC (Bld) 8.9 % Normal 0-10 [facility] Comment on above: Performed By: #### L 100.0100, L500.2500 #### [facility] [address] [place], [address] Neutrophils/100 WBC (Bld) 67.1 % Normal 47-70 [facility] Comment on above: Performed By: #### L 100.0100, L500.2500 #### [facility] [address] [place], [address] Nucleated RBC (Bld) [#/Vol] 0 10*3/uL Normal 0-5 [facility] Comment on above: Performed By: #### L 100.0100, L500.2500 #### [facility] [address] [place], [address] Platelet mean volume (Bld) [Entitic vol] 10.7 fL Normal 6.2-12.0 [facility] Comment on above: Performed By: #### L 100.0100, L500.2500 #### [facility] [address] [place], [address] Platelets (Bld) [#/Vol] 278 10*3/uL Normal 150-450 [facility] Comment on above: Performed By: #### L 100.0100, L500.2500 #### [facility] [address] [place], [address] RBC (Bld) [#/Vol] 5.37 10*6/uL Normal 4.6-6.2 [facility] Comment on above: Performed By: #### L 100.0100, L500.2500 #### [facility] [address] [place], [address] RDW SD 38.7 fl Normal 35.1-43.9 [facility] Comment on above: Performed By: #### L 100.0100, L500.2500 #### [facility] [address] [place], [address] WBC (Bld) [#/Vol] 7.3 10*3/uL Normal 4.4-11.0 [facility] Comment on above: Performed By: #### L 100.0100, L500.2500 #### [facility] [place], [address] Carbon dioxide, total [Moles /volume] in Central venous bloodOrdered By: Felipe Landis on 12-22-2024 CO2 [Moles/Vol] 27.5 mmol/L 21.0-32.0 [facility] Chloride assayOrdered By: Chiqui Landis on 12-22-2024 Chloride [Moles/Vol] 98 mmol/L 98-108 [facility] Eosinophil percentageOrdered By: Felipe Landis on 12-22-2024 Eosinophils/100 WBC (Bld) 1.8 % 0-5 [facility] Erythrocyte distribution wid th ratioOrdered By: Felipe Landis on 12-22-2024 Erythrocyte distribution width (RBC) [Ratio] 12.1 % 11.6-14.6 [facility] Erythrocyte distribution wid th standard deviationOrdered By: Felipe Landis on 12-22-2024 Erythrocyte distribution width (RBC) [Ratio] 38.7 fl 35.1-43.9 [facility] Glomerular filtration rate ( GFR) estimation/1.73 sq m using serum, plasma, or whole bOrdered By: Felipe Landis on 12-22-2024 GFR/1.73 sq M.predicted among non-blacks MDRD (S/P/Bld) [Vol rate/Area] 92 mL/min/{1.73_m2} >60 [facility] Comment on above: mL/min/1.73m2 CKD-EP I Creatinine Equation (2020) Hematocrit Auto (Bld) [Volum e fraction]Ordered By: Felipe Landis on 12-22-2024 Hematocrit (Bld) [Volume fraction] 46.8 % 40-54 [facility] Hemoglobin measurementOrdere d By: Felipe Landis on 12-22-2024 Hemoglobin (Bld) [Mass/Vol] 15.5 g/dL 13.0-16.5 [facility] Immature granulocytes/100 WB C Auto (Bld)Ordered By: Felipe Landis on 12-22-2024 Immature granulocytes/100 WBC (Bld) 0.300 % 0.0-0.9 [facility] Comment on above: IG% - Immature Granu locytes (promyelocytes, myelocytes and metamyelocytes) > 1% indicates that a LEFT SHIFT is Present. MCV (mean corpuscular volume ) determinationOrdered By: Felipe Landis on 12-22-2024 MCV (RBC) [Entitic vol] 87.2 fL 80-94 [facility] Mean corpuscular hemoglobin (MCH) determinationOrdered By: Felipe Landis on 12-22-2024 MCH (RBC) [Entitic mass] 28.9 pg 27.0-32.0 [facility] Mean corpuscular hemoglobin concentration (MCHC) determinationOrdered By: Felipe Landis on 12-22-2024 MCHC (RBC) [Mass/Vol] 33.1 g/dL 32-36 [facility] Mean platelet volume determi nationOrdered By: Felipe Landis on 12-22-2024 Platelet mean volume (Bld) [Entitic vol] 10.7 fL 6.2-12.0 [facility] Monocyte percentageOrdered B y: Felipe Landis on 12-22-2024 Monocytes/100 WBC (Bld) 8.9 % 0-10 [facility] Neutrophil percentageOrdered By: Felipe Landis on 12-22-2024 Neutrophils/100 WBC (Bld) 67.1 % 47-70 [facility] Nucleated red blood cell per centageOrdered By: Felipe Landis on 12-22-2024 Nucleated RBC/100 WBC (Bld) [Ratio] 0 % 0-5 [facility] Platelet countOrdered By: Chiqui Landis on 12-22-2024 Platelets (Bld) [#/Vol] 278 10*3/uL 150-450 [facility] Potassium measurement (mass/ volume)Ordered By: Felipe Landis on 12-22-2024 Potassium (Unsp spec) [Mass/Vol] 3.9 mmol/L 3.3-5.1 [facility] RBC Auto (Bld) [#/Vol]Ordere d By: Felipe Landis on 12-22-2024 RBC (Bld) [#/Vol] 5.37 10*6/uL 4.6-6.2 [facility] Serum creatinine measurement (mass/volume)Ordered By: Felipe Landis on 12-22-2024 Creatinine [Mass/Vol] 0.85 mg/dL 0.70-1.20 [facility] Serum glucose measurement (m ass/volume)Ordered By: Felipe Landis on 12-22-2024 Glucose [Mass/Vol] 90 mg/dL 70-99 [facility] Serum or plasma calcium lety urement (mass/volume)Ordered By: Felipe Landis on 12-22-2024 Calcium [Mass/Vol] 9.5 mg/dL 7.6-11.0 [facility] Serum or plasma urea nitroge n measurement (mass/volume)Ordered By: Felipe Landis on 12-22-2024 Urea nitrogen [Mass/Vol] 12 mg/dL 4-19 [facility] Sodium levelOrdered By: Andrea Landis on 12-22-2024 Sodium [Moles/Vol] 135 mmol/L 133-145 [facility] White blood cell (WBC) count Ordered By: Felipe Landis on 12-22-2024 WBC (Bld) [#/Vol] 7.3 10*3/uL 4.4-11.0 [facility] Surgical pathology reportOrd ered By: Kenya Coon on 12-08-2024 Surgical pathology study [facility] PROSTATE BXon 12-06-2024 PROSTATE BX ---- Patient Age/Sex Location Account Attending Physician JYOIT CHOI 74/M [facility]SPEC [id number] Dr. Bertrand Zapien MD Specimen: [id number] Received: 12/06/24 Status: JAI Araiza Num: [id number] Spec Type: PROST BX Subm Dr: Dr. Bertrand Zapien MD HEADER OPERATION: Prostate biopsy PRE-OP DIAGNOSIS: Elevated PSA TISSUE SUBMITTED: A - Right apex, B - Right mid, C - Right base, D - Left apex, E - Left mid, F - Left base MICROSCOPIC DIAGNOSIS A. Prostate, right apex, biopsy: * Benign prostate tissue. B. Prostate, right mid, biopsy: * Benign prostate tissue with focal acute inflammation. C. Prostate, right base, biopsy: * Benign prostate tissue. D. Prostate, left apex, biopsy: * Benign prostate tissue with focal mild acute inflammation. E. Prostate, left mid, biopsy: * Benign prostate tissue with focal mild acute inflammation. F. 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 MICROSCOPIC DESCRIPTION Slides are reviewed. GROSS DESCRIPTION A. Received in formalin in a container labeled with the patient's name, date of , and "RA" are 2 white and wispy core biopsies of soft tissue each measuring 1.2 x 0.1 cm. Submitted in toto in A1. B. Received in formalin in a container labeled with the patient's name, date of , and "RM" are 2 white and wispy core biopsies of soft tissue measuring 1.2 x 0.1 cm and 1.5 x 0.1 cm. Submitted in toto in B1. C. Received in formalin in a container labeled with the patient's name, date of , and "RM" are 2 white and wispy core biopsies of soft tissue each measuring 1.0 x 0.1 cm. Submitted in toto in C1. Patient Age/Sex Location Account Attending Physician JYOTI CHOI 74/M LABSPEC [id number] Dr. Bertrand Zapien MD D. Received in formalin in a container labeled with the patient's name, date of , and "LA" is a 1.2 x 0.1 cm white and wispy core biopsy of soft tissue. Submitted in toto in D1. E. Received in formalin in a container labeled with the patient's name, date of , and "LM" are 2 white and wispy core biopsies of soft tissue measuring 0.9 x 0.1 cm and 1.1 x 0.1 cm. Submitted in toto in E1. F. Received in formalin in a container labeled with the patient's name, date of , and "LB" are 2 white and wispy core biopsies of soft tissue each measuring 1.0 x 0.1 cm. Submitted in toto in F1. [facility] 12/08/2024 CPT:G0146 Patient Age/Sex Location Account Attending Physician JYOTI CHOI 74/M LABSPEC [id number] Dr. Bertrand Zapien MD Signed (signature on file) Dr. Kenya Coon MD 12/08/24 1549 Normal [facility] Comment on above: Performed By: #### P PROSB ####[facility] [id number] [place], [address] Cardiology Visit Reporton Cardiology Visit Report [facility] [address] [place] [address] OFFICE VISIT Date of Service: 11/29/24 MR#: [id number] Acct: [id number] Name: JYOTI CHOI Rep #: [id number] : 1950 Provider: Dr. Felipe ramos MD Age/Sex: 74/M Location: [facility] [place] Status: Signed HPI HPI History of Present Illness Details: Patient comes in today for monitoring of his cardiovascular status. He is a pleasant 74-year-old white male that comes in with his . Patient undergone left heart catheterization in October which showed a small posterolateral circumflex with severe disease. He was not felt that this was clinically significant and he has been treated medically. The patient denies any anginal type symptoms. He is does get some dyspnea on exertion he had negative PFTs in the past but does have a 35-year pack smoking history. Patient's lipids are much better controlled he is total cholesterol was 149 HDL 67 LDL 71 and triglycerides 58 on the rosuvastatin which she is tolerating without incident. The patient's blood pressure is elevated in the office today at 146/72 his heart rate is 89 and regular. He is on amlodipine 5 mg daily. The patient denies any PND orthopnea denies any lower extremity edema. He has been fairly active in his home environment. He has noted that his PSA is elevated now above 12 and he is to see Dr. Yi in the near future. Intake Vital Signs 11/02/24 09:08 11/29/24 10:55 Height 5 ft 8 in 5 ft 8 in Weight: 173 lb 4 oz 171 lb BMI 26.3 25.9 BP 153/82 H 146/72 H Blood Pressure Location Lt brachial Lt brachial Position Sitting Sitting Respiration 16 18 Pulse 92 89 Pulse Source Monitor Monitor Temp 99.1 F Pulse Oximetry (%) 95 94 Oxygen Delivery Method room air Intake Visit Reasons: S/P [facility] 10/31 CATH Air Sampler Required: No Accompanied by: Self Is patient in pain?: No Allergies terbinafine (From Lamisil) Allergy (Verified 11/29/24 10:55) Shortness of breath ciprofloxacin (From Cipro) Adverse Reaction (Verified 11/29/24 10:55) PALPITATIONS Medications ???Medication ???Instructions ???Recorded ???Confirmed ???Type multivitamin 1 tab PO DAILY 08/31/23 11/29/24 H istory omega-3 650 mg-dha 400 mg-epa 200 1 cap PO DAILY 08/31/23 11/29/24 History mg-fish oil-vit D3 300 unit capsule magnesium 250 mg tablet 250 mg PO DAILY 10/19/23 11/29/24 History pantoprazole 40 mg tablet,delayed 40 mg PO DAILY 10/19/23 11/29/24 History release aspirin 81 mg chewable tablet 81 mg PO QDAY #30 tabs 08/31/24 Rx amlodipine 5 mg tablet (Norvasc) 5 mg PO QDAY #60 tabs 10/31/24 Rx rosuvastatin 20 mg tablet 20 mg PO QDAY #30 tabs 10/31/24 Rx hydrochlorothiazide 12.5 mg capsule 12.5 mg PO QAM #30 caps 5 11/29/24 Rx Ejection fraction %: 60 Have you fallen in the past year?: No PFSH Medical History Acute sinusitis Carpal tunnel syndrome, bilateral Dyspnea on exertion Poor historian History of stress test Wears glasses Alcohol use Back pain History of hiatal hernia Former smoker History of echocardiogram Hood syndrome prostate issues Osteopenia Arthritis Surgical History H/O cardiac catheterization Hx of appendectomy History of scapula, ulna, humerous reconstruction History of endoscopy History of colonoscopy Family History Aunt Breast cancer Uncle Colon cancer Diabetes Heart disease Mother Cancer Diabetes Other Alcoholism Anxiety and depression Liver disease Melanoma Osteoporosis Social History Smoking Status: Former smoker alcohol intake: current substance use type: does not use caffeine: Yes ROS Const Const: Negative for fatigue or weakness ENT ENT: Negative for dizziness or balance problems Cardio Chest Pain: No Palpitations: No Edema: None Muscle aches with walking: None Resp Respiratory: Negative for SOB with activity, SOB at rest or SOB orthopnea SOB lying down GI GI: Negative nausea, vomiting or heartburn Musc Musc: Negative for muscle weakness or balance problems Neuro Neuro: Negative for dizziness, lightheadedness, near syncope, syncope or weakness Endo Endo: Negative for fatigue Cardiology Exam Const Appearance: cooperative, healthy appearing, comfortable, no acute distress and well developed Head Head: normal to inspection Eyes General: appearance normal, both eyes and all related structures Neck Neck: normal visual inspection and no JVD Carotids: Negative bruit Chest Chest inspection: normal inspection of (more content not included)... Normal [facility] Diagnostic total prostate sp ecific antigen (PSA) measurementOrdered By: Bertrand Zapien on 11-18-2024 Prostate Specific Antigen Total 12.60 ng/mL High 0.00-4.00 [facility] Comment on above: This test was perfor med using the [employer] tPSA method. Measured values of a patient sample can vary depending on the testing procedure used. PSA values determined on patient samples by different testing procedures cannot be used interchangeably. If there is a change in PSA assays while monitoring therapy, sequential testing should be performed to confirm baseline values. PSA,Total- [employer] PSA, DIAGNOSTIC 12.60 ng/mL High 0.00-4.00 [facility] Comment on above: Result Comment: This test was performed using the [employer] tPSA method. Measured values of a patient??sample can vary depending on the testing procedure used. PSA values determined on patient samples by different testing procedures cannot be used interchangeably. If there is a change in PSA assays while monitoring therapy, sequential testing should be performed to confirm baseline values. Performed By: #### L [id number] #### [facility] [address] [place], [place], [address] /Claudia 11-02-2024 /[email or web address].BOUCHRA [facility] [address] [place] [address] OFFICE VISIT Date of Service: 11/02/24 MR#: [id number] Acct: [id number] Name: JYOTI CHOI Rep #: [id number] : 1950 Provider: Dr. Omaira stein MD Age/Sex: 74/M [place] [facility] [place] Status: Signed Intake Vital Signs 10/31/24 07:45 11/02/24 09:08 Height 5 ft 8 in 5 ft 8 in Weight: 173 lb 4 oz BMI 26.3 BP 153/82 H Blood Pressure Location Lt brachial Position Sitting Respiration 16 Pulse 92 Pulse Source Monitor Temp 99.1 F Temp Source Temporal Pulse Oximetry (%) 95 Oxygen Delivery Method room air Intake Visit Reasons: Cough/Congestion Chief Complaint: Cough/Congestion Air Sampler Required: No Accompanied by: Self Is patient in pain?: No Allergies terbinafine (From Lamisil) Allergy (Verified 11/02/24 09:03) Shortness of breath ciprofloxacin (From Cipro) Adverse Reaction (Verified 11/02/24 09:03) PALPITATIONS Medications ???Medication ???Instructions ???Recorded ???Confirmed ???Type multivitamin 1 tab PO DAILY 08/31/23 11/02/24 H istory omega-3 650 mg-dha 400 mg-epa 200 1 cap PO DAILY 08/31/23 11/02/24 History mg-fish oil-vit D3 300 unit capsule magnesium 250 mg tablet 250 mg PO DAILY 10/19/23 11/02/24 History pantoprazole 40 mg tablet,delayed 40 mg PO DAILY 10/19/23 11/02/24 History release aspirin 81 mg chewable tablet 81 mg PO QDAY #30 tabs 08/31/24 Rx amlodipine 5 mg tablet (Norvasc) 5 mg PO QDAY #60 tabs 10/31/24 Rx rosuvastatin 20 mg tablet 20 mg PO QDAY #30 tabs 10/31/24 Rx azithromycin 250 mg tablet See Rx Instructions PO .COMPLEX #6 11/02/24 11/02/24 Rx tabs Have you fallen in the past year?: No PFSH Medical History (Updated 11/02/24 @ 12:[address] Omaira Weir MD) Acute sinusitis Carpal tunnel syndrome, bilateral Dyspnea on exertion Poor historian History of stress test Wears glasses Alcohol use Back pain History of hiatal hernia Former smoker History of echocardiogram Hood syndrome prostate issues Osteopenia Arthritis Surgical History (Updated 11/02/24 @ 09:07 by Khushbu Salomon RN) H/O cardiac catheterization Hx of appendectomy History of scapula, ulna, humerous reconstruction History of endoscopy History of colonoscopy Family History Aunt Breast cancer Uncle Colon cancer Diabetes Heart disease Mother Cancer Diabetes Other Alcoholism Anxiety and depression Liver disease Melanoma Osteoporosis Social History Smoking Status: Former smoker alcohol intake: current substance use type: does not use caffeine: Yes HPI HPI Chief Complaint: Cough/Congestion Details: JYOTI CHOI, is a 74 M who presents to the office today for an acute care follow-up visit. For about the last week, he has had head congestion, drainage, some cough, no major sputum production. Sore throat, some headache. Low-grade temps. Here in the office 99.1. He does not feel overtly short of breath, chest tightness, chest pain, lightheaded, dizzy. He has history of hypertension. He also just recently had heart catheterization. I was not made aware of the report until he mentioned it. In any event, he had a couple of higher grade blockages and side branches from the circumflex with evidence of collateral flow. These were much too small to stent apparently. He is now on statin in addition to his amlodipine and aspirin. He also takes fish oil. Review of systems per chart. Physical exam. Vital signs on chart. PERRLA. Sclera are clear. TMs are unremarkable with normal light reflexes nonbulging, nonerythematous. Canals are unremarkable, nonerythematous. Posterior pharynx is unremarkable. Good dentition. No cervical or supraclavicular lymph nodes enlarged or tender. No clear thyromegaly. No thyroid nodules readily palpable. Lungs are without wheeze, rhonchi, rales. No E/A changes are heard. Heart is regular. Not tachycardic. Bowel sounds are present throughout the abdomen. ROS Const Constitutional: Positive for headache(s); No body ache, chills, excessive sweating, fatigue, fever(s), frequent falls, snoring, weakness or change in appetite Eyes Eyes: No blurry vision, change in vision, eye pain or Light sensitivity ENT ENT: Positive for nasal congestion, headache(s) and sore throat; No abnormal hearing, ear or mastoid pain, tinnitus or neck pain Resp Respiratory: Positive for cough; No shortness of breath, snoring or wheezing Cardio Cardiology: No chest pain at rest, chest pain with exertion, excessive sweating, dyspnea on exertion, lightheadedness, orthopnea or palpitations Gastro GI: No abdominal pain, change in bowel hensley (more content not included)... Normal [facility] Cardiac Cath [facility] Cardiac Cath Diagnostic [facility] Imaging Services [address] [place] [address] Cardiac Cath Diagnostic MR#: [id number] Acct: [id number] Name: JYOTI CHOI Rep #: [id number] : 1950 74 From: Brendan Mantilla MD PCP: Dr. Omaira Weir MD Status:REG [facility] Patient Name: JYOTI CHOI Study Date: 10/31/2024 Performing: Brendan Mantilla MD Ht: 68 inches 172.72 cm : 1950 Wt: 178 lbs 80.74 kg Age: 74 Gender: male BSA: 1.95 PROCEDURE(S) PERFORMED DC01-(16273)LHC/COR/LV CLINICAL PROFILE AND INDICATIONS Indications: Suspected CAD Heart Failure: None Stress/Imaging Coronary Calcium Score: Yes Calcium Score: 200Calcium Score: 200 CAD Presentations: Other: SOB CONCLUSIONS Severe single-vessel disease involving the second obtuse marginal branch and a small vessel with 2 areas of high-grade stenosis and collateralization present. The rest of the vessels have mild diffuse disease and proximal calcification of the right coronary artery and the left main coronary artery. Preserved ejection fraction. RECOMMENDATIONS Medical therapy Will recommend increase statin and add calcium bernadette 5 mg a day of amlodipine. DESCRIPTION OF PROCEDURE The patient arrived to the procedure lab. The risks and benefits of the procedure as well as a full description of our services here and current unavailability of surgical backup were fully explained to the patient and/or their significant other prior to the catheterization. The Timeout was completed, verifying the correct patient and procedure. The patient's procedural site was prepped and draped in the usual fashion. Local anesthetic was given subcutaneously to right radial region with Lidocaine 2%. Using a modified Seldinger technique, arterial access was obtained via the right radial artery, a 6Fr sheath was inserted. Right Coronary Artery selective angiography was then performed in multiple views using a 5 Fr. 4.0 Zanoni catheter. Left Coronary Artery selective angiography was performed in multiple views using a 5 Fr. 4.0 Zanoni catheter. Left Ventriculography was performed in WALDROP projection using a 5 Fr. Pigtail catheter. LV to AO pullback pressures were then recorded.The arterial sheath was pulled and a TR Band was applied for hemostasis CORONARY ANGIOGRAPHY DOMINANCE: Right Dominant LEFT HEART ASSESSMENT Left Ventricular Ejection Fraction: by LV Gram 60 % Normal LV wall motion Normal Left Ventricular systolic function LEFT MAIN: Mild calcification, Non-obstructive LEFT ANTERIOR DESCENDING ARTERY: Left anterior descending artery is a medium size vessel with a first diagonal branch with mild luminal irregularities. CIRCUMFLEX ARTERY: Mild luminal irregularities less than 30% OM 2: Proximal - 80 presents proximal stenosis and distal 80% stenosis prior to bifurcation any small vessel measuring at most 2 mm. RIGHT CORONARY ARTERY: Mild luminal irregularities less than 30% COLLATERAL FLOW: Collateral flow from Right to Left COMPLICATIONS No Complications PROCEDURE MEDICATIONS Versed 1 mg IV Fentanyl 50 mcg IV Versed 1 mg IV Versed 1 mg IV Oxygen: 2 L/min via nasal cannula Baby Aspirin (81mg) 1 Tabs PO @ 10/31/2024 07:45:21 SUMMARY OF HEMODYNAMIC DATA Time AIR REST ECG 07:47:44 AO 148/76 (111) SA 08:55:45 LV 127/-2, 28 09:03:24 LV 128/0, 7 09:03:31 LV 114/2, 15 09:04:06 LV 118/2, 15 09:04:13 LVp 119/2, 14 09:04:16 AOp 131/69 (99) 09:04:21 Signed By Brendan Mantilla MD On 10/31/2024 10:00:05 Brendan Mantilla MD 10/31/24 1001 Date Brendan Mantilla MD Cosigner Signature: Date (if indicated) CC: Dr. Brendan Mantilla MD; Dr. Omaira Weir MD Date Dictated: 10/31/24 0841 Date Transcribed: 10/31/24 1000 Chief Juvenile Probation Officer: [place] Signed Normal [facility] Cardiac catheterization repo rtOrdered By: Brendan Mantilla on 10-31-2024 Cardiac catheterization study [facility] Imaging Services [address] [place] [id number] Cardiac Cath Diagnostic MR#: [id number] Acct: [id number] Name: JYOTI CHOI Rep #:[id number] : 1950 74 From: Brendan Mantilla MD PCP: Dr. Omaira Weir MD Status:REG [facility] Patient Name: JYOTI CHOI Study Date: 10/31/2024 Performing: Brendan Mantilla MD Ht: 68 inches 172.72 cm : 1950 Wt: 178 lbs 80.74 kg Age: 74 Gender: male BSA: 1.95 PROCEDURE(S) PERFORMED DC01-(43769)LHC/COR/LV CLINICAL PROFILE AND INDICATIONS Indications: Suspected CAD Heart Failure: None Stress/Imaging Coronary Calcium Score: Yes Calcium Score: 200Calcium Score: 200 CAD Presentations: Other: SOB CONCLUSIONS Severe single-vessel disease involving the second obtuse marginal branch and a small vessel with 2 areas of high-grade stenosis and collateralization present. The rest of the vessels have mild diffuse disease and proximal calcification of the right coronary artery and the left main coronary artery. Preserved ejection fraction. RECOMMENDATIONS Medical therapy Will recommend increase statin and add calcium bernadette 5 mg a day of amlodipine. DESCRIPTION OF PROCEDURE The patient arrived to the procedure lab. The risks and benefits of the procedure as well as a full description of our services here and current unavailability of surgical backup were fully explained to the patient and/or their significant other prior to the catheterization. The Timeout was completed, verifying the correct patient and procedure. The patient's procedural site was prepped and draped in the usual fashion. Local anesthetic was given subcutaneously to right radial region with Lidocaine 2%. Using a modified Seldinger technique, arterial access was obtained via the right radial artery, a 6Fr sheath was inserted. Right Coronary Artery selective angiography was then performed in multiple views using a 5 Fr. 4.0 Zanoni catheter. Left Coronary Artery selective angiography was performed in multiple views using a 5 Fr. 4.0 Zanoni catheter. Left Ventriculography was performed in WALDROP projection using a 5 Fr. Pigtail catheter. LV to AO pullback pressures were then recorded.The arterial sheath was pulled and a TR Band was applied for hemostasis CORONARY ANGIOGRAPHY DOMINANCE: Right Dominant LEFT HEART ASSESSMENT Left Ventricular Ejection Fraction: by LV Gram 60 % Normal LV wall motion Normal Left Ventricular systolic function LEFT MAIN: Mild calcification, Non-obstructive LEFT ANTERIOR DESCENDING ARTERY: Left anterior descending artery is a medium size vessel with a first diagonal branch with mild luminal irregularities. CIRCUMFLEX ARTERY: Mild luminal irregularities less than 30% OM 2: Proximal - 80 presents proximal stenosis and distal 80% stenosis prior to bifurcation any small vessel measuring at most 2 mm. RIGHT CORONARY ARTERY: Mild luminal irregularities less than 30% COLLATERAL FLOW: Collateral flow from Right to Left COMPLICATIONS No Complications PROCEDURE MEDICATIONS Versed 1 mg IV Fentanyl 50 mcg IV Versed 1 mg IV Versed 1 mg IV Oxygen: 2 L/min via nasal cannula Baby Aspirin (81mg) 1 Tabs PO @ 10/31/2024 07:45:21 SUMMARY OF HEMODYNAMIC DATA Time AIR REST ECG 07:47:44 AO 148/76 (111) SA 08:55:45 LV 127/-2, 28 09:03:24 LV 128/0, 7 09:03:31 LV 114/2, 15 09:04:06 LV 118/2, 15 09:04:13 LVp 119/2, 14 09:04:16 AOp 131/69 (99) 09:04:21 Signed By Brendan Mantilla MD On 10/31/2024 10:00:05 Brendan Mantilla MD 10/31/24 1001 Date _ Brendan Mantilla MD Cosigner Signature: Date (if indicated) CC: Dr. Brendan Mantilla MD; Dr. Omaira Weir MD ~ Date Dictated: 10/31/24 0841 Date Transcribed: 10/31/24 1000 Chief Juvenile Probation Officer: [place] Signed [facility] Work Phone: Anion gap in Serum or Plasma Ordered By: Felipe Landis on 10-26-2024 Anion gap [Moles/Vol] 10 mmol/L 5-15 [facility] BUN/creatinine ratioOrdered By: Felipe Landis on 10-26-2024 Urea nitrogen/Creatinine [Mass ratio] 14.3 mg/mg 10-20 [facility] Bilirubin, totalOrdered By: Felipe Landis on 10-26-2024 Bilirubin [Mass/Vol] 0.33 mg/dL 0.00-1.30 [facility] Carbon dioxide, total [Moles /volume] in Central venous bloodOrdered By: Felipe Landis on 10-26-2024 CO2 [Moles/Vol] 27.6 mmol/L 21.0-32.0 [facility] Chest PA and Lateralon 10-26 Chest PA and Lateral [facility] Imaging Services [address], [place] [address] Chest PA and Lateral MR#: [id number] Acct: [id number] Name: JYOTI CHOI Rep #: [id number] : 1950 M 74 From: [place] PCP: Dr. Omaira Weir MD Status: PRE [facility] Study: Chest PA and Lateral Date of Exam: 10/26/24 Exam# [id number] Ordering Dr: Felipe Landis MD PROCEDURE: CHEST PA AND LATERAL REASON FOR EXAM: FOR CARDIAC CATHETERIZATION TECHNIQUE: Frontal and lateral views of the chest. COMPARISON: None. FINDINGS: Cardiomediastinal silhouette is within normal limits. Lungs are clear. No sizable pneumothorax. RAD/Chest PA and Lateral IMPRESSION: No acute airspace abnormality. [facility] CC: Dr. Omaira Weir MD; Dr. Felipe Landis MD Chief Juvenile Probation Officer: Signed Normal [facility] Chloride assayOrdered By: Chiqui Landis on 10-26-2024 Chloride [Moles/Vol] 98 mmol/L 98-108 [facility] Comprehensive Metabolic Prof ilon 10-26-2024 Albumin [Mass/Vol] 4.3 g/dL Normal 3.4-4.8 [facility] Comment on above: Order Comment: for h eart cath Performed By: #### L 300.3900, L500.4050 ####[facility] [address] [place], [address] Albumin/Globulin [Mass ratio] 1.6 {ratio} Normal 0.9-2.4 [facility] Comment on above: Order Comment: for h eart cath Performed By: #### L 300.3900, L500.4050 ####[facility] [address] [place], [address] ALK PHOS 101 U/L Normal 40-129 [facility] Comment on above: Order Comment: for h eart cath Performed By: #### L 300.3900, L500.4050 ####[facility] [address] [place], [address] ALT [Catalytic activity/Vol] 26 U/L Normal <=46 [facility] Comment on above: Order Comment: for h eart cath Performed By: #### L 300.3900, L500.4050 ####[facility] [address] [place], [address] AST [Catalytic activity/Vol] 24 U/L Normal <=37 [facility] Comment on above: Order Comment: for h eart cath Performed By: #### L 300.3900, L500.4050 ####[facility] [address] [place] [place], [address] Bilirubin [Mass/Vol] 0.33 mg/dL Normal 0.00-1.30 [facility] Comment on above: Order Comment: for h eart cath Performed By: #### L 300.3900, L500.4050 ####[facility] [address] [place], [address] BUN/CRE 14.3 RATIO Normal 10-20 [facility] Comment on above: Order Comment: for h eart cath Performed By: #### L 300.3900, L500.4050 ####[facility] [address] [place], [address] Calcium [Mass/Vol] 9.9 mg/dL Normal 7.6-11.0 [facility] Comment on above: Order Comment: for h eart cath Performed By: #### L 300.3900, L500.4050 ####[facility] [address] [place], [address] Chloride [Moles/Vol] 98 mmol/L Normal 98-108 [facility] Comment on above: Order Comment: for h eart cath Performed By: #### L 300.3900, L500.4050 ####[facility] [address] [place], [address] CO2 [Moles/Vol] 27.6 mmol/L Normal 21.0-32.0 [facility] Comment on above: Order Comment: for h eart cath Performed By: #### L 300.3900, L500.4050 ####[facility] [address] [place], [address] Creatinine [Mass/Vol] 0.80 mg/dL Normal 0.70-1.20 [facility] Comment on above: Order Comment: for h eart cath Performed By: #### L 300.3900, L500.4050 ####[facility] [address] [place], [address] GAP 10 Normal 5-15 [facility] Comment on above: Order Comment: for h eart cath Performed By: #### L 300.3900, L500.4050 ####[facility] [address] [place], [address] GFR/1.73 sq M.predicted among non-blacks MDRD (S/P/Bld) [Vol rate/Area] 94 mL/min/{1.73_m2} Normal >60 [facility] Comment on above: Order Comment: for h eart cath Result Comment: mL/m in/1.73m2 CKD-EPI Creatinine Equation (2020) Performed By: #### L 300.3900, L500.4050 ####[facility] [address] [place], [address] Globulin (S) [Mass/Vol] 2.7 g/dL Normal 2.2-4.2 [facility] Comment on above: Order Comment: for h eart cath Performed By: #### L 300.3900, L500.4050 ####[facility] [address] [place], [address] Glucose [Mass/Vol] 117 mg/dL High 70-99 [facility] Comment on above: Order Comment: for h eart cath Performed By: #### L 300.3900, L500.4050 ####[facility] [address] [place], [address] Potassium [Moles/Vol] 4.4 mmol/L Normal 3.3-5.1 [facility] Comment on above: Order Comment: for h eart cath Performed By: #### L 300.3900, L500.4050 ####[facility] [address] [place], [address] Sodium [Moles/Vol] 136 mmol/L Normal 133-145 [facility] Comment on above: Order Comment: for h eart cath Performed By: #### L 300.3900, L500.4050 ####[facility] [address] [place], [address] T PROT 7.0 g/dL Normal 5.9-8.4 [facility] Comment on above: Order Comment: for h eart cath Performed By: #### L 300.3900, L500.4050 ####[facility] [address] [place], [address] Urea nitrogen [Mass/Vol] 12 mg/dL Normal 4-19 [facility] Comment on above: Order Comment: for h eart cath Performed By: #### L 300.3900, L500.4050 ####[facility] [address] [place], [address] GFR/1.73 sq M.predicted shaan g non-blacks MDRD (S/P/Bld) [Vol rate/Area]Ordered By: Felipe Landis on 10-26-2024 Estimated GFR (MDRD) Non-Af Amer 94 >60 [facility] Comment on above: mL/min/1.73m2 CKD-EP I Creatinine Equation (2020) Glomerular filtration rate ( GFR) estimation/1.73 sq m using serum, plasma, or whole bOrdered By: Felipe Landis on 10-26-2024 GFR/1.73 sq M.predicted among non-blacks MDRD (S/P/Bld) [Vol rate/Area] 94 mL/min/{1.73_m2} >60 [facility] Comment on above: mL/min/1.73m2 CKD-EP I Creatinine Equation (2020) International normalized rat io (INR) calculationOrdered By: Felipe Landis on 10-26-2024 INR Coag (Bld) [Relative time] 1.0 {INR} [facility] Laboratory - Chemistry and C hemistry - challengeOrdered By: Felipe Landis on 10-26-2024 AST [Catalytic activity/Vol] 24 U/L <38 [facility] Potassium (Unsp spec) [Mass/ Vol]Ordered By: Felipe Landis on 10-26-2024 Potassium [Moles/Vol] 4.4 mmol/L 3.3-5.1 [facility] Potassium measurement (mass/ volume)Ordered By: Felipe Landis on 10-26-2024 Potassium (Unsp spec) [Mass/Vol] 4.4 mmol/L 3.3-5.1 [facility] Prothrombin Time w/INRon INR Coag (PPP) [Relative time] 1.0 {INR} Normal [facility] Comment on above: Order Comment: Comme nts: for heart cath Performed By: #### L 300.3900, L500.4050 ####[facility] [address] [place], [address] PT Coag (PPP) [Time] 12.9 s Normal 11.7-14.9 [facility] Comment on above: Order Comment: Comme nts: for heart cath Performed By: #### L 300.3900, L500.4050 ####[facility] [address] [place], [address] Prothrombin timeOrdered By: Felipe Landis on 10-26-2024 PT Coag (PPP) [Time] 12.9 s 11.7-14.9 [facility] Serum creatinine measurement (mass/volume)Ordered By: Felipe Landis on 10-26-2024 Creatinine [Mass/Vol] 0.80 mg/dL 0.70-1.20 [facility] Serum globulin measurementOr dered By: Felipe Landis on 10-26-2024 Globulin (S) [Mass/Vol] 2.7 g/dL 2.2-4.2 [facility] Serum glucose measurement (m ass/volume)Ordered By: Felipe Landis on 10-26-2024 Glucose [Mass/Vol] 117 mg/dL High 70-99 [facility] Serum or plasma alanine stephenson otransferase (ALT) measurementOrdered By: Felipe Landis on 10-26-2024 ALT [Catalytic activity/Vol] 26 U/L <47 [facility] Serum or plasma albumin lety urement (mass/volume)Ordered By: Felipe Landis on 10-26-2024 Albumin [Mass/Vol] 4.3 g/dL 3.4-4.8 [facility] Serum or plasma albumin/glob ulin mass ratioOrdered By: Felipe Landis on 10-26-2024 Albumin/Globulin [Mass ratio] 1.6 {ratio} 0.9-2.4 [facility] Serum or plasma alkaline vijaya sphatase measurementOrdered By: Felipe Landis on 10-26-2024 ALP [Catalytic activity/Vol] 101 U/L 40-129 [facility] Serum or plasma calcium lety urement (mass/volume)Ordered By: Felipe Landis on 10-26-2024 Calcium [Mass/Vol] 9.9 mg/dL 7.6-11.0 [facility] Serum or plasma urea nitroge n measurement (mass/volume)Ordered By: Felipe Landis on 10-26-2024 Urea nitrogen [Mass/Vol] 12 mg/dL 4-19 [facility] Sodium levelOrdered By: Andrea marblossom Boby on 10-26-2024 Sodium [Moles/Vol] 136 mmol/L 133-145 [facility] Total proteinOrdered By: Ayo Landis on 10-26-2024 Protein [Mass/Vol] 7.0 g/dL 5.9-8.4 [facility] 25(OH)D3 SerPl-mCncon 2024 25-hydroxyvitamin D3 [Mass/Vol] 33.2 ng/mL Normal 31.0-80.0 [facility] Comment on above: Order Comment: Speci men Type: BLOOD SPECIMEN Ordering Facility: [facility] Address: [address] [place] [address] Result Comment: Clas sification of 25 [place] Vitamin D status: Deficiency/Insufficiency: < or = 30 ng/ml. Sufficiency/Optimal Levels: 31-80 ng/mL Toxicity: > 100 ng/mL. Test performed by chemiluminescent immunoassay. Performed By: #### 1 3965-9 #### [facility] CLIA [id number] [address] [id number] 10-21-2024 [id number] O ID: [id number] Author: EZEQUIEL PATEL OT/L Service: ? Author Type: Occupational Therapist Type: [id number] Filed: 10/21/2024 13:25 Note Text: [facility] Occupational Therapy Plan of Care Certification Patient Name: Jyoti Choi : 1950 [facility] #: [id number] Date: 10/21/2024 To: Laura Leon PA-C From Therapist: UZIEL Khan RE: Patient Certification/ Recertification Your review, approval and electronic signature are required in order to comply with Payor: [employer] / Plan: [employer]VANT[employer] HMO / Product Type: HMO / regulations. The identified Occupational Therapy PLAN OF CARE for the patient is as follows: M79.641, M79.642 Bilateral hand pain (primary encounter diagnosis) PLAN OF CARE: Assessment: Jyoti Choi presents with chief complaint of BUE hand pain that interferes with lifting, physical activities, recreational activities . The patient presents with impairments in ADL's, overall function, and strength. PROMIS? (Patient-Reported Outcomes Measurement Information System) scores were reviewed and identified as a rehabilitation concern. Prognosis for therapy is Good due to: current objective clinical presentation, acuteness of condition . The patient will benefit from skilled therapy services to meet the goals established for this plan of care as noted below. Goals for Episode of Care: established 10/21/24 Patient reported outcome of pain Interference will decrease T -score by a minimum of 5 points. Patient will report a good understanding of diagnosis and OT recommendations for progression of program. Patient will demonstrate independence with ongoing home recommendations/exercise program throughout therapy plan of care. Patient will improve function in Bilateral hand in order to be able to perform basic self-care tasks and prior functional tasks. Patient will report a decrease in pain in Bilateral hand to 2/10 with basic self-care tasks and prior functional tasks. Patient will independently demonstrate correct application of PREFABRICATED orthosis and verbalize understanding of proper wear/care. Patient Goals: Increased functional hand use Time Frame for Goals and Treatment : 12/20/24 Planned Interventions, Frequency, and Duration: Current Frequency: 1x/month Duration: 8 weeks Total Number of Visits Planned: 2 Planned Treatment Interventions: Custom orthosis fabrication, Therapeutic exercise (08998), Self-custodial management (89240), Orthotics management and training (36961,56208) PLAN FOR NEXT VISIT:Progress dynamic program to resistance as tolerated Patient demonstrates good understanding of plan of care and treatment. The above goals and plan of care were discussed and agreed upon by patient/family. For further details regarding this patient refer to the Occupational Therapy electronically documented visit dated 10/21/2024. Provider Attestation I have reviewed the treatment plan for Jyoti Choi, [facility]# [id number] for the period of 10/21/24 -- 12/20/24, established on 10/21/2024. Signature certifies the need for therapy services. [facility] Additional Injections: L sma ll A1on 10-21-2024 Laura Leon PA- C 10/21/2024 12:57 PM Additional Injections: L small A1 for trigger finger 10/21/2024 11:48 AM The procedure site was prepped in the usual sterile fashion. Medications: 6 mg betamethasone acetate-betamethasone sodium phosphate 6 mg/mL Anesthetics: 1 mL lidocaine 10 mg/mL (1 %) Outcome: tolerated well, no immediate complications Post-injection instructions were reviewed with the patient and the patient voiced understanding of these instructions. Informed Consent Consent Obtained: Verbal [place] Protocol A moment to CARE was completed. SIGN IN Personnel directly involved with the procedure wore the appropriate PPE. Special Equipment: Yes Patient/Surrogate Stated/Verified: Patient name, Date of , Intended procedure and Relevant allergies TIME OUT Relevant labs, photos, and/or imaging studies have been reviewed. Consent documented and matches the intended procedure. Correct side/site marked and visible. Medications required for procedure verified. No fire risk assessment and interventions applicable. No implant(s) inserted. SIGN OUT No specimen collected. All instruments, equipment, possible retained foreign bodies accounted for. The post-procedure POC has been communicated to the patient or surrogate. [facility] Additional Injections: R kasi g A1on 10-21-2024 Laura Leon PA- C 10/21/2024 12:57 PM Additional Injections: R long A1 for trigger finger 10/21/2024 11:47 AM The procedure site was prepped in the usual sterile fashion. Medications: 6 mg betamethasone acetate-betamethasone sodium phosphate 6 mg/mL Anesthetics: 1 mL lidocaine 10 mg/mL (1 %) Outcome: tolerated well, no immediate complications Post-injection instructions were reviewed with the patient and the patient voiced understanding of these instructions. Informed Consent Consent Obtained: Verbal [place] Protocol A moment to CARE was completed. SIGN IN Personnel directly involved with the procedure wore the appropriate PPE. Special Equipment: Yes Patient/Surrogate Stated/Verified: Patient name, Date of , Intended procedure and Relevant allergies TIME OUT Relevant labs, photos, and/or imaging studies have been reviewed. Consent documented and matches the intended procedure. Correct side/site marked and visible. Medications required for procedure verified. No fire risk assessment and interventions applicable. No implant(s) inserted. SIGN OUT No specimen collected. All instruments, equipment, possible retained foreign bodies accounted for. The post-procedure POC has been communicated to the patient or surrogate. [facility] Additional Injections: R sma ll A1on 10-21-2024 Laura Leon PA- C 10/21/2024 12:57 PM Additional Injections: R small A1 for trigger finger 10/21/2024 11:47 AM The procedure site was prepped in the usual sterile fashion. Medications: 6 mg betamethasone acetate-betamethasone sodium phosphate 6 mg/mL Anesthetics: 1 mL lidocaine 10 mg/mL (1 %) Outcome: tolerated well, no immediate complications Post-injection instructions were reviewed with the patient and the patient voiced understanding of these instructions. Informed Consent Consent Obtained: Verbal [place] Protocol A moment to CARE was completed. SIGN IN Personnel directly involved with the procedure wore the appropriate PPE. Special Equipment: Yes Patient/Surrogate Stated/Verified: Patient name, Date of , Intended procedure and Relevant allergies TIME OUT Relevant labs, photos, and/or imaging studies have been reviewed. Consent documented and matches the intended procedure. Correct side/site marked and visible. Medications required for procedure verified. No fire risk assessment and interventions applicable. No implant(s) inserted. SIGN OUT No specimen collected. All instruments, equipment, possible retained foreign bodies accounted for. The post-procedure POC has been communicated to the patient or surrogate. [facility] CBC W Auto Differential pane l (Bld)on 10-21-2024 Basophils (Bld) [#/Vol] 0.03 10*3/uL Normal <0.11 [facility] Comment on above: Order Comment: Speci men Type: BLOOD SPECIMEN Ordering Facility: [facility] Address: [address] [place] [address] Performed By: #### 1 3965-9 #### [facility] CLIA [id number] [address] [place] [address] [place] Basophils/100 WBC (Bld) 0.5 % Normal C [facility] Comment on above: Order Comment: Speci men Type: BLOOD SPECIMEN Ordering Facility: [facility] Address: [address] [place] [address] Performed By: #### 1 3965-9 #### [facility] CLIA [id number] [address] [place] [address] [place] Differential cell count method Nom (Bld) Auto Normal [facility] Comment on above: Order Comment: Speci men Type: BLOOD SPECIMEN Ordering Facility: [facility] Address: [address] [place] [address] Performed By: #### 1 3965-9 #### [facility] CLIA [id number] [address] [place] [address] [place] Eosinophils (Bld) [#/Vol] 0.23 10*3/uL Normal <0.46 [facility] Comment on above: Order Comment: Speci men Type: BLOOD SPECIMEN Ordering Facility: [facility] Address: [address] [place] [address] Performed By: #### 1 3965-9 #### [facility] CLIA [id number] [address] [place] [address] [place] Eosinophils/100 WBC (Bld) 3.7 % Normal [facility] Comment on above: Order Comment: Speci men Type: BLOOD SPECIMEN Ordering Facility: [facility] Address: [address] [place] [address] Performed By: #### 1 3965-9 #### [facility] CLIA [id number] [address] [place] [address] [place] Erythrocyte distribution width (RBC) [Ratio] 12.3 % Normal 11.5-15.0 [facility] Comment on above: Order Comment: Speci men Type: BLOOD SPECIMEN Ordering Facility: [facility] Address: [address] [place] [address] Performed By: #### 1 3965-9 #### [facility] CLIA [id number] [address] [place] [address] [place] Hematocrit (Bld) [Volume fraction] 49.5 % Normal 39.0-51.0 [facility] Comment on above: Order Comment: Speci men Type: BLOOD SPECIMEN Ordering Facility: [facility] Address: [address] [place] [address] Performed By: #### 1 3965-9 #### [facility] CLIA [id number] [address] [place] [address] [place] Hemoglobin (Bld) [Mass/Vol] 16.5 g/dL Normal 13.0-17.0 [facility] Comment on above: Order Comment: Speci men Type: BLOOD SPECIMEN Ordering Facility: [facility] Address: [address] [place] [address] Performed By: #### 1 3965-9 #### [facility] CLIA [id number] [address] [place] [address] [place] Immature granulocytes (Bld) [#/Vol] 10*3/uL Normal <0.10 [facility] Comment on above: Order Comment: Speci men Type: BLOOD SPECIMEN Ordering Facility: [facility] Address: [address] [place] [address] Performed By: #### 1 3965-9 #### [facility] CLIA [id number] [address] [place] [address] [place] Immature granulocytes/100 WBC (Bld) 0.3 % Normal [facility] Comment on above: Order Comment: Speci men Type: BLOOD SPECIMEN Ordering Facility: [facility] Address: [address] [place] [address] Performed By: #### 1 3965-9 #### [facility] CLIA [id number] [address] [place] [address] [place] Lymphocytes (Bld) [#/Vol] 1.48 10*3/uL Normal 1.00-4.00 [facility] Comment on above: Order Comment: Speci men Type: BLOOD SPECIMEN Ordering Facility: [facility] Address: [address] [place] [address] Performed By: #### 1 3965-9 #### [facility] CLIA [id number] [address] [place] [address] [place] Lymphocytes/100 WBC (Bld) 24.1 % Normal [facility] Comment on above: Order Comment: Speci men Type: BLOOD SPECIMEN Ordering Facility: [facility] Address: [address] [place] [address] Performed By: #### 1 3965-9 #### [facility] CLIA [id number] [address] [place] [address] [place] MCH (RBC) [Entitic mass] 29.2 pg Normal 26.0-34.0 [facility] Comment on above: Order Comment: Speci men Type: BLOOD SPECIMEN Ordering Facility: [facility] Address: [address] [place] [address] Performed By: #### 1 3965-9 #### [facility] CLIA [id number] [address] [place] [address] [place] MCHC (RBC) [Mass/Vol] 33.3 g/dL Normal 30.5-36.0 [facility] Comment on above: Order Comment: Speci men Type: BLOOD SPECIMEN Ordering Facility: [facility] Address: [address] [place] [address] Performed By: #### 1 3965-9 #### [facility] CLIA [id number] [address] [place] [address] [place] MCV (RBC) [Entitic vol] 87.5 fL Normal 80.0-100.0 [facility] Comment on above: Order Comment: Speci men Type: BLOOD SPECIMEN Ordering Facility: [facility] Address: [address] [place] [address] Performed By: #### 1 3965-9 #### [facility] CLIA [id number] [address] [place] [address] [place] Monocytes (Bld) [#/Vol] 0.43 10*3/uL Normal <0.87 [facility] Comment on above: Order Comment: Speci men Type: BLOOD SPECIMEN Ordering Facility: [facility] Address: [address] [place] [address] Performed By: #### 1 3965-9 #### [facility] CLIA [id number] [address] [place] [address] [place] Monocytes/100 WBC (Bld) 7.0 % Normal [facility] Comment on above: Order Comment: Speci men Type: BLOOD SPECIMEN Ordering Facility: [facility] Address: [address] [place] [address] Performed By: #### 1 3965-9 #### [facility] CLIA [id number] [address] [place] [address] [place] Neutrophils (Bld) [#/Vol] 3.96 10*3/uL Normal 1.45-7.50 [facility] Comment on above: Order Comment: Speci men Type: BLOOD SPECIMEN Ordering Facility: [facility] Address: [address] [place] [address] Performed By: #### 1 3965-9 #### [facility] CLIA [id number] [address] [id number] [address] [place] Neutrophils/100 WBC (Bld) 64.4 % Normal [facility] Comment on above: Order Comment: Speci men Type: BLOOD SPECIMEN Ordering Facility: [facility] Address: [address] [place] [address] Performed By: #### 1 3965-9 #### [facility] CLIA [id number] [address] [place] [address] [place] Nucleated RBC (Bld) [#/Vol] 10*3/uL Normal <0.01 [facility] Comment on above: Order Comment: Speci men Type: BLOOD SPECIMEN Ordering Facility: [facility] Address: [address] [place] [address] Performed By: #### 1 3965-9 #### [facility] CLIA [id number] [address] [place] [address] [place] Nucleated RBC/100 WBC (Bld) [Ratio] 0.0 /100 WBC Normal [facility] Comment on above: Order Comment: Speci men Type: BLOOD SPECIMEN Ordering Facility: [facility] Address: [address] [place] [address] Performed By: #### 1 3965-9 #### [facility] CLIA [id number] [address] [place] [address] [place] Platelet mean volume (Bld) [Entitic vol] 10.1 fL Normal 9.0-12.7 [facility] Comment on above: Order Comment: Speci men Type: BLOOD SPECIMEN Ordering Facility: [facility] Address: [address] [place] [address] Performed By: #### 1 3965-9 #### [facility] CLIA [id number] [address] [place] [address] [place] Platelets (Bld) [#/Vol] 233 10*3/uL Normal 150-400 [facility] Comment on above: Order Comment: Speci men Type: BLOOD SPECIMEN Ordering Facility: [facility] Address: [address] [place] [address] Performed By: #### 1 3965-9 #### [facility] CLIA [id number] [address] [place] [address] [place] RBC (Bld) [#/Vol] 5.66 10*6/uL Normal 4.20-6.00 [facility] Comment on above: Order Comment: Speci men Type: BLOOD SPECIMEN Ordering Facility: [facility] Address: [address] [place] [address] Performed By: #### 1 3965-9 #### [facility] CLIA [id number] [address] [place] [address] [place] WBC (Bld) [#/Vol] 6.15 10*3/uL Normal 3.70-11.00 [facility] Comment on above: Order Comment: Speci men Type: BLOOD SPECIMEN Ordering Facility: [facility] Address: [address] [place] [address] Performed By: #### 1 3965-9 #### [facility] CLIA [id number] [address] [place] [address] [place] CNOVon 10-21-2024 CNOV Office Visit (AGHWW1 ) -------- JYOTI CHOI ([id number]) 1950 M Date Time Provider Department 10/21/24 11:00 AM LAURA LEON HWW1 During your visit today, we recorded the following information about you: Temperature Weight Height 98.3 degrees 77.1 kg 1.702 m Laura Leon PA-C 10/21/2024 12:56 PM Signed ORTHOPAEDIC OFFICE NOTE CHIEF COMPLAINT: Follow Up and Pain of the Right Hand and Follow Up and Pain of the Left Hand Patient presents with: Right Hand - Follow Up, Pain Left Hand - Follow Up, Pain HISTORY OF PRESENT ILLNESS: Jyoti Choi presents to the office for follow up of bilateral hand pain, numbness, and tingling. Patient states the carpal tunnel steroid injections provided at his last visit significantly improved his symptoms and lasted quite a while. He states he does have numbness in the middle fingers at night that will wake up him. Also states he has pain in bilateral small fingers, right middle finger, and bilateral thumb CMC joints. Admits his hands and fingers feel "tight". States he does fine during the day but at night and into the morning his symptoms are more prominent. He localizes pain to the small fingers and middle finger to volar palm at the level of the A1 raquel. Denies any triggering of his fingers. Location: bilateral hands Severity: 5 on a scale of 0-10 Duration of symptoms: several months Date of injury: None Symptoms have: Improved Previous treatment: bilateral carpal tunnel injection x1 Numbness/tingling: Yes Nocturnal symptoms: Yes Therapy: No Context worse with Activity/Motion, Night, Morning, and Gripping Smoking status: Tobacco Use: Types: Cigarettes Reviewed nursing note and current pain scale. PAIN EVALUATION 10/21/2024 0852 10/21/2024 1059 Pain Location: Hand-Right -- Description: Aching;Numbness;Stiffnes s;Tightness;Tingling Aching great pain Intervention/Comfort measure: Relaxation;Heat;Massage -- PAST MEDICAL HISTORY Past medical, surgical, family, and social histories have been reviewed and updated with the patient today and are located elsewhere in the medical record. Diabetes:No ALLERGIES ALLERGIES Allergen Reactions Lamisil [Terbinafin* Intolerance heart palp. Milk Other: See Comments phlegm, avoids daily PHYSICAL EXAMINATION Temp 36.8 ?C (98.3 ?F) Ht 170.2 cm (5' 7") Wt 77.1 kg (170 lb) BMI 26.63 kg/m? Body mass index is 26.63 kg/m?. General Appearance: Well appearing, alert, in no acute distress, well-hydrated, well nourished. Psyche: he is alert and oriented and cooperative to our examination. Neuro: he alert and oriented times: 3. Normal affect times: 3. Gait and station: normal. Pulmonary: he has non labored breathing. There is no evidence of cyanosis. There is no clubbing of fingernails. he has no pursed lips. Head: Normocephalic and atraumatic Neck: Supple with no JVD Lymph: There is no palpable epitrochlear Musculoskeletal- BILATERAL Hand/Wrist/Upper Extremity Exam: Skin: There is hypertrophy noted to the volar aspect of bilateral small fingers and right middle finger at the level of the A1 raquel. No ecchymosis. There are no skin lacerations or abrasions. Inspection: There is no boutonniere or swan-neck deformity of the fingers. There is no ulnar drift of the fingers. There is no intrinsic muscular atrophy. There is a + shoulder sign over the thumb CMC joint b/l. There is no dorsal subluxation of the ulnar head. Cardiovascular: <3 sec capillary refill, +2 radial pulse palpated. Tenderness to palpation: Over volar aspect of bilateral small fingers and right middle finger at the level A1 raquel. TTP noted to bilateral thumb CMC joint, left > right. ROM: Full active range of motion of bilateral wrist. Able to make full composite fist. No active triggering of fingers noted, but pain with active passive flexion of bilateral small fingers and right middle finger. Instability: none Sensation: Normal sensation Thenar atrophy: None Atrophy: None Special tests: - Thumb CMC grind: Positive bilaterally - Volodymyr's test: Negative b/l - Eichhoff's test: Negative b/l - Tinel at wrist: Positive b/l - Phalen's test at wrist: Negative b/l - Median nerve compression test: Negative b/l - Elbow flexion test: Negative b/l - Tinel at elbow: Negative b/l - Subluxation of ulnar nerve at elbow: Negative b/l REVIEW OF STUDIES: No new imaging obtained at today's visit. ASSESSMENT AND PLAN: 1. Carpal tunnel syndrome, bilateral - ICD9: 354.0, ICD10: G56.03 (primary diagnosis) - CONSULT TO OCCUPATIONAL THERAPY/HAND THERAPY (AG) 2. Trigger little finger of right hand - ICD9: 727.03, ICD10: M65.351 - CONSULT TO OCCUPATIONAL THERAPY/HAND THERAPY (AG) - ADDITIONAL INJECTION/ARTHROCENTESIS 3. Trigger middle finger of right hand - ICD9: 727.03, ICD10: M65.331 - CONSULT TO OCCUPATIONA (more content not included)... Normal [facility] CNTHERAPYon 10-21-2024 CNTHERAPY OT/PT/Speech Visit (AKOTB) -------- JIMBOJYOTI Gaines ([id number]) 1950 M Date Time Provider Department 10/21/24 12:45 PM EZEQUIEL PATEL Date Time Provider Department Center 10/21/2024 12:45 PM [id number] PATEL [facility] Reason for Visit: OT EVAL [748] Primary Visit Diagnosis:Bilateral hand pain [M79.641, M79.642] Allergies As of Date: 10/21/2024 Noted Allergy Reaction LAMISIL (TERBINAFINE HCL) 07/03/2016 5 - Intolerance Comments: heart palp. MILK 05/05/2016 14 - Other: See Comments Comments: phlegm, avoids daily Date Reviewed: 10/21/2024 Reviewed by: Laura Leon PA-C - Fully Assessed Prescriptions as of 10/21/2024 - omega-3 fatty acids/fish oil (OMEGA 3 FISH OIL ORAL) Take 1,000 mg by mouth two times a day. (NOW) - MAGNESIUM GLYCINATE ORAL Take 350 mg by mouth once daily. (SOLARAY) - chlorel/chloroph/D3/B2/F A/iron (CHLORELLA CAPS ORAL) Take 5 mg by mouth once daily. - pantoprazole sodium (PANTOPRAZOLE ORAL) Take 40 mg by mouth once daily. - aspirin 81 mg cap Take by mouth once daily. - rosuvastatin (CRESTOR) 10 mg tablet Take 10 mg by mouth once daily. - O.N.E. Multivitamin (Pure Encapsulations) 1 capsule daily, with a meal, 60 ct Rod Straightener: Addendum Therapy (PT/OT/Speech/Resp) ID: [id number] 10/21/2024 1:14 PM Author: EZEQUIEL PATEL Signed by EZEQUIEL PATEL OTR/L on 10/21/2024 at 1:14 PM * * * This document replaces document [id number] * * * Document text: Program_ID:[id number] Access Code: [email or web address] URL: [email or web address] Date: 10-21-2024 Prepared By: Ezequiel Patel Program Notes Exercises - Thumb Stablization Adductor Release - 3 x daily - 7 x weekly - 3 sets - 10 reps - Thumb Strengthening Stabilization CMC - 3 x daily - 7 x weekly - 3 sets - 10 reps - Thumb Strengthening Stabilization CMC - 3 x daily - 7 x weekly - 3 sets - 10 reps Patient Education - Heat Normal [facility] COPPER BLOODon 10-21-2024 Copper [Mass/Vol] 76 ug/dL Normal 70-140 [facility] Comment on above: Order Comment: Speci men Type: BLOOD SPECIMEN Ordering Facility: [facility] Address: [address] [facility] [place] [address] Result Comment: This test was developed, and its performance characteristics determined by the [facility] Department of Pathology and Laboratory Medicine. It has not been cleared or approved by the FDA. The [facility] Department of Pathology and Laboratory Medicine is regulated under CLIA as qualified to perform high-complexity testing. This test is used for clinical purposes. It should not be regarded as investigational or for research. Performed By: #### 2 132-9, 2284-8 #### [facility] CLIA [id number] [address] [place] CRP SerPl HS-mCncon 03-07-20 25 CRP High sensitivity method [Mass/Vol] 0.3 mg/L Normal <3.1 [facility] Comment on above: Order Comment: Speci men Type: BLOOD SPECIMEN Ordering Facility: [facility] Address: [address] [place] [address] Result Comment: hsCR P < 1.0 mg/L, relative risk is low hsCRP 1.0-3.0 mg/L, relative risk is average hsCRP > 3.0 mg/L, relative risk is high Reference: Fletcher TA, Queenie GA, Daniel RW, et al. Markers of Inflammation and Cardiovascular Disease. Application to Clinical and Public Health Practice. A Statement for Healthcare Professionals from the Centers for Disease Control and Prevention and the [place] Heart Association. Circulation 2003;107:499-511. Performed By: #### 1 3965-9 #### [facility] CLIA [id number] [address] [place] [address] [place] [address] [place] Comprehensive metabolic 2000 panelon 10-21-2024 Albumin [Mass/Vol] 4.4 g/dL Normal 3.9-4.9 [facility] Comment on above: Order Comment: Speci men Type: BLOOD SPECIMEN Ordering Facility: [facility] Address: [address] [place] [address] Performed By: #### 1 3965-9 #### [facility] CLIA [id number] [address] [place] ALP [Catalytic activity/Vol] 91 U/L Normal 38-113 [facility] Comment on above: Order Comment: Speci men Type: BLOOD SPECIMEN Ordering Facility: [facility] Address: [address] [place] [address] Performed By: #### 1 3965-9 #### [facility] CLIA [id number] [address] [place] [address] [place] ALT [Catalytic activity/Vol] 21 U/L Normal 10-54 [facility] Comment on above: Order Comment: Speci men Type: BLOOD SPECIMEN Ordering Facility: [facility] Address: [address] [place] [address] Performed By: #### 1 3965-9 #### [facility] CLIA [id number] [address] [place] [address] [place] Anion gap [Moles/Vol] 9 mmol/L Normal 8-15 [facility] Comment on above: Order Comment: Speci men Type: BLOOD SPECIMEN Ordering Facility: [facility] Address: [address] [place] [address] Performed By: #### 1 3965-9 #### [facility] CLIA [id number] [address] [place] [address] [place] AST [Catalytic activity/Vol] 20 U/L Normal 14-40 [facility] Comment on above: Order Comment: Speci men Type: BLOOD SPECIMEN Ordering Facility: [facility] Address: [address] [place] [address] Performed By: #### 1 3965-9 #### [facility] CLIA [id number] [address] [place] [address] [place] Bilirubin [Mass/Vol] 0.6 mg/dL Normal 0.2-1.3 [facility] Comment on above: Order Comment: Speci men Type: BLOOD SPECIMEN Ordering Facility: [facility] Address: [address] [place] [address] Performed By: #### 1 3965-9 #### [facility] CLIA [id number] [address] [place] Calcium [Mass/Vol] 9.4 mg/dL Normal 8.5-10.2 [facility] Comment on above: Order Comment: Speci men Type: BLOOD SPECIMEN Ordering Facility: [facility] Address: [address] [place] [address] Performed By: #### 1 3965-9 #### [facility] CLIA [id number] [address] [place] [address] [place] Chloride [Moles/Vol] 102 mmol/L Normal 98-107 [facility] Comment on above: Order Comment: Speci men Type: BLOOD SPECIMEN Ordering Facility: [facility] Address: [address] [place] [address] Performed By: #### 1 3965-9 #### [facility] CLIA [id number] [address] [place] CO2 [Moles/Vol] 24 mmol/L Normal 22-30 [facility] Comment on above: Order Comment: Speci men Type: BLOOD SPECIMEN Ordering Facility: [facility] Address: [address] [place] [address] Performed By: #### 1 3965-9 #### [facility] CLIA [id number] [address] [place] Creatinine [Mass/Vol] 0.72 mg/dL Low 0.73-1.22 [facility] Comment on above: Order Comment: Speci men Type: BLOOD SPECIMEN Ordering Facility: [facility] Address: [address] [place] [address] Performed By: #### 1 3965-9 #### [facility] CLIA [id number] [address] Creatinine and Glomerular filtration rate.predicted panel (S/P/Bld) 97 mL/min/1.73m??? Normal >=60 [facility] Comment on above: Order Comment: Felishai mari Type: BLOOD SPECIMEN Ordering Facility: [facility] Address: [address] [place] [address] Result Comment: Lindsey mated Glomerular Filtration Rate (eGFR) is calculated using the 2020 CKD-EPI creatinine equation. This equation utilizes serum creatinine, sex, and age as parameters. The creatinine assay has traceable calibration to isotope dilution-mass spectrometry. Refer to KDIGO guidelines for clinical interpretation. In patients with unstable renal function, e.g. those with acute kidney injury, the eGFR may not accurately reflect actual GFR. Performed By: #### 1 3965-9 #### [facility] CLIA [id number] [address] [facility] Glucose [Mass/Vol] 100 mg/dL High 74-99 [facility] Comment on above: Order Comment: Speci men Type: BLOOD SPECIMEN Ordering Facility: [facility] Address: [address] [place] [address] Result Comment: The [place] Diabetes Association (ADA) provides guidance for cutoff values for fasting glucose and random glucose. The ADA defines fasting as no caloric intake for at least 8 hours. Fasting plasma glucose results between 100 to 125 mg/dL indicate increased risk for diabetes (prediabetes). Fasting plasma glucose results greater than or equal to 126 mg/dL meet the criteria for diagnosis of diabetes. In the absence of unequivocal hyperglycemia, results should be confirmed by repeat testing. In a patient with classic symptoms of hyperglycemia or hyperglycemic crisis, random plasma glucose results greater than or equal to 200 mg/dL meet the criteria for diagnosis of diabetes. Reference: Standards of Medical Care in Diabetes 2016, [place] Diabetes Association. Diabetes Care. 2016.39(Suppl 1). Performed By: #### 1 3965-9 #### [facility] CLIA [id number] [address] [place] [address] [place] Potassium [Moles/Vol] 4.0 mmol/L Normal 3.7-5.1 [facility] Comment on above: Order Comment: Speci men Type: BLOOD SPECIMEN Ordering Facility: [facility] Address: [address] [place] [address] Performed By: #### 1 3965-9 #### [facility] CLIA [id number] [address] [place] [address] [place] Protein [Mass/Vol] 6.9 g/dL Normal 6.3-8.0 [facility] Comment on above: Order Comment: Speci men Type: BLOOD SPECIMEN Ordering Facility: [facility] Address: [address] [place] [address] Performed By: #### 1 3965-9 #### [facility] CLIA [id number] [address] [place] [address] [place] Sodium [Moles/Vol] 135 mmol/L Low 136-144 [facility] Comment on above: Order Comment: Speci men Type: BLOOD SPECIMEN Ordering Facility: [facility] Address: [address] [place] [address] Performed By: #### 1 3965-9 #### [facility] CLIA [id number] [address] [place] [address] [place] Urea nitrogen [Mass/Vol] 12 mg/dL Normal 9-24 [facility] Comment on above: Order Comment: Kreen guerra Type: BLOOD SPECIMEN Ordering Facility: [facility] Address: [address] [place] [address] Performed By: #### 1 3965-9 #### [facility] CLIA [id number] [address] [place] [address] [place] Ferritin SerPl-mCncon 2024 Ferritin [Mass/Vol] 65.1 ng/mL Normal 30.3-565.7 [facility] Comment on above: Order Comment: Keren guerra Type: BLOOD SPECIMEN Ordering Facility: [facility] Address: [address] [place] [address] Performed By: #### 1 3965-9 #### [facility] CLIA [id number] [address] [place], [place] [address] [address] [place] Folate SerPl-mCncon 10-22-19 25 Folate [Mass/Vol] ng/mL Normal >4.7 [facility] Comment on above: Order Comment: Keren guerra Type: BLOOD SPECIMEN Ordering Facility: [facility] Address: [address] [place] [address] Result Comment: A re sult of > 20 ng/mL is not necessarily indicative of a pathologic or treatable condition: it reflects a limitation of the test methodology. Assay reference range: 4.8 to 24.2 ng/mL. Suitable for detection of folate deficiency. Reference: Folate III (Folate III) [package insert V 1.0 Divehi]. [employer] [facility], [place], [place]: June 2015. Performed By: #### 2 132-9, 2284-8 #### [facility] CLIA [id number] [address] [place] [address] [place] HbA1c (Bld)on 10-21-2024 Average glucose Estimated from glycated hemoglobin (Bld) [Mass/Vol] 114 mg/dL Normal [facility] Comment on above: Order Comment: Keren guerra Type: BLOOD SPECIMEN Ordering Facility: [facility] Address: [address] [place] [address] Result Comment: eAG: (Estimated average glucose) is a calculated value from HgbA1c and is canvas products sales representative of the average blood glucose level in the last 2-3 month period. Performed By: #### 1 3965-9 #### [facility] CLIA [id number] [address] [place] HbA1c (Bld) [Mass fraction] 5.6 % Normal 4.3-5.6 [facility] Comment on above: Order Comment: Speci men Type: BLOOD SPECIMEN Ordering Facility: [facility] Address: [address] [place] [address] Result Comment: [place] Diabetes Association guidelines indicate that patients with HgbA1c in the range 5.7-6.4% are at increased risk for development of diabetes, and intervention by lifestyle modification may be beneficial. HgbA1c greater or equal to 6.5% is considered diagnostic of diabetes. Performed By: #### 1 3965-9 #### [facility] CLIA [id number] [address] [place] [address] [place] Hcys SerPl-sCncon 10-21-2024 Homocysteine [Moles/Vol] 8.4 umol/L Normal <15.1 [facility] Comment on above: Order Comment: Keren guerra Type: BLOOD SPECIMEN Ordering Facility: [facility] Address: [address] [place] [address] Performed By: #### 1 3965-9 #### [facility] CLIA [id number] [address] [place] [address] [place] Insulin SerPl-aCncon 025 Insulin Qn 13.8 uU/mL Normal 2.6-24.9 [facility] Comment on above: Order Comment: Keren men Type: BLOOD SPECIMEN Ordering Facility: [facility] Address: [address] [place] [address] Performed By: #### 1 3965-9 #### [facility] CLIA [id number] [address] [place], [place] [address] [address] [place] Iron and Iron binding capaci ty panelon 10-21-2024 Iron [Mass/Vol] 145 ug/dL Normal 41-186 [facility] Comment on above: Order Comment: Speci men Type: BLOOD SPECIMEN Ordering Facility: [facility] Address: [address] [place] [address] Performed By: #### 2 132-9, 2283-8 #### [facility] CLIA [id number] [address] STATES OF [facility] Iron binding capacity [Mass/Vol] 350 ug/dL Normal 232-386 [facility] Comment on above: Order Comment: Speci men Type: BLOOD SPECIMEN Ordering Facility: [facility] Address: [address] [place] [address] Performed By: #### 2 132-9, 8 #### [facility] CLIA [id number] [address] OF [facility] Iron saturation [Mass fraction] 41.4 % Normal 15.0-57.0 [facility] Comment on above: Order Comment: Speci men Type: BLOOD SPECIMEN Ordering Facility: [facility] Address: [address] [place] [address] Performed By: #### 2 132-9, 2284-03 #### [facility] CLIA [id number] [address] OF [facility] LIPOPROTEIN FRACTIONATION BY NMR WITH LIPIDSon 10-21-2024 Cholesterol [Mass/Vol] 244 mg/dL High <=199 [facility] Comment on above: Order Comment: Speci men Type: BLOOD SPECIMEN Ordering Facility: [facility] Address: [address] [place] [address] Performed By: #### N MRLPD #### [facility] CLIA [id number] [address] [place] [address] Cholesterol in HDL [Mass/Vol] 58 mg/dL Normal 40-59 [facility] Comment on above: Order Comment: Speci men Type: BLOOD SPECIMEN Ordering Facility: [facility] Address: [address] [place] [address] Performed By: #### N MRLPD #### [facility] CLIA [id number] [address] [place] [address] EER LIPOFIT BY NMR See Note Normal [facility] Comment on above: Order Comment: Speci men Type: BLOOD SPECIMEN Ordering Facility: [facility] Address: [address] [place] [address] Result Comment: Auth orized individuals can access the [employer] Enhanced Report with an [employer] Connect account using the following link. Your local lab can assist you in obtaining the patient report if you don't have a Connect account. [email or web address] INTERPRETIVE INFORMATION: LipoFit by NMR This test was developed and its performance characteristics determined by [facility]. It has not been cleared or approved by the US Food and Drug Administration. This test was performed in a CLIA certified laboratory and is intended for clinical purposes. Performed By: [facility] [address] [place] [address] Haul Driver: Christiano Al MD, PhD CLIA Number: [id number] Performed By: #### N MRLPD #### [facility] [id number] [address] [place] [address] HDL PARTICLE NUMBER, NMR 35.7 umol/L Normal >=33.0 [facility] Comment on above: Order Comment: Speci men Type: BLOOD SPECIMEN Ordering Facility: [facility] Address: [address] [place] [address] Result Comment: INTE RPRETIVE INFORMATION: HDL Particle Number, NMR Percentiles in Reference Population: 25th 50th 75th 29.7 33.0 36.8 Performed By: #### N MRLPD #### [facility] [id number] [address] [place] [address] HDL PARTICLE SIZE, NMR 8.9 nm Normal >=8.9 [facility] Comment on above: Order Comment: Speci men Type: BLOOD SPECIMEN Ordering Facility: [facility] Address: [address] [place] [address] Result Comment: INTE RPRETIVE INFORMATION: HDL Particle Size, NMR Percentiles in Reference Population: 25th 50th 75th 8.6 8.9 9.3 Performed By: #### N MRLPD #### [facility] IA [id number] [address] [place] [address] LARGE HDL PARTICLE NUMBER, NMR 6.3 umol/L Normal >=4.2 [facility] Comment on above: Order Comment: Speci men Type: BLOOD SPECIMEN Ordering Facility: [facility] Address: [address] [place] [address] Result Comment: INTE RPRETIVE INFORMATION: Large HDL Particle Number, NMR Percentiles in Reference Population: 25th 50th 75th 2.0 4.2 7.3 Performed By: #### N MRLPD #### [facility] [id number] [address] [place] [address] LARGE VLDL PARTICLE NUMBER, NMR <1.5 Normal <=2.7 [facility] Comment on above: Order Comment: Speci men Type: BLOOD SPECIMEN Ordering Facility: [facility] Address: [address] [place] [address] Result Comment: INTE RPRETIVE INFORMATION: Large VLDL Particle Number, NMR Percentiles in Reference Population: 25th 50th 75th 0.9 2.7 7.0 Performed By: #### N MRLPD #### [facility] [id number] [address] [place] [address] LDL CHOL CALCULATED 167 mg/dL High <=129 [facility] Comment on above: Order Comment: Speci men Type: BLOOD SPECIMEN Ordering Facility: [facility] Address: [address] [place] [address] Performed By: #### N MRLPD #### [facility] [id number] [address] [place] [address] LDL PARTICLE NUMBER, NMR 1737 nmol/L High <=1135 [facility] Comment on above: Order Comment: Speci men Type: BLOOD SPECIMEN Ordering Facility: [facility] Address: [address] [place] [address] Result Comment: REFE RENCE INTERVAL: LDL Particle Number, NMR Low............... Less than 1136 Moderate.......... 1136 - 1449 Borderline High... 1450 - 1764 High.............. 1765 - 2186 Very High......... Greater than 2186 Percentiles in Reference Population: 20th 50th 80th 95th 1136 1450 1765 2186 Percentiles consistent with those from NCEP ATP III LDL-C cutpoints of 100 mg/dL(20th percentile) and 160 mg/dL (80th percentile). Performed By: #### N MRLPD #### [facility] IA [id number] [address] [place] [address] LDL PARTICLE SIZE, NMR 21.0 nm Normal >=20.7 [facility] Comment on above: Order Comment: Speci men Type: BLOOD SPECIMEN Ordering Facility: [facility] Address: [address] [place] [address] Result Comment: INTE RPRETIVE INFORMATION: LDL Particle Size, NMR Percentiles in Reference Population: 25th 50th 75th 19.6 20.7 22.5 Performed By: #### N MRLPD #### [facility] [id number] [address] [place] [address] SMALL LDL PARTICLE NUMBER, NMR 586 nmol/L Normal <=634 [facility] Comment on above: Order Comment: Speci men Type: BLOOD SPECIMEN Ordering Facility: [facility] Address: [address] [place] [address] Result Comment: INTE RPRETIVE INFORMATION: Small LDL Particle Number, NMR Percentiles in Reference Population: 25th 50th 75th 220 634 949 Performed By: #### N MRLPD #### [facility] IA [id number] [address] [place] [address] Triglyceride [Mass/Vol] 94 mg/dL Normal 30-149 [facility] Comment on above: Order Comment: Speci men Type: BLOOD SPECIMEN Ordering Facility: [facility] Address: [address] [place] [address] Performed By: #### N MRLPD #### [facility] IA [id number] [address] [place] [address] VLDL PARTICLE SIZE, NMR 42.2 nm Normal <=46.7 [facility] Comment on above: Order Comment: Speci men Type: BLOOD SPECIMEN Ordering Facility: [facility] Address: [address] [place] [address] Result Comment: INTE RPRETIVE INFORMATION: VLDL Particle Size, NMR Percentiles in Reference Population: 25th 50th 75th 44.3 46.7 50.2 Performed By: #### N MRLPD #### [facility] CLIA [id number] [address] [place] [address] LPa SerPl-mCncon 10-21-2024 Lipoprotein a [Mass/Vol] 8 mg/dL Normal <30 [facility] Comment on above: Order Comment: Speci men Type: BLOOD SPECIMEN Ordering Facility: [facility] Address: [address] [place] [address] Performed By: #### 1 3965-9 #### [facility] CLIA [id number] [address] [place] [address] [place] [address] [place] Lead (Bld) [Mass/Vol]on Lead (BldV) [Mass/Vol] 1.9 ug/dL Normal <3.5 [facility] Comment on above: Order Comment: Keren guerra Type: BLOOD SPECIMEN Ordering Facility: [facility] Address: [address] [place] [address] Result Comment: The Centers for Disease Control and Prevention (CDC) recommends a blood lead reference value of less than 3.5 ???g/dL (Update of the Blood Lead Reference Value - [facility], 2020). The CDC's updated "Recommended Actions Based on Blood Lead Level" can be accessed at www.cdc.gov. Consult your [facility] Department of Health and/or applicable regulatory agencies for specific guidance on testing follow up and patient management. This test was developed, and its performance characteristics determined by the [facility] Department of Pathology and Laboratory Medicine. It has not been cleared or approved by the FDA. The [facility] Department of Pathology and Laboratory Medicine is regulated under CLIA as qualified to perform high-complexity testing. This test is used for clinical purposes. It should not be regarded as investigational or for research. Performed By: #### 2 132-9, 2284-8 #### [facility] CLIA [id number] [address] [place] [address] [place] MAGNESIUM RBCon 10-21-2024 Magnesium (RBC) [Moles/Vol] 4.8 mg/dL Normal 4.0-6.5 [facility] Comment on above: Order Comment: Speci mari Type: BLOOD SPECIMEN Ordering Facility: [facility] Address: [address] [place] [address] Result Comment: This test was developed, and its performance characteristics determined by the [facility] Department of Pathology and Laboratory Medicine. It has not been cleared or approved by the FDA. The [facility] Department of Pathology and Laboratory Medicine is regulated under CLIA as qualified to perform high-complexity testing. This test is used for clinical purposes. It should not be regarded as investigational or for research. Performed By: #### M AGRBC #### [facility] CLIA [id number] [address] [place] [address] [place] OMEGACHECKon 10-21-2024 ARACHIDONIC ACID 11.1 % by wt Normal 8.6-15.6 [facility] Comment on above: Order Comment: Speci mari Type: BLOOD SPECIMEN Ordering Facility: [facility] Address: [address] [place] [address] Performed By: #### 1 3965-9 #### [facility] CLIA [id number] [address] [place] [address] [place] ARACHIDONIC ACID/EPA RATIO 7.7 Normal 3.7-40.7 [facility] Comment on above: Order Comment: Speci mari Type: BLOOD SPECIMEN Ordering Facility: [facility] Address: [address] [place] [address] Result Comment: Rece ived Date: Performed By: #### 1 3965-9 #### [facility] CLIA [id number] [address] [place] [address] [place] DHA 2.9 % by wt Normal 1.4-5.1 [facility] Comment on above: Order Comment: Felishai mari Type: BLOOD SPECIMEN Ordering Facility: [facility] Address: [address] [place] [address] Performed By: #### 1 3965-9 #### [facility] CLIA [id number] [address] [place] [address] [place] DPA 1.5 % by wt Normal 0.8-1.8 [facility] Comment on above: Order Comment: Speci men Type: BLOOD SPECIMEN Ordering Facility: [facility] Address: [address] [place] [address] Performed By: #### 1 3965-9 #### [facility] CLIA [id number] [address] [place] [address] [place] EPA 1.5 % by wt Normal 0.2-2.3 [facility] Comment on above: Order Comment: Speci men Type: BLOOD SPECIMEN Ordering Facility: [facility] Address: [address] [place] [address] Performed By: #### 1 3965-9 #### [facility] CLIA [id number] [address] [place] [address] [place] LINOLEIC ACID 27.2 % by wt Normal 18.6-29.5 [facility] Comment on above: Order Comment: Speci men Type: BLOOD SPECIMEN Ordering Facility: [facility] Address: [address] [place] [address] Performed By: #### 1 3965-9 #### [facility] CLIA [id number] [address] [place] [address] [place] OMEGA-3 TOTAL 5.9 % by wt Normal [facility] Comment on above: Order Comment: Speci men Type: BLOOD SPECIMEN Ordering Facility: [facility] Address: [address] [place] [address] Performed By: #### 1 3965-9 #### [facility] CLIA [id number] [address] [place] [address] [place] OMEGA-6 TOTAL 40.4 % by wt Normal [facility] Comment on above: Order Comment: Speci men Type: BLOOD SPECIMEN Ordering Facility: [facility] Address: [address] [place] [address] Result Comment: [facility] measures a number of omega-6 fatty acids with AA and LA being the two most abundant forms reported. Performed By: #### 1 3965-9 #### [facility] CLIA [id number] [address] OMEGA-6/OMEGA-3 RATIO 6.9 Normal 3.7-14.4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 M C Admitted: [facility]12 Lead EKG performed [place] [facility] ECG Report Interpretation --Sinus Rhythm WITHIN NORMAL LIMITSElectronically signed on 08/31/2024 at 12:[address] Felipe Landis [email or web address] Software Version [id number] 08/31/24 1211 Date Felipe Landis MD CC: Dr. Omaira Weir MD Date Dictated: 08/31/241206 Date Transcribed: 08/31/241206 Chief Juvenile Probation Officer: Signed Normal [facility] Cardiology Visit Reporton Cardiology Visit Report [facility] [address] [place] [address] OFFICE VISIT Date of Service: 08/31/24 MR#: [id number] Acct: [id number] Name: JYOTI CHOI Rep #: [id number] : 1950 Provider: Dr. Felipe ramos MD Age/Sex: 74/M [place] [facility] Status: Signed HPI HPI History of Present Illness Details: Patient is a very pleasant 74-year-old white male who works at [employer]. Patient comes in as a new patient referral for abnormal EKG and dyspnea on exertion. The patient reports that he has been doing fairly well in his home environment he walks routinely but when he walks fast he is noticed to be short of breath by his and other individuals. He does not personally feel like that he is short of breath. He denies any chest tightness or squeezing denies any claudication denies any PND orthopnea or any lower extremity edema. The patient's EKG in the office here showed a normal sinus rhythm and is within normal limits. He did have some old EKGs that were read as left atrial enlargement which is really borderline looking at the EKG and a possible old anterior septal infarct. The patient had a remote echocardiogram in 2018 that showed a normal EF of 55% mild TR and otherwise was unremarkable. He had negative carotids done June 2019. The patient had a coronary calcium scoring in 2022 that was about 100 this was repeated August 2023 and had increased to 214. It was still under the significant threshold of 400. The patient subsequent underwent a stress test where he only went a little over 3 minutes. He had some nonspecific ST changes and the Cardiolite nuclear scan showed no evidence of ischemia. His gated EF was estimated at 60%. Apparently the stress test was stopped due to shortness of breath and attaining 85% of age-predicted heart rate at a low level of activity. The patient O2 saturation was 91% at rest in the office we had him walk up and down the halls and his heart rate went up to 115 but his O2 sat remained 91%. The patient does have a [id number] smoking history by his report. He stopped smoking in 2004. The patient does have a significant family history for coronary disease and he has significant hyperlipidemia LDL cholesterol was 184 in March 2024 he was either on no treatment or red yeast rice at the time. The patient has not had any PFTs done to his knowledge. Intake Vital Signs 07/21/24 11:04 08/31/24 08:27 Height 5 ft 8 in 5 ft 8 in Weight: 170 lb 8 oz 172 lb BMI 25.9 26.1 BP 151/75 H 139/75 H Blood Pressure Location Lt brachial Lt brachial Position Sitting Sitting Respiration 16 18 Pulse 87 99 Pulse Source Monitor Monitor Temp 98.2 F Pulse Oximetry (%) 94 91 Oxygen Delivery Method room air room air Intake Visit Reasons: ABN EKG/ Hyperlipidemia (Carmella) Air Sampler Required: No Accompanied by: Self Is patient in pain?: No Allergies terbinafine (From Lamisil) Allergy (Verified 08/31/24 08:28) Shortness of breath ciprofloxacin (From Cipro) Adverse Reaction (Verified 08/31/24 08:28) PALPITATIONS Medications ???Medication ???Instructions ???Recorded ???Confirmed ???Type multivitamin 1 tab PO DAILY 08/31/23 08/31/24 History omega-3 650 mg-dha 400 mg-epa 200 1 cap PO DAILY 08/31/23 08/31/24 History mg-fish oil-vit D3 300 unit capsule magnesium 250 mg tablet 250 mg PO DAILY 10/19/23 08/31/24 History pantoprazole 40 mg tablet,delayed 40 mg PO DAILY 10/19/23 08/31/24 History release aspirin 81 mg chewable tablet 81 mg PO QDAY #30 tabs 08/31/24 08/31/24 Rx rosuvastatin 20 mg tablet 20 mg PO QDAY #30 tabs 08/31/24 08/31/24 Rx Ejection fraction %: 55 Have you fallen in the past year?: No PFSH Medical History Carpal tunnel syndrome, bilateral Dyspnea on exertion Poor historian History of stress test Wears glasses Alcohol use Back pain History of hiatal hernia Former smoker History of echocardiogram Hood syndrome prostate issues Osteopenia Arthritis Surgical History Hx of appendectomy History of scapula, ulna, humerous reconstruction History of endoscopy History of colonoscopy Family History Aunt Breast cancer Uncle Colon cancer Diabetes Heart disease Mother Cancer Diabetes Other Alcoholism Anxiety and depression Liver disease Melanoma Osteoporosis Social History Smoking Status: Former smoker alcohol intake: current substance use type: does not use caffeine: Yes ROS Const Const: Negative for fatigue or weakness ENT ENT: Negative for dizziness or balance (more content not included)... Normal [facility] [facility] Visit Repor ton 07-28-2024 Gastroenterology Visit Report [facility] Gastroenterology [address] [place] [address] OFFICE VISIT Date of Service: 07/28/24 MR#: [id number] Acct: [id number] Name: JYOTI CHOI Rep #: [id number] : 1950 Provider: Cameron Cohen DO Age/Sex: 74/M [place] [facility] [place] Status: Signed Intake Vital Signs 12/03/23 06:10 07/21/24 11:04 Height 5 ft 8 in 5 ft 8 in Intake Visit Reasons: 6 M FU Chief Complaint: breathing Allergies terbinafine (From Lamisil) Allergy (Verified 07/21/24 10:54) Shortness of breath ciprofloxacin (From Cipro) Adverse Reaction (Verified 07/21/24 10:54) PALPITATIONS Medications ???Medication ???Instructions ???Recorded ???Confirmed ???Type multivitamin 1 tab PO DAILY 08/31/23 07/28/24 History omega-3 650 mg-dha 400 mg-epa 200 1 cap PO DAILY 08/31/23 07/28/24 History mg-fish oil-vit D3 300 unit capsule magnesium 250 mg tablet 250 mg PO DAILY 10/19/23 07/28/24 History pantoprazole 40 mg tablet,delayed 40 mg PO DAILY 10/19/23 07/28/24 History release red rice PO 05/11/24 07/28/24 History Have you fallen in the past year?: No PFSH Medical History (Updated 07/21/24 @ 12:[address] Omaira Weir MD) Dyspnea on exertion Poor historian History of stress test Wears glasses Alcohol use Back pain History of hiatal hernia Former smoker History of echocardiogram Hood syndrome prostate issues Osteopenia Arthritis Surgical History Hx of appendectomy History of scapula, ulna, humerous reconstruction History of endoscopy History of colonoscopy Family History Aunt Breast cancer Uncle Colon cancer Diabetes Heart disease Mother Cancer Diabetes Other Alcoholism Anxiety and depression Liver disease Melanoma Osteoporosis Social History Smoking Status: Former smoker alcohol intake: current HPI HPI Chief Complaint: breathing Details: JYOTI CHOI, is a 74 M who presents to the office today for follow up. PCP OV 3..23 noting need for colonoscopy and history of Hood???s esophagus.??? WSA established 12.19.22 noting GERD well managed with use of Pepcid.?EGD and colonoscopy 02.05.23???EGD medium hiatal hernia; Hood???s changes, metaplasia +; gastritis; duodenitis, gastric metaplasia +. H.pylori neg? Colonoscopy hemorrhoids; three hyperplastic polyps; diverticulosis??? OV 01.2.24- Pt reports long hx of Hood's that was dx 4-5 years ago. Was instructed to follow up with us for management. Has been taking OTC Pepcid daily. Sx are under control with medication and diet. Kulwant dysphagia. BM are normal. No other concerns. 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 Biopsied. Treated with radiofrequency ablation. Medium-sized hiatal hernia. Normal duodenal bulb. EGD 12.03.23 Esophageal mucosal changes consistent with long-segment Hood's esophagus. Treated with radiofrequency ablation. Hiatal hernia. No gross lesions in the first portion of the duodenum. No specimens collected. OV 01.28.24 pt denies GI symptoms of concern at this time. Continues with Pantoprazole. OV 07.28.24 pt reports that he is doing well overall and denies GI symptoms of concern at this time. Pt continues with Pantoprazole. ROS Const Constitutional: No fatigue, fever(s) or weight change ENT ENT: No difficulty swallowing Gastro GI: No abdominal pain, belching, bloating, change in bowel habits, change in stool character, coffee ground emesis, constipation, cramping, diarrhea, heartburn, difficulty swallowing, feeling full early, excessive flatus, incontinent of stools, Vomiting blood/hematemesis, Blood in stool, loose stools, Black,tarry stools, nausea/dyspepsia, pain with swallowing, vomiting or other Musc Musculoskeletal: Positive for joint pain, numbness, stiffness, tingling and Arthritis Skin Skin: No yellowing of the eye or itchy eyes Neuro Neurology: Positive for numbness and tingling Psych Psychiatric: No anxiety and No depression Endo Endocrine: No fatigue or weight change Aller/Imm Allergy/Immunologic: No itchy eyes Edward/Lymp Hematologic/Lymphatic: No easy bleeding or easy bruising Exam Const General: cooperative and comfortable Nutritional Appearance: average body habitus and well nourished [facility] Head: normal to inspection Ears: hearing grossly normal bilaterally Nose: external nose normal Face and sinus: normal facial exam Mouth: oral mucosae normal Throat: posterior oropharynx normal Eyes General: appearance normal, both eyes and all related structures Neck Neck (more content not included)... Normal [facility] MR/AGATHA.Antoinette 07-21-2024 MR/AGATHA.BOUCHRA [facility] [address] [place], [place] [address] OFFICE VISIT Date of Service: 07/21/24 MR#: [id number] Acct: [id number] Name: JYOTI CHOI Rep #: [id number] : 1950 Provider: Dr. Omaira stein MD Age/Sex: 74/M [place] [facility] [place] Status: Signed Intake Vital Signs 05/11/24 07:59 07/21/24 11:04 Height 5 ft 8 in 5 ft 8 in Weight: 165 lb 6 oz 170 lb 8 oz BMI 25.1 25.9 BP 146/79 H 151/75 H Blood Pressure Location Lt brachial Lt brachial Position Sitting Sitting Respiration 16 16 Pulse 85 87 Pulse Source Monitor Monitor Temp 98.6 F 98.2 F Temp Source Temporal Temporal Pulse Oximetry (%) 93 94 Oxygen Delivery Method room air room air Intake Visit Reasons: Breathing Chief Complaint: breathing Air Sampler Required: No Accompanied by: Is patient in pain?: Yes Pain scale (1-10): 5 Allergies terbinafine (From Lamisil) Allergy (Verified 07/21/24 10:54) Shortness of breath ciprofloxacin (From Cipro) Adverse Reaction (Verified 07/21/24 10:54) PALPITATIONS Medications ???Medication ???Instructions ???Recorded ???Confirmed ???Type multivitamin 1 tab PO DAILY 08/31/23 07/21/24 History omega-3 650 mg-dha 400 mg-epa 200 1 cap PO DAILY 08/31/23 07/21/24 History mg-fish oil-vit D3 300 unit capsule magnesium 250 mg tablet 250 mg PO DAILY 10/19/23 07/21/24 History pantoprazole 40 mg tablet,delayed 40 mg PO DAILY 10/19/23 07/21/24 History release red rice PO 05/11/24 07/21/24 History Have you fallen in the past year?: No PFSH Medical History Poor historian History of stress test Wears glasses Alcohol use Back pain History of hiatal hernia Former smoker History of echocardiogram Hood syndrome prostate issues Osteopenia Arthritis Surgical History Hx of appendectomy History of scapula, ulna, humerous reconstruction History of endoscopy History of colonoscopy Family History Aunt Breast cancer Uncle Colon cancer Diabetes Heart disease Mother Cancer Diabetes Other Alcoholism Anxiety and depression Liver disease Melanoma Osteoporosis Social History Smoking Status: Former smoker alcohol intake: current HPI HPI Chief Complaint: breathing Details: JYOTI CHOI, is a 74 M who presents to the office today for further discussion, ongoing evaluation regarding dyspnea. For the last year or so, the patient has noted increased dyspnea. He would note this ascending a flight of stairs, or if during his walking which he does regularly, if he would walk fast, uphill he will get dyspneic. He typically simply backs away from that and does not get allen chest pain or chest tightness he states. Earlier this year, as part of this evaluation for ongoing dyspnea, I recommended he undergo stress testing. His exercise capacity is low. We discussed from that context it is difficult to fully make a good assessment in terms of the stress test as he only exercised about 3-1/2 minutes before the test was stopped due to dyspnea. He does have some baseline EKG changes that seemingly were exacerbated during the stress test but were not clearly diagnostic. The imaging did not confirm any significant obstruction. However again this was a low level test unfortunately. He has no other underlying specific reasons for dyspnea on exertion. He has no prior history of pulmonary issues. No long-term smoking exposure etc. Review of systems per chart. Physical exam. Vital signs on chart. Sclera are clear. TMs are unremarkable with normal light reflexes. No clear thyromegaly. No thyroid nodules readily palpable. Lungs are without wheeze, rhonchi, rales. No E/A changes are heard. Heart is regular. Not tachycardic. No clear murmur, rub, or gallop is identified. The abdomen is soft. Bowel sounds are present. ROS Const Constitutional: No body ache, chills, excessive sweating, fatigue, fever(s), frequent falls, headache(s), snoring, weakness or change in appetite Eyes Eyes: No blurry vision, change in vision, eye pain or Light sensitivity ENT ENT: No abnormal hearing, ear or mastoid pain, tinnitus, nasal congestion, headache(s), neck pain or sore throat Resp Respiratory: Positive for shortness of breath (with activity ); No cough, snoring or wheezing Cardio Cardiology: No chest pain at rest, chest pain with exertion, excessive sweating, dyspnea on exertion, lightheadedness, orthopnea or palpitations Gastro GI: No abdominal pain, change in bowel habits, constipation, cramping, diarrhea, nausea/dyspepsia or vomiting Genitourinary Male: No burning urination, kylee (more content not included)... Normal [facility] Additional Injections: bilat sanam carpal tunnelon 06-08-2024 Samara Covington MD 06/13/2024 9:10 AM Additional Injections: bilateral carpal tunnel for carpal tunnel syndrome Informed Consent Consent Obtained: Verbal [place] Protocol A moment to CARE was completed. SIGN IN Personnel directly involved with the procedure wore the appropriate PPE. Patient/Surrogate Stated/Verified: Patient name and Date of TIME OUT Intended patient and procedure match the source document(s). Relevant labs, photos, and/or imaging studies have been reviewed. Correct side/site marked and visible. Medications required for procedure verified. Fire risk assessed and interventions discussed. 06/08/2024 1:22 PM The procedure site was prepped in the usual sterile fashion. Medications (Right): 12 mg betamethasone acetate-betamethasone sodium phosphate 6 mg/mL Medications (Left): 12 mg betamethasone acetate-betamethasone sodium phosphate 6 mg/mL Anesthetics (Right): 1 mL lidocaine 10 mg/mL (1 %) Anesthetics (Left): 1 mL lidocaine 10 mg/mL (1 %) Outcome: tolerated well, no immediate complications Post-injection instructions were reviewed with the patient and the patient voiced understanding of these instructions. SIGN OUT All instruments, equipment, possible retained foreign bodies accounted for. Post-procedure follow-up management communicated and Plan of Care Visit completed when applicable [facility] CNOVon 06-08-2024 CNOV Office Visit (AGHWW1 ) -------- JYOTI CHOI ([id number]) 1950 M Date Time Provider Department 06/08/24 1:15 PM SAMARA COVINGTON AGHWW1 During your visit today, we recorded the following information about you: Respiration Weight Height 20/minute 74.8 kg 1.702 m Samara Covington MD 06/13/2024 9:10 AM Signed Patient presents with: Right Hand - New, Pain, Numbness Left Hand - New, Pain, Numbness HISTORY OF PRESENT ILLNESS Jyoti Choi presents to the office for follow up of bilateral hand pain. Since the last visit he has thought about his options and he wanted to go ahead and try an injection in both his hands. At this time he still has waxing and waning symptoms. Location: Bilateral hand Severity: 8 on a scale of 0-10 Duration of symptoms: Several months Treatments tried include wrapping, topical creams Symptoms have No Change REVIEW OF SYSTEMS Cardiovascular ROS:No history of chest pain, palpitation, orthopnea, cyanosis, pedal edema Neurologic ROS: Numbness and Tingling: Yes PAST MEDICAL HISTORY Past medical, surgical, family, and social histories have been reviewed and updated with the patient today and are located elsewhere in the medical record. Diabetes:No ALLERGIES ALLERGIES Allergen Reactions Lamisil [Terbinafin* Intolerance heart palp. Milk Other: See Comments phlegm, avoids daily PHYSICAL EXAMINATION Resp 20 Ht 170.2 cm (5' 7") Wt 74.8 kg (165 lb) BMI 25.84 kg/m? Body mass index is 25.84 kg/m?. General Appearance Well appearing, alert, in no acute distress, well-hydrated, well nourished. Alert and oriented times: 3 Normal affect times: 3 Appears stated age and well nourished Gait and station:normal Bilateral Upper Extremity Exam: Examination Inspection demonstrates normal alignment bilateral elbows, wrists, hands No wounds or lacerations. No surgical incisions noted No areas of focal swelling or joint effusion present Skin: WNL Tenderness to palpation: No significant focal tenderness about either wrist or any of the metacarpal phalangeal, interphalangeal joints ROM: Full composite fist Instability: none Sensation: Intact to light touch median, radial, ulnar nerve distribution Atrophy: None Brisk capillary refill Special tests: Mildly positive Tinel, equivocal carpal tunnel compression test at 30 seconds REVIEW OF STUDIES No new imaging obtained. ASSESSMENT AND PLAN ASSESSMENT/PLAN: 1. Carpal tunnel syndrome, bilateral - ICD9: 354.0, ICD10: G56.03 (primary diagnosis) 2. Bilateral hand pain - ICD9: 729.5, ICD10: M79.641, M79.642 We reviewed the injection again here today. He has considered this since our last visit and wishes to proceed. Risks and benefits were reviewed. Please see procedure note. Will plan on following up as needed. He will contact me via electronic medical record regarding symptom improvement. Additional Injections: bilateral carpal tunnel for carpal tunnel syndrome Informed Consent Consent Obtained: Verbal [place] Protocol A moment to CARE was completed. SIGN IN Personnel directly involved with the procedure wore the appropriate PPE. Patient/Surrogate Stated/Verified: Patient name and Date of TIME OUT Intended patient and procedure match the source document(s). Relevant labs, photos, and/or imaging studies have been reviewed. Correct side/site marked and visible. Medications required for procedure verified. Fire risk assessed and interventions discussed. 06/08/2024 1:22 PM The procedure site was prepped in the usual sterile fashion. Medications (Right): 12 mg betamethasone acetate-betamethasone sodium phosphate 6 mg/mL Medications (Left): 12 mg betamethasone acetate-betamethasone sodium phosphate 6 mg/mL Anesthetics (Right): 1 mL lidocaine 10 mg/mL (1 %) Anesthetics (Left): 1 mL lidocaine 10 mg/mL (1 %) Outcome: tolerated well, no immediate complications Post-injection instructions were reviewed with the patient and the patient voiced understanding of these instructions. SIGN OUT All instruments, equipment, possible retained foreign bodies accounted for. Post-procedure follow-up management communicated and Plan of Care Visit completed when applicable Samara Covington MD Patient instructed to call the office with questions or concerns. Scribe Attestation: By signing my name below, Cate Elizondo, attest that this documentation has been prepared under the direction and in the presence of Dr. Samara Covington MD. Electronically Signed: Francheska Meza. June 08, 2024 1:18 PM. Provider Attestation: Dr. Samara Elizondo MD, personally performed the services described in this documentation. All medical record entries made by the scribe were at my direction and in my presence. I have reviewed the chart and discharge instructions (if applicable) and agree that the record r (more content not included)... Normal [facility] No Panel Informationon 06-04 X-rays 06/01/24 3 vi ews of the bilateral hands show no fracture or dislocation. Some moderate degenerative changes are noted throughout the interphalangeal joints, more advanced degenerative change is present at the fourth metacarpal phalangeal joint. Mild thumb carpometacarpal joint narrowing bilaterally. No lytic or erosive lesions. [facility] XR Hand - left PA and Latera l and Obliqueon 06-04-2024 Radiology Study observation (narrative) [facility] XR Hand - right PA and Later al and Obliqueon 06-04-2024 Radiology Study observation (narrative) [facility] CNOVon 06-01-2024 CNOV Office Visit (AGHWW1 ) -------- JYOTI CHOI ([id number]) 1950 M Date Time Provider Department 06/01/24 10:00 AM SAMARA COVINGTON AGHWW1 During your visit today, we recorded the following information about you: Temperature Weight Height 98.2 degrees 74.8 kg 1.702 m Pawel Roth Tech 06/04/2024 12:34 PM Signed REVIEW OF SYSTEMS: GENERAL: Well developed, well nourished. No acute distress PAIN: Negative for pain, history of chronic pain or current treatment for chronic pain conditions CARDIOVASCULAR: Negative for chest pain, leg swelling and palpations. MSK: Negative for joint swelling SKIN: Negative for lesions, rash, itching, metal sensitivity NEURO: Numbness/tingling of extremties ENDOCRINE: Negative for diabetic associated symptoms HEMATOLOGY: Negative for excessive bleeding, clots, bleeding disorders. Samara Covington MD 06/04/2024 12:34 PM Signed Patient presents with: Right Hand - New, Pain Left Hand - New, Pain HISTORY OF PRESENT ILLNESS Jyoti Choi is a 74 year old male right hand dominant who presents for evaluation of bilateral hand pain. He is more concerned with his right hand, notes that he is feeling some numbness in all of his fingers. He mentioned that he starts his day in the sauna and adds different topical creams to help with his symptoms. During the day while typing on the computer he notes not having any symptoms at that time, but once he gets done working for the day his symptoms start to appear. The patient mentions adding castor oil on his hands and wrapping them at night. He believes that wrapping and adding serge oil helps with the symptoms. Denies waking up throughout the night, notes that he has had a few things happen over the years to his hands, but nothing too traumatic. Location: Bilateral hand Severity: 8 on a scale of 0-10 Duration of symptoms: Several months Date of injury N/A Symptoms have waxed and waned over time Previous treatment: Wrapping, topical creams Context worse with Rest and Morning Occupation: Farm equipment sales Smoking status: Tobacco Use: Quit 08/17/2004. Types: Cigarettes REVIEW OF SYSTEMS Cardiovascular ROS:No history of chest pain, palpitation, orthopnea, cyanosis, pedal edema Neurologic ROS: Numbness and Tingling:Yes PAST MEDICAL HISTORY Past medical, surgical, family, and social histories have been reviewed and updated with the patient today and are located elsewhere in the medical record. Diabetes:No ALLERGIES ALLERGIES Allergen Reactions Lamisil [Terbinafin* Intolerance heart palp. Milk Other: See Comments phlegm, avoids daily PHYSICAL EXAMINATION Temp 36.8 ?C (98.2 ?F) Ht 170.2 cm (5' 7") Wt 74.8 kg (165 lb) BMI 25.84 kg/m? Body mass index is 25.84 kg/m?. General Appearance Well appearing, alert, in no acute distress, well-hydrated, well nourished. Alert and oriented times: 3 Normal affect times: 3 Appears stated age and well nourished Gait and station:normal Bilateral Upper Extremity Exam: Inspection demonstrates normal alignment bilateral elbows, wrists, hands No wounds or lacerations. No surgical incisions noted No areas of focal swelling or joint effusion present Skin: WNL Tenderness to palpation: No significant focal tenderness about either wrist or any of the metacarpal phalangeal, interphalangeal joints ROM: Full composite fist Instability: none Sensation: Intact to light touch median, radial, ulnar nerve distribution Atrophy: None Brisk capillary refill Special tests: Mildly positive Tinel, equivocal carpal tunnel compression test at 30 seconds REVIEW OF STUDIES X-rays 06/01/24 3 views of the bilateral hands show no fracture or dislocation. Some moderate degenerative changes are noted throughout the interphalangeal joints, more advanced degenerative change is present at the fourth metacarpal phalangeal joint. Mild thumb carpometacarpal joint narrowing bilaterally. No lytic or erosive lesions. ASSESSMENT/PLAN: 1. Carpal tunnel syndrome, bilateral - ICD9: 354.0, ICD10: G56.03 (primary diagnosis) - XR HAND GENERAL 3V PA/LAT/OBL RIGHT - XR HAND GENERAL 3V PA/LAT/OBL LEFT 2. Bilateral hand pain - ICD9: 729.5, ICD10: M79.641, M79.642 - XR HAND GENERAL 3V PA/LAT/OBL RIGHT - XR HAND GENERAL 3V PA/LAT/OBL LEFT I reviewed the imaging with the patient. He does have some age-related degenerative change and some symptoms consistent with carpal tunnel syndrome. He and I discussed treatment options for this. He manages symptoms well with compressive wraps, topicals and various modalities. He and I reviewed injection but at this point he does not wish to pursue additional management. We also discussed occasional anti-inflammatory therapy for the pain. We will plan on following up together as needed, I am happy to see him back at any time. All of his questions wer (more content not included)... Normal [facility] LIPOPROTEIN FRACTIONATION BY NMR WITH LIPIDSon 03-31-2024 Cholesterol [Mass/Vol] 258 mg/dL High <=199 [facility] Comment on above: Order Comment: Speci men Type: BLOOD SPECIMEN Ordering Facility: [facility] Address: [address] [place] [address] Performed By: #### 2 132-9, 2284-8 #### [facility] CLIA [id number] [address] [place] [address] [place] Cholesterol in HDL [Mass/Vol] 60 mg/dL High 40-59 [facility] Comment on above: Order Comment: Speci men Type: BLOOD SPECIMEN Ordering Facility: [facility] Address: [address] [place] [address] Performed By: #### 2 132-9, 4-8 #### [facility] CLIA [id number] [address] [place] EER LIPOFIT BY NMR See Note Normal [facility] Comment on above: Order Comment: Speci men Type: BLOOD SPECIMEN Ordering Facility: [facility] Address: [address] [place] [address] Result Comment: Auth orized individuals can access the [employer] Enhanced Report using the following link: [email or web address] INTERPRETIVE INFORMATION: LipoFit by NMR This test was developed and its performance characteristics determined by [facility]. It has not been cleared or approved by the [place] Food and Drug Administration. This test was performed in a CLIA certified laboratory and is intended for clinical purposes. Performed By: [facility] [address] [place] [id number] Haul Driver: Christiano Al MD, PhD CLIA Number: [id number] Performed By: #### 2 132-9, 2283-8 #### [facility] CLIA [id number] [address] [place] HDL PARTICLE NUMBER, NMR 34.9 umol/L Normal >=33.0 [facility] Comment on above: Order Comment: Speci men Type: BLOOD SPECIMEN Ordering Facility: [facility] Address: [address] [place] [address] Result Comment: INTE RPRETIVE INFORMATION: HDL Particle Number, NMR Percentiles in Reference Population: 25th 50th 75th 29.7 33.0 36.8 Performed By: #### 2 132-9, 2283-8 #### [facility] CLIA [id number] [address] [place] HDL PARTICLE SIZE, NMR 8.8 nm Low >=8.9 [facility] Comment on above: Order Comment: Speci men Type: BLOOD SPECIMEN Ordering Facility: [facility] Address: [address] [place] [address] Result Comment: INTE RPRETIVE INFORMATION: HDL Particle Size, NMR Percentiles in Reference Population: 25th 50th 75th 8.6 8.9 9.3 Performed By: #### 2 132-9, 8 #### [facility] CLIA [id number] [address] [facility] HDL PARTICLE NUMBER, NMR 5.1 umol/L Normal >=4.2 [facility] Comment on above: Order Comment: Speci men Type: BLOOD SPECIMEN Ordering Facility: [facility] Address: [address] [place] [address] Result Comment: INTE RPRETIVE INFORMATION: Large HDL Particle Number, NMR Percentiles in Reference Population: 25th 50th 75th 2.0 4.2 7.3 Performed By: #### 2 132-9, 8 #### [facility] CLIA [id number] [address] OF [facility] LARGE VLDL PARTICLE NUMBER, NMR <1.5 Normal <=2.7 [facility] Comment on above: Order Comment: Speci men Type: BLOOD SPECIMEN Ordering Facility: [facility] Address: [address] [place] [address] Result Comment: INTE RPRETIVE INFORMATION: Large VLDL Particle Number, NMR Percentiles in Reference Population: 25th 50th 75th 0.9 2.7 7.0 Performed By: #### 2 132-9, 8 #### [facility] CLIA [id number] [address] [facility] LDL CHOL CALCULATED 184 mg/dL High <=129 [facility] Comment on above: Order Comment: Speci men Type: BLOOD SPECIMEN Ordering Facility: [facility] Address: [address] [place] [address] Performed By: #### 2 132-9, 8 #### [facility] CLIA [id number] [address] [place] LDL PARTICLE NUMBER, NMR 1725 nmol/L High <=1135 [facility] Comment on above: Order Comment: Speci men Type: BLOOD SPECIMEN Ordering Facility: [facility] Address: [address] [place], [place] [id number] Result Comment: REFE RENCE INTERVAL: LDL Particle Number, NMR Low............... Less than 1136 Moderate.......... 1136 - 1449 Borderline High... 1450 - 1764 High.............. 1765 - 2186 Very High......... Greater than 2186 Percentiles in Reference Population: 20th 50th 80th 95th 1136 1450 1765 2186 Percentiles consistent with those from NCEP ATP III LDL-C cutpoints of 100 mg/dL(20th percentile) and 160 mg/dL (80th percentile). Performed By: #### 2 132-9, 228-8 #### [facility] CLIA [id number] [address] LDL PARTICLE SIZE, NMR 21.2 nm Normal >=20.7 [facility] Comment on above: Order Comment: Speci men Type: BLOOD SPECIMEN Ordering Facility: [facility] Address: [address] [place] [address] Result Comment: INTE RPRETIVE INFORMATION: LDL Particle Size, NMR Percentiles in Reference Population: 25th 50th 75th 19.6 20.7 22.5 Performed By: #### 2 132-9, 2283-8 #### [facility] CLIA [id number] [address] [facility] SMALL LDL PARTICLE NUMBER, NMR 626 nmol/L Normal <=634 [facility] Comment on above: Order Comment: Speci mari Type: BLOOD SPECIMEN Ordering Facility: [facility] Address: [address] [place] [address] Result Comment: INTE RPRETIVE INFORMATION: Small LDL Particle Number, NMR Percentiles in Reference Population: 25th 50th 75th [phone] Performed By: #### 2 132-9, 228-8 #### [facility] CLIA [id number] [address] [facility] Triglyceride [Mass/Vol] 72 mg/dL Normal 30-149 [facility] Comment on above: Order Comment: Speci men Type: BLOOD SPECIMEN Ordering Facility: [facility] Address: [address] [place] [address] Performed By: #### 2 132-9, 2284-03 #### [facility] CLIA [id number] [address] VLDL PARTICLE SIZE, NMR 45.2 nm Normal <=46.7 [facility] Comment on above: Order Comment: Speci men Type: BLOOD SPECIMEN Ordering Facility: [facility] Address: [address] [place] [address] Result Comment: INTE RPRETIVE INFORMATION: VLDL Particle Size, NMR Percentiles in Reference Population: 25th 50th 75th 44.3 46.7 50.2 Performed By: #### 2 132-9, 2284-03 #### [facility] CLIA [id number] [address] [facility] -------- JYOTI CHOI ([id number]) 1950 M Date Time Provider Department 03/22/24 KERRY STRONG [facility] During your visit today, we recorded the following information about you: Allergies As of Date: 03/22/2024 Noted Allergy Reaction LAMISIL (TERBINAFINE HCL) 07/03/2016 5 - Intolerance Comments: heart palp. 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 Ryanne stated the test did not come with instructions. Patient has been identified by name and birthdate. Duration of symptoms: N/A Person calling: spouse: Ryanne, [phone] Call patient at: at home [phone] (home) [phone] (cell) Was an appointment scheduled: No Closing statement: Results or non-symptom based questions: Thank you for calling [facility], your call will be returned within the next business day. Garcia Hartley Allergies As of Date: 03/17/2024 Noted Allergy Reaction LAMISIL (TERBINAFINE HCL) 07/03/2016 5 - Intolerance Comments: heart palp. MILK 05/05/2016 14 - Other: See Comments Comments: phlegm, avoids daily Date Reviewed: 08/28/2022 Reviewed by: Rosalba Dennison MA - Fully Assessed Reason for Visit: Patient Question [1477] DMSA Test question [Other] Cmt: Patient is in need of medical advise regarding instructions for test. Prescriptions as of 03/31/2024 - O.N.E. 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 Sufficiency/Optimal Levels: 31-80 ng/mL Toxicity: > 100 ng/mL. Test performed by chemiluminescent immunoassay. Performed By: #### 2 132-9, 2284-8 #### [facility] CLIA [id number] [address] [place] [address] [place] CBC W Auto Differential pane l (Bld)on 03-08-2024 Basophils (Bld) [#/Vol] 0.04 10*3/uL Normal <0.11 [facility] Comment on above: Order Comment: Speci men Type: BLOOD SPECIMEN Ordering Facility: [facility] Address: [address] [place] [address] Performed By: #### 1 3965-9 #### [facility] CLIA [id number] [address] [place] Basophils/100 WBC (Bld) 0.5 % Normal [facility] Comment on above: Order Comment: Speci men Type: BLOOD SPECIMEN Ordering Facility: [facility] Address: [address] [place] [address] Performed By: #### 1 3965-9 #### [facility] CLIA [id number] [address] [place] Differential cell count method Nom (Bld) Auto Normal [facility] Comment on above: Order Comment: Speci men Type: BLOOD SPECIMEN Ordering Facility: [facility] Address: [address] [place] [address] Performed By: #### 1 3965-9 #### [facility] CLIA [id number] [address] [place] Eosinophils (Bld) [#/Vol] 0.13 10*3/uL Normal <0.46 [facility] Comment on above: Order Comment: Speci men Type: BLOOD SPECIMEN Ordering Facility: [facility] Address: [address] [place] [address] Performed By: #### 1 3965-9 #### [facility] CLIA [id number] [address] [place] Eosinophils/100 WBC (Bld) 1.7 % Normal [facility] Comment on above: Order Comment: Speci men Type: BLOOD SPECIMEN Ordering Facility: [facility] Address: [address] [place] [address] Performed By: #### 1 3965-9 #### [facility] CLIA [id number] [address] [place] Erythrocyte distribution width (RBC) [Ratio] 12.1 % Normal 11.5-15.0 [facility] Comment on above: Order Comment: Speci men Type: BLOOD SPECIMEN Ordering Facility: [facility] Address: [address] [place] [address] Performed By: #### 1 3965-9 #### [facility] CLIA [id number] [address] [place] Hematocrit (Bld) [Volume fraction] 48.6 % Normal 39.0-51.0 [facility] Comment on above: Order Comment: Speci men Type: BLOOD SPECIMEN Ordering Facility: [facility] Address: [address] [place] [address] Performed By: #### 1 3965-9 #### [facility] CLIA [id number] [address] [place] Hemoglobin (Bld) [Mass/Vol] 16.3 g/dL Normal 13.0-17.0 [facility] Comment on above: Order Comment: Speci men Type: BLOOD SPECIMEN Ordering Facility: [facility] Address: [address] [place] [address] Performed By: #### 1 3965-9 #### [facility] CLIA [id number] [address] [place] Immature granulocytes (Bld) [#/Vol] 10*3/uL Normal <0.10 [facility] Comment on above: Order Comment: Speci men Type: BLOOD SPECIMEN Ordering Facility: [facility] Address: [address] [place] [address] Performed By: #### 1 3965-9 #### [facility] CLIA [id number] [address] OF [place] Immature granulocytes/100 WBC (Bld) 0.1 % Normal [facility] Comment on above: Order Comment: Speci men Type: BLOOD SPECIMEN Ordering Facility: [facility] Address: [address] [place] [address] Performed By: #### 1 3965-9 #### [facility] CLIA [id number] [address] [place] Lymphocytes (Bld) [#/Vol] 1.98 10*3/uL Normal 1.00-4.00 [facility] Comment on above: Order Comment: Speci men Type: BLOOD SPECIMEN Ordering Facility: [facility] Address: [address] [place] [address] Performed By: #### 1 3965-9 #### [facility] CLIA [id number] [address] Lymphocytes/100 WBC (Bld) 26.4 % Normal [facility] Comment on above: Order Comment: Speci men Type: BLOOD SPECIMEN Ordering Facility: [facility] Address: [address] [place] [address] Performed By: #### 1 3965-9 #### [facility] CLIA [id number] [address] MCH (RBC) [Entitic mass] 29.1 pg Normal 26.0-34.0 [facility] Comment on above: Order Comment: Speci men Type: BLOOD SPECIMEN Ordering Facility: [facility] Address: [address] [place] [address] Performed By: #### 1 3965-9 #### [facility] CLIA [id number] [address] STATES OF [facility] MCHC (RBC) [Mass/Vol] 33.5 g/dL Normal 30.5-36.0 [facility] Comment on above: Order Comment: Speci men Type: BLOOD SPECIMEN Ordering Facility: [facility] Address: [address] [place] [address] Performed By: #### 1 3965-9 #### [facility] CLIA [id number] [address] MCV (RBC) [Entitic vol] 86.8 fL Normal 80.0-100.0 [facility] Comment on above: Order Comment: Speci men Type: BLOOD SPECIMEN Ordering Facility: [facility] Address: [address] [place] [address] Performed By: #### 1 3965-9 #### [facility] CLIA [id number] [address] [place] Monocytes (Bld) [#/Vol] 0.52 10*3/uL Normal <0.87 [facility] Comment on above: Order Comment: Speci men Type: BLOOD SPECIMEN Ordering Facility: [facility] Address: [address] [place] [address] Performed By: #### 1 3965-9 #### [facility] CLIA [id number] [address] Monocytes/100 WBC (Bld) 6.9 % Normal [facility] Comment on above: Order Comment: Speci men Type: BLOOD SPECIMEN Ordering Facility: [facility] Address: [address] [place] [address] Performed By: #### 1 3965-9 #### [facility] CLIA [id number] [address] OF [place] Neutrophils (Bld) [#/Vol] 4.83 10*3/uL Normal 1.45-7.50 [facility] Comment on above: Order Comment: Speci men Type: BLOOD SPECIMEN Ordering Facility: [facility] Address: [address] [place] [address] Performed By: #### 1 3965-9 #### [facility] CLIA [id number] [address] [place] Neutrophils/100 WBC (Bld) 64.4 % Normal [facility] Comment on above: Order Comment: Speci men Type: BLOOD SPECIMEN Ordering Facility: [facility] Address: [address] [place] [address] Performed By: #### 1 3965-9 #### [facility] CLIA [id number] [address] [place] [address] [place] Nucleated RBC (Bld) [#/Vol] 10*3/uL Normal <0.01 [facility] Comment on above: Order Comment: Speci men Type: BLOOD SPECIMEN Ordering Facility: [facility] Address: [address] [place] [address] Performed By: #### 1 3965-9 #### [facility] CLIA [id number] 1 [place] [address] [place] Nucleated RBC/100 WBC (Bld) [Ratio] 0.0 /100 WBC Normal [facility] Comment on above: Order Comment: Speci men Type: BLOOD SPECIMEN Ordering Facility: [facility] Address: [address] [place] [address] Performed By: #### 1 3965-9 #### [facility] CLIA [id number] [address] [place] Platelet mean volume (Bld) [Entitic vol] 10.5 fL Normal 9.0-12.7 [facility] Comment on above: Order Comment: Speci men Type: BLOOD SPECIMEN Ordering Facility: [facility] Address: [address] [place] [address] Performed By: #### 1 3965-9 #### [facility] CLIA [id number] [address] [place] Platelets (Bld) [#/Vol] 245 10*3/uL Normal 150-400 [facility] Comment on above: Order Comment: Speci men Type: BLOOD SPECIMEN Ordering Facility: [facility] Address: [address] [place] [address] Performed By: #### 1 3965-9 #### [facility] CLIA [id number] 1 [place] [address] [place] RBC (Bld) [#/Vol] 5.60 10*6/uL Normal 4.20-6.00 [facility] Comment on above: Order Comment: Speci men Type: BLOOD SPECIMEN Ordering Facility: [facility] Address: [address] [place] [address] Performed By: #### 1 3965-9 #### [facility] CLIA [id number] 1 [place] [address] [place] WBC (Bld) [#/Vol] 7.51 10*3/uL Normal 3.70-11.00 [facility] Comment on above: Order Comment: Keren guerra Type: BLOOD SPECIMEN Ordering Facility: [facility] Address: [address] [place] [address] Performed By: #### 1 3965-9 #### [facility] CLIA [id number] [address] [place] [id number] [place] COPPER BLOODon 03-08-2024 Copper [Mass/Vol] 77 ug/dL Normal 70-140 [facility] Comment on above: Order Comment: Speci men Type: BLOOD SPECIMEN Ordering Facility: [facility] Address: [address] [place] [address] Result Comment: This test was developed and its performance characteristics determined by [facility] Pathology and Laboratory Medicine [place] ([facility]). It has not been cleared or approved by the FDA. [facility] is regulated under CLIA as qualified to perform high-complexity testing. This test is used for clinical purposes. It should not be regarded as investigational or for research. Performed By: #### 1 3965-9 #### [facility] CLIA [id number] [address] [place] [address] [place] CRP SerPl HS-mCncon 03-08-20 CRP High sensitivity method [Mass/Vol] 0.4 mg/L Normal <3.1 [facility] Comment on above: Order Comment: Speci mari Type: BLOOD SPECIMEN Ordering Facility: [facility] Address: [address] [place] [address] Result Comment: hsCR P < 1.0 mg/L, relative risk is low hsCRP 1.0-3.0 mg/L, relative risk is average hsCRP > 3.0 mg/L, relative risk is high Reference: Fletcher TA, Queenie GA, Daniel RW, et al. Markers of Inflammation and Cardiovascular Disease. Application to Clinical and Public Health Practice. A Statement for Healthcare Professionals from the Centers for Disease Control and Prevention and the [place] [employer]. Circulation 2003;107:499-511. Performed By: #### 2 132-9, 228-8 #### [facility] CLIA [id number] [address] OF [facility] Comprehensive metabolic 2000 panelon 03-08-2024 Albumin [Mass/Vol] 4.5 g/dL Normal 3.9-4.9 [facility] Comment on above: Order Comment: Speci men Type: BLOOD SPECIMEN Ordering Facility: [facility] Address: [address] [place] [address] Performed By: #### 2 132-9, 8 #### [facility] CLIA [id number] [address] [place] ALP [Catalytic activity/Vol] 99 U/L Normal 38-113 [facility] Comment on above: Order Comment: Speci men Type: BLOOD SPECIMEN Ordering Facility: [facility] Address: [address] [place] [address] Performed By: #### 2 132-9, 8 #### [facility] CLIA [id number] [address] ALT [Catalytic activity/Vol] 21 U/L Normal 10-54 [facility] Comment on above: Order Comment: Speci men Type: BLOOD SPECIMEN Ordering Facility: [facility] Address: [address] [place] [address] Performed By: #### 2 132-9, 8 #### [facility] CLIA [id number] [address] [place] Anion gap [Moles/Vol] 10 mmol/L Normal 8-15 [facility] Comment on above: Order Comment: Speci men Type: BLOOD SPECIMEN Ordering Facility: [facility] Address: [address] [place] [address] Performed By: #### 2 132-9, 2283-8 #### [facility] CLIA [id number] [address] [place] AST [Catalytic activity/Vol] 22 U/L Normal 14-40 [facility] Comment on above: Order Comment: Speci men Type: BLOOD SPECIMEN Ordering Facility: [facility] Address: [address] [place] [address] Performed By: #### 2 132-9, 2284-03 #### [facility] CLIA [id number] 1 [place] [address] [place] Bilirubin [Mass/Vol] 0.6 mg/dL Normal 0.2-1.3 [facility] Comment on above: Order Comment: Speci men Type: BLOOD SPECIMEN Ordering Facility: [facility] Address: [address] [place] [address] Performed By: #### 2 132-9, 2284-03 #### [facility] CLIA [id number] 1 [place] [address] [place] Calcium [Mass/Vol] 9.5 mg/dL Normal 8.5-10.2 [facility] Comment on above: Order Comment: Speci men Type: BLOOD SPECIMEN Ordering Facility: [facility] Address: [address] [place] [address] Performed By: #### 2 132-9, 2284-03 #### [facility] CLIA [id number] 1 [place] [address] [place] Chloride [Moles/Vol] 103 mmol/L Normal 98-107 [facility] Comment on above: Order Comment: Speci men Type: BLOOD SPECIMEN Ordering Facility: [facility] Address: [address] [place] [address] Performed By: #### 2 132-9, 2284-03 #### [facility] CLIA [id number] [address] [place] [address] [place] CO2 [Moles/Vol] 24 mmol/L Normal 22-30 [facility] Comment on above: Order Comment: Speci men Type: BLOOD SPECIMEN Ordering Facility: [facility] Address: [address] [place] [address] Performed By: #### 2 132-9, 2284-03 #### [facility] CLIA [id number] [address] [place] [address] [place] Creatinine [Mass/Vol] 0.78 mg/dL Normal 0.73-1.22 [facility] Comment on above: Order Comment: Keren guerra Type: BLOOD SPECIMEN [facility] [facility] Address: [address] [place] [address] Performed By: #### 2 132-9, 4-8 #### [facility] CLIA [id number] [address] [facility] Creatinine and Glomerular filtration rate.predicted panel (S/P/Bld) 95 mL/min/1.73m??? Normal >=60 [facility] Comment on above: Order Comment: Keren guerra Type: BLOOD SPECIMEN Ordering Facility: [facility] Address: [address] [place] [address] Result Comment: Lindsey mated Glomerular Filtration Rate (eGFR) is calculated using the 2020 CKD-EPI creatinine equation. This equation utilizes serum creatinine, sex, and age as parameters. The creatinine assay has traceable calibration to isotope dilution-mass spectrometry. Refer to KDIGO guidelines for clinical interpretation. In patients with unstable renal function, e.g. those with acute kidney injury, the eGFR may not accurately reflect actual GFR. Performed By: #### 2 132-9, 2283-8 #### [facility] CLIA [id number] [address] [place] Glucose [Mass/Vol] 104 mg/dL High 74-99 [facility] Comment on above: Order Comment: Keren guerra Type: BLOOD SPECIMEN Ordering Facility: [facility] Address: [address] [place] [address] Result Comment: The [place] Diabetes Association (ADA) provides guidance for cutoff values for fasting glucose and random glucose. The ADA defines fasting as no caloric intake for at least 8 hours. Fasting plasma glucose results between 100 to 125 mg/dL indicate increased risk for diabetes (prediabetes). Fasting plasma glucose results greater than or equal to 126 mg/dL meet the criteria for diagnosis of diabetes. In the absence of unequivocal hyperglycemia, results should be confirmed by repeat testing. In a patient with classic symptoms of hyperglycemia or hyperglycemic crisis, random plasma glucose results greater than or equal to 200 mg/dL meet the criteria for diagnosis of diabetes. Reference: Standards of Medical Care in Diabetes 2016, [place] Diabetes Association. Diabetes Care. 2016.39(Suppl 1). Performed By: #### 2 132-9, 8 #### [facility] CLIA [id number] 1 [place] [address] [place] Potassium [Moles/Vol] 4.2 mmol/L Normal 3.7-5.1 [facility] Comment on above: Order Comment: Speci men Type: BLOOD SPECIMEN Ordering Facility: [facility] Address: [address] [place] [address] Performed By: #### 2 1329, 2284-03 #### [facility] CLIA [id number] 1 [place] [address] [place] Protein [Mass/Vol] 6.9 g/dL Normal 6.3-8.0 [facility] Comment on above: Order Comment: Speci men Type: BLOOD SPECIMEN Ordering Facility: [facility] Address: [address] [place] [address] Performed By: #### 2 1329, 8 #### [facility] CLIA [id number] 1 [place] [address] [place] Sodium [Moles/Vol] 137 mmol/L Normal 136-144 [facility] Comment on above: Order Comment: Speci men Type: BLOOD SPECIMEN Ordering Facility: [facility] Address: [address] [place] [address] Performed By: #### 2 1329, 8 #### [facility] CLIA [id number] 1 [place] [address] [place] Urea nitrogen [Mass/Vol] 10 mg/dL Normal 9-24 [facility] Comment on above: Order Comment: Speci men Type: BLOOD SPECIMEN Ordering Facility: [facility] Address: [address] [place] [address] Performed By: #### 2 1329, 8 #### [facility] CLIA [id number] 1 [place] [address] [place] Ferritin SerPl-mCncon 2023 Ferritin [Mass/Vol] 45.4 ng/mL Normal 30.3-565.7 [facility] Comment on above: Order Comment: Speci men Type: BLOOD SPECIMEN Ordering Facility: [facility] Address: [address] [place] [address] Performed By: #### 2 132-9, 8 #### [facility] CLIA [id number] 1 [place] [address] [place] Hcys SerPl-sCncon 03-08-2024 Homocysteine [Moles/Vol] 9.6 umol/L Normal <15.1 [facility] Comment on above: Order Comment: Speci men Type: BLOOD SPECIMEN Ordering Facility: [facility] Address: [address] [place] [address] Performed By: #### 1 3965-9 #### [facility] CLIA [id number] [address] [place], [place] [address] [address] [place] Insulin SerPl-aCncon 024 Insulin Qn 11.7 u[IU]/mL Normal 3.0-25.0 [facility] Comment on above: Order Comment: Speci men Type: BLOOD SPECIMEN Ordering Facility: [facility] Address: [address] [place] [address] Performed By: #### 2 132-9, 8 #### [facility] CLIA [id number] 1 [place] [address] [place] Iron and Iron binding capaci ty panelon 03-08-2024 Iron [Mass/Vol] 91 ug/dL Normal 41-186 [facility] Comment on above: Order Comment: Speci men Type: BLOOD SPECIMEN Ordering Facility: [facility] Address: [address] [place] [address] Performed By: #### 2 132-9, 2283-8 #### [facility] CLIA [id number] 1 [place] [address] [place] Iron binding capacity [Mass/Vol] 391 ug/dL High 232-386 [facility] Comment on above: Order Comment: Keren mari Type: BLOOD SPECIMEN Ordering Facility: [facility] Address: [address] [place] [address] Performed By: #### 2 132-9, 2284-03 #### [facility] CLIA [id number] [address] [place] Iron/TIBC [Molar ratio] 23.3 % Normal 15.0-57.0 [facility] Comment on above: Order Comment: Keren mari Type: BLOOD SPECIMEN Ordering Facility: [facility] Address: [address] [place] [address] Performed By: #### 2 1329, 2284-03 #### [facility] CLIA [id number] [address] [facility] Lead (Bld) [Mass/Vol]on 02-15 Lead (BldV) [Mass/Vol] 2.6 ug/dL Normal <3.5 [facility] Comment on above: Order Comment: Felishabruce guerra Type: BLOOD SPECIMEN Ordering Facility: [facility] Address: [address] [place] [address] Result Comment: The Centers for Disease Control and Prevention (CDC) recommends a blood lead reference value of less than 3.5 ???g/dL (Update of the Blood Lead Reference Value - [facility], 2020). The CDC's updated "Recommended Actions Based on Blood Lead Level" can be accessed at www.cdc.gov. Consult [facility] [place] Department of Health and/or applicable regulatory agencies for specific guidance on testing follow up and patient management. This test was developed and its performance characteristics determined by [facility]'s [facility] Pathology and Laboratory Medicine [place] (RT-PLMI). It has not been cleared or approved by the FDA. RT-PLNJ is regulated under CLIA as qualified to perform high-complexity testing. This test is used for clinical purposes. It should not be regarded as investigational or for research. Performed By: #### 2 132-9, 2284-03 #### [facility] CLIA [id number] [address] [place] [address] [place] MAGNESIUM RBCon 03-08-2024 Magnesium (RBC) [Moles/Vol] 5.3 mg/dL Normal 4.0-6.5 [facility] Comment on above: Order Comment: Speci men Type: BLOOD SPECIMEN Ordering Facility: [facility] Address: [address] [place] [address] Result Comment: This test was developed and its performance characteristics determined by [facility]'s [facility] Pathology and Laboratory Medicine [place] (RT-PLMI). It has not been cleared or approved by the FDA. -PLNJ is regulated under CLIA as qualified to perform high-complexity testing. This test is used for clinical purposes. It should not be regarded as investigational or for research. Performed By: #### 1 3965-9 #### [facility] CLIA [id number] [address] [place] [address] [place] OMEGACHECKon 03-08-2024 ARACHIDONIC ACID 9.1 % by wt Normal 8.6-15.6 [facility] Comment on above: Order Comment: Speci men Type: BLOOD SPECIMEN Ordering Facility: [facility] Address: [address] [place] [address] Performed By: #### 1 3965-9 #### [facility] CLIA [id number] [address] [place] [address] [place] ARACHIDONIC ACID/EPA RATIO 5.1 Normal 3.7-40.7 [facility] Comment on above: Order Comment: Speci men Type: BLOOD SPECIMEN Ordering Facility: [facility] Address: [address] [place] [address] Result Comment: Rece ived Date: Performed By: #### 1 3965-9 #### [facility] CLIA [id number] [address] [place] [address] [place] DHA 3.0 % by wt Normal 1.4-5.1 [facility] Comment on above: Order Comment: Speci men Type: BLOOD SPECIMEN Ordering Facility: [facility] Address: [address] [place] [place] [id number] Performed By: #### 1 3965-9 #### [facility] CLIA [id number] [address] [place] [address] [place] DPA 1.3 % by wt Normal 0.8-1.8 [facility] Comment on above: Order Comment: Speci men Type: BLOOD SPECIMEN Ordering Facility: [facility] Address: [address] [place] [address] Performed By: #### 1 3965-9 #### [facility] CLIA [id number] [address] [place] [address] [place] EPA 1.8 % by wt Normal 0.2-2.3 [facility] Comment on above: Order Comment: Speci men Type: BLOOD SPECIMEN Ordering Facility: [facility] Address: [address] [place] [address] Performed By: #### 1 3965-9 #### [facility] CLIA [id number] [address] [place] [address] [place] LINOLEIC ACID 23.2 % by wt Normal 18.6-29.5 [facility] Comment on above: Order Comment: Speci men Type: BLOOD SPECIMEN Ordering Facility: [facility] Address: [address] [place] [address] Performed By: #### 1 3965-9 #### [facility] CLIA [id number] [address] [place] [address] [place] OMEGA-3 TOTAL 6.1 % by wt Normal [facility] Comment on above: Order Comment: Speci men Type: BLOOD SPECIMEN Ordering Facility: [facility] Address: [address] [place] [address] Performed By: #### 1 3965-9 #### [facility] CLIA [id number] [address] [place] [address] [place] OMEGA-6 TOTAL 34.7 % by wt Normal [facility] Comment on above: Order Comment: Speci men Type: BLOOD SPECIMEN Ordering Facility: [facility] Address: [address] [place] [address] Result Comment: [facility] measures a number of omega-6 fatty acids with AA and LA being the two most abundant forms reported. Performed By: #### 1 3965-9 #### [facility] CLIA [id number] [address] [place] [address] OF [facility] OMEGA-6/OMEGA-3 RATIO 5.7 Normal 3.7-14.4 [facility] Comment on above: Order Comment: Felishai men Type: BLOOD SPECIMEN Ordering Facility: [facility] Address: [address] [place] [address] Performed By: #### 1 3965-9 #### [facility] CLIA [id number] [address] [place] [address] OMEGACHECK 6.1 % by wt Normal >5.4 [facility] Comment on above: Order Comment: Felishabruce guerra Type: BLOOD SPECIMEN Ordering Facility: [facility] Address: [address] [place] [address] Result Comment: Incr easing blood levels of long-chain n-3 fatty acids are associated with a lower risk of sudden cardiac (1). Based on the top (75th percentile) and bottom (25th percentile) quartiles of the [facility] reference population, the following relative risk categories were established for OmegaCheck: A cut-off of >=5.5% by wt defines a population at optimal relative risk, 3.8-5.4% by wt defines a population at moderate relative risk, and <=3.7% by wt defines a population at high relative risk of sudden cardiac . The totality of the scientific evidence demonstrates that when consumption of fish oils is limited to 3 g/day or less of EPA and DHA, there is no significant risk for increased bleeding time beyond the normal range. A daily dosage of 1 gram of EPA and DHA lowers the circulating triglycerides by about 7-10% within 2 to 3 weeks. (Reference: 1-Huber kennedy al. NEJM. 2002; 346: 6811-1059).This test was developed and its analytical performance characteristics have been determined by [facility] at [facility]. It has not been cleared or approved by the U.S. Food and Drug Administration. This assay has been validated pursuant to the CLIA regulations and is used for clinical purposes. Performed By: #### 1 3965-9 #### [facility] CLIA [id number] [address] [place], [place] [address] [id number] [place] [address] [place] T3Free SerPl-mCncon 03-08-20 24 Free T3 [Mass/Vol] 3.6 pg/mL Normal 2.3-4.1 [facility] Comment on above: Order Comment: Speci men Type: BLOOD SPECIMEN Ordering Facility: [facility] Address: [address] [place] [address] Performed By: #### 2 132-9, 2284-8 #### [facility] CLIA [id number] [address] [place] [address] [place] T4 Free SerPl-mCncon 024 Free T4 [Mass/Vol] 1.4 ng/dL Normal 0.9-1.7 [facility] Comment on above: Order Comment: Speci men Type: BLOOD SPECIMEN Ordering Facility: [facility] Address: [address] [place] [address] Performed By: #### 2 132-9, 2284-8 #### [facility] CLIA [id number] [address] [place] [address] [place] TESTOSTERONE, FREE AND TOTAL on 03-08-2024 TESTOSTERONE, FREE, S 22.1 ng/dL High 3.28-12.2 [facility] Comment on above: Order Comment: Speci men Type: BLOOD SPECIMEN Ordering Facility: [facility] Address: [address] [place] [address] Result Comment: ADDITIONAL INFORMATION This test was developed and its performance characteristics determined by [facility] in a manner consistent with CLIA requirements. This test has not been cleared or approved by the U.S. Food and Drug Administration. Performed By: #### 2 132-9, 2284-8 #### [facility] CLIA [id number] [address] [place] [address] [place] TESTOSTERONE, TOTAL, S 1080 ng/dL High 240-950 [facility] Comment on above: Order Comment: Speci men Type: BLOOD SPECIMEN Ordering Facility: [facility] Address: [address] [place] [address] Result Comment: ADDITIONAL INFORMATION Testing performed by Liquid Chromatography-Tandem Mass Spectrometry (LC-MS/MS). This test was developed and its performance characteristics determined by [facility] in a manner consistent with CLIA requirements. This test has not been cleared or approved by the U.S. Food and Drug Administration. Test Performed by: [facility] [place] [address] [place] [address] [employer]: Sarabjit Mccann Ph.D.; CLIA# [id number] Performed By: #### 2 132-9, 2284-8 #### [facility] CLIA [id number] [address] [place] [address] [place] TSH SerPl-aCncon 03-08-2024 TSH Qn 1.870 m[IU]/L Normal 0.270-4.200 [facility] Comment on above: Order Comment: Speci men Type: BLOOD SPECIMEN Ordering Facility: [facility] Address: [address] [place] [address] Performed By: #### 2 132-9, 2284-8 #### [facility] CLIA [id number] [address] [place] [address] [place] Transferrin SerPl-mCncon Transferrin [Mass/Vol] 314 mg/dL Normal 200-360 [facility] Comment on above: Order Comment: Speci men Type: BLOOD SPECIMEN Ordering Facility: [facility] Address: [address] [place] [address] Performed By: #### 1 3965-9 #### [facility] CLIA [id number] [address] [place] [address] Vit B12 SerPl-mCncon 024 Cobalamin (Vitamin B12) [Mass/Vol] 664 pg/mL Normal 232-1245 [facility] Comment on above: Order Comment: Speci men Type: BLOOD SPECIMEN Ordering Facility: [facility] Address: [address] [place] [address] Performed By: #### 2 132-9, 2284-8 #### [facility] CLIA [id number] [address] [place] [address] [facility] 03-08-2024 Zinc [Mass/Vol] 62 ug/dL Normal 60-120 [facility] Comment on above: Order Comment: Speci men Type: BLOOD SPECIMEN Ordering Facility: [facility] Address: [address] [place] [address] Result Comment: This test was developed and its performance characteristics determined by [facility]'s [facility] Pathology and Laboratory Medicine [place] (-PLMI). It has not been cleared or approved by the FDA. RT-PLNJ is regulated under CLIA as qualified to perform high-complexity testing. This test is used for clinical purposes. It should not be regarded as investigational or for research. Performed By: #### 1 3965-9 #### [facility] CLIA [id number] [address] [place] [address] CNPYanci 03-04-2024 CNPN Telephone ([facility]) -------- JYOTI CHOI ([id number]) 1950 Date Time Provider Department 03/04/24 KERRY STRONG FMCHAG During your visit today, we recorded the following information about you: Rosalba Dennison MA 03/04/2024 10:12 AM Signed Patient called and would like the DMSA sent to [facility], they are able to compound per patient. Please send prescription. Allergies As of Date: 03/04/2024 Noted Allergy Reaction LAMISIL (TERBINAFINE HCL) 07/03/2016 5 - Intolerance Comments: heart palp. MILK 05/05/2016 14 - Other: See Comments Comments: phlegm, avoids daily Date Reviewed: 08/28/2022 Reviewed by: Rosalba Dennison MA - Fully Assessed Reason for Visit: Question [3877] Prescriptions as of 03/04/2024 - O.N.E. 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 Prostate Specific Ag, Ultra-Sensitv 10.700 ng/mL 0.000-4.000 [facility] Comment on above: Agapito ECLIA methodol ogy.According to the [place] [employer], Serum PSAshould decrease and remain at undetectable levels afterradical prostatectomy. The AUA defines biochemicalrecurrence as an initial PSA value 0.200 ng/mL or greaterfollowed by a subsequent confirmatory PSA value 0.200 ng/mLor greater. Values obtained with different assay methods orkits cannot be used interchangeably. Results cannot beinterpreted as absolute evidence of the presence or absenceof malignant disease. Serum or plasma free prostat e specific antigen/total prostate specific antigen ratioOrdered By: Bertrand Zapien on 11-30-2023 Free PSA/Total PSA [Mass fraction] 21.7 % . [facility] Comment on above: The table below list s the probability of prostate cancer formen with non-suspicious RADHIKA results and total PSA between4 and 10 ng/mL, by patient age (Akash et al, LIBBY 1998,279:1542). % Free PSA 50-64 yr 65-75 yr 0.00-10.00% 56% 55% 10.01-15.00% 24% 35% 15.01-20.00% 17% 23% 20.01-25.00% 10% 20% >25.00% 5% 9%Please note: Akash et al did not make specific recommendations regarding the use of percent free PSA for any other population of men.Performed at: [facility] [employer] [id number] Director: Charly Penaloza PhD, Phone: [phone] No Panel InformationOrdered By: Omaira Weir on 10-05-2023 Miscellaneous Test See comment [facility] Comment on above: TEST RESULTS LIMITSO xidized LDL 70 ng/mL 10 - 170 [facility] ORIGINAL REPORT ON FILE IN LAB CONTAINS ADDITIONAL TEST SITE INFORMATION. Basophil percentageOrdered B y: Dr. Zapien on 12-11-2022 Basophil percentage < 0.9 mg/dL 0.70-1.30 [facility] No Panel InformationOrdered By: Dr. Zapien on 12-11-2022 Bedside Estimated GFR (eGFR) > 60.0000 mL/min >60 [facility] No Panel InformationOrdered By: Dr. Zapien on 11-27-2022 Prostate Specific Antigen Total 9.52 ng/mL 0.0-4.0 [facility] Comment on above: This test was perfor med using the TPSA assay method for the[employer] chemistry system. Values obtained with differentassay methods cannot be used interchangably.When changing PSA assays in the course of monitoring apatient, additional sequential testing should be carriedout to confirm baseline values. Vital Signs Date Time Vital Sign Value Performing Clinician Facility 04-20-2025 08:02-0400 Body height 172.[address] Omaira Weir MD Work Phone: [facility] 04-20-2025 08:02-0400 Body mass index (BMI) [Ratio] 26.1 kg/m2 Dr. Omaira Weir MD Work Phone: [facility] 04-20-2025 08:02-0400 Body temperature 98.4 [degF] Dr. Omaira Weir MD Work Phone: [facility] 04-20-2025 08:02-0400 Body weight 78.[address] Omaira Weir MD Work Phone: [facility] 04-20-2025 08:02-0400 Diastolic blood pressure 81 mm[Hg] Dr. Omaira Weir MD Work Phone: [facility] 04-20-2025 08:02-0400 Heart rate 80 /min Dr. Omaira Weir MD Work Phone: [facility] 04-20-2025 08:02-0400 Respiratory rate 16 /min Dr. Omaira Weir MD Work Phone: [facility] 04-20-2025 08:02-0400 SaO2% (BldA) [Mass fraction] 92 % Dr. Omaira Weir MD Work Phone: [facility] 04-20-2025 08:02-0400 Systolic blood pressure 142 mm[Hg] Dr. Omaira Weir MD Work Phone: [facility] 02-28-2025 08:22-0400 Body height 172.[address] Omaira Weir MD Work Phone: [facility] 02-28-2025 08:22-0400 Body mass index (BMI) [Ratio] 25.9 kg/m2 Dr. Omaira Weir MD Work Phone: [facility] 02-28-2025 08:22-0400 Body weight 77.[address] Omaira Weir MD Work Phone: [facility] 02-28-2025 08:22-0400 Diastolic blood pressure 68 mm[Hg] Dr. Omaira Weir MD Work Phone: [facility] 02-28-2025 08:22-0400 Heart rate 66 /min Dr. Omaira Weir MD Work Phone: [facility] 02-28-2025 08:22-0400 Respiratory rate 16 /min Dr. Omaira Weir MD Work Phone: [facility] 02-28-2025 08:22-0400 Systolic blood pressure 113 mm[Hg] Dr. Omaira Weir MD Work Phone: [facility] 01-16-2025 09:42-0400 Body height 172.[address] Omaira Weir MD Work Phone: [facility] 01-16-2025 09:42-0400 Body mass index (BMI) [Ratio] 25.5 kg/m2 Dr. Omaira Weir MD Work Phone: [facility] 01-16-2025 09:42-0400 Body temperature 98.6 [degF] Dr. Omaira Weir MD Work Phone: [facility] 01-16-2025 09:42-0400 Body weight 76.[address] Omaira Weir MD Work Phone: [facility] 01-16-2025 09:42-0400 Diastolic blood pressure 71 mm[Hg] Dr. Omaira Weir MD Work Phone: [facility] 01-16-2025 09:42-0400 Heart rate 90 /min Dr. Omaira Weir MD Work Phone: [facility] 01-16-2025 09:42-0400 Respiratory rate 16 /min Dr. Omaira Weir MD Work Phone: [facility] 01-16-2025 09:42-0400 SaO2% (BldA) [Mass fraction] 95 % Dr. Omaira Weir MD Work Phone: [facility] 01-16-2025 09:42-0400 Systolic blood pressure 153 mm[Hg] Dr. Omaira Weir MD Work Phone: [facility] 01-10-2025 15:42-0400 Body height 172.[address] Omaira Weir MD Work Phone: [facility] 01-10-2025 15:42-0400 Body mass index (BMI) [Ratio] 25.7 kg/m2 Dr. Omaira Weir MD Work Phone: [facility] 01-10-2025 15:42-0400 Body temperature 97.4 [degF] Dr. Omaira Weir MD Work Phone: [facility] 01-10-2025 15:42-0400 Body weight 76.[address] Omaira Weir MD Work Phone: [facility] 01-10-2025 15:42-0400 Diastolic blood pressure 84 mm[Hg] Dr. Omaira Weir MD Work Phone: [facility] 01-10-2025 15:42-0400 Heart rate 98 /min Dr. Omaira Weir MD Work Phone: [facility] 01-10-2025 15:42-0400 SaO2% (BldA) [Mass fraction] 98 % Dr. Omaira Weir MD Work Phone: [facility] 01-10-2025 15:42-0400 Systolic blood pressure 142 mm[Hg] Dr. Omaira Weir MD Work Phone: [facility] 11-29-2024 10:55-0400 Body height 172.[address] Omaira Weir MD Work Phone: [facility] 11-29-2024 10:55-0400 Body mass index (BMI) [Ratio] 25.9 kg/m2 Dr. Omaira Weir MD Work Phone: [facility] 11-29-2024 10:55-0400 Body weight 77.[address] Omaira Weir MD Work Phone: [facility] 11-29-2024 10:55-0400 Diastolic blood pressure 72 mm[Hg] Dr. Omaira Weir MD Work Phone: [facility] 11-29-2024 10:55-0400 Heart rate 89 /min Dr. Omaira Weir MD Work Phone: [facility] 11-29-2024 10:55-0400 Respiratory rate 18 /min Dr. Omaira Weir MD Work Phone: [facility] 11-29-2024 10:55-0400 SaO2% (BldA) [Mass fraction] 94 % Dr. Omaira Weir MD Work Phone: [facility] 11-29-2024 10:55-0400 Systolic blood pressure 146 mm[Hg] Dr. Omaira Weir MD Work Phone: [facility] 11-02-2024 09:08-0400 Body height 172.[address] Omaira Weir MD Work Phone: [facility] 11-02-2024 09:08-0400 Body mass index (BMI) [Ratio] 26.3 kg/m2 Dr. Omaira Wier MD Work Phone: [facility] 11-02-2024 09:08-0400 Body temperature 99.1 [degF] Dr. Omaira Weir MD Work Phone: [facility] 11-02-2024 09:08-0400 Body weight 78.[address] Omaira Weir MD Work Phone: [facility] 11-02-2024 09:08-0400 Diastolic blood pressure 82 mm[Hg] Dr. Omaira Weir MD Work Phone: [facility] 11-02-2024 09:08-0400 Heart rate 92 /min Dr. Omaira Weir MD Work Phone: [facility] 11-02-2024 09:08-0400 Respiratory rate 16 /min Dr. Omaira Weir MD Work Phone: [facility] 11-02-2024 09:08-0400 SaO2% (BldA) [Mass fraction] 95 % Dr. Omaira Weir MD Work Phone: [facility] 11-02-2024 09:08-0400 Systolic blood pressure 153 mm[Hg] Dr. Omaira Weir MD Work Phone: [facility] 10-31-2024 07:45-0400 Body height 172.[address] Omaira Weir MD Work Phone: [facility] 10-31-2024 07:45-0400 Body weight 80.[address] Omaira Weir MD Work Phone: [facility] 10-28-2024 09:13-0400 Body mass index (BMI) [Ratio] 27 kg/m2 Dr. Omaira Weir MD Work Phone: [facility] 10-21-2024 11:00-0500 Body height 170.2 cm Laura Leon PA-C Work Phone: [facility] 10-21-2024 11:00-0500 Body mass index (BMI) [Ratio] 26.63 kg/m2 Laura Mikulski PA-C Work Phone: [facility] 10-21-2024 11:00-0500 Body temperature 98.29 [degF] Laura Mikulski PA-C Work Phone: [facility] 10-21-2024 11:00-0500 Body weight 77.11 kg Laura Mikulski PA-C Work Phone: [facility] 10-19-2024 14:00-0500 Diastolic blood pressure 82 mm[Hg] Kerry Koczab DO Work Phone: [facility] 10-19-2024 14:00-0500 Heart rate 81 /min Kerry Koczab DO Work Phone: [facility] 10-19-2024 14:00-0500 Systolic blood pressure 149 mm[Hg] Kerry Koczab DO Work Phone: [facility] 10-19-2024 12:27-0500 Body height 170.2 cm Kerry Koczab DO Work Phone: [facility] 10-19-2024 12:27-0500 Body mass index (BMI) [Ratio] 26.59 kg/m2 Kerry Koczab DO Work Phone: [facility] 10-19-2024 12:27-0500 Body weight 77 kg Kerry Koczab DO Work Phone: [facility] 08-31-2024 08:27-0500 Body height 172.[address] Omaira Weir MD Work Phone: [facility] 08-31-2024 08:27-0500 Body mass index (BMI) [Ratio] 26.1 kg/m2 Dr. Omaira Weir MD Work Phone: [facility] 08-31-2024 08:27-0500 Body weight 78.[address] Omaira Weir MD Work Phone: [facility] 08-31-2024 08:27-0500 Diastolic blood pressure 75 mm[Hg] Dr. Omaira Weir MD Work Phone: [facility] 08-31-2024 08:27-0500 Heart rate 99 /min Dr. Omaira Weir MD Work Phone: [facility] 08-31-2024 08:27-0500 Respiratory rate 18 /min Dr. Omaira Weir MD Work Phone: [facility] 08-31-2024 08:27-0500 SaO2% (BldA) [Mass fraction] 91 % Dr. Omaira Weir MD Work Phone: [facility] 08-31-2024 08:27-0500 Systolic blood pressure 139 mm[Hg] Dr. Omaira Weir MD Work Phone: [facility] 07-21-2024 11:04-0500 Body mass index (BMI) [Ratio] 25.9 kg/m2 Dr. Omaira Weir MD Work Phone: [facility] 07-21-2024 11:04-0500 Body temperature 98.2 [degF] Dr. Omaira Weir MD Work Phone: [facility] 07-21-2024 11:04-0500 Body weight 77.[address] Omaira Weir MD Work Phone: [facility] 07-21-2024 11:04-0500 Diastolic blood pressure 75 mm[Hg] Dr. Omaira Weir MD Work Phone: [facility] 07-21-2024 11:04-0500 Heart rate 87 /min Dr. Omaira Weir MD Work Phone: [facility] 07-21-2024 11:04-0500 Respiratory rate 16 /min Dr. Omaira Weir MD Work Phone: [facility] 07-21-2024 11:04-0500 SaO2% (BldA) [Mass fraction] 94 % Dr. Omaira Weir MD Work Phone: [facility] 07-21-2024 11:04-0500 Systolic blood pressure 151 mm[Hg] Dr. Omaira Weir MD Work Phone: [facility] 06-08-2024 13:01-0400 Body height 170.2 cm Samara Covington MD Work Phone: [facility] 06-08-2024 13:01-0400 Body mass index (BMI) [Ratio] 25.84 kg/m2 Samara Covington MD Work Phone: [facility] 06-08-2024 13:01-0400 Body weight 74.84 kg Samara Covington MD Work Phone: [facility] 06-08-2024 13:01-0400 Respiratory rate 20 /min Samara Covington MD Work Phone: [facility] 06-01-2024 09:56-0400 Body height 170.2 cm Samara Covington MD Work Phone: [facility] 06-01-2024 09:56-0400 Body mass index (BMI) [Ratio] 25.84 kg/m2 Samara Covington MD Work Phone: [facility] 06-01-2024 09:56-0400 Body temperature 98.2 [degF] Samara Covington MD Work Phone: [facility] 06-01-2024 09:56-0400 Body weight 74.84 kg Samara Covington MD Work Phone: [facility] 12-03-2023 07:37-0400 Body temperature 97.1 [degF] Dr. Omaira Weir Work Phone: [facility] 12-03-2023 07:37-0400 Diastolic blood pressure 82 mm[Hg] Dr. Omaira Weir Work Phone: [facility] 12-03-2023 07:37-0400 Heart rate 72 /min Dr. Omaira Weir Work Phone: [facility] 04-18-2024 07:37-0400 Respiratory rate 16 /min Dr. Omaira Weir Work Phone: [facility] 12-03-2023 07:37-0400 SaO2% (BldA) [Mass fraction] 95 % Dr. Omaira Weir Work Phone: [facility] 12-03-2023 07:37-0400 Systolic blood pressure 119 mm[Hg] Dr. Omaira Weir Work Phone: [facility] 12-03-2023 07:25-0400 Inhaled oxygen flow rate 4 L/min Dr. Omaira Weir Work Phone: [facility] 12-03-2023 06:10-0400 Body height 172.[address] Omaira Weir Work Phone: [facility] 12-03-2023 06:10-0400 Body mass index (BMI) [Ratio] 24.5 kg/m2 Dr. Omaira Weir Work Phone: [facility] 12-03-2023 06:10-0400 Body weight [address] Omaira Weir Work Phone: [facility] 10-22-2023 10:00-0500 Body temperature 97.4 [degF] Dr. Omaira Weir Work Phone: [facility] 10-22-2023 10:00-0500 Diastolic blood pressure 84 mm[Hg] Dr. Omaira Weir Work Phone: [facility] 10-22-2023 10:00-0500 Heart rate 78 /min Dr. Omaira Weir Work Phone: [facility] 10-22-2023 10:00-0500 Respiratory rate 18 /min Dr. Omaira Weir Work Phone: [facility] 10-22-2023 10:00-0500 SaO2% (BldA) [Mass fraction] 96 % Dr. Omaira Weir Work Phone: [facility] 10-22-2023 10:00-0500 Systolic blood pressure 124 mm[Hg] Dr. Omaira Weir Work Phone: [facility] 10-22-2023 08:51-0500 Body height 170.[address] Omaira Weir Work Phone: [facility] 10-22-2023 08:51-0500 Body mass index (BMI) [Ratio] 25.5 kg/m2 Dr. Omaira Weir Work Phone: [facility] 10-22-2023 08:51-0500 Body weight [address] Omaira Weir Work Phone: [facility] 09-16-2023 11:00-0500 Body temperature 97.4 [degF] Dr. Omaira Weir Work Phone: [facility] 09-16-2023 11:00-0500 Diastolic blood pressure 76 mm[Hg] Dr. Omaira Weir Work Phone: [facility] 09-16-2023 11:00-0500 Heart rate 77 /min Dr. Omaira Weir Work Phone: [facility] 09-16-2023 11:00-0500 Respiratory rate 16 /min Dr. Omaira Weir Work Phone: [facility] 09-16-2023 11:00-0500 SaO2% (BldA) [Mass fraction] 99 % Dr. Omaira Weir Work Phone: [facility] 09-16-2023 11:00-0500 Systolic blood pressure 148 mm[Hg] Dr. Omaira Weir Work Phone: [facility] 09-16-2023 08:56-0500 Body height 172.[address] Omaira Weir Work Phone: [facility] 09-16-2023 08:56-0500 Body mass index (BMI) [Ratio] 25.8 kg/m2 Dr. Omaira Weir Work Phone: [facility] 09-16-2023 08:56-0500 Body weight [address] Omaira Weir Work Phone: [facility] 08-31-2023 10:30-0500 Body height 172.[address] Omaira Weir Work Phone: [facility] 08-31-2023 10:30-0500 Body mass index (BMI) [Ratio] 26.7 kg/m2 Dr. Omaira Weir Work Phone: [facility] 08-31-2023 10:30-0500 Body temperature 97.8 [degF] Dr. Omaira Weir Work Phone: [facility] 08-31-2023 10:30-0500 Body weight 79.[address] Omaira Weir Work Phone: [facility] 08-31-2023 10:30-0500 Diastolic blood pressure 83 mm[Hg] Dr. Omaira Weir Work Phone: [facility] 08-31-2023 10:30-0500 Heart rate 95 /min Dr. Omaira Weir Work Phone: [facility] 08-31-2023 10:30-0500 Respiratory rate 16 /min Dr. Omaira Weir Work Phone: [facility] 08-31-2023 10:30-0500 SaO2% (BldA) [Mass fraction] 93 % Dr. Omaira Weir Work Phone: [facility] 08-31-2023 10:30-0500 Systolic blood pressure 150 mm[Hg] Dr. Omaira Weir Work Phone: [facility] 02-05-2023 11:45-0400 Body temperature 97.6 [degF] Dr. Omaira Weir Work Phone: [facility] 02-05-2023 11:45-0400 Diastolic blood pressure 80 mm[Hg] Dr. Omaira Weir Work Phone: [facility] 02-05-2023 11:45-0400 Heart rate 77 /min Dr. Omaira Weir Work Phone: [facility] 02-05-2023 11:45-0400 Respiratory rate 16 /min Dr. Omaira Weir Work Phone: [facility] 02-05-2023 11:45-0400 SaO2% (BldA) [Mass fraction] 100 % Dr. Omaira Weir Work Phone: [facility] 02-05-2023 11:45-0400 Systolic blood pressure 140 mm[Hg] Dr. Omaira Weir Work Phone: [facility] 02-05-2023 08:58-0400 Body height 172.[address] Omaira Weir Work Phone: [facility] 02-05-2023 08:58-0400 Body mass index (BMI) [Ratio] 25.4 kg/m2 Dr. Omaira Weir Work Phone: [facility] 02-05-2023 08:58-0400 Body weight 75.[address] Omaira Weir Work Phone: [facility] 12-19-2022 07:43-0400 Body mass index (BMI) [Ratio] 26.1 kg/m2 Dr. Omaira Weir Work Phone: [facility] 12-19-2022 07:43-0400 Body weight 78.[address] Omaira Weir Work Phone: [facility] 12-19-2022 07:43-0400 Diastolic blood pressure 83 mm[Hg] Dr. Omaira Weir Work Phone: [facility] 12-19-2022 07:43-0400 Respiratory rate 16 /min Dr. Omaira Weir Work Phone: [facility] 12-19-2022 07:43-0400 Systolic blood pressure 152 mm[Hg] Dr. Omaira Weir Work Phone: [facility] 10-15-2022 08:09-0500 Body temperature 98.3 [degF] Dr. Omaira Weir Work Phone: [facility] 10-15-2022 08:09-0500 Body weight 78.[address] Omaira Weir Work Phone: [facility] 10-15-2022 08:09-0500 Diastolic blood pressure 89 mm[Hg] Dr. Omaira Weir Work Phone: [facility] 10-15-2022 08:09-0500 Heart rate 99 /min Dr. Omaira Weir Work Phone: [facility] 10-15-2022 08:09-0500 Respiratory rate 16 /min Dr. Omaira Weir Work Phone: [facility] 10-15-2022 08:09-0500 SaO2% (BldA) [Mass fraction] 93 % Dr. Omaira Weir Work Phone: [facility] 10-15-2022 08:09-0500 Systolic blood pressure 138 mm[Hg] Dr. Omaira Weir Work Phone: [facility] 08-28-2022 15:11-0500 Body height 170.2 cm Kerry Koczab DO Work Phone: [facility] 08-28-2022 15:11-0500 Body temperature 98.01 [degF] Kerry Koczab DO Work Phone: [facility] 08-28-2022 15:11-0500 Body weight 80.38 kg Kerry Vincenzoczab DO Work Phone: [facility] 08-28-2022 15:11-0500 Diastolic blood pressure 83 mm[Hg] Kerry Koczab DO Work Phone: [facility] 08-28-2022 15:11-0500 Heart rate 81 /min Kerry Koczab DO Work Phone: [facility] 08-28-2022 15:11-0500 SaO2% (BldA) [Mass fraction] 97 % Kerry Koczab DO Work Phone: [facility] 08-28-2022 15:11-0500 Systolic blood pressure 131 mm[Hg] Kerry Koczab DO Work Phone: [facility] 06-05-2022 14:44-0400 Body height 170.2 cm Kerry Koczab DO Work Phone: [facility] 06-05-2022 14:44-0400 Body temperature 97.81 [degF] Kerry Koczab DO Work Phone: [facility] 06-05-2022 14:44-0400 Body weight 79.74 kg Kerry Koczab DO Work Phone: [facility] 06-05-2022 14:44-0400 Diastolic blood pressure 75 mm[Hg] Kerry Koczab DO Work Phone: [facility] 06-05-2022 14:44-0400 Heart rate 95 /min Kerry Koczab DO Work Phone: [facility] 06-05-2022 14:44-0400 SaO2% (BldA) [Mass fraction] 95 % Keryr Koczab DO Work Phone: [facility] 06-05-2022 14:44-0400 Systolic blood pressure 160 mm[Hg] Kerry Koczab DO Work Phone: [facility] Encounters Encounter Date Encounter Type Care Provider Facility Start: 06-07-2025 ambulatory Omaira Weir Facility :[facility] Start: 04-20-2025 End: 04-20-[address] Omaira Weir MD -[facility] Work Phone: Start: 04-20-2025 End: 04-20-[address] Omaira Weir MD Work Phone: -[facility] Start: 04-19-2025 ambulatory Bertrand Zapien Facbruce lity:[facility] Start: 02-28-2025 End: 02-28-2025 Patient encounter procedure Yuki ESPINAL -[facility] Work Phone: Start: 02-28-2025 End: 02-28-[address] Omaira Weir MD Work Phone: -[facility] Start: 01-16-2025 End: 01-16-[address] Omaira Weir MD -[facility] Work Phone: Start: 01-16-2025 End: 01-16-[address] Omaira Weir MD Work Phone: [facility] Work Phone: Start: 01-10-2025 End: 01-10-2025 Patient encounter procedure Wan ESPINAL -[facility] Work Phone: Start: 01-10-2025 End: 01-10-[address] Omaira Weir MD Work Phone: [facility] Work Phone: Start: 01-10-2025 End: 01-10-2025 ambulatory Omaira Weir Facility:[facility] Start: 12-30-2024 End: 12-30-2024 ambulatory Seth Ellison OTR/L Work Phone: [facility] Comment on above: Bilateral hand pain (Primary Dx) Start: 12-29-[address] Isaac Landis MD -Cardiovascular Services Work Phone: Start: 12-29-2024 ambulatory Felipe Landis Facility :[facility] Start: 12-29-2024 Non-patient / Non-visit Dr. Chiqui Landis MD -[facility] Work Phone: Start: 12-22-2024 End: 12-22-[address] Omaira Weir MD Work Phone: [facility] Work Phone: Start: 12-22-2024 End: 12-22-[address] Felipe Landis MD -Laboratory, [facility] Work Phone: Start: 12-22-2024 End: 12-22-2024 ambulatory Felipe Landis Facility:[facility] Start: 12-06-2024 End: 12-06-[address] Omaira Weir MD Work Phone: [facility] Work Phone: Start: 12-06-2024 End: 12-06-[address] Bertrand Zapien MD -Laboratory, Specimen Work Phone: Start: 12-06-2024 End: 12-06-2024 ambulatory Ham Proano Facility:[facility] Start: 11-29-2024 End: 11-29-[address] Felipe Landis MD -[facility] Work Phone: Start: 11-29-2024 End: 11-29-2024 ambulatory Omaira Weir Facility:[facility] Start: 11-18-2024 End: 11-18-[address] Omaira Weir MD Work Phone: [facility] Work Phone: Start: 11-18-2024 End: 11-18-[address] Bertrand Zapien MD -Laboratory, [facility] Work Phone: Start: 11-18-2024 End: 11-18-2024 ambulatory Bertrand Zapien Facility:[facility] Start: 11-02-2024 End: 11-02-[address] Omaira Weir MD -[facility] Work Phone: Start: 11-02-2024 End: 11-02-2024 ambulatory Omaira Weir Facility:[facility] Start: 10-31-2024 End: 10-31-2024 Admission to same day surgery center Dr. Brendan Mantilla MD -[employer] [facility]/Special Procedures Work Phone: Start: 10-31-2024 End: 10-31-[address] Omaira Weir MD Work Phone: [facility] Work Phone: Start: 10-26-2024 End: 12-26-2024 Follow-up encounter Kerry Strong DO Work Phone: Functional Medicine Start: 10-26-2024 ambulatory Omaira Weir Facility :[facility] Start: 10-26-2024 [facility] Start: 10-21-2024 End: 10-21-2024 ambulatory Ezequiel Patel OT/L [facility] Comment on above: Bilateral hand pain (Primary Dx) Start: 10-21-2024 End: 10-21-2024 Patient encounter procedure Laura Leon PA-C Work Phone: [facility] Comment on above: Carpal tunnel syndro me, bilateral (Primary Dx); Trigger little finger of right hand; Trigger middle finger of right hand; Trigger little finger of left hand; Arthritis of carpometacarpal (CMC) joint of left thumb; Arthritis of carpometacarpal (CMC) joint of right thumb Start: 10-21-2024 End: 10-21-2024 ambulatory LAURA LEON Facility:[facility] Start: 10-21-2024 End: 10-21-2024 ambulatory KERRY STRONG Facility:[facility] Start: 10-19-2024 End: 10-19-2024 ambulatory KERRY STRONG Facility:[facility] Start: 10-19-2024 End: 10-19-2024 Patient encounter procedure Kerry Doeab DO Work Phone: Functional Medicine Comment on above: Mixed hyperlipidemia (Primary Dx); Increased glucose level; Hood's esophagus without dysplasia; Nutritional deficiency Start: 10-12-2024 End: 10-12-[address] Omaira Weir MD Work Phone: [facility] Work Phone: Start: 10-12-2024 End: 10-12-[address] Felipe Landis MD -Laboratory, [facility] Work Phone: Start: 10-12-2024 End: 10-12-2024 ambulatory Felipe Landis Facility:[facility] Start: 09-21-2024 ambulatory [facility] Start: 09-21-2024 Non-patient / Non-visit Dr. Milady SAHU -[facility] Start: 09-21-2024 End: 09-21-[address] Felipe Landis MD -Cardiovascular Services Work Phone: Start: 09-21-2024 End: 09-21-2024 ambulatory Felipe Landis Facility:[facility] Start: 09-08-2024 End: 09-08-2024 ambulatory Kerry Vincenzoczab DO Work Phone: [facility] Comment on above: Test Magnesium Start: 09-06-2024 End: 09-06-[address] Felipe Landis MD -Pulmonary Services/Neurology Work Phone: Start: 09-06-2024 End: 09-06-2024 ambulatory [facility] Facility:[facility] Start: 09-01-2024 End: 09-01-[address] Felipe Landis MD -Laboratory, [facility] Work Phone: Start: 08-31-2024 End: 08-31-[address] Felipe Landis MD -[facility] Work Phone: Start: 08-31-2024 End: 09-01-2024 ambulatory [facility] Facility:[facility] Start: 08-26-2024 End: 08-26-2024 ambulatory Kerry Koczab DO Work Phone: Functional Medicine Comment on above: Zoom call Start: 08-25-2024 End: 08-26-2024 ambulatory Kerry Koczab DO Work Phone: [facility] Comment on above: Biopure for heavy me dals Start: 07-28-2024 End: 07-28-2024 Patient encounter procedure Cameron Cohen -[facility] Work Phone: Start: 07-28-2024 End: 07-28-2024 ambulatory Omaira Weir Facility:[facility] Start: 07-21-2024 End: 07-21-[address] Omaira Weir MD -[facility] Work Phone: Start: 07-21-2024 End: 07-21-2024 ambulatory Omaira Weir Facility:[facility] Start: 06-08-2024 End: 06-08-2024 Patient encounter procedure Samara Covington MD Work Phone: [facility] Comment on above: Carpal tunnel syndro me, bilateral (Primary Dx); Bilateral hand pain Start: 06-08-2024 End: 06-08-2024 ambulatory SELF Facility:[facility] Start: 06-01-2024 End: 06-01-2024 Patient encounter procedure Samara Covington MD Work Phone: [facility] Comment on above: Carpal tunnel syndro me, bilateral (Primary Dx); Bilateral hand pain Start: 06-01-2024 End: 06-02-2024 ambulatory Samara Covington MD Work Phone: [facility] Comment on above: todays visit Start: 05-03-2024 End: 05-05-2024 ambulatory Kerry Koczab DO Work Phone: [facility] Comment on above: Blood work and heavy metals test Blood work And [place] a toxic element test Start: 04-04-2024 End: 04-04-2024 ambulatory Kerry Koczab DO Work Phone: Functional Medicine Comment on above: Lipids test Start: 03-31-2024 End: 03-31-2024 ambulatory KERRY KOCZAB Facility:[facility] Start: 03-28-2024 ambulatory Kerry Kocz ab DO Work Phone: Functional Medicine Comment on above: Test Results Start: 03-23-2024 End: 03-23-2024 ambulatory KERRY KOCZAB Facility:[facility] Start: 03-22-2024 Telephone encounter Kerry Strong DO Work Phone: Functional Medicine Comment on above: Orders Start: 03-17-2024 ambulatory Kerry Doe ab DO Work Phone: Functional Medicine Comment on above: Dmsa pill Start: 03-17-2024 Telephone encounter Kerry Strong DO Work Phone: Functional Medicine Comment on above: Patient Question; DM SA Test question (Patient is in need of medical advise regarding instructions for test.) Start: 03-09-2024 ambulatory Kerry Doe ab DO Work Phone: Functional Medicine Comment on above: Stalin Start: 03-09-2024 End: 04-15-2024 Telephone encounter Kerry Strong DO Work Phone: Functional Medicine Comment on above: Orders Start: 03-08-2024 End: 03-08-[address] Facility:[facility] Start: 03-07-2024 ambulatory Kerry Doe ab DO Work Phone: Functional Medicine Comment on above: jean-pierre Dmsa Start: 03-04-2024 Telephone encounter Kerry Strong DO Work Phone: Functional Medicine Comment on above: Question Start: 2024 End: 2024 ambulatory Kerry Strong DO Work Phone: Functional Medicine Comment on above: Mixed hyperlipidemia (Primary Dx); Vitamin deficiency; Deficiency of nutrient element; Heavy metal exposure Start: 2024 End: 2024 Telemedicine consultation with patient Kerry Strong DO Work Phone: Functional Medicine Start: 12-03-2023 Non-patient / Non-visit Dr. Lucia Weir Work Phone: [facility] Start: 12-03-2023 End: 12-03-2023 Admission to same day surgery center Dr. Omaira Weir Work Phone: [facility] Work Phone: Start: 12-03-2023 End: 12-03-[address] Omaira Weir Work Phone: [facility] Work Phone: Start: 11-30-2023 End: 11-30-[address] Omaira Weir Work Phone: [facility] Work Phone: Start: 11-30-2023 End: 11-30-[address] Omaira Weir Work Phone: [facility] Work Phone: Start: 10-22-2023 Non-patient / Non-visit Dr. Lucia Weir Work Phone: [facility] Start: 10-22-2023 End: 10-22-2023 Admission to same day surgery center Dr. Omaira Weir Work Phone: [facility] Work Phone: Start: 10-22-2023 End: 10-22-[address] Omaira Weir Work Phone: [facility] Work Phone: Start: 10-05-2023 End: 10-05-[address] Omaira Weir Work Phone: [facility] Work Phone: Start: 10-05-2023 End: 10-05-[address] Oma[facility] Weir [facility] Work [facility]: Start: 09-24-2023 Non-patient / Non-visit Dr. Lucia Weir Work Phone: [facility] Start: 09-24-2023 End: 09-24-[address] Omaira Weir Work Phone: [facility] Work Phone: Start: 09-24-2023 End: 09-24-[address] [facility] Start: 09-16-2023 Non-patient / Non-visit Dr. Lucia Weir Work Phone: [facility] Start: 09-16-2023 End: 09-16-2023 Admission to same day surgery center Dr. Omaira Weir Work Phone: [facility] Work Phone: Start: 09-16-2023 End: 09-16-[address] Omaira Weir Work Phone: [facility] Work Phone: Start: 08-31-2023 End: 08-31-[address] Omaira Weir Work Phone: [facility] [place] Work Phone: Start: 08-27-2023 Non-patient / Non-visit Dr. Lucia Weir Work Phone: [facility] Start: 08-27-2023 End: 08-27-[address] Omaira Weir Work Phone: [facility] Work Phone: Start: 08-27-2023 End: 08-27-[address] Omaira Weir Work Phone: [facility] Work Phone: Start: 08-21-2023 End: 08-21-[address] Omaira Weir Work Phone: [facility] Work Phone: Start: 08-21-2023 End: 08-21-[address] Omaira Weir Work Phone: [facility] Work Phone: Start: 08-18-2023 End: 08-18-[address] Omaira Weir Work Phone: [facility] Work Phone: Start: 08-12-2023 ambulatory Kerry Kocz ab DO Work Phone: Functional Medicine Comment on above: supplements Start: 07-17-2023 End: 07-17-2023 ambulatory Kerry Koczab DO Work Phone: Functional Medicine Comment on above: Hood's esophagus without dysplasia (Primary Dx); Mixed hyperlipidemia; Vitamin deficiency BLOOD TEST Start: 07-17-2023 End: 07-17-2023 Telemedicine consultation with patient Kerry Koczab DO Work Phone: [facility] Start: 07-13-2023 ambulatory Kerry Kocz ab DO Work Phone: Functional Medicine Comment on above: supplements Start: 07-02-2023 ambulatory Kerry Kocz ab DO Work Phone: Functional Medicine Comment on above: Dr Strong Start: 02-16-2023 ambulatory Kerry Kocz ab DO Work Phone: Functional Medicine Comment on above: magnesium Start: 02-12-2023 End: 02-12-2023 ambulatory Kerry Koczab DO Work Phone: Functional Medicine Comment on above: Hood's esophagus without dysplasia (Primary Dx); Vitamin deficiency; Mixed hyperlipidemia Start: 02-12-2023 End: 02-12-2023 Telemedicine consultation with patient Kerry Koczab DO Work Phone: [facility] Start: 02-05-2023 Non-patient / Non-visit Dr. Lucia Weir Work Phone: [facility] Start: 02-05-2023 End: 02-05-2023 Admission to same day surgery center Dr. Omaira Weir Work Phone: [facility] Start: 02-05-2023 End: 02-05-[address] Omaira Weir Work Phone: [facility] Work Phone: Start: 12-19-2022 End: 12-19-[address] Omaira Weir Work Phone: [facility] Start: 12-11-2022 End: 12-11-[address] Omaira Weir Work Phone: [facility] Work Phone: Start: 12-11-2022 End: 12-11-[address] Omaira Weir Work Phone: [facility] Start: 11-27-2022 End: 11-27-[address] Omaira Weir Work Phone: [facility] Work Phone: Start: 11-27-2022 End: 11-27-[address] Omaira Weir Work Phone: [facility] Start: 11-25-2022 ambulatory Kerry Doe ab DO Work Phone: Functional Medicine Comment on above: Vitamin d levels Start: 11-03-2022 ambulatory Kerry Kocz ab DO Work Phone: Functional Medicine Comment on above: zinc Start: 10-15-2022 End: 10-15-[address] 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); Deficiency of nutrient element; Mixed hyperlipidemia Start: 08-27-2022 ambulatory [facility] Comment on above: Nutreval results Start: 08-27-2022 E-mail encounter mauricio arenas caregiver [facility] Start: 08-25-2022 ambulatory Kerry durand DO Work Phone: Functional Medicine Comment on above: my appt aug 28 at 245p Start: 07-21-2022 ambulatory Kerry durand DO Work Phone: Functional Medicine Comment on above: question about suppl ement you prescribed Start: 06-23-2022 Telephone encounter Lorena bhatti MD Work Phone: Functional Medicine Comment on above: NutrEval Start: 06-05-2022 End: 06-05-2022 Patient encounter procedure Kerry Strong DO Work Phone: Functional Medicine Comment on above: Hood's esophagus without dysplasia (Primary Dx); Mixed hyperlipidemia; Borderline diabetes mellitus; Abnormal stool test Procedures Date Procedure Procedure Detail Performing Clinician Start: 01-10-[address] Omaira Weir MD Work Phone: Start: 11-18-2024 Assay of prostate specific antigen total Dr. Omaira Weir MD Work Phone: Comment on above: This test was performed using the [employer] tPSA method. Measured values of a patient sample can vary depending on the testing procedure used. PSA values determined on patient samples by different testing procedures cannot be used interchangeably. If there is a change in PSA assays while monitoring therapy, sequential testing should be performed to confirm baseline values. Start: 10-26-2024 X-ray of chest, PA and lateral views Dr. Omaira Weir MD Work Phone: Start: 10-21-2024 Injection 1 tendon sheath/ligament aponeurosis Laura Mikulsrome PA-C Work Phone: Start: 10-21-2024 End: 10-21-2024 Injection 1 tendon sheath/ligament aponeurosis Laura Mikulski PA-C Work Phone: Start: 08-31-2024 Evaluation of diagnostic study results Dr. Omaira Weir MD Work Phone: Start: 06-08-2024 Injection therapeutic carpal tunnel Samara Covington MD Work Phone: Start: 06-04-2024 Radex hand minimum 3 views Samara salinas MD Work Phone: Start: 12-03-[address] Omaira cardoza Work Phone: Start: 10-22-2023 EGD Radio Frequency Ablation RFA (Not Applicable) Dr. Omaira Weir Work Phone: Start: 09-24-2023 Radionuclide imaging of perfusion of myocardium under exercise stress Dr. Omaira Weir Work Phone: Start: 09-16-2023 EGD Radio Frequency Ablation RFA (Not Applicable) Dr. Omaira Weir Work Phone: Start: 08-27-2023 CT angiography of coronary arteries Dr. Omaira Weir Work Phone: Start: 02-05-[address] Omaira Weir Work Phone: Start: 12-11-2022 MRI of pelvis with contrast Dr. Omaira kumar Work Phone: Start: 12-21-2015 Colonoscopy Kerry Strong DO Work Phone: Plan of Treatment Date Care Activity Detail Author Start: 10-22-2027 Diabetes Screening Diabetes Screenin [facility] Start: 03-08-2027 Diabetes Screening Diabetes Screenin g [facility] Start: 2027 RSV Vaccine (1 - 1-d ose 75+ series) RSV Vaccine (1 - 1-dose 75+ series) [facility] Start: 07-22-2026 Diabetes Screening Diabetes Screenin g [facility] Start: 10-24-2025 DIABETES SCREEN DIABETES SCREEN [facility] Start: 10-24-2025 Diabetes Screening Diabetes Screenin g [facility] Start: 06-30-2025 DIABETES SCREEN DIABETES SCREEN [facility] Start: 04-17-2025 Influenza vaccination Influenz a Vaccine (Season Ended) [facility] Start: 10-31-2024 Patient discharge [facility] Start: 10-21-2024 End: 10-21-2024 Patient encounter procedure 10/21/2024 11:00 AM EST Office Visit [facility] [address] [place] [address] Samara Covington MD [address] [place] [address] cont. B/L hand/wrist pain [facility] Comment on above: cont. B/L hand/wrist pain Start: 10-19-2024 End: 01-18-2025 25-hydroxyvitamin D3 [Mass/volume] in Serum or Plasma VITAMIN D 25 HYDROXY Lab Routine Mixed hyperlipidemia Increased glucose level Hood's esophagus without dysplasia Nutritional deficiency Expected: 10/19/2024, Expires: 01/18/2025 [facility] Comment on above: Expected: 10/19/2024 , Expires: 01/18/2025 Start: 10-19-2024 End: 01-18-2025 C reactive protein [Mass/volume] in Serum or Plasma by High sensitivity method HIGH SENSITIVITY C-REACTIVE PROTEIN Lab Routine Mixed hyperlipidemia Increased glucose level Hood's esophagus without dysplasia Nutritional deficiency Expected: 10/19/2024, Expires: 01/18/2025 [facility] Comment on above: Expected: 10/19/2024 , Expires: 01/18/2025 Start: 10-19-2024 End: 01-18-2025 CBC W Auto Differential panel - Blood COMPLETE BLOOD COUNT AND DIFFERENTIAL Lab Routine Mixed hyperlipidemia Increased glucose level Hood's esophagus without dysplasia Nutritional deficiency Expected: 10/19/2024, Expires: 01/18/2025 [facility] Work Phone: Comment on above: Expected: 10/19/2024 , Expires: 01/18/2025 Start: 10-19-2024 End: 01-18-2025 Cobalamin (Vitamin B12) [Mass/volume] in Serum or Plasma VITAMIN B12 Lab Routine Mixed hyperlipidemia Increased glucose level Hood's esophagus without dysplasia Nutritional deficiency Expected: 10/19/2024, Expires: 01/18/2025 [facility] Comment on above: Expected: 10/19/2024 , Expires: 01/18/2025 Start: 10-19-2024 End: 01-18-2025 Comprehensive metabolic 2000 panel - Serum or Plasma COMPREHENSIVE METABOLIC PANEL Lab Routine Mixed hyperlipidemia Increased glucose level Hood's esophagus without dysplasia Nutritional deficiency Expected: 10/19/2024, Expires: 01/18/2025 [facility] Comment on above: Expected: 10/19/2024 , Expires: 01/18/2025 Start: 10-19-2024 End: 01-18-2025 COPPER BLOOD COPPER BLOOD Lab Routine Mixed hyperlipidemia Increased glucose level Hood's esophagus without dysplasia Nutritional deficiency Expected: 10/19/2024, Expires: 01/18/2025 [facility] Comment on above: Expected: 10/19/2024 , Expires: 01/18/2025 Start: 10-19-2024 End: 01-18-2025 Ferritin [Mass/volume] in Serum or Plasma FERRITIN Lab Routine Mixed hyperlipidemia Increased glucose level Hood's esophagus without dysplasia Nutritional deficiency Expected: 10/19/2024, Expires: 01/18/2025 [facility] Comment on above: Expected: 10/19/2024 , Expires: 01/18/2025 Start: 10-19-2024 End: 01-18-2025 Folate [Mass/volume] in Serum or Plasma FOLATE, SERUM Lab Routine Mixed hyperlipidemia Increased glucose level Hood's esophagus without dysplasia Nutritional deficiency Expected: 10/19/2024, Expires: 01/18/2025 [facility] Comment on above: Expected: 10/19/2024 , Expires: 01/18/2025 Start: 10-19-2024 End: 01-18-2025 Hemoglobin A1c in Blood HEMOGLOBIN A1C Lab Routine Mixed hyperlipidemia Increased glucose level Hood's esophagus without dysplasia Nutritional deficiency Expected: 10/19/2024, Expires: 01/18/2025 [facility] Comment on above: Expected: 10/19/2024 , Expires: 01/18/2025 Start: 10-19-2024 End: 01-18-2025 Homocysteine [Moles/volume] in Serum or Plasma HOMOCYSTEINE Lab Routine Mixed hyperlipidemia Increased glucose level Hood's esophagus without dysplasia Nutritional deficiency Expected: 10/19/2024, Expires: 01/18/2025 [facility] Comment on above: Expected: 10/19/2024 , Expires: 01/18/2025 Start: 10-19-2024 End: 01-18-2025 Insulin [Units/volume] in Serum or Plasma INSULIN, TOTAL, SERUM Lab Routine Mixed hyperlipidemia Increased glucose level Hood's esophagus without dysplasia Nutritional deficiency Expected: 10/19/2024, Expires: 01/18/2025 [facility] Comment on above: Expected: 10/19/2024 , Expires: 01/18/2025 Start: 10-19-2024 End: 01-18-2025 Iron and Iron binding capacity panel - Serum or Plasma IRON AND TIBC Lab Routine Mixed hyperlipidemia Increased glucose level Hood's esophagus without dysplasia Nutritional deficiency Expected: 10/19/2024, Expires: 01/18/2025 [facility] Comment on above: Expected: 10/19/2024 , Expires: 01/18/2025 Start: 10-19-2024 End: 01-18-2025 Lead [Mass/volume] in Blood LEAD BLOOD Lab Routine Mixed hyperlipidemia Increased glucose level Hood's esophagus without dysplasia Nutritional deficiency Expected: 10/19/2024, Expires: 01/18/2025 [facility] Comment on above: Expected: 10/19/2024 , Expires: 01/18/2025 Start: 10-19-2024 End: 01-18-2025 Lipoprotein a [Mass/volume] in Serum or Plasma LIPOPROTEIN (A) Lab Routine Mixed hyperlipidemia Increased glucose level Hood's esophagus without dysplasia Nutritional deficiency Expected: 10/19/2024, Expires: 01/18/2025 [facility] Comment on above: Expected: 10/19/2024 , Expires: 01/18/2025 Start: 10-19-2024 End: 01-18-2025 LIPOPROTEIN FRACTIONATION BY NMR WITH LIPIDS LIPOPROTEIN FRACTIONATION BY NMR WITH LIPIDS Lab Routine Mixed hyperlipidemia Increased glucose level Hood's esophagus without dysplasia Nutritional deficiency Expected: 10/19/2024, Expires: 01/18/2025 [facility] Comment on above: Expected: 10/19/2024 , Expires: 01/18/2025 Start: 10-19-2024 End: 01-18-2025 MAGNESIUM RBC MAGNESIUM RBC Lab Routine Mixed hyperlipidemia Increased glucose level Hood's esophagus without dysplasia Nutritional deficiency Expected: 10/19/2024, Expires: 01/18/2025 [facility] Comment on above: Expected: 10/19/2024 , Expires: 01/18/2025 Start: 10-19-2024 End: 01-18-2025 OMEGACHECK OMEGACHECK Lab Routine Mixed hyperlipidemia Increased glucose level Hood's esophagus without dysplasia Nutritional deficiency Expected: 10/19/2024, Expires: 01/18/2025 [facility] Comment on above: Expected: 10/19/2024 , Expires: 01/18/2025 Start: 10-19-2024 End: 01-18-2025 Thyrotropin [Units/volume] in Serum or Plasma THYROID STIMULATING HORMONE Lab Routine Mixed hyperlipidemia Increased glucose level Hood's esophagus without dysplasia Nutritional deficiency Expected: 10/19/2024, Expires: 01/18/2025 [facility] Comment on above: Expected: 10/19/2024 , Expires: 01/18/2025 Start: 10-19-2024 End: 01-18-2025 Thyroxine (T4) free [Mass/volume] in Serum or Plasma T4 FREE/FREE THYROXINE Lab Routine Mixed hyperlipidemia Increased glucose level Hood's esophagus without dysplasia Nutritional deficiency Expected: 10/19/2024, Expires: 01/18/2025 [facility] Comment on above: Expected: 10/19/2024 , Expires: 01/18/2025 Start: 10-19-2024 End: 01-18-2025 Transferrin [Mass/volume] in Serum or Plasma TRANSFERRIN Lab Routine Mixed hyperlipidemia Increased glucose level Hood's esophagus without dysplasia Nutritional deficiency Expected: 10/19/2024, Expires: 01/18/2025 [facility] Comment on above: Expected: 10/19/2024 , Expires: 01/18/2025 Start: 10-19-2024 End: 01-18-2025 Triiodothyronine (T3) Free [Mass/volume] in Serum or Plasma T3, FREE Lab Routine Mixed hyperlipidemia Increased glucose level Hood's esophagus without dysplasia Nutritional deficiency Expected: 10/19/2024, Expires: 01/18/2025 [facility] Comment on above: Expected: 10/19/2024 , Expires: 01/18/2025 Start: 10-19-2024 End: 01-18-2025 Urate [Mass/volume] in Serum or Plasma URIC ACID Lab Routine Mixed hyperlipidemia Increased glucose level Hood's esophagus without dysplasia Nutritional deficiency Expected: 10/19/2024, Expires: 01/18/2025 [facility] Comment on above: Expected: 10/19/2024 , Expires: 01/18/2025 Start: 10-19-2024 End: 01-18-2025 Zinc [Mass/volume] in Serum or Plasma ZINC BLD Lab Routine Mixed hyperlipidemia Increased glucose level Hood's esophagus without dysplasia Nutritional deficiency Expected: 10/19/2024, Expires: 01/18/2025 [facility] Comment on above: Expected: 10/19/2024 , Expires: 01/18/2025 Start: 10-19-2024 End: 10-19-2024 Patient encounter procedure 10/19/2024 1:00 PM EST Office Visit [facility] [address] [id number] Kerry Strong DO [address] [address] follow up Functional Medicine Comment on above: follow up Start: 08-17-2024 Advance Directive Discussion Advance Directive Discussion [facility] Start: 07-21-2024 Patient referral [facility] Work Phone: Start: 06-21-2024 DIABETES SCREEN DIABETES SCREEN [facility] Start: 04-17-2024 Covid-19 Vaccine () Covid-19 Vaccine () [facility] Start: 04-17-2024 Covid-19 Vaccine () Covid-19 Vaccine () [facility] Start: 04-17-2024 Influenza vaccination Influenza Vacc ine (#1) [facility] Start: 03-31-2024 End: 03-31-2024 ambulatory 03/31/2024 7:15 AM EDT Results Only [place] [facility] [address] [place] [address] [facility] Start: 03-30-2024 End: 06-28-2024 LIPOPROTEIN FRACTIONATION BY NMR WITH LIPIDS LIPOPROTEIN FRACTIONATION BY NMR WITH LIPIDS Lab Routine Mixed hyperlipidemia Vitamin deficiency Deficiency of nutrient element Expected: 03/30/2024 (Approximate), Expires: 06/28/2024 [facility] Work Phone: Comment on above: Expected: 03/30/2024 (Approximate), Expires: 06/28/2024 Start: 03-22-2024 End: 06-22-2024 LIPOPROTEIN FRACTIONATION BY NMR WITH LIPIDS LIPOPROTEIN FRACTIONATION BY NMR WITH LIPIDS Lab Routine Mixed hyperlipidemia Vitamin deficiency Deficiency of nutrient element Expected: 03/22/2024 (Approximate), Expires: 06/22/2024 [facility] Work Phone: Comment on above: Expected: 03/22/2024 (Approximate), Expires: 06/22/2024 Start: 03-08-2024 End: 03-08-2024 ambulatory 03/08/2024 7:00 AM EDT Results Only [place] [facility] [address] [place] [address] labs [facility] Comment on above: labs Start: 2024 End: 06-02-2024 25-hydroxyvitamin D3 [Mass/volume] in Serum or Plasma VITAMIN D 25 HYDROXY Lab Routine Mixed hyperlipidemia Vitamin deficiency Deficiency of nutrient element Expected: 2024, Expires: 06/02/2024 [facility] Comment on above: Expected: 2024 , Expires: 06/02/2024 Start: 2024 End: 06-02-2024 C reactive protein [Mass/volume] in Serum or Plasma by High sensitivity method HIGH SENSITIVITY C-REACTIVE PROTEIN Lab Routine Mixed hyperlipidemia Vitamin deficiency Deficiency of nutrient element Expected: 2024, Expires: 06/02/2024 [facility] Comment on above: Expected: 2024 , Expires: 06/02/2024 Start: 2024 End: 06-02-2024 CBC W Auto Differential panel - Blood COMPLETE BLOOD COUNT AND DIFFERENTIAL Lab Routine Mixed hyperlipidemia Vitamin deficiency Deficiency of nutrient element Expected: 2024, Expires: 06/02/2024 [facility] Work Phone: Comment on above: Expected: 2024 , Expires: 06/02/2024 Start: 2024 End: 06-02-2024 Cobalamin (Vitamin B12) [Mass/volume] in Serum or Plasma VITAMIN B12 Lab Routine Mixed hyperlipidemia Vitamin deficiency Deficiency of nutrient element Expected: 2024, Expires: 06/02/2024 [facility] Comment on above: Expected: 2024 , Expires: 06/02/2024 Start: 2024 End: 06-02-2024 Comprehensive metabolic 2000 panel - Serum or Plasma COMPREHENSIVE METABOLIC PANEL Lab Routine Mixed hyperlipidemia Vitamin deficiency Deficiency of nutrient element Expected: 2024, Expires: 06/02/2024 [facility] Comment on above: Expected: 2024 , Expires: 06/02/2024 Start: 2024 End: 06-02-2024 COPPER BLOOD COPPER BLOOD Lab Routine Mixed hyperlipidemia Vitamin deficiency Deficiency of nutrient element Expected: 2024, Expires: 06/02/2024 [facility] Comment on above: Expected: 2024 , Expires: 06/02/2024 Start: 2024 End: 06-02-2024 Ferritin [Mass/volume] in Serum or Plasma FERRITIN Lab Routine Mixed hyperlipidemia Vitamin deficiency Deficiency of nutrient element Expected: 2024, Expires: 06/02/2024 [facility] Comment on above: Expected: 2024 , Expires: 06/02/2024 Start: 2024 End: 06-02-2024 Homocysteine [Moles/volume] in Serum or Plasma HOMOCYSTEINE Lab Routine Mixed hyperlipidemia Vitamin deficiency Deficiency of nutrient element Expected: 2024, Expires: 06/02/2024 [facility] Comment on above: Expected: 2024 , Expires: 06/02/2024 Start: 2024 End: 06-02-2024 Insulin [Units/volume] in Serum or Plasma INSULIN ASSAY BLOOD Lab Routine Mixed hyperlipidemia Vitamin deficiency Deficiency of nutrient element Expected: 2024, Expires: 06/02/2024 [facility] Comment on above: Expected: 2024 , Expires: 06/02/2024 Start: 2024 End: 06-02-2024 Iron and Iron binding capacity panel - Serum or Plasma IRON AND TIBC Lab Routine Mixed hyperlipidemia Vitamin deficiency Deficiency of nutrient element Expected: 2024, Expires: 06/02/2024 [facility] Comment on above: Expected: 2024 , Expires: 06/02/2024 Start: 2024 End: 06-02-2024 Lead [Mass/volume] in Blood LEAD BLOOD Lab Routine Mixed hyperlipidemia Vitamin deficiency Deficiency of nutrient element Expected: 2024, Expires: 06/02/2024 [facility] Comment on above: Expected: 2024 , Expires: 06/02/2024 Start: 2024 End: 06-02-2024 LIPOPROTEIN FRACTIONATION BY NMR WITH LIPIDS LIPOPROTEIN FRACTIONATION BY NMR WITH LIPIDS Lab Routine Mixed hyperlipidemia Vitamin deficiency Deficiency of nutrient element Expected: 2024, Expires: 06/02/2024 [facility] Comment on above: Expected: 2024 , Expires: 06/02/2024 Start: 2024 End: 06-02-2024 MAGNESIUM RBC MAGNESIUM RBC Lab Routine Mixed hyperlipidemia Vitamin deficiency Deficiency of nutrient element Expected: 2024, Expires: 06/02/2024 [facility] Comment on above: Expected: 2024 , Expires: 06/02/2024 Start: 2024 End: 06-02-2024 OMEGACHECK OMEGACHECK Lab Routine Mixed hyperlipidemia Vitamin deficiency Deficiency of nutrient element Expected: 2024, Expires: 06/02/2024 [facility] Comment on above: Expected: 2024 , Expires: 06/02/2024 Start: 2024 End: 06-02-2024 TESTOSTERONE, FREE AND TOTAL TESTOSTERONE, FREE AND TOTAL Lab Routine Mixed hyperlipidemia Vitamin deficiency Deficiency of nutrient element Expected: 2024, Expires: 06/02/2024 [facility] Comment on above: Expected: 2024 , Expires: 06/02/2024 Start: 2024 End: 06-02-2024 Thyrotropin [Units/volume] in Serum or Plasma THYROID STIMULATING HORMONE Lab Routine Mixed hyperlipidemia Vitamin deficiency Deficiency of nutrient element Expected: 2024, Expires: 06/02/2024 [facility] Comment on above: Expected: 2024 , Expires: 06/02/2024 Start: 2024 End: 06-02-2024 Thyroxine (T4) free [Mass/volume] in Serum or Plasma T4 FREE/FREE THYROXINE Lab Routine Mixed hyperlipidemia Vitamin deficiency Deficiency of nutrient element Expected: 2024, Expires: 06/02/2024 [facility] Comment on above: Expected: 2024 , Expires: 06/02/2024 Start: 2024 End: 06-02-2024 Transferrin [Mass/volume] in Serum or Plasma TRANSFERRIN Lab Routine Mixed hyperlipidemia Vitamin deficiency Deficiency of nutrient element Expected: 2024, Expires: 06/02/2024 [facility] Comment on above: Expected: 2024 , Expires: 06/02/2024 Start: 2024 End: 06-02-2024 Triiodothyronine (T3) Free [Mass/volume] in Serum or Plasma T3, FREE Lab Routine Mixed hyperlipidemia Vitamin deficiency Deficiency of nutrient element Expected: 2024, Expires: 06/02/2024 [facility] Comment on above: Expected: 2024 , Expires: 06/02/2024 Start: 2024 End: 06-02-2024 Zinc [Mass/volume] in Serum or Plasma ZINC BLD Lab Routine Mixed hyperlipidemia Vitamin deficiency Deficiency of nutrient element Expected: 2024, Expires: 06/02/2024 [facility] Comment on above: Expected: 2024 , Expires: 06/02/2024 Start: 01-27-2024 Urine microalbumin profile DTaP,Tdap,Td Vaccine (2 - Td or Tdap) [facility] Start: 12-03-2023 Patient discharge [facility] Start: 10-22-2023 Egd ablate tumor polyp/lesion w/dilation& wire EGD LESION ABLATION [facility] Start: 10-22-2023 Egd transoral biopsy single/multiple EGD BIOPSY SINGLE/MULTIPLE [facility] Start: 10-22-2023 Patient discharge [facility] Start: 09-16-2023 Egd ablate tumor polyp/lesion w/dilation& wire EGD LESION ABLATION [facility] Start: 09-16-2023 Egd transoral biopsy single/multiple EGD BIOPSY SINGLE/MULTIPLE [facility] Start: 09-16-2023 Patient discharge [facility] Start: 08-31-2023 Evaluation of diagno stic study results [facility] Start: 08-17-2023 Advance Directive Discussion Advance Directive Discussion [facility] Start: 08-17-2023 Behavioral Health Screening Behavioral Health Screening [facility] Start: 07-17-2023 End: 10-16-2023 25-hydroxyvitamin D3 [Mass/volume] in Serum or Plasma VITAMIN D 25 HYDROXY Lab Routine Hood's esophagus without dysplasia Mixed hyperlipidemia Vitamin deficiency Expected: 07/17/2023, Expires: 10/16/2023 [facility] Work Phone: Comment on above: Expected: 07/17/2023 , Expires: 10/16/2023 Start: 07-17-2023 End: 10-16-2023 ALLERGY FOOD PANEL IGG ALLERGY FOOD PANEL IGG Lab Routine Increased glucose level Hood's esophagus without dysplasia Expected: 07/17/2023, Expires: 10/16/2023 [facility] Work Phone: Comment on above: Expected: 07/17/2023 , Expires: 10/16/2023 Start: 07-17-2023 End: 10-16-2023 Arsenic [Mass/volume] in Blood ARSENIC BLD Lab Routine Hood's esophagus without dysplasia Mixed hyperlipidemia Vitamin deficiency Expected: 07/17/2023, Expires: 10/16/2023 [facility] Work Phone: Comment on above: Expected: 07/17/2023 , Expires: 10/16/2023 Start: 07-17-2023 End: 10-16-2023 C reactive protein [Mass/volume] in Serum or Plasma by High sensitivity method C-REACTIVE ULTRA SEN Lab Routine Hood's esophagus without dysplasia Mixed hyperlipidemia Vitamin deficiency Expected: 07/17/2023, Expires: 10/16/2023 [facility] Work Phone: Comment on above: Expected: 07/17/2023 , Expires: 10/16/2023 Start: 07-17-2023 End: 10-16-2023 CBC W Auto Differential panel - Blood CBC + DIFF Lab Routine Hood's esophagus without dysplasia Mixed hyperlipidemia Vitamin deficiency Expected: 07/17/2023, Expires: 10/16/2023 [facility] Work Phone: Comment on above: Expected: 07/17/2023 , Expires: 10/16/2023 Start: 07-17-2023 End: 10-16-2023 Cobalamin (Vitamin B12) [Mass/volume] in Serum or Plasma VITAMIN B12 BLOOD Lab Routine Hood's esophagus without dysplasia Mixed hyperlipidemia Vitamin deficiency Expected: 07/17/2023, Expires: 10/16/2023 [facility] Work Phone: Comment on above: Expected: 07/17/2023 , Expires: 10/16/2023 Start: 07-17-2023 End: 10-16-2023 Comprehensive metabolic 2000 panel - Serum or Plasma COMP METABOLIC PANEL Lab Routine Hood's esophagus without dysplasia Mixed hyperlipidemia Vitamin deficiency Expected: 07/17/2023, Expires: 10/16/2023 [facility] Work Phone: Comment on above: Expected: 07/17/2023 , Expires: 10/16/2023 Start: 07-17-2023 End: 10-16-2023 COPPER BLOOD COPPER BLOOD Lab Routine Hood's esophagus without dysplasia Mixed hyperlipidemia Vitamin deficiency Expected: 07/17/2023, Expires: 10/16/2023 [facility] Work Phone: Comment on above: Expected: 07/17/2023 , Expires: 10/16/2023 Start: 07-17-2023 End: 10-16-2023 Erythrocyte sedimentation rate SED RATE WESTERGREN Lab Routine Hood's esophagus without dysplasia Mixed hyperlipidemia Vitamin deficiency Expected: 07/17/2023, Expires: 10/16/2023 [facility] Work Phone: Comment on above: Expected: 07/17/2023 , Expires: 10/16/2023 Start: 07-17-2023 End: 10-16-2023 Ferritin [Mass/volume] in Serum or Plasma FERRITIN BLD Lab Routine Hood's esophagus without dysplasia Mixed hyperlipidemia Vitamin deficiency Expected: 07/17/2023, Expires: 10/16/2023 [facility] Work Phone: Comment on above: Expected: 07/17/2023 , Expires: 10/16/2023 Start: 07-17-2023 End: 10-16-2023 Gamma glutamyl transferase [Enzymatic activity/volume] in Serum or Plasma GGT BLD Lab Routine Hood's esophagus without dysplasia Mixed hyperlipidemia Vitamin deficiency Expected: 07/17/2023, Expires: 10/16/2023 [facility] Work Phone: Comment on above: Expected: 07/17/2023 , Expires: 10/16/2023 Start: 07-17-2023 End: 10-16-2023 Hemoglobin A1c in Blood HGB A1C Lab Routine Increased glucose level Hood's esophagus without dysplasia Expected: 07/17/2023, Expires: 10/16/2023 [facility] Work Phone: Comment on above: Expected: 07/17/2023 , Expires: 10/16/2023 Start: 07-17-2023 End: 10-16-2023 Homocysteine [Moles/volume] in Serum or Plasma HOMOCYSTEINE Lab Routine Hood's esophagus without dysplasia Mixed hyperlipidemia Vitamin deficiency Expected: 07/17/2023, Expires: 10/16/2023 [facility] Work Phone: Comment on above: Expected: 07/17/2023 , Expires: 10/16/2023 Start: 07-17-2023 End: 10-16-2023 Insulin [Units/volume] in Serum or Plasma INSULIN ASSAY BLOOD Lab Routine Hood's esophagus without dysplasia Mixed hyperlipidemia Vitamin deficiency Expected: 07/17/2023, Expires: 10/16/2023 [facility] Work Phone: Comment on above: Expected: 07/17/2023 , Expires: 10/16/2023 Start: 07-17-2023 End: 10-16-2023 Iron and Iron binding capacity panel - Serum or Plasma IRON + TIBC Lab Routine Hood's esophagus without dysplasia Mixed hyperlipidemia Vitamin deficiency Expected: 07/17/2023, Expires: 10/16/2023 [facility] Work Phone: Comment on above: Expected: 07/17/2023 , Expires: 10/16/2023 Start: 07-17-2023 End: 10-16-2023 Lead [Mass/volume] in Blood LEAD BLOOD Lab Routine Hood's esophagus without dysplasia Mixed hyperlipidemia Vitamin deficiency Expected: 07/17/2023, Expires: 10/16/2023 [facility] Work Phone: Comment on above: Expected: 07/17/2023 , Expires: 10/16/2023 Start: 07-17-2023 End: 10-16-2023 MAGNESIUM RBC MAGNESIUM RBC Lab Routine Hood's esophagus without dysplasia Mixed hyperlipidemia Vitamin deficiency Expected: 07/17/2023, Expires: 10/16/2023 [facility] Work Phone: Comment on above: Expected: 07/17/2023 , Expires: 10/16/2023 Start: 07-17-2023 End: 10-16-2023 Mercury [Mass/volume] in Blood MERCURY BLD Lab Routine Hood's esophagus without dysplasia Mixed hyperlipidemia Vitamin deficiency Expected: 07/17/2023, Expires: 10/16/2023 [facility] Work Phone: Comment on above: Expected: 07/17/2023 , Expires: 10/16/2023 Start: 07-17-2023 End: 10-16-2023 NMR LIPOPROTEIN PROFILE NMR LIPOPROTEIN PROFILE Lab Routine Hood's esophagus without dysplasia Mixed hyperlipidemia Vitamin deficiency Expected: 07/17/2023, Expires: 10/16/2023 [facility] Work Phone: Comment on above: Expected: 07/17/2023 , Expires: 10/16/2023 Start: 07-17-2023 End: 10-16-2023 OMEGACHECK OMEGACHECK Lab Routine Hood's esophagus without dysplasia Mixed hyperlipidemia Vitamin deficiency Expected: 07/17/2023, Expires: 10/16/2023 [facility] Work Phone: Comment on above: Expected: 07/17/2023 , Expires: 10/16/2023 Start: 07-17-2023 End: 10-16-2023 Thyrotropin [Units/volume] in Serum or Plasma TSH BLD Lab Routine Hood's esophagus without dysplasia Mixed hyperlipidemia Vitamin deficiency Expected: 07/17/2023, Expires: 10/16/2023 [facility] Work Phone: Comment on above: Expected: 07/17/2023 , Expires: 10/16/2023 Start: 07-17-2023 End: 10-16-2023 Thyroxine (T4) free [Mass/volume] in Serum or Plasma T4 FREE/FREE THYROX Lab Routine Hood's esophagus without dysplasia Mixed hyperlipidemia Vitamin deficiency Expected: 07/17/2023, Expires: 10/16/2023 [facility] Work Phone: Comment on above: Expected: 07/17/2023 , Expires: 10/16/2023 Start: 07-17-2023 End: 10-16-2023 Transferrin [Mass/volume] in Serum or Plasma TRANSFERRIN BLD Lab Routine Hood's esophagus without dysplasia Mixed hyperlipidemia Vitamin deficiency Expected: 07/17/2023, Expires: 10/16/2023 [facility] Work Phone: Comment on above: Expected: 07/17/2023 , Expires: 10/16/2023 Start: 07-17-2023 End: 10-16-2023 Triiodothyronine (T3) Free [Mass/volume] in Serum or Plasma T3 FREE BLD Lab Routine Hood's esophagus without dysplasia Mixed hyperlipidemia Vitamin deficiency Expected: 07/17/2023, Expires: 10/16/2023 [facility] Work Phone: Comment on above: Expected: 07/17/2023 , Expires: 10/16/2023 Start: 07-17-2023 End: 10-16-2023 Urate [Mass/volume] in Serum or Plasma URIC ACID BLOOD Lab Routine Hood's esophagus without dysplasia Mixed hyperlipidemia Vitamin deficiency Expected: 07/17/2023, Expires: 10/16/2023 [facility] Work Phone: Comment on above: Expected: 07/17/2023 , Expires: 10/16/2023 Start: 07-17-2023 End: 10-16-2023 Zinc [Mass/volume] in Serum or Plasma ZINC BLD Lab Routine Hood's esophagus without dysplasia Mixed hyperlipidemia Vitamin deficiency Expected: 07/17/2023, Expires: 10/16/2023 [facility] Work Phone: Comment on above: Expected: 07/17/2023 , Expires: 10/16/2023 Start: 04-17-2023 Covid-19 Vaccine ( season) Covid-19 Vaccine () [facility] Start: 04-17-2023 Influenza vaccination [facility] Start: 02-05-2023 Patient discharge [facility] Start: 11-25-2022 End: 02-24-2023 25-hydroxyvitamin D3 [Mass/volume] in Serum or Plasma VITAMIN D 25 HYDROXY Lab Routine Mixed hyperlipidemia Borderline diabetes mellitus Hood's esophagus without dysplasia Abnormal stool test Expected: 11/25/2022, Expires: 02/24/2023 [facility] Work Phone: Comment on above: Expected: 11/25/2022 , Expires: 02/24/2023 Start: 08-28-2022 End: 10-28-2022 Comprehensive metabolic 2000 panel - Serum or Plasma COMP METABOLIC PANEL Lab Routine 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 Mixed hyperlipidemia Expected: 08/28/2022, Expires: 10/28/2022 [facility] Work Phone: Comment on above: Expected: 08/28/2022 , Expires: 10/28/2022 Start: 08-28-2022 End: 10-28-2022 MAGNESIUM RBC MAGNESIUM RBC Lab Routine 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 Mixed hyperlipidemia Expected: 08/28/2022, Expires: 10/28/2022 [facility] Work Phone: Comment on above: Expected: 08/28/2022 , Expires: 10/28/2022 Start: 08-28-2022 End: 10-28-2022 NMR LIPOPROTEIN PROFILE NMR LIPOPROTEIN PROFILE Lab Routine Compound heterozygous MTHFR mutation [id number] Deficiency of nutrient element Mixed hyperlipidemia Expected: 08/28/2022, Expires: 10/28/2022 [facility] Work Phone: Comment on above: Expected: 08/28/2022 , Expires: 10/28/2022 Start: 08-28-2022 End: 10-28-2022 Zinc [Mass/volume] in Serum or Plasma ZINC BLD Lab Routine Compound heterozygous MTHFR mutation [id number] Deficiency of nutrient element Mixed hyperlipidemia Expected: 08/28/2022, Expires: 10/28/2022 [facility] Work Phone: Comment on above: Expected: 08/28/2022 , Expires: 10/28/2022 Start: 08-17-2022 ADVANCE DIRECTIVE DISCUSSION ADVANCE DIRECTIVE DISCUSSION [facility] Start: 08-17-2022 DEPRESSION ASSESSMENT DEPRESSION ASS ESSMENT [facility] Start: 06-05-2022 End: 08-05-2022 25-hydroxyvitamin D3 [Mass/volume] in Serum or Plasma VITAMIN D 25 HYDROXY Lab Routine Hood's esophagus without dysplasia Mixed hyperlipidemia Borderline diabetes mellitus Abnormal stool test Expected: 06/05/2022, Expires: 08/05/2022 [facility] Work Phone: Comment on above: Expected: 06/05/2022 , Expires: 08/05/2022 Start: 06-05-2022 End: 08-05-2022 C reactive protein [Mass/volume] in Serum or Plasma by High sensitivity method C-REACTIVE ULTRA SEN Lab Routine Hood's esophagus without dysplasia Mixed hyperlipidemia Borderline diabetes mellitus Abnormal stool test Expected: 06/05/2022, Expires: 08/05/2022 [facility] Work Phone: Comment on above: Expected: 06/05/2022 , Expires: 08/05/2022 Start: 06-05-2022 End: 08-05-2022 CBC W Auto Differential panel - Blood CBC + DIFF Lab Routine Hood's esophagus without dysplasia Mixed hyperlipidemia Borderline diabetes mellitus Abnormal stool test Expected: 06/05/2022, Expires: 08/05/2022 [facility] Work Phone: Comment on above: Expected: 06/05/2022 , Expires: 08/05/2022 Start: 06-05-2022 End: 08-05-2022 Cobalamin (Vitamin B12) [Mass/volume] in Serum or Plasma VITAMIN B12 BLOOD Lab Routine Hood's esophagus without dysplasia Mixed hyperlipidemia Borderline diabetes mellitus Abnormal stool test Expected: 06/05/2022, Expires: 08/05/2022 [facility] Work Phone: Comment on above: Expected: 06/05/2022 , Expires: 08/05/2022 Start: 06-05-2022 End: 08-05-2022 Comprehensive metabolic 2000 panel - Serum or Plasma COMP METABOLIC PANEL Lab Routine Hood's esophagus without dysplasia Mixed hyperlipidemia Borderline diabetes mellitus Abnormal stool test Expected: 06/05/2022, Expires: 08/05/2022 [facility] Work Phone: Comment on above: Expected: 06/05/2022 , Expires: 08/05/2022 Start: 06-05-2022 End: 08-05-2022 Ferritin [Mass/volume] in Serum or Plasma FERRITIN BLD Lab Routine Hood's esophagus without dysplasia Mixed hyperlipidemia Borderline diabetes mellitus Abnormal stool test Expected: 06/05/2022, Expires: 08/05/2022 [facility] Work Phone: Comment on above: Expected: 06/05/2022 , Expires: 08/05/2022 Start: 06-05-2022 End: 08-05-2022 FM SQ NUTREVAL PANEL BLOOD AND URINE FM SQ NUTREVAL PANEL BLOOD AND URINE Lab Routine Hood's esophagus without dysplasia Mixed hyperlipidemia Borderline diabetes mellitus Abnormal stool test Expected: 06/05/2022, Expires: 08/05/2022 [facility] Work Phone: Comment on above: Expected: 06/05/2022 , Expires: 08/05/2022 Start: 06-05-2022 End: 08-05-2022 Gamma glutamyl transferase [Enzymatic activity/volume] in Serum or Plasma GGT BLD Lab Routine Hood's esophagus without dysplasia Mixed hyperlipidemia Borderline diabetes mellitus Abnormal stool test Expected: 06/05/2022, Expires: 08/05/2022 [facility] Work Phone: Comment on above: Expected: 06/05/2022 , Expires: 08/05/2022 Start: 06-05-2022 End: 08-05-2022 Hemoglobin A1c in Blood HGB A1C Lab Routine Hood's esophagus without dysplasia Mixed hyperlipidemia Borderline diabetes mellitus Abnormal stool test Expected: 06/05/2022, Expires: 08/05/2022 [facility] Work Phone: Comment on above: Expected: 06/05/2022 , Expires: 08/05/2022 Start: 06-05-2022 End: 08-05-2022 Insulin [Units/volume] in Serum or Plasma INSULIN ASSAY BLOOD Lab Routine Hood's esophagus without dysplasia Mixed hyperlipidemia Borderline diabetes mellitus Abnormal stool test Expected: 06/05/2022, Expires: 08/05/2022 [facility] Work Phone: Comment on above: Expected: 06/05/2022 , Expires: 08/05/2022 Start: 06-05-2022 End: 08-05-2022 Iron and Iron binding capacity panel - Serum or Plasma IRON + TIBC Lab Routine Hood's esophagus without dysplasia Mixed hyperlipidemia Borderline diabetes mellitus Abnormal stool test Expected: 06/05/2022, Expires: 08/05/2022 [facility] Work Phone: Comment on above: Expected: 06/05/2022 , Expires: 08/05/2022 Start: 06-05-2022 End: 08-05-2022 MAGNESIUM RBC MAGNESIUM RBC Lab Routine Hood's esophagus without dysplasia Mixed hyperlipidemia Borderline diabetes mellitus Abnormal stool test Expected: 06/05/2022, Expires: 08/05/2022 [facility] Work Phone: Comment on above: Expected: 06/05/2022 , Expires: 08/05/2022 Start: 06-05-2022 End: 08-05-2022 NMR LIPOPROTEIN PROFILE NMR LIPOPROTEIN PROFILE Lab Routine Hood's esophagus without dysplasia Mixed hyperlipidemia Borderline diabetes mellitus Abnormal stool test Expected: 06/05/2022, Expires: 08/05/2022 [facility] Work Phone: Comment on above: Expected: 06/05/2022 , Expires: 08/05/2022 Start: 06-05-2022 End: 08-05-2022 OMEGACHECK OMEGACHECK Lab Routine Hood's esophagus without dysplasia Mixed hyperlipidemia Borderline diabetes mellitus Abnormal stool test Expected: 06/05/2022, Expires: 08/05/2022 [facility] Work Phone: Comment on above: Expected: 06/05/2022 , Expires: 08/05/2022 Start: 06-05-2022 End: 08-05-2022 Thyrotropin [Units/volume] in Serum or Plasma TSH BLD Lab Routine Hood's esophagus without dysplasia Mixed hyperlipidemia Borderline diabetes mellitus Abnormal stool test Expected: 06/05/2022, Expires: 08/05/2022 [facility] Work Phone: Comment on above: Expected: 06/05/2022 , Expires: 08/05/2022 Start: 06-05-2022 End: 08-05-2022 Thyroxine (T4) free [Mass/volume] in Serum or Plasma T4 FREE/FREE THYROX Lab Routine Hood's esophagus without dysplasia Mixed hyperlipidemia Borderline diabetes mellitus Abnormal stool test Expected: 06/05/2022, Expires: 08/05/2022 [facility] Work Phone: Comment on above: Expected: 06/05/2022 , Expires: 08/05/2022 Start: 06-05-2022 End: 08-05-2022 Transferrin [Mass/volume] in Serum or Plasma TRANSFERRIN BLD Lab Routine Hood's esophagus without dysplasia Mixed hyperlipidemia Borderline diabetes mellitus Abnormal stool test Expected: 06/05/2022, Expires: 08/05/2022 [facility] Work Phone: Comment on above: Expected: 06/05/2022 , Expires: 08/05/2022 Start: 06-05-2022 End: 08-05-2022 Triiodothyronine (T3) Free [Mass/volume] in Serum or Plasma T3 FREE BLD Lab Routine Hood's esophagus without dysplasia Mixed hyperlipidemia Borderline diabetes mellitus Abnormal stool test Expected: 06/05/2022, Expires: 08/05/2022 [facility] Work Phone: Comment on above: Expected: 06/05/2022 , Expires: 08/05/2022 Start: 06-05-2022 End: 08-05-2022 Urate [Mass/volume] in Serum or Plasma URIC ACID BLOOD Lab Routine Hood's esophagus without dysplasia Mixed hyperlipidemia Borderline diabetes mellitus Abnormal stool test Expected: 06/05/2022, Expires: 08/05/2022 [facility] Work Phone: Comment on above: Expected: 06/05/2022 , Expires: 08/05/2022 Start: 06-05-2022 End: 08-05-2022 Zinc [Mass/volume] in Serum or Plasma ZINC BLD Lab Routine Hood's esophagus without dysplasia Mixed hyperlipidemia Borderline diabetes mellitus Abnormal stool test Expected: 06/05/2022, Expires: 08/05/2022 [facility] Work Phone: Comment on above: Expected: 06/05/2022 , Expires: 08/05/2022 Start: 04-17-2022 Influenza vaccination INFLUENZA (#1) [facility] Start: 08-17-2021 ADVANCE DIRECTIVE DISCUSSION ADVANCE DIRECTIVE DISCUSSION [facility] Start: 08-17-2021 DEPRESSION ASSESSMENT DEPRESSION ASS ESSMENT [facility] Start: 08-01-2021 COVID-19 VACCINE (4 - Booster for Pfizer series) COVID-19 VACCINE (4 - Booster for Pfizer series) [facility] Start: 2017 PNEUMOCOCCAL: 65+ (1 - PCV) PNEUMOCOCCAL: 65+ (1 - PCV) [facility] Start: 12-20-2016 Colonoscopy COLONOSCOPY [facility] Start: 12-20-2016 COLORECTAL CANCER SCREENING COLORECTAL CANCER SCREENING [facility] Start: 12-20-2016 Screening for malign ant neoplasm of colon [facility] Start: 11-28-2014 Shingrix Vaccine (2 of 3) Thayer grix Vaccine (2 of 3) [facility] Start: 2012 RSV Vaccine (1 - 1-d ose 60+ series) RSV Vaccine (1 - 1-dose 60+ series) [facility] Start: 2002 SHINGRIX VACCINE (1 of 2) THAYER GRIX VACCINE (1 of 2) [facility] Start: 1997 COLOGUARD (FIT-DNA) COLOGUARD (FIT-D NA) [facility] Start: [address] COLONOGRAPHY [facility] Start: 1997 FECAL OCCULT BLOOD FECAL OCCULT BLOO D [facility] Start: 1997 Screening for malign ant neoplasm of colon [facility] Start: 1997 SIGMOIDOSCOPY SIGMOIDOSCOPY [facility] Start: 1987 Lipid 1996 panel - S ephraim or Plasma Lipid Screening [facility] Start: 1987 Lipid panel Lipid Screening [facility] Start: 1987 LIPID SCREEN LIPID SCREEN [facility] Start: 1971 Urine microalbumin profile DTAP,TDAP,TD (1 - Tdap) [facility] Start: 1970 Anxiety Screening Anxiety Screening [facility] Start: 1970 Depression Screening Depression Scre ening [facility] Start: 1970 HEPATITIS C SCREENING HEPATITIS C [facility] Start: 1970 Hepatitis C screening Hepatitis C [facility] Start: 1950 ABDOMINAL AORTIC ANE URYSM SCREENING ABDOMINAL AORTIC ANEURYSM SCREENING [facility] Start: 1950 Abdominal aortic ane urysm screening Abdominal Aortic Aneurysm Screening [facility] Basic metabolic 2008 panel with ionized calcium - Serum or Plasma [facility] FM TOXIC ELEMENT CLEARANCE, URINE FM TOXIC ELEMENT CLEARANCE, URINE Lab Routine Heavy metal exposure Ordered: 2024 [facility] Comment on above: Ordered: 2024 Patient referral [facility] Work Phone: Radionuclide imaging of perfusion of myocardium under exercise stress [facility] [place] [facility] Immunizations Immunization Date Immunization Notes Care Provider Fa miguel 06-06-2021 influenza virus vaccine, unspecified formulation Kerry Ligia AVELAR Work Phone: [facility] 01-26-2014 tetanus toxoid, redu alejandra diphtheria toxoid, and acellular pertussis vaccine, adsorbed Dr. Omaira Weir Work Phone: [facility] Payers Date Payer Category Payer Self-pay [id number] 2021 Medicare (Managed Care) POORNIMA PEPPER [facility] [id number] 2021 Unknown [id number]. [id number] 2021 Unknown [id number] Medicare MEDICARE PART A B [id number] Unknown [id number] [facility] [id number] Unknown AARP MCR ADV [id number] Unknown [facility] P[employer] [id number] Unknown [facility] P[employer]AN [id number] Unknown [id number] 2.16.840.1.598421.3.579.2. 462 Unknown [id number] 2.16.840.1.572722.3.579.2. 462 Unknown [id number] 2.16.840.1.530054.3.579.2. 462 Unknown [id number] 2.16.840.1.915438.3.579.2. 462 Unknown [id number] 2.16.840.1.659148.3.579.2. 462 Unknown [id number] 2.16.840.1.706228.3.579.2. 462 Unknown [id number] 2.16.840.1.932997.3.579.2. 462 Unknown [id number] 2.16.840.1.210380.3.579.2. 462 Unknown [id number] 2.16.840.1.945638.3.579.2. 462 Unknown [id number] 2.16.840.1.737194.3.579.2. 462 Unknown [id number] 2.16.840.1.692753.3.579.2. 462 Unknown [id number] 2.16.840.1.748301.3.579.2. 462 Unknown [id number] 2.16.840.1.698275.3.579.2. 462 Unknown [id number] 2.16.840.1.827863.3.579.2. 462 Unknown [id number] 2.16.840.1.470166.3.579.2. 462 Unknown [id number] 2.16.840.1.690867.3.579.2. 462 Unknown [id number] 2.16.840.1.514458.3.579.2. 462 Unknown [id number] 2.16840.1.510583.3.579.2. 462 Unknown [id number] 2.16840.1.876349.3.579.2. 462 Unknown [id number] 2.16.840.1.719796.3.579.2. 462 Unknown [id number] 2.16.840.1.559171.3.579.2. 462 Unknown [id number] 2.16840.1.166767.3.579.2. 462 Unknown [id number] 2.16.840.1.099313.3.579.2. 462 Unknown [id number] 2.16840.1.431079.3.579.2. 462 Unknown [id number] 2.840.1.897232.3.579.2. 462 Social History Date Type Detail Facility Start: 06-05-2022 End: 10-31-2024 Tobacco smoking status NHIS Ex-smoker [facility] End: 08-17-2004 History of tobacco use Current smoker [facility] End: 08-17-2004 History of tobacco use Cigarette Smoker [facility] Start: 06-05-2022 End: 06-01-2024 Tobacco use and exposure Smokeless tobacco non-user [facility] Start: 06-05-2022 End: 10-21-2024 Alcohol intake Current drinker of alcohol (finding) [facility] Start: 06-05-2022 End: 02-12-2023 Alcohol intake [facility] Start: 1950 Sex Assigned At Male [facility] Start: 05-03-2022 End: 05-13-2022 Exposure to SARS-CoV-2 (event) Not sure [facility] Start: 10-15-2022 End: 12-01-2023 Tobacco smoking status UTIS Unknown if ever smoked [facility] Start: 08-28-2022 End: 02-12-2023 Tobacco use panel [facility] National Score (1-10 0), lower number is lower risk 75 [facility] Start: 12-05-2018 Gender identity Identifies as male gender (finding) [facility] Start: 12-05-2018 Sexual orientation Heterosexual (fin ding) [facility] Start: 10-27-2024 End: 12-13-2024 Sex Male (finding) [facility] Medical Equipment Procedure Code Equipment Code Equipment Origin al Text Equipment Identifier Dates CLIP,RESO 360 UL TRA 235_17 FDA Start: 09-16-2023 HEMOSPRAY FDA Start: 09-16-2023 CLIP,RESO 360 UL TRA 235_17 FDA Start: 09-16-2023 HEMOSPRAY FDA Start: 09-16-2023 CLIP,RESO 360 UL TRA 235_17 FDA Start: 09-16-2023 HEMOSPRAY FDA Start: 09-16-2023 CLIP,RESO 360 UL TRA 235_17 FDA Start: 09-16-2023 HEMOSPRAY FDA Start: 09-16-2023 CATH,BARXX RFA [id number] FDA Start: 10-22-2023 CLIP,RESO 360 UL TRA 235_17 FDA Start: 09-16-2023 HEMOSPRAY FDA Start: 09-16-2023 CATH,BARXX RFA [id number] FDA Start: 10-22-2023 CLIP,RESO 360 UL TRA 235_17 FDA Start: 09-16-2023 HEMOSPRAY FDA Start: 09-16-2023 CATH,BARXX RFA [id number] FDA Start: 10-22-2023 CLIP,RESO 360 UL TRA 235_17 FDA Start: 09-16-2023 HEMOSPRAY FDA Start: 09-16-2023 CATH,BARXX RFA [id number] FDA Start: 10-22-2023 CLIP,RESO 360 UL TRA 235_17 FDA Start: 09-16-2023 HEMOSPRAY FDA Start: 09-16-2023 CATH,BARXX RFA [id number] FDA Start: 10-22-2023 CLIP,RESO 360 UL TRA 235_17 FDA Start: 09-16-2023 HEMOSPRAY FDA Start: 09-16-2023 CATH,BARXX RFA [id number] FDA Start: 10-22-2023 CLIP,RESO 360 UL TRA 235_17 FDA Start: 09-16-2023 HEMOSPRAY FDA Start: 09-16-2023 CATH,BARXX RFA [id number] FDA Start: 10-22-2023 CLIP,RESO 360 UL TRA 235_17 FDA Start: 09-16-2023 HEMOSPRAY FDA Start: 09-16-2023 CATH,BARXX RFA [id number] FDA Start: 10-22-2023 CLIP,RESO 360 UL TRA 235_17 FDA Start: 09-16-2023 HEMOSPRAY FDA Start: 09-16-2023 CATH,BARXX RFA [id number] FDA Start: 10-22-2023 CLIP,RESO 360 UL TRA 235_17 FDA Start: 09-16-2023 HEMOSPRAY FDA Start: 09-16-2023 CATH,BARXX RFA [id number] FDA Start: 10-22-2023 CLIP,RESO 360 UL TRA 235_17 FDA Start: 09-16-2023 HEMOSPRAY FDA Start: 09-16-2023 CATH,BARXX RFA [id number] FDA Start: 10-22-2023 CLIP,RESO 360 UL TRA 235_17 FDA Start: 09-16-2023 HEMOSPRAY FDA Start: 09-16-2023 CATH,BARXX RFA [id number] FDA Start: 10-22-2023 Goals Date Patient Goal Desired Activity /State Mental Status Date Assessment Result Facility 12-03-2023 Cognitive function Level Of Consciousness Sedated [facility] Work Phone: 12-03-2023 Cognitive function Voice/Name [facility] Work Phone: 10-22-2023 Cognitive function Light Pain [facility] Work Phone: 09-16-2023 Cognitive function Voice/Name [facility] Work Phone: 09-16-2023 Cognitive function Patient Orien tation Person;Place;Time [facility] Work Phone: 02-05-2023 Cognitive function Voice/Name [facility] Work Phone: Clinical Notes 06-05-2022 to 02-28-2025 Note Date & Type Note Facility 02-28-2025 Progress note [facility] 02-28-2025 Progress note Note Date/Time February 28, 2025 8:51am [facility] [address] [place] [address] OFFICE VISIT Date of Service: 02/28/25 MR#: [id number] Acct: [id number] Name: JYOTI CHOI Rep #: [id number] : 1950 Provider: KYLIE Fong Age/Sex: 74/M [place] [facility] [place] Status: Signed HPI HPI History of Present Illness Details: Patient comes in today for monitoring of his cardiovascular status. Patient undergone left heart catheterization in October of 2024 which showed a small posterolateral circumflex with severe disease. He was not felt that this was clinically significant and he has been treated medically. He also has a history of hypertension and hyperlipidemia. He was recently diagnosed with prostate cancer. They are just monitoring this. From a cardiac standpoint, patient is doing well. He does not have any chest discomfort/heaviness/tightness. His exercise tolerance is stable for his age. He does not have any worsening symptoms of shortness of breath. He denies any PND. He does not have any orthopnea. He does not have any symptoms of congestive heart failure. He does not have any palpitations that he is aware of. He does not have any lightheadedness or dizziness. He does not have any near-syncope or syncope. He does not have any lower extremity edema. He does not have any symptoms of claudication. Intake Vital Signs 11/29/24 10:55 01/16/25 09:42 02/28/25 08:22 Height 5 ft 8 in 5 ft 8 in 5 ft 8 in Weight: 171 lb BMI 25.9 BP 113/68 Blood Pressure Location Lt brachial Position Sitting Respiration 16 Pulse 66 Pulse Source NIBP Intake Visit Reasons: 3 M FU Allergies terbinafine (From Lamisil) Allergy (Verified 01/16/25 09:31) Shortness of breath ciprofloxacin (From Cipro) Adverse Reaction (Verified 01/16/25 09:31) PALPITATIONS Medications ?Medication ?Instructions ?Recorded ?Confirmed ?Type multivitamin 1 tab PO DAILY 08/31/2302/14 History omega-3 650 mg-dha 400 mg-epa 200 1 cap PO DAILY 08/3102/28/25 History mg-fish oil-vit D3 300 unit capsule magnesium 250 mg tablet 250 mg PO DAILY 10/19/23 History aspirin 81 mg chewable tablet 81 mg PO QDAY #30 tabs 0 08/31/24 02/28/25 Rx finasteride 5 mg tablet 5 mg PO QDAY 01/16/25 History pantoprazole 40 mg tablet,delayed 40 mg PO QDAY #180 T ABLETS 02/27/25 02/28/25 Rx release amlodipine 5 mg tablet (Norvasc) 5 mg PO QDAY #90 tabs 02/28/25 02/28/25 Rx carvedilol 6.25 mg tablet (Coreg) 6.25 mg PO BID #180 tabs 02/28/25 02/28/25 Rx hydrochlorothiazide 12.5 mg capsule 12.5 mg PO QAM #90 caps 02/28/25 02/28/25 Rx rosuvastatin 20 mg tablet 20 mg PO QDAY #90 tabs 02/2802/28/25 Rx Ejection fraction %: 55 Have you fallen in the past year?: No PFSH Medical History (Updated 02/28/25 @ 08:42 by Yuki ESPINAL, PA) CAD (coronary artery disease) Enlarged prostate Prostate cancer Dysuria Acute sinusitis Carpal tunnel syndrome, bilateral Dyspnea on exertion Poor historian History of stress test Wears glasses Alcohol use Back pain History of hiatal hernia Former smoker History of echocardiogram Hood syndrome prostate issues Osteopenia Arthritis Surgical History History of biopsy H/O cardiac catheterization Hx of appendectomy History of scapula, ulna, humerous reconstruction History of endoscopy History of colonoscopy Family History Aunt Breast cancer Uncle Colon cancer Diabetes Heart disease Mother Cancer Diabetes Other Alcoholism Anxiety and depression Liver disease Melanoma Osteoporosis Social History Smoking Status: Former smoker alcohol intake: current substance use type: does not use caffeine: Yes ROS Const Const: Negative for fatigue or weakness Eyes Eyes: Negative for change in vision ENT ENT: Negative for dizziness or balance problems Cardio Chest Pain: No Palpitations: Yes (infrequently) Edema: None Resp Respiratory: Negative for SOB with activity, SOB at rest or SOB orthopnea\\SOB lying down GI GI: Negative nausea or heartburn Musc Musc: Negative for balance problems Neuro Neuro: Negative for dizziness, lightheadedness, near syncope, syncope or weakness Endo Endo: Negative for fatigue Cardiology Exam Const Appearance: cooperative, healthy appearing, comfortable, no acute distress and well developed Head Head: normal to inspection Eyes General: appearance normal, both eyes and all related structures Neck Neck: normal visual inspection and no JVD Carotids: Negative bruit Chest Chest inspection: normal inspection of the chest Auscultation: Bilateral: Clear to Auscultation Cardio Rate: regular rate Rhythm: regular rhythm Heart sounds: S1 normal and S2 normal; Negative rub, gallop or murmur Neuro General: patient alert and patient oriented x3 Extremities Pulses: Normal: Right Radial Pulse Lower Extremity Edema: None: Bilateral Psych Psychological: normal affect Supplemental Info Supplemental Information Cardiac Catheterization 10/31/2024 PROCEDURE(S) PERFORMED [id number])LHC/COR/LV CLINICAL PROFILE AND INDICATIONS Indications: Suspected CAD Heart Failure: None Stress/Imaging Coronary Calcium Score: Yes Calcium Score: 200Calcium Score: 200 CAD Presentations: Other: SOB CONCLUSIONS Severe single-vessel disease involving the second obtuse marginal branch and a small vessel with 2 areas of high-grade stenosis and collateralization present. The rest of the vessels have mild diffuse disease and proximal calcification of the right coronary artery and the left main coronary artery. Preserved ejection fraction. RECOMMENDATIONS Medical therapy Will recommend increase statin and add calcium bernadette 5 mg a day of amlodipine. CORONARY ANGIOGRAPHY DOMINANCE: Right Dominant LEFT HEART ASSESSMENT Left Ventricular Ejection Fraction: by LV Gram 60 % Normal LV wall motion Normal Left Ventricular systolic function LEFT MAIN: Mild calcification, Non-obstructive LEFT ANTERIOR DESCENDING ARTERY: Left anterior descending artery is a medium size vessel with a first diagonal branch with mild luminal irregularities. CIRCUMFLEX ARTERY: Mild luminal irregularities less than 30% OM 2: Proximal - 80 presents proximal stenosis and distal 80% stenosis prior to bifurcation any small vessel measuring at most 2 mm. RIGHT CORONARY ARTERY: Mild luminal irregularities less than 30% COLLATERAL FLOW: Collateral flow from Right to Left Echocardiogram 09/21/2024 Interpretation Summary Normal LV size. Left ventricular systolic function is normal. The left ventricular ejection fraction is 55 %. Stage 1 diastolic dysfunction. Structurally normal valves. Stress Test 09/24/2023 Impression: 1. Technically adequate (percent predicted maximal heart rate greater than 85%)exercise tolerance test 2. Peak exercise ECG with exaggeration of the baseline changes. Nondiagnostic. 3. There were no cardiac dysrhythmias pretest, during exercise, or recovery 4. Rest and stress SPECT Cardiolite nuclear imaging demonstrate relative uniform tracer uptake and myocardial perfusion appearing within normal limits. 5. The gated Cardiolite study reports an LVEF of 62%. Coronary Angiography CT 08/27/2023 Findings Left Main (LM): 130 Left Anterior Descending (LAD): 54 Left Circumflex (LCX): 27 Right Coronary Artery (RCA): 3 Total Agatston Score: 214 Percentile Rankinth to 50th percentile Calcium Score: Moderate: 1-2 vessels w/moderate amt, 3 vessels w/mild amt of plaque Conclusion: Moderate 1-2 vessel plaque noted involving parts of the left main and the left anterior descending artery. Carotid Duplex Ultrasound 07/04/2019 Interpretation Summary Mild (<50%) stenosis right extracranial internal carotid. Mild (<50%) stenosis left extracranial internal carotid. Flow within the vertebral arteries is antegrade bilaterally. Labs: HDL Cholesterol 67 mg/dL (40-) Cholesterol 149 mg/dL (<=200) Triglycerides 58 mg/dL (-199) Diagnostics: Cardiac Catheterization Chest X-Ray Pulmonary: No Data to Display Past Visits: Cardiology Visit 02/28/25 Assessment and Plan Assessment and Plan (1) Hypertension: Status: Chronic Qualifiers: Hypertension type: primary hypertension Qualified Code(s): I10 - Essential (primary) hypertension Plan: Controlled on current medications. He will continue with his coreg, amlodipine and HCTZ. (2) Hyperlipidemia: Status: Acute Qualifiers: Hyperlipidemia type: pure hypercholesterolemia Qualified Code(s): E78.00 - Pure hypercholesterolemia, unspecified Plan: Patient's lipids are adequately controlled on his current medical therapy of rosuvastatin. Laboratory Tests 10/12/24 07:41 Triglycerides 58 Cholesterol 149 LDL Cholesterol, Calc 71 HDL Cholesterol 67 (3) CAD (coronary artery disease): Status: Acute Plan: Patient's catheterization done October 31, 2024 showed normal LV function had single-vessel disease involving the second OM branch of the circumflex it was a small vessel with 2 areas of high-grade stenosis and there were collaterals present. The rest of the vessels had diffuse mild disease there was proximal calcification of the right coronary artery and the left main coronary artery. The patient is being treated medically. He denies any anginal symptoms at this time. Will not make any adjustments. Secondary risk factors are being addressed. His hypertension will be more aggressively treated, his lipids are adequately controlled on his current rosuvastatin 20 mg daily. He does not smoke at this time. And he is not diabetic. Medications: Refilled amlodipine (Norvasc) 5 mg PO QDAY 90 tabs 3RF carvedilol (Coreg) must administer with a meal/food 6.25 mg PO BID 180 tabs 3RF hydrochlorothiazide 12.5 mg PO QAM 90 caps 3RF rosuvastatin 20 mg PO QDAY 90 tabs 3RF Plan Details Additional Comments: Thank you for allowing me to participate in the care of your patient. Please don't hesitate to call if any issues arise. This note was generated using a voice recognition system and there may be incorrect words, spelling, or punctuation that were not noted when reviewing theoffice note prior to saving. Portions of this documentation were copied and pasted from previous office visitnotes to provide a cohesive continuity of the history. The note has been reviewed, edited, and updated, as necessary. Follow Up: 6 Months (Boby) Coding Level of Care Code Off vis,est,level 4 Diagnoses Primary hypertension I10 Hypertension type: primary hypertension Pure hypercholesterolemia E78.00 Hyperlipidemia type: pure hypercholesterolemia CAD (coronary artery disease) I25.10 Coding Level of Care Code Off vis,est,level 4 Diagnoses Primary hypertension I10 Hypertension type: primary hypertension Pure hypercholesterolemia E78.00 Hyperlipidemia type: pure hypercholesterolemia CAD (coronary artery disease) I25.10 Clinical Quality Measures Falls Risk Screening/Assistive Devices Have you fallen in the past year?: No Cardiac Ejection fraction %: 55 02/28/25 0851 <Electronically signed by Yuki Grullon> Date _ Yuki ESPINAL Cosigner Signature: Date (if applicable) CC: Dr. Omaira Weir MD ~ [facility] Work Phone: 1(358) 261-669406-02-2025 Evaluation note* Diagnosis Onset Date Resolution Status Admit Date Dysuria acute January 16, 2025 9:29am Enlarged prostate acute January 9:29am Prostate cancer acute January 16, 2025 9:29am CAD (coronary artery disease) acute February 28, 2025 7:58am Hyperlipidemia acute February 28, 2025 7:58am Hypertension chronic February 28, 2 025 7:58am Difficulty sleeping acute Apre mb2024 7:53am [facility] Work Phone: 1(463) 923-376105-16-2025 History of Present illness Narrative* Seth Ellison OTR/Blossom - 12/30/2024 8:05 AM EDT Program_ID:[id number] Access Code: [email or web address] URL: [email or web address] Date: 12-30-2024 Prepared By: Ezequiel Patel Program Notes <u>Soft Tissue Mobilization</u><div>- Soft tissue (also known as connective tissue) includes tissues that connect, surround, or support structures in the body (not including bone)</div><div>- Some of these tissues include: tendons, nerves, ligaments, and muscles</div><div>- These tissues can become shortened and/or tight when the joints become unstable due to arthritis</div><div>- The exercises below target the tight tissues that occur when the base of the thumb joint begins to get pulled into the palm</div><div><b>Goal: to improve the flexibility and to decrease the tightness in the thumb web space</b></div> Exercises - Thumb Stablization Adductor Release - 1 x daily - 7 x weekly - 2 sets - 10 reps - Thumb Stabilization Web Space Release: Using Another Object - 1 x daily - 7 x weekly - 2 sets - 10 reps - Thumb Stabilization Web Space Release: Using Other Hand - 1 x daily - 7 x weekly - 3 sets - 10 reps - Thumb Stabilization Web Space Release: Web Space to Web Space - 1 x daily - 7 x weekly - 3 sets - 10 reps - cc Self CMC Stretch - 1 x daily - 7 x weekly - 2 sets - 10 reps - cc Self CMC Stretch Behind Back - 1 x daily - 7 x weekly - 2 sets - 10 reps - Thumb Strengthening Stabilization CMC - 1 -2 x daily - 7 x weekly - 1 sets - 10 reps - Thumb Stabilization: "C" Position Isometric Around Ball - 1 -2 x daily - 7 x weekly - 1 sets - 10 reps - Thumb Stabilization: Isometric Opposition With Bunny Ears - 1-2 x daily - 7 x weekly - 1 sets - 10 reps - Seated Thumb CMC Isometric Radial Abduction - 1-2 x daily - 7 x weekly - 1 sets - 10 reps - Thumb Strengthening Stabilization CMC First Dorsal Interossei - 1-2 x daily - 7 x weekly - 1 sets - 10 reps - First Dorsal Interosseous Isotonic Strengthening With Rubber Band Resistance - 1-2 x daily - 7 x weekly - 1 sets - 10 reps * Seth Ellison OTR/L - 12/30/2024 7:01 AM EDT Episode Visit Count: 2 Therapist That Will Accept/Oversee The Plan Of Care: PAYAL Khan, [facility] Start of Care Date: 10/21/24 Onset Date: 05/30/24 Plan of Care Certification Date: 10/21/24 Next Certification Due Date: 02/13/25 Patient Identified by Name and Date of : Yes REHABILITATION AND SPORTS THERAPY OCCUPATIONAL THERAPY PROGRESS REPORT PLAN OF CARE UPDATE: Assessment: Jyoti Choi demonstrates improvements in gripping. The patient has progressed toward goals. Patient continues to present with impairments in overall function, strength, and symptom management that interfere with lifting, physical activities, recreational activities . Current prognosis is Good due to: current objective clinical presentation, acuteness of condition . The patient will benefit from continued skilled therapy services to meet the updated goals for this plan of care asnoted below. PLAN FOR NEXT VISIT: Progress CMC stabilization exercises as tolerated. Review use of kineosiotape to support CMC joint during activities. Goals for Episode of Care: established 10/21/24 (reviewed on 12/30/24) Patient reported outcome of pain Interference will decrease T -score by a minimum of 5 points. (PA,ongoing) Patient will report a good understanding of diagnosis and OT recommendations for progression of program.(PA, ongoing) Patient will demonstrate independence with ongoing home recommendations/exercise program throughouttherapy plan of care.(PA, ongoing) Patient will improve function in Bilateral hand in order to be able to perform basic self-care tasks and prior functional tasks.(PA, ongoing) Patient will report a decrease in pain in Bilateral hand to 2/10 with basic self-care tasks and prior functional tasks.(PA, ongoing) Patient will independently demonstrate correct application of PREFABRICATED orthosis and verbalize understanding of proper wear/care. (A) Additional goal added 12/30/24 Patient will increase Bilateral consulting nurse strength by 5#, so that patient will be able to improve function for prior functional tasks. Goal Gonzalez A=achieved PA=partially achieved NA=not achieved NT=not tested Patient Goals: Increased functional hand use Time Frame for Goals and Treatment : 02/13/25 Patient Goals: avoid surgery. Planned Interventions, Frequency, and Duration: 1x every other week, 6 weeks Total Number of Visits Planned: 5 Planned Treatment Interventions: Custom orthosis fabrication, Therapeutic exercise (37943), Self-custodial management (95026), Orthotics management and training ([id number]) PLAN FOR NEXT VISIT: Progress CMC stabilization exercises as tolerated. Review use of kineosiotape to support CMC joint during activities. SUBJECTIVE: "I don't want surgery. " Doesn't notice much pain most activities like typing. Pain starts in the evenings. Interested in knowing what exercises to do, and splints that he can wear at night. Tries to keep hands below the waist to help with pain, heard that this helps. Using metagrip braces at times. Warm water/ contrast baths with epsom salts Functional Limitations: lifting, physical activities, recreational activities Pain: Pain Pain Level: 5 Pain Location: Thumb - Left, Thumb - Right Description: Aching Frequency: (at night) Post Treatment Pain Post Treatment Pain Level: No Change Post Treatment Pain Location: Hand - Right, Hand - Left PROMIS Scales 12/30/2024 10/21/2024 05/30/2024 Higher is Better Phys Func - T Score 54 (within normal limits) 52 (within normal limits) Phys Func - Percentile 66 58 Self-Eff Symptom - T Score 38 (Low) Self-Eff Symptom - Percentile 12 Upper Extremity - T Score 51 (within normal limits) 42 (mild dysfunction) Upper Extremity - Percentile 54 21 2024 07/15/2023 02/11/2023 Lower is Better Pain Interference - T Score 47 (within normal limits) 51 (within normal limits) 52 (within normal limits) Pain Interference - Percentile 62 46 42 T-scores: mean of general population = 50. 5 points is clinically meaningfully difference Percentiles provide an indication of how the patient's score ranks in relation to the general population. Higher percentile rankings indicate better function/quality of life. 50th percentile is the average of the general population and indicates half of respondents had a worse score. OBJECTIVE MEASURES WITH LEVEL OF FUNCTION: Hand Wrist AROM: WFL Right Hand AROM: WFL Left Hand AROM: WFL Thumb AROM: WFL Strength: Shopper Marketing Manager Position 2 Sensation: Reports tingling or numbness Dexterity/Coordination: Observed to be functional Provocative Testing: (+ pain thumb adduction test bilaterally) Clinical Presentation: (+ tender bilateral webspace: No MP joint hyperextension observed at rest.) Hand Strength R Shopper Marketing Manager Position 2 (lbs): 25 lbs L Shopper Marketing Manager Position 2 (lbs): 40 lbs UE AROM Right Hand AROM: WFL Left Hand AROM: WFL Thumb AROM: WFL TREATMENT: Therapeutic Exercise: 1: Skilled instruction provided re: CMC stablization exercises , patient performed in clinic: Isometric "C" position, "C" position isometric around ball , isometric opposition bunny ears, thumb CMC isometric radial abduction, CMC first dorsal interosseous manual resistance , first dorsal interossious isotonic strengthening rubber band; 5 count hold x 10, bilateral hands 2: Skilled instruction and review of web space release prior to performing stabilization exercises,bilateral hand 3: Skilled instruction provided in CMC self mobilization/ Stretching: to help improve or maintain motion in thumb and web space . Education that attention should be made for proper hand positioning to avoid unwanted stress to already strained joints . The focus is to try to keep the CMC joint in asclose to normal position as possible and to stretch the tight muscles in thumb web space: Educated re: distraction, mobilization to reduce dorsal subluxing and retro- position. Written instructions provided. Patient reported relief of symptoms post self mobilization 4: Access Code: [email or web address] URL: [email or web address] Date: 12/30/2024 Prepared by: Seth Ellison Program Notes Soft Tissue Mobilization- Soft tissue (also known as connective tissue) includes tissues that connect, surround, or support structures in the body (not including bone)- Some of these tissues include: tendons, nerves, ligaments, and muscles- These tissues can become shortened and/or tight when the joints become unstable due to arthritis- The exercises below target the tight tissues that occur when the base of the thumb joint begins to get pulled into the palmGoal: to improve the flexibility and to decrease the tightness in the thumb web space Exercises - Robina naidu Stablization Adductor Release - 1 x daily - 7 x weekly - 2 sets - 10 reps - Thumb Stabilization Web Space Release: Using Another Object - 1 x daily - 7 x weekly - 2 sets - 10 reps - Thumb Stabilization Web Space Release: Using Other Hand - 1 x daily - 7 x weekly - 3 sets - 10 reps - Thumb Stabilization Web Space Release: Web Space to Web Space - 1 x daily - 7 x weekly - 3 sets - 10 reps - cc Self CMC Stretch - 1 x daily - 7 x weekly - 2 sets - 10 reps - cc Self CMC Stretch Behind Back - 1 x daily - 7 x weekly - 2 sets - 10 reps - Thumb Strengthening Stabilization CMC - 1 -2 x daily - 7 x weekly - 1 sets - 10 reps - 5-10 hold - Thumb Stabilization: "C" Position Isometric Around Ball - 1 -2 x daily - 7 x weekly - 1 sets - 10 reps - 5- 10 hold - Thumb Stabilization: Isometric Opposition With Bunny Ears - 1-2 x daily - 7 x weekly - 1 sets - 10 reps - 5- 10 hold - Seated Thumb CMC Isometric Radial Abduction - 1-2 x daily - 7 x weekly - 1 sets - 10 reps - 5 hold - Thumb Strengthening Stabilization CMC First Dorsal Interossei - 1-2 x daily - 7 x weekly - 1 sets - 10 reps - 5 hold - First Dorsal Interosseous Isotonic Strengthening With Rubber Band Resistance - 1-2 x daily - 7 x weekly - 1 sets - 10 reps - 5 hold Skilled Intervention: Patient was educated in proper exercise technique and purpose for exercises. Skilled judgment was used in selection of appropriate interventions. Provided written instruction for home exercise program to facilitate proper performance and compliance. Correct performance of therapeutic exercises was facilitated with verbal, visual, and tactile cuing. 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 2: Skilled instruction provided regarding use of modalities for symptom management. Discussed use of heat including moist heat pack, paraffin and ice and parameters for both. 3: Skilled instruction provided regarding CMC joint protection techniques and the importance of unloading thumbs. Introduced use of kineosiotape as an alternative to orthosis. Written instructions provided. Demonstrated to patient Skilled Intervention: Reviewed patient specific diagnosis in relation to activities of daily living/home management. Activity progression based on professional judgement. Billing Therapeutic Exercise Treatment Minutes: 30 Self-Care/Home Management Treatment Minutes: 25 Skilled Treatment Time Minutes (timed and untimed codes): 55 Total Session Time (minutes): 65 Session Start Time : 704 Session Stop Time : 809 PAYAL Michaels CHT documented in this encounterUniversity [facility] NoteHNO ID: [id number] Author: SETH ELLISON OTR/L Service: ? Author Type: Occupational Therapist Type: Progress Notes Filed: 12/31/2024 22:04 Note Text: Episode Visit Count: 2 Therapist That Will Accept/Oversee The Plan Of Care: PAYAL Khan CHT Start of Care Date: 10/21/24 Onset Date: 05/30/24 Plan of Care Certification Date: 10/21/24 Next Certification Due Date: 02/13/25 Patient Identified by Name and Date of : Yes REHABILITATION AND SPORTS THERAPY OCCUPATIONAL THERAPY PROGRESS REPORT PLAN OF CARE UPDATE: Assessment: Jyoti Choi demonstrates improvements in gripping. The patient has progressed toward goals. Patient continues to present with impairments in overall function, strength, and symptom management that interfere with lifting, physical activities, recreational activities . Current prognosis is Good due to: current objective clinical presentation, acuteness of condition . The patient will benefit from continued skilled therapy services to meet the updated goals for this plan of care as noted below. PLAN FOR NEXT VISIT: Progress CMC stabilization exercises as tolerated. Review use of kineosiotape to support CMC joint during activities. Goals for Episode of Care: established 10/21/24 (reviewed on 12/30/24) Patient reported outcome of pain Interference will decrease T -score by a minimum of 5 points. (PA, ongoing) Patient will report a good understanding of diagnosis and OT recommendations for progression of program.(PA, ongoing) Patient will demonstrate independence with ongoing home recommendations/exercise program throughout therapy plan of care.(PA, ongoing) Patient will improve function in Bilateral hand in order to be able to perform basic self-care tasks and prior functional tasks.(PA, ongoing) Patient will report a decrease in pain in Bilateral hand to 2/10 with basic self-care tasks and prior functional tasks.(PA, ongoing) Patient will independently demonstrate correct application of PREFABRICATED orthosis and verbalize understanding of proper wear/care. (A) Additional goal added 12/30/24 Patient will increase Bilateral consulting nurse strength by 5#, so that patient will be able to improve function for prior functional tasks. Goal Gonzalez A=achieved PA=partially achieved NA=not achieved NT=not tested Patient Goals: Increased functional hand use Time Frame for Goals and Treatment : 02/13/25 Patient Goals: avoid surgery. Planned Interventions, Frequency, and Duration: 1x every other week, 6 weeks Total Number of Visits Planned: 5 Planned Treatment Interventions: Custom orthosis fabrication, Therapeutic exercise (00183), Self-custodial management (77171), Orthotics management and training (20595,07277) PLAN FOR NEXT VISIT: Progress CMC stabilization exercises as tolerated. Review use of kineosiotape to support CMC joint during activities. SUBJECTIVE: "I don't want surgery. " Doesn't notice much pain most activities like typing. Pain starts in the evenings. Interested in knowing what exercises to do, and splints that he can wear at night. Tries to keep hands below the waist to help with pain, heard that this helps. Using metagrip braces at times. Warm water/ contrast baths with epsom salts Functional Limitations: lifting, physical activities, recreational activities Pain: Pain Pain Level: 5 Pain Location: Thumb - Left, Thumb - Right Description: Aching Frequency: (at night) Post Treatment Pain Post Treatment Pain Level: No Change Post Treatment Pain Location: Hand - Right, Hand - Left PROMIS Scales 12/30/2024 10/21/2024 05/30/2024 Higher is Better Phys Func - T Score 54 (within normal limits) 52 (within normal limits) Phys Func - Percentile 66 58 Self-Eff Symptom - T Score 38 (Low) Self-Eff Symptom - Percentile 12 Upper Extremity - T Score 51 (within normal limits) 42 (mild dysfunction) Upper Extremity - Percentile 54 21 2024 07/15/2023 02/11/2023 Lower is Better Pain Interference - T Score 47 (within normal limits) 51 (within normal limits) 52 (within normal limits) Pain Interference - Percentile 62 46 42 T-scores: mean of general population = 50. 5 points is clinically meaningfully difference Percentiles provide an indication of how the patient's score ranks in relation to the general population. Higher percentile rankings indicate better function/quality of life. 50th percentile is the average of the general population and indicates half of respondents had a worse score. OBJECTIVE MEASURES WITH LEVEL OF FUNCTION: Hand Wrist AROM: WFL Right Hand AROM: WFL Left Hand AROM: WFL Thumb AROM: WFL Strength: Shopper Marketing Manager Position 2 Sensation: Reports tingling or numbness Dexterity/Coordination: Observed to be functional Provocative Testing: (+ pain thumb adduction test bilaterally) Clinical Presentation: (+ tender bilateral webspace: No MP joint hyperextension observed at rest.) Hand Strength R (more content not included)...[facility]03-17-2025 Evaluation note* Diagnosis Onset Date Resolution Status Admit Date Abnormal findings on diagnos tic imaging of heart/coronary circulation acute October 31, 2024 7:27am Dyspnea on exertion acute October 31, 2024 7:27am Acute sinusitis acute October 9:00am Abnormal findings on diagnos tic imaging of heart/coronary circulation acute November 29, 2024 10:51am Hyperlipidemia acute November 10:51am Hypertension chronic November 29, 2024 10:51am [facility] Work Phone: [phone] Evaluation note* Diagnosis Onset Date Resolution Status Admit Date Abnormal findings on diagnos tic imaging of heart/coronary circulation acute October 31, 2024 7:27am Dyspnea on exertion acute October 31, 2024 7:27am Acute sinusitis acute October 9:00am Abnormal findings on diagnos tic imaging of heart/coronary circulation acute November 29, 2024 10:51am Hyperlipidemia acute November 10:51am Hypertension chronic November 29, 2024 10:51am Dysuria acute January 16, 2025 9:29am Enlarged prostate acute January 9:29am Prostate cancer acute January 16, 2025 9:29am CAD (coronary artery disease) acute February 28, 2025 7:58am Hyperlipidemia acute February 28, 2025 7:58am Hypertension chronic February 28, 7:58am [facility] Work Phone: 1(380) 487-825803-12-2025 Radiology Diagnostic study note [facility] Imaging Services [address] [place], [place] [id number] Chest PA and Lateral MR#: [id number] Acct: [id number] Name: JYOTI CHOI Rep #: [id number] : 1950 M 74 From: Joni Navarrete DO PCP: Dr. Omaira Weir MD Status: PRE [facility] Study:Chest PA and Lateral Date of Exam: 10/26/24 Exam# [id number] Ordering Dr: Tony Landis MD PROCEDURE: CHEST PA AND LATERAL REASON FOR EXAM: FOR CARDIAC CATHETERIZATION TECHNIQUE: Frontal and lateral views of the chest. COMPARISON: None. FINDINGS: Cardiomediastinal silhouette is within normal limits. Lungs are clear. No sizable pneumothorax. RAD/Chest PA and Lateral IMPRESSION: No acute airspace abnormality. Reading Location: [facility] CC: Dr. Omaira Weir MD; Dr. Felipe Landis MD ~ Chief Juvenile Probation Officer: Signed [facility]03-12-2025 History and physical note Author Yuki Vicente [facility] Note Date/Time October 26, 2024 12: 41pm [facility] Medical Records Department [address] [place] [address] History & Physical Exam 10/26/24 1236 MR#: [id number] Acct: [id number] Name: JYOTI CHOI Rep #:[id number] : 1950 74 From: Yuki ESPINAL PCP: Dr. Omaira Weir MD Status:PRE [facility] Location: [facility] History and Physical Date of Admission: 10/31/24 Patient is a very pleasant 74-year-old white male who works at [employer]. Patient comes in as a new patient referral for abnormal EKG and dyspnea on exertion. The patient reports that he has been doing fairly well in his home environment he walks routinely but when he walks fast he is noticed to be short of breath by his and other individuals. He does not personally feel like that he is short of breath. He denies any chest tightness or squeezing denies any claudication denies any PND orthopnea or any lower extremity edema. The patient's EKG in the office here showed a normal sinus rhythm and is within normal limits. He did have some old EKGs that were read as left atrial enlargement which is really borderline looking at the EKG and a possible old anterior septal infarct. The patient had a remote echocardiogram in 2018 that showed a normal EF of 55% mild TR and otherwise was unremarkable. He had negative carotids done June 2019. The patient had a coronary calcium scoring in 2022 that was about 100 this was repeated August 2023 and had increased to 214. It was still under the significant threshold of 400. The patient subsequent underwent a stress test where he only went a little over 3 minutes. He had some nonspecific ST changes and the Cardiolite nuclear scan showed no evidence of ischemia. His gated EF was estimated at 60%. Apparently the stresstest was stopped due to shortness of breath and attaining 85% of age-predicted heart rate at a low level of activity. The patient O2 saturation was 91% at rest in the office we had him walk up and down the halls and his heart rate went up to 115 but his O2 sat remained 91%. The patient does have a 60-[id number]-[id number] smoking history by his report. He stopped smoking in 2004. The patient does have a significant family history for coronary disease and he has significant hyperlipidemia LDL cholesterol was 184 in March 2024 he was either on no treatment or red yeast rice at the time. Pt underwent a PFT in 08/2024m this demonstrated Irreversible mild large airways obstructive ventilatory defect with preserved lung volumes and diffusing capacity. Echo in 2024 is essentially normal for his age. LVEF 55%, normal valves and allchambers are normal size. With his decrease in exercise tolerance, abnormal coronary calcium score and normal echocardiogram and pulmonary function test with his continued shortness of breath it was recommended that he undergo of right and left heart catheterization. [facility] Medical History Carpal tunnel syndrome, bilateral Dyspnea on exertion Poor historian History of stress test Wears glasses Alcohol use Back pain History of hiatal hernia Former smoker History of echocardiogram Hood syndrome prostate issues Osteopenia Arthritis Surgical History Hx of appendectomy History of scapula, ulna, humerous reconstruction History of endoscopy History of colonoscopy Family History Aunt Breast cancer Uncle Colon cancer Diabetes Heart disease Mother Cancer Diabetes Other Alcoholism Anxiety and depression Liver disease Melanoma Osteoporosis Social History Smoking Status: Former smoker alcohol intake: current substance use type: does not use caffeine: Yes ROS Const Const: Negative for fatigue or weakness ENT ENT: Negative for dizziness or balance problems Cardio Chest Pain: No Palpitations: No Edema: None Muscle aches with walking: None Resp Respiratory: Positive for SOB with activity (pt states "other people think I'm gasping for air"); Negative for SOB at rest or SOB orthopneaundefinedSOB lying down GI GI: Negative nausea, vomiting or heartburn Musc Musc: Negative for muscle weakness or balance problems Neuro Neuro: Negative for dizziness, lightheadedness, near syncope, syncope or weakness Endo Endo: Negative for fatigue Cardiology Exam Const Appearance: cooperative, comfortable, no acute distress and well developed Head Head: normal to inspection Eyes General: appearance normal, both eyes and all related structures Neck Neck: normal visual inspection and no JVD Carotids: Negative bruit Chest Chest inspection: normal inspection of the chest Auscultation: Bilateral: Clear to Auscultation Cardio Rate: regular rate Rhythm: regular rhythm Heart sounds: S1 normal and S2 normal; Negative rub, gallop or murmur GI GI: normal to inspection and soft Neuro General: patient alert and patient oriented x3 Skin Skin: no rashes or lesions noted Extremities Pulses: Normal: Right Posterior Tibial Pulse, Left Posterior Tibial Pulse, RightRadial Pulse and Left Radial Pulse Lower Extremity Edema: None: Bilateral Psych Psychological: normal affect Assessment & Plan Assessment/Plan (1) Abnormal findings on diagnostic imaging of heart/coronary circulation: (2) Dyspnea on exertion: PLAN: Plan Patient is scheduled to undergo a right and left heart catheterization. Follow- up will be based upon findings. 10/26/24 1241 <Electronically signed by Yuki ESPINAL> Cosigner Signature (if applicable): CC: Dr. Omaira Weir MD; KYLIE Fong~ Signed [facility] Work Phone: 1(225) 632-495903-12-2025 History and physical note [facility] Medical Records Department [address] [place] [address] History & Physical Exam 10/26/24 1236 MR#: [id number] Acct: [id number] Name: JYOTI CHOI Rep #:[id number] : 1950 74 From: Yuki ESPINAL PCP: Dr. Omaira Weir MD Status:PRE [facility] Location: [facility] History and Physical Date of Admission: 10/31/24 Patient is a very pleasant 74-year-old white male who works at [employer]. Patient comes in as a new patient referral for abnormal EKG and dyspnea on exertion. The patient reports that he has been doing fairly well in his home environment he walks routinely but when he walks fast he is noticed to be short of breath by his and other individuals. He does not personallyfeel like that he is short of breath. He denies any chest tightness or squeezing denies any claudication denies any PND orthopnea or any lower extremity edema. The patient's EKG in the office here showed a normal sinus rhythm and is within normal limits. He did have some old EKGs that were read as left atrial enlargement which is really borderline looking at the EKG and a possible old anterior septal infarct. The patient had a remote echocardiogram in 2018 that showed a normal EF of 55% mild TR and otherwise was unremarkable. He had negative carotids done June 2019. The patient had a coronary calcium scoring in 2022 that was about 100 this was repeated August 2023 and had increased to 214. It was still under the significant threshold of 400. The patient subsequent underwent a stress test where he only went a little over 3 minutes. He had some nonspecific ST changes and the Cardiolite nuclear scan showed no evidence of ischemia. His gated EFwas estimated at 60%. Apparently the stresstest was stopped due to shortness of breath and attaining 85% of age-predicted heart rate at a low level of activity. The patient O2 saturation was 91% at rest in the office we had him walk up and down the halls and his heart rate went up to 115 but his O2 sat remained 91%. The patient does have a [id number] smoking history by his report. He stopped smoking in 2004. Thepatient does have a significant family history for coronary disease and he has significant hyperlipidemia LDL cholesterol was 184 in March 2024 he was either on no treatment or red yeast rice at thetime. Pt underwent a PFT in 08/2024m this demonstrated Irreversible mild large airways obstructive ventilatory defect with preserved lung volumes and diffusing capacity. Echo in 2024 is essentially normal for his age. LVEF 55%, normal valves and allchambers are normal size. With his decrease in exercise tolerance, abnormal coronary calcium score and normal echocardiogram and pulmonary function test with his continued shortness of breath it was recommended that he undergo of right and left heart catheterization. [facility] Medical History Carpal tunnel syndrome, bilateral Dyspnea on exertion Poor historian History of stress test Wears glasses Alcohol use Back pain History of hiatal hernia Former smoker History of echocardiogram Hood syndrome prostate issues Osteopenia Arthritis Surgical History Hx of appendectomy History of scapula, ulna, humerous reconstruction History of endoscopy History of colonoscopy Family History Aunt Breast cancer Uncle Colon cancer Diabetes Heart disease Mother Cancer Diabetes Other Alcoholism Anxiety and depression Liver disease Melanoma Osteoporosis Social History Smoking Status: Former smoker alcohol intake: current substance use type: does not use caffeine: Yes ROS Const Const: Negative for fatigue or weakness ENT ENT: Negative for dizziness or balance problems Cardio Chest Pain: No Palpitations: No Edema: None Muscle aches with walking: None Resp Respiratory: Positive for SOB with activity (pt states "other people think I'm gasping for air"); Negative for SOB at rest or SOB orthopneaundefinedSOB lying down GI GI: Negative nausea, vomiting or heartburn Musc Musc: Negative for muscle weakness or balance problems Neuro Neuro: Negative for dizziness, lightheadedness, near syncope, syncope or weakness Endo Endo: Negative for fatigue Cardiology Exam Const Appearance: cooperative, comfortable, no acute distress and well developed Head Head: normal to inspection Eyes General: appearance normal, both eyes and all related structures Neck Neck: normal visual inspection and no JVD Carotids: Negative bruit Chest Chest inspection: normal inspection of the chest Auscultation: Bilateral: Clear to Auscultation Cardio Rate: regular rate Rhythm: regular rhythm Heart sounds: S1 normal and S2 normal; Negative rub, gallop or murmur GI GI: normal to inspection and soft Neuro General: patient alert and patient oriented x3 Skin Skin: no rashes or lesions noted Extremities Pulses: Normal: Right Posterior Tibial Pulse, Left Posterior Tibial Pulse, RightRadial Pulse and Left Radial Pulse Lower Extremity Edema: None: Bilateral Psych Psychological: normal affect Assessment & Plan Assessment/Plan (1) Abnormal findings on diagnostic imaging of heart/coronary circulation: (2) Dyspnea on exertion: PLAN: Plan Patient is scheduled to undergo a right and left heart catheterization. Follow- up will be based upon findings. 10/26/24 1241 Cosigner Signature (if applicable): CC: Dr. Omaira Weir MD; KYLIE Fong~ Signed [facility]03-12-2025 [facility] Medical Records Department [address] [place] [address] History Physical Exam 10/26/24 1236 MR#: [id number] Acct: [id number] Name: JYOTI CHOI Rep #: [id number] : 1950 74 From: Yuki ESPINAL PCP: Dr. Omaira Weir MD Status:PRE [facility] Location: [facility] History and Physical Date of Admission: 03/17/25 Patient is a very pleasant 74-year-old white male who works at [employer]. Patient comes in as a new patient referral for abnormal EKG and dyspnea on exertion. The patient reports that he has been doing fairly well in his home environment he walks routinely but when he walks fast he is noticed to be short of breath by his and other individuals. He does not personally feel like that he is short of breath. He denies any chest tightness or squeezing denies any claudication denies any PND orthopnea or any lower extremity edema. The patient's EKG in the office here showed a normal sinus rhythm and is within normal limits. He did have some old EKGs that were read as left atrial enlargement which is really borderline looking at the EKG and a possible old anterior septal infarct. The patient had a remote echocardiogram in 2018 that showed a normal EF of 55% mild TR and otherwise was unremarkable. He had negative carotids done June 2019. The patient had a coronary calcium scoring in 2022 that was about 100 this was repeated August 2023 and had increased to 214. It was still under the significant threshold of 400. The patient subsequent underwent a stress test where he only went a little over 3 minutes. He had some nonspecific ST changes and the Cardiolite nuclear scan showed no evidence of ischemia. His gated EF was estimated at 60%. Apparently the stress test was stopped due to shortness of breath and attaining 85% of age-predicted heart rate at a low level of activity. The patient O2 saturation was 91% at rest in the office we had him walk up and down the halls and his heart rate went up to 115 but his O2 sat remained 91%. The patient does have a [id number] smoking history by his report. He stopped smoking in 2004. The patient does have a significant family history for coronary disease and he has significant hyperlipidemia LDL cholesterol was 184 in March 2024 he was either on no treatment or red yeast rice at the time. Pt underwent a PFT in 08/2024m this demonstrated Irreversible mild large airways obstructive ventilatory defect with preserved lung volumes and diffusing capacity. Echo in 2024 is essentially normal for his age. LVEF 55%, normal valves and all chambers are normal size. With his decrease in exercise tolerance, abnormal coronary calcium score and normal echocardiogram and pulmonary function test with his continued shortness of breath it was recommended that he undergo of right and left heart catheterization. [facility] Medical History Carpal tunnel syndrome, bilateral Dyspnea on exertion Poor historian History of stress test Wears glasses Alcohol use Back pain History of hiatal hernia Former smoker History of echocardiogram Hood syndrome prostate issues Osteopenia Arthritis Surgical History Hx of appendectomy History of scapula, ulna, humerous reconstruction History of endoscopy History of colonoscopy Family History Aunt Breast cancer Uncle Colon cancer Diabetes Heart disease Mother Cancer Diabetes Other Alcoholism Anxiety and depression Liver disease Melanoma Osteoporosis Social History Smoking Status: Former smoker alcohol intake: current substance use type: does not use caffeine: Yes ROS Const Const: Negative for fatigue or weakness ENT ENT: Negative for dizziness or balance problems Cardio Chest Pain: No Palpitations: No Edema: None Muscle aches with walking: None Resp Respiratory: Positive for SOB with activity (pt states "other people think I'm gasping for air"); Negative for SOB at rest or SOB orthopnea SOB lying down GI GI: Negative nausea, vomiting or heartburn Musc Musc: Negative for muscle weakness or balance problems Neuro Neuro: Negative for dizziness, lightheadedness, near syncope, syncope or weakness Endo Endo: Negative for fatigue Cardiology Exam Const Appearance: cooperative, comfortable, no acute distress and well developed Head Head: normal to inspection Eyes General: appearance normal, both eyes and all related structures Neck Neck: normal visual inspection and no JVD Carotids: Negative bruit Chest Chest inspection: normal inspection of the chest Auscultation: Bilateral: Clear to Auscultation Cardio (more content not included)...[facility]03-07-2025 NoteHNO ID: [id number] Author: EZEQUIEL PATEL OT/L Service: ? Author Type: Occupational Therapist Type: Progress Notes Filed: 10/21/2024 13:25 Note Text: Episode Visit Count: 1 Therapist That Will Accept/Oversee The Plan Of Care: MILA Khan/Blossom, [facility] Start of Care Date: 10/21/24 Onset Date: 05/30/24 Plan of Care Certification Date: 10/21/24 Next Certification Due Date: 12/20/24 Patient Identified by Name and Date of : Yes [facility] OCCUPATIONAL THERAPY EVALUATION PLAN OF CARE: Assessment: Jyoti Choi presents with chief complaint of BUE hand pain that interferes with lifting, physical activities, recreational activities . The patient presents with impairments in ADL's, overall function, and strength. PROMIS? (Patient-Reported Outcomes Measurement Information System) scores were reviewed and identified as a rehabilitation concern. Prognosis for therapy is Good due to: current objective clinical presentation, acuteness of condition . The patient will benefit from skilled therapy services to meet the goals established for this plan of care as noted below. Goals for Episode of Care: established 10/21/24 Patient reported outcome of pain Interference will decrease T -score by a minimum of 5 points. Patient will report a good understanding of diagnosis and OT recommendations for progression of program. Patient will demonstrate independence with ongoing home recommendations/exercise program throughout therapy plan of care. Patient will improve function in Bilateral hand in order to be able to perform basic self-care tasks and prior functional tasks. Patient will report a decrease in pain in Bilateral hand to 2/10 with basic self-care tasks and prior functional tasks. Patient will independently demonstrate correct application of PREFABRICATED orthosis and verbalize understanding of proper wear/care. Patient Goals: Increased functional hand use Time Frame for Goals and Treatment : 12/20/24 Planned Interventions, Frequency, and Duration: Current Frequency: 1x/month Duration: 8 weeks Total Number of Visits Planned: 2 Planned Treatment Interventions: Custom orthosis fabrication, Therapeutic exercise (14478), Self-custodial management (62002), Orthotics management and training (40267,73329) PLAN FOR NEXT VISIT:Progress dynamic program to resistance as tolerated Patient demonstrates good understanding of plan of care and treatment. The above goals and plan of care were discussed and agreed upon by patient/family. SUBJECTIVE: Patient seen by MD today, diagnosed with BUE CMC, BUE CTS, RUE LF and SF trigger, and LUE SF trigger - recieved injections for BUE CTS in May of 2024 with relief, today recieved RUE LF and SF and LUE LF trigger injections. Patient fit with BUE Push MetaGrip CMC orthtoics and taught HEP for dynamic stabilization. 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 Recreation / Current Exercise: Walking, bike Hobbies / Interests: [employer] Home Environment Patient Lives With: Family Pain: Pain Pain Level: 5 Pain Location: Hand - Right, Hand - Left Description: Aching, Sore Post Treatment Pain Post Treatment Pain Level: No Change Post Treatment Pain Location: Hand - Right, Hand - Left PROMIS Scales 10/21/2024 05/30/2024 Higher is Better Phys Func - T Score 54 (within normal limits) 52 (within normal limits) Phys Func - Percentile 66 58 Self-Eff Symptom - T Score 38 (Low) Self-Eff Symptom - Percentile 12 Upper Extremity - T Score 42 (mild dysfunction) Upper Extremity - Percentile 21 2024 07/15/2023 02/11/2023 Lower is Better Pain Interference - T Score 47 (within normal limits) 51 (within normal limits) 52 (within normal limits) Pain Interference - Percentile 62 46 42 T-scores: mean of general population = 50. 5 points is clinically meaningfully difference Percentiles provide an indication of how the patient's score ranks in relation to the general population. Higher percentile rankings indicate better function/quality of life. 50th percentile is the average of the general population and indicates half of respondents had a worse score. OBJECTIVE MEASURES WITH LEVEL OF FUNCTION: Hand Wrist AROM: WFL Right Hand AROM: WFL Left Hand AROM: WFL Thumb AROM: WFL Strength: Shopper Marketing Manager Position 2, Pinch Meter Sensation: Reports tingling or numbness Dexterity/Coordination: Observed to be functional UE AROM Right Hand AROM: WFL Left Hand AROM: WFL Thumb AROM: WFL Education: Education Learning Prefer (more content not included)...[facility] 10-21-2024 History of Present illness Narrative* Ezequiel Patel OT/L - 10/21/2024 1:23 PM EST Episode Visit Count: 1 Therapist That Will Accept/Oversee The Plan Of Care: MILA Khan/Blossom, [facility] Start of Care Date: 10/21/24 Onset Date: 05/30/24 Plan of Care Certification Date: 10/21/24 Next Certification Due Date: 12/20/24 Patient Identified by Name and Date of : Yes [facility] OCCUPATIONAL THERAPY EVALUATION PLAN OF CARE: Assessment: Jyoti Choi presents with chief complaint of BUE hand pain that interferes with lifting, physical activities, recreational activities . The patient presents with impairments in ADL's,overall function, and strength. PROMIS (Patient-Reported Outcomes Measurement Information System) scores were reviewed and identified as a rehabilitation concern. Prognosis for therapy is Good due to: current objective clinical presentation, acuteness of condition . The patient will benefit from skilled therapy services to meet the goals established for this plan of care as noted below. Goals for Episode of Care: established 10/21/24 Patient reported outcome of pain Interference will decrease T -score by a minimum of 5 points. Patient will report a good understanding of diagnosis and OT recommendations for progression of program. Patient will demonstrate independence with ongoing home recommendations/exercise program throughouttherapy plan of care. Patient will improve function in Bilateral hand in order to be able to perform basic self-care tasks and prior functional tasks. Patient will report a decrease in pain in Bilateral hand to 2/10 with basic self-care tasks and prior functional tasks. Patient will independently demonstrate correct application of PREFABRICATED orthosis and verbalize understanding of proper wear/care. Patient Goals: Increased functional hand use Time Frame for Goals and Treatment : 12/20/24 Planned Interventions, Frequency, and Duration: Current Frequency: 1x/month Duration: 8 weeks Total Number of Visits Planned: 2 Planned Treatment Interventions: Custom orthosis fabrication, Therapeutic exercise (36075), Self-custodial management (36812), Orthotics management and training (73501,[id number]) PLAN FOR NEXT VISIT:Progress dynamic program to resistance as tolerated Patient demonstrates good understanding of plan of care and treatment. The above goals and plan of care were discussed and agreed upon by patient/family. SUBJECTIVE: Patient seen by MD today, diagnosed with BUE CMC, BUE CTS, RUE LF and SF trigger, and LUE SF trigger - recieved injections for BUE CTS in May of 2024 with relief, today recieved RUE LF and SF andLUE LF trigger injections. Patient fit with BUE Push MetaGrip CMC orthtoics and taught HEP for dynamic stabilization. 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: [employer] Recreation / Current Exercise: Walking, bike Hobbies / Interests: [employer] Home Environment Patient Lives With: Family Pain: Pain Pain Level: 5 Pain Location: Hand - Right, Hand - Left Description: Aching, Sore Post Treatment Pain Post Treatment Pain Level: No Change Post Treatment Pain Location: Hand - Right, Hand - Left PROMIS Scales 10/21/2024 05/30/2024 Higher is Better Phys Func - T Score 54 (within normal limits) 52 (within normal limits) Phys Func - Percentile 66 58 Self-Eff Symptom - T Score 38 (Low) Self-Eff Symptom - Percentile 12 Upper Extremity - T Score 42 (mild dysfunction) Upper Extremity - Percentile 21 2024 07/15/2023 02/11/2023 Lower is Better Pain Interference - T Score 47 (within normal limits) 51 (within normal limits) 52 (within normal limits) Pain Interference - Percentile 62 46 42 T-scores: mean of general population = 50. 5 points is clinically meaningfully difference Percentiles provide an indication of how the patient's score ranks in relation to the general population. Higher percentile rankings indicate better function/quality of life. 50th percentile is the average of the general population and indicates half of respondents had a worse score. OBJECTIVE MEASURES WITH LEVEL OF FUNCTION: Hand Wrist AROM: WFL Right Hand AROM: WFL Left Hand AROM: WFL Thumb AROM: WFL Strength: Shopper Marketing Manager Position 2, Pinch Meter Sensation: Reports tingling or numbness Dexterity/Coordination: Observed to be functional UE AROM Right Hand AROM: WFL Left Hand AROM: WFL Thumb AROM: WFL Education: Education Learning Preferences: Demonstration, Explanation, Performance, Printed Materials Barriers: None Learning/educational needs: Safety, Home exercise program, Plan of Care, Brace Fit Education Provided: Yes, see treatment interventions for education provided Education Provided To: Patient Education Mode/Type: Demonstration, Explanation/Discussion, Literature/Printed Materials, Performance Response to Education/Teach Back: States/Identifies, Return Demonstration TREATMENT: OT Treatment Interventions : Therapeutic Exercise, Self-Group Home Management, Custom Orthosis/Splint Fabrication, Orthotic/Prosthetic Adjust/Train (Subsequent), Prefabricated Orthosis Fitting, Orthotic Mgmt/Train (Initial) Evaluation Therapeutic Exercise: 1: Patietn taught dynamic stability program - required Moderate cues for proper technique Skilled Intervention: Patient was educated in proper exercise technique and purpose for exercises. Skilled judgment was used in selection of appropriate interventions. Provided written instruction for home exercise program to facilitate proper performance and compliance. Patient education as noted. Self-Group Home Management: 3: Discussed ADL/IADL task modifications as to comply with MD precautions Skilled Intervention: Skilled judgment in the selection of proper modification for activity of daily living/home management based on clinical presentation, deficits, and needs. Reviewed patient specific diagnosis in relation to activities of daily living/home management. Activity progression based on professional judgement. Prefabricated orthosis: L 3923 (a) HFO w/out joints (PUSH Metagrip, Actimove) Prefabricated orthosis to provide support of BUE thumbs to allow symptom relief.. Patient was instructed in wear and care. Instructed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 visit: I recommend the supplements from the [facility] Integrated Pathology at [email or web address].[email or web address]/ as we have thoroughly evaluated the research and use only highest quality supplements. Next available appointment During the next 6-8 weeks you'll be working on your diet plan discussed with our nuclear powerplant mechanic helper, allowing for gentle detoxification and decreasing inflammation - while we are gathering your lab resultsand combining those with your complete history to [...] Also make sure to schedule with the nuclear powerplant mechanic helper (this will not happen) Time spend with patient: 30 minutes and more than 50% of the time spent counseling, as regards above Kerry Strong DO documented in this encounterUniversity Hospitals [facility]aut [facility] Center11-17-2023 Miscellaneous Notes* Telephone Encounter - Jessica Borrero LPN - 07/03/2023 9:02 AM EST how long i need to ta ke the bcp 157? documented in this encounterUniversity Hospitals Conneaut [facility] Center06-29-2023 Instructions* Patient Instructions* Kerry Strong DO - 02/12/2023 2:16 PM EDT Plan: Trial of BPC-157 PURE Peptide caps one daily on for 5 days off for 2. Stay on this until your next EGD [email or web address]://integrativepeptides.[email or web address] 2. D3 4000 international unit(s) per day with 45-50 mcg of K2 per day (recommend K force or similarbrand) 3. Foods to avoid with Hood's: -table [...] dark room. No buzzing or binging objects inyour bedroom except alarm clock. Try to get [...] one of the Heart Math booklets off Aframe that fits your 'go to' emotion - Transforming Anger, Anxiety, Stress, Depression, or PTSD. Five minutes 3X a day is more effective than 15 minutes in one sitting. 2) A regular, daily meditation practice of at least 15-20 minutes will change your brain--as well as your genes! Preliminary studies demonstrate gene expression is modified in those who meditate regularly leading to down- regulation of pro-inflammatory genes. This results in reduced inflammation, as well as improvements in the body's response to stress via the hormone cortisol, in the interventiongroups vs. the controls. Although more research is [...] and track your meditation practice. This is myabsolute favorite! Calm- (Free) Walking Meditations-($1.99)- Get your walk AND meditation done together. A good way to start out for individuals who feel they "just can't sit still" to begin a meditative practice. Medications/Supplements Recommended: No orders of the defined types were placed in this encounter. Follow up visit: I recommend the supplements from the [facility] Healthy Living Store at [email or web address] as we have thoroughly evaluated the research and use only highest quality supplements. Next available appointment 6 mos During the next 6-8 weeks you'll be working on your diet plan discussed with our nuclear powerplant mechanic helper, allowing for gentle detoxification and decreasing inflammation - while we are gathering your lab resultsand combining those with your complete history to formulate a very personalized treatment plan. LAB results: Due to the complexity of the testing performed, we are not able to review labs via DealerTrackhart or over the phone, but please know, [...] Also make sure to schedule with the nuclear powerplant mechanic helper (this will not happen) Kerry Strong DO documented in this encounterUniversity Hospitals [facility]aut [facility] Center06-29-2023 History of Present illness Narrative* Kerry Strong DO - 02/12/2023 1:45 PM EDT Follow-up Visit Virtual visit I have communicated my name and active licensure. The patient's identity and physical location wereverified at the time of this visit. Either the patient or their legal canvas products sales representative has been informed of the risks and benefits of -- and alternatives to -- treatment through a remote evaluation andconsents to proceed with the evaluation remotely. Patient was identified by name and birthdate. Patient provided consent for virtual encounter. This Team Access Model visit is a virtual encounter. It required patient- provider interaction for the medical decision making as documented below. Patient: Jyoti Choi ALLERGIES Allergen Reactions Lamisil [Terbinafin* Intolerance heart palp. Milk Other: See Comments phlegm, avoids daily Current Outpatient Medications Medication Sig Dispense Refill Homocysteine Mountainaire (Newshubby) Take 2 capsules by mouth daily with [...] menthol 4% - Rosa's Web Hemp Extract [place] 450 mg No current facility-administered medications for [...] Zinc, Homocysteine supreme, CBD, GoodPatch, Hemp extract, PepsinHCL Subjective: 08/28/22 Dr. Kerry Strong, DO Followup Eating a very well balanced diet with nuts, seeds, spinach, saurkraut, fruits/veg Normal bowels Current supplements- Mg glycinate, Zinc, K Force, One a Day, CBD, GoodPatch, Hemp extract, Pepsin HCL Pertinent lab results: D 31.6- taking K FORCE Zinc 62 - taking Zinc now Abnormally high cholesterol with a high number of small particles. Consider taking Toxey-Sitosterol 2.0 by SmartCare system, one tablet three times daily with meals. Had a normal calcium score test many years ago at [facility] 07/11 High need for Mg and B12 [...] GI Revive. Using betaine HCL 2-3 per daywith meals and this helps. Also taking New Chapter multivitamin, Now brand omega 3-6-9, probiotics.Incorporates fermented food. Bowels are good. Denies stomach [...] 730 am 1.multi pure encapsulation o.n.e. multi https://protectClandestine Development/s/32KMW8bfWsZKsZ24qoJTCS-?domain=2.omega 3 950 mg 3 times a day 3.tart wu 1200mg 4.zinc 50mg 1 a day https://Great Lakes Graphite/s/UQakN6bnIdytdI51raBxdwk?domain=5.red yeast rice 2-each day 6.vitamin k vegan [...] still hard; if he uses chamomile, cortisol territory account manager,red glasses, epsom salt bath for pain all [...] and shoulders. Pain can vary from 4-6-8/10 butas he moves it gets better. 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 His wants him to retire. He tries to go to bed but usually makes it in around 11:30-12 and up at 5am. 09/01/17 With 67 yo m for follow up, hood's esophagus.. He has been trying to exercise but its cold.He has a fitbit and gets about 8-10k steps. Used FDM and he was in pain for a few weeks. Sleep is off unless he follows a certain regimen. His pain is mostly in shoulders which help with epsom baths,hot pads. Still waking up at 3-4 am. Sleeps better on weekends. 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 He will be exercising more. He is looking forward to that Primary Concern: Transfer from [facility] 04/21/17 Ongoing Health Concerns : 1 - [...] not sleeping well: so is using avocado, walnut,chamomile tea helps him a lot. He added smoothies (with kale, fruit, almond milk), he is eating more fermented foods. He did get flu shot and got sick. tx cardiometabolic diet, kwaku for cholesterol 07/03/16 66 yo m with [...] normal life. Sleep has never been good butlast few years its been worse. He was just diagnosed with Hood's disease. He had too much acid built up over time he developed bleeding rectally. He was scoped top and bottom to find esophageal ulcer Review of Systems: See Living Matrix Objective: Exam not performed PREVIOUS Functional Medicine Assessment/Plan Recommendations: -Continue current diet plan -see Dr. Taina Watt, GI at [facility] main to follow up on Hood's -Continue Mg glycinate, Zinc, K Force, CBD, GoodPatch, Hemp extract, Pepsin HCL -Add Homocysteine supreme by GCW for health 2 capsules per day for arterial health and to boostlevels of B12. Hold multivitamin while on this. [...] Stay on this until your next EGD [email or web address].com/ 2. D3 4000 international unit(s) per day with 45-50 mcg of K2 per day (recommend K force or similarbrand) 3. Foods to avoid with Hood's: -table [...] dark room. No buzzing or binging objects inyour bedroom except alarm clock. Try to get [...] one of the Heart Math booklets off Aframe that fits your 'go to' emotion - Transforming Anger, Anxiety, Stress, Depression, or PTSD. Five minutes 3X a day is more effective than 15 minutes in one sitting. 2) A regular, daily meditation practice of at least 15-20 minutes will change your brain--as well as your genes! Preliminary studies demonstrate gene expression is modified in those who meditate regularly leading to down- regulation of pro-inflammatory genes. This results in reduced inflammation, as well as improvements in the body's response to stress via the hormone cortisol, in the interventiongroups vs. the controls. Although more research is [...] and track your meditation practice. This is myabsolute favorite! Calm- (Free) Walking Meditations-($1.99)- Get your walk AND meditation done together. A good way to start out for individuals who feel they "just can't sit still" to begin a meditative practice. Medications/Supplements Recommended: No orders of the defined types were placed in this encounter. Follow up visit: I recommend the supplements from the [facility] Integrated Pathology at [email or web address].Epy.[email or web address]/ as we have thoroughly evaluated the research and use only highest quality supplements. Next available appointment 6 mos During the next 6-8 weeks you'll be working on your diet plan discussed with our nuclear powerplant mechanic helper, allowing for gentle detoxification and decreasing inflammation - while we are gathering your lab resultsand combining those with your complete history to formulate a very personalized treatment plan. LAB results: Due to the complexity of the testing performed, we are not able to review labs via DealerTrackhart or over the phone, but please know, [...] Also make sure to schedule with the nuclear powerplant mechanic helper (this will not happen) Time spend with patient: 30 minutes and more than 50% of the time spent counseling, as regards above Kerry Strong DO documented in this encounterUniversity Hospitals [facility]06-[facility]2023 History and physical note Author Dr. Dockery [facility] February 05, 2023 9:21am Note Date/Time February 05, 2023 9:21 am [facility] Medical Records Department [address] [place] [address] History & Physical Exam 02/05/23920 MR#: [id number] Acct: [id number] Name: JYOTI CHOI Rep #:[id number] : 1950 72 From: Rios Dockery MD PCP: Dr. Omaira Weir MD Status:[facility] Location: [place] [address] History and Physical Date of Admission: 02/05/23 Visit Reasons:?UPPER AND LOWER SCOPE Chief Complaint: c-scope/EGD Air Sampler Required: No Is patient in pain?: No Allergies terbinafine [From Lamisil] Allergy (Verified 12/19/22 07:45) Shortness of breathciprofloxacin [From Cipro] Adverse Reaction (Verified 12/19/22 07:45) PALPITATIONS Medications vitamin K2 40 mcg tablet 40 mcg PO DAILY 05/24/20 [History Confirmed 12/19/22] zinc gluconate-zinc picolinate 30 mg capsule mg PO 08/01/20 [History Confirmed 12/19/22] betainine hcl with pepsin PO 10/15/22 [History Confirmed 12/19/22] cbd oil PO 10/15/22 [History Confirmed 12/19/22] gummies for sleep PO 10/15/22 [History Confirmed 12/19/22] homestine PO 10/15/22 [History Confirmed 12/19/22] magnesium PO 10/15/22 [History Confirmed 12/19/22] magnesium PO 10/15/22 [History Confirmed 12/19/22] triamcinolone acetonide 0.1 % topical cream 1 applic topical BID 14 days #30 grams 10/15/22 [Rx Confirmed 12/19/22] PFSH Medical History? Arthritis Hood syndrome Osteopenia prostate issues Vision problem Surgical History? History of colonoscopy History of endoscopy History of scapula, ulna, humerous reconstruction Family History? Aunt Breast cancerUncle Colon cancer Diabetes Heart diseaseMother Cancer DiabetesOther Alcoholism Anxiety and depression Liver disease Melanoma Osteoporosis Social History? Smoking Status:? Former smoker alcohol intake:? current HPI HPI HPI: 72-year-old gentleman who is referred by Dr. Omaira Weir for surgical consultation regarding Hood's esophagus and need for screening colonoscopy.? A written copy of my surgical consult recommendations will return to him.? The patient is here to discuss his biopsy-proven history of Hood's esophagus and the need for screening colonoscopy.? He states that he takes Pepcid AC 2 tabletseither twice or 3 times daily.? His reflux symptoms he says are controlled with that.? He was a 86-quow-vdlk history of smoking but he quit.? He now embraces a more healthy lifestyle including a healthy diet.? Previous screening colonoscopyapproximately 2016.? The patient does recall that in the past he has had colon polyps.? No definitive of direct family member with colon cancer. ROS General General: No weight change, appetite, fatigue, colon cancer, breast cancer or weakness HEENT HEENT: No difficulty swallowing, eye injury, eye surgery, swollen glands or hoarseness Endo Endocrine: No thyroid disease, diabetes mellitus, thyroid cancer, Hair loss, heat intolerance or cold intolerance Skin Skin: No rash or changing moles Breast Breast: No left breast lump, right breast lump, nipple discharge, breast pain, abnormal mammogram, abnormal US or breast enlargement Musc Musculoskeletal: Yes arthritis; No back problems, rheumatoid arthritis, gout or joint pain Cardio Cardiovascular: No murmur, pacemaker, heart disease, atrial fibrillation, high blood pressure, heart attack, heart stent, palpitations, shortness of breat withexertion or chest pain Psych Psychiatric: No depression, anxiety or hearing voices Resp Respiratory: No shortness of breath, No sleep apnea, No cough, No COPD, No asthma, No emphysema and No wheezing Gastro Gastrointestinal: No abdominal pain, No nausea or vomiting, No diarrhea, No constipation, No blood in stool, No acid reflux, No hemorrhoids, No ulcers, No gallbladder problem and No black,tarry stools Edward Hematologic: No blood thinners, No blood disorders, No bleeding, No anemia and No blood clots Neuro Neurologic: No system reviewed and no additional complaints, except as documented, No as per HPI, No abnormal gait, No abnormal hearing, No abnormal movements, No abnormal speech, No behavioral changes, No burning sensations, No confusion, No convulsions, No disequilibrium, No dizziness, No localized weakness, No frequent falls, No headache(s), No lack of coordination, No loss ofvision, No memory loss, Yes numbness, No other visual disturbances, No radicularpain, No restless legs, No sensory deficit, No syncope, Yes tingling, No tremor(s), No weakness and No other Exam Const General: cooperative, comfortable and no acute distress Nutritional Appearance: average body habitus [facility] Head: normal to inspection Eyes General: appearance normal, both eyes and all related structures Neck Neck: normal visual inspection Chest Chest palpation & inspection: normal inspection of the chest Resp Effort & Inspection: normal respiratory effort Auscultation: clear to auscultation bilaterally Cardio Rate: regular rate Rhythm: regular rhythm GI Inspection: normal to inspection Palpation: soft and no hepatosplenomegaly Musc Other: Mild kyphosis Skin General: no rashes or lesions noted Neuro General: patient alert, patient awake and patient oriented x3 Extrem General: no calf tenderness Psych Appearance: grossly normal Assessment and Plan Assessment and Plan (1) Hood syndrome: ?Status:?Acute ?Plan: I recommended the patient esophagogastroduodenoscopy with anticipated Hood's biopsies.? I have also recommended the patient a screening colonoscopy with possible biopsy or polypectomy.? Previous colonoscopy 2016.? By patient report personal history of colon polyps.? He is aware of the technique, benefit, risk, alternatives.? I appreciate the opportunity of assisting with the surgical care.? We will schedule and proceed at his discretion. Copy: Dr. Omaira Dockery M.D., F.A.C.S. I have examined the patient the following changes are noted: Rios Dockery M.D., F.A.C.S. 02/05/23 0921 <Electronically signed by Rios Dockery MD> Cosigner Signature (if applicable): CC: Dr. Omaira Weir MD; Dr. Rios Dockery MD~ Signed [facility] Work Phone: [phone]) 793-728601-12-2023 Instructions* Patient Instructions* Kerry Strong DO - 08/28/2022 3:47 PM EST Plan/Instructions/Resources: Recommendations: -Continue current diet plan -see Dr. Taina Watt, GI at [facility] main to follow up on Hood's -Continue Mg glycinate, Zinc, K Force, CBD, GoodPatch, Hemp extract, Pepsin HCL -Add Homocysteine supreme bu Designs for health 2 capsules per day for arterial health and to boostlevels of B12. Hold multivitamin while on this. [...] dark room. No buzzing or binging objects inyour bedroom except alarm clock. Try to get [...] one of the Heart Math booklets off Aframe that fits your 'go to' emotion - Transforming Anger, Anxiety, Stress, Depression, or PTSD. Five minutes 3X a day is more effective than 15 minutes in one sitting. 2) A regular, daily meditation practice of at least 15-20 minutes will change your brain--as well as your genes! Preliminary studies demonstrate gene expression is modified in those who meditate regularly leading to down- regulation of pro-inflammatory genes. This results in reduced inflammation, as well as improvements in the body's response to stress via the hormone cortisol, in the interventiongroups vs. the controls. Although more research is [...] and track your meditation practice. This is myabsolute favorite! Calm- (Free) Walking Meditations-($1.99)- Get your walk AND meditation done together. A good way to start out for individuals who feel they "just can't sit still" to begin a meditative practice. Please consider seeing Xuan MUNROE at least once. Medications/Supplements Recommended: Orders Placed This Encounter Homocysteine Mountainaire (Newshubby) Sig: Take 2 capsules by mouth daily with food. Follow up visit: I recommend the supplements from the [facility] Lumus Store at https://store.Epy.io/ as we have thoroughly evaluated the research and use only highest quality supplements. Follow up 6 months During the next 6-8 weeks you'll be working on your diet plan discussed with our nuclear powerplant mechanic helper, allowing for gentle detoxification and decreasing inflammation - while we are gathering your lab resultsand combining those with your complete history to formulate a very personalized treatment plan. LAB results: Due to the complexity of the testing performed, we are not able to review labs via LightArrowt or over the phone, but please know, [...] Also make sure to schedule with the nuclear powerplant mechanic helper (this will not happen) Kerry Strong DO documented in this encounterUniversity Hospitals Conneaut [facility] Center01-12-2023 History of Present illness Narrative* Kerry Strong DO - 08/28/2022 2:45 PM EST Follow-up Visit Patient: Jyoti Choi ALLERGIES Allergen Reactions Lamisil [Terbinafin* Intolerance heart palp. Milk Other: See Comments phlegm, avoids daily Current Outpatient Medications Medication Sig Dispense Refill Homocysteine Mountainaire (Newshubby) Take 2 capsules by mouth daily with [...] menthol 4% - Rosa's Web Hemp Extract [place] 450 mg No current facility-administered medications for [...] high number of small particles. Consider taking Toxey-Sitosterol 2.0 by SmartCare system, one tablet three times daily with meals. Had a normal calcium score test many years ago at [facility] 07/11 High need for Mg and B12 [...] GI Revive. Using betaine HCL 2-3 per daywith meals and this helps. Also taking New Chapter multivitamin, Now brand omega 3-6-9, probiotics.Incorporates fermented food. Bowels are good. Denies stomach [...] cbd liquid at night, Pain still varies 4-6/10,from but his sleep is better and sleeping until 6am (after years of getting up at 3am). Notices pain that comes and goes in hand. Abd pain is gone unless he cheats. He was using betaine for hood's(which has been stable) ; ohod's is stable but not changed. He is [...] 730 am 1.multi pure encapsulation o.n.e. multi https://protect-MatchMine.NICO/s/83MUE5geEdJIiA40agZZSA-?domain=2.omega 3 950 mg 3 times a day 3.tart wu 1200mg 4.zinc 50mg 1 a day https://protect-MatchMine.NICO/s/FRrtP8twWmyqmK96rlDkqel?domain=5.red yeast rice 2-each day 6.vitamin k vegan [...] still hard; if he uses chamomile, cortisol territory account manager,red glasses, epsom salt bath for pain all [...] and shoulders. Pain can vary from 4-6-8/10 butas he moves it gets better. 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 His wants him to retire. He tries to go to bed but usually makes it in around 11:30-12 and up at 5am. 09/01/17 With 67 yo m for follow up, hood's esophagus.. He has been trying to exercise but its cold.He has a fitbit and gets about 8-10k steps. Used FDM and he was in pain for a few weeks. Sleep is off unless he follows a certain regimen. His pain is mostly in shoulders which help with epsom baths,hot pads. Still waking up at 3-4 am. Sleeps better on weekends. 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 He will be exercising more. He is looking forward to that Primary Concern: Transfer from [facility] 04/21/17 Ongoing Health Concerns : 1 - [...] not sleeping well: so is using avocado, walnut,chamomile tea helps him a lot. He added smoothies (with kale, fruit, almond milk), he is eating more fermented foods. He did get flu shot and got sick. tx cardiometabolic diet, kwaku for cholesterol 07/03/16 66 yo m with [...] normal life. Sleep has never been good butlast few years its been worse. He was just diagnosed with Hood's disease. He had too much acid built up over time he developed bleeding rectally. He was scoped top and bottom to find esophageal ulcer Review of Systems: See Living Matrix Objective: PREVIOUS Functional Medicine Assessment/Plan Plan/Instructions/Resources: When NoW 3-6-9 runs out, get The Art Commission Algae based omega-3 Assessment P ICD-10-CM PL 1. Compound heterozygous MTHFR mutation C677T/L5266O Z15.89 Change Dx 2. Deficiency of nutrient [...] plan -see Dr. Taina Watt, GI at [facility] main to follow up on Hood's -Continue Mg glycinate, Zinc, K Force, CBD, GoodPatch, Hemp extract, Pepsin HCL -Add Homocysteine supreme [employer]king[employer] Designs for health 2 capsules per day for arterial health and to boostlevels of B12. Hold multivitamin while on this. [...] dark room. No buzzing or binging objects inyour bedroom except alarm clock. Try to get [...] one of the Heart Math booklets off Aframe that fits your 'go to' emotion - Transforming Anger, Anxiety, Stress, Depression, or PTSD. Five minutes 3X a day is more effective than 15 minutes in one sitting. 2) A regular, daily meditation practice of at least 15-20 minutes will change your brain--as well as your genes! Preliminary studies demonstrate gene expression is modified in those who meditate regularly leading to down- regulation of pro-inflammatory genes. This results in reduced inflammation, as well as improvements in the body's response to stress via the hormone cortisol, in the interventiongroups vs. the controls. Although more research is [...] and track your meditation practice. This is myabsolute favorite! Calm- (Free) Walking Meditations-($1.99)- Get your walk AND meditation done together. A good way to start out for individuals who feel they "just can't sit still" to begin a meditative practice. Please consider seeing Xuan MUNROE at least once. Medications/Supplements Recommended: Orders Placed This Encounter Homocysteine Mountainaire ([facility]) Sig: Take 2 capsules by mouth daily with food. Follow up visit: I recommend the supplements from the [facility] Healthy Living Store at https://store.Optoro.brettapproved/ as we have thoroughly evaluated the research and use only highest quality supplements. Follow up 6 months During the next 6-8 weeks you'll be working on your diet plan discussed with our nuclear powerplant mechanic helper, allowing for gentle detoxification and decreasing inflammation - while we are gathering your lab resultsand combining those with your complete history to formulate a very personalized treatment plan. LAB results: Due to the complexity of the testing performed, we are not able to review labs via LightArrowt or over the phone, but please know, [...] Also make sure to schedule with the nuclear powerplant mechanic helper (this will not happen) Time spend with patient: 30 minutes and more than 50% of the time spent counseling, as regards above Kerry Strong DO documented in this encounterUniversity Hospitals Conneaut Medical Center11-07-2022 Miscellaneous Notes* Telephone Encounter - Karoline Metzger Estefania - 06/23/2022 11:41 AM EST Patient called back with complete list. Medication [...] at bedtime. Contains hemp extract 20 mg, melatonin3 mg. Ingredients: Tapioca syrup, beet sugar, FOS, [...] menthol 4% - Rosa's Web Hemp Extract [place] 450 mg * Telephone Encounter - Karoline Metzegr Ma - 06/23/2022 8:20 AM EST Images from the original note were not [...] GoodPatch (sleep): Ashwaganda, rhodiola, passionflower, methyl lactate, shramin root extract, L-theanine, SENTHIL, magnesium beta hydroxybutyrate, co-Q-10, black pepper, D-Calcium oantotheonate, Vitamin B-6, folic acid, vitamin B-12, adhesive Rosa's Web Aches & Pains Cream Rosa's Web Hemp Extract [place] 450 mg documented in this encounterUniversity Hospitals Conneaut Medical Center10-20-2022 History of Present illness Narrative* Kerry Strong, - 06/05/2022 1:00 PM EDT Follow-up Visit Patient: Jyoti Choi ALLERGIES Allergen Reactions Lamisil [Terbinafin* Intolerance heart palp. Milk Other: See Comments phlegm, avoids daily Current Outpatient Medications Medication Sig Dispense Refill Digestion GB 180 ct. (Pure Encapsulations) Take 1 capsule with meals GI-Revive 225 gram Powder (Newshubby) Take 1 tablespoons twice daily (1 tablespoon = 1.5 grams L-glut) PhytoMulti (Metagenics) 2 capsules daily with food Vitamin D Mountainaire (Newshubby) Take 1 capsule by mouth daily with food. OTC PRODUCT - Vitamin C 500 mg once daily - Pure Encapsulations Multivitamin once daily - [place] 3 950 mg twice daily ([place] EPA 504 DHA 378) - Betaine HCL + Pepsin 250 mg, 2 capsules twice daily - Tart Wu - Celery Seed - Melatonin Gummies at bedtime - "Pain patch" (name not specified) 20 mg. 1 patch "as needed" - "Immunity patch" (name not specified) - (handwritten list ilegible) [...] GI Revive. Using betaine HCL 2-3 per daywith meals and this helps. Also taking New Chapter multivitamin, Now brand omega 3-6-9, probiotics.Incorporates fermented food. Bowels are good. Denies stomach [...] cbd liquid at night, Pain still varies 4-6/10,from but his sleep is better and sleeping until 6am (after years of getting up at 3am). Notices pain that comes and goes in hand. Abd pain is gone unless he cheats. He was using betaine for hood's(which has been stable) ; hood's is stable [...] rosehip,elderberrie,orange ,lemon juice half squessed dash of [facility] salt steeped 730 am 1.multi pure encapsulation o.n.e. multi https://protect-us.NICO/s/33DUT6bxCrKVcJ59ldUTZD-?domain=2.omega 3 950 mg 3 times a day 3.tart wu 1200mg 4.zinc 50mg 1 a day https://protect-MatchMine.NICO/s/KWfeS2qzNzqoyQ96nsQhuxy?domain=5.red yeast rice 2-each day 6.vitamin k vegan [...] still hard; if he uses chamomile, cortisol territory account manager,red glasses, epsom salt bath for pain all [...] and shoulders. Pain can vary from 4-6-8/10 butas he moves it gets better. 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 His wants him to retire. He tries to go to bed but usually makes it in around 11:30-12 and up at 5am. 09/01/17 With 67 yo m for follow up, hood's esophagus.. He has been trying to exercise but its cold.He has a fitbit and gets about 8-10k steps. Used FDM and he was in pain for a few weeks. Sleep is off unless he follows a certain regimen. His pain is mostly in shoulders which help with epsom baths,hot pads. Still waking up at 3-4 am. Sleeps better on weekends. 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 He will be exercising more. He is looking forward to that Primary Concern: Transfer from [facility] 04/21/17 Ongoing Health Concerns : 1 - [...] not sleeping well: so is using avocado, walnut,chamomile tea helps him a lot. He added smoothies (with kale, fruit, almond milk), he is eating more fermented foods. He did get flu shot and got sick. tx cardiometabolic diet, kwaku for cholesterol 07/03/16 66 yo m with [...] normal life. Sleep has never been good butlast few years its been worse. He was [...] Plan/Instructions/Resources: When NoW 3-6-9 runs out, get [employer] Algae based omega-3 Future Plans: Functional Nutrition: [...] dark room. No buzzing or binging objects inyour bedroom except alarm clock. Try to get [...] one of the Heart Math booklets off [employer] that fits your 'go to' emotion - Transforming Anger, Anxiety, Stress, Depression, or PTSD. Five minutes 3X a day is more effective than 15 minutes in one sitting. 2) A regular, daily meditation practice of at least 15-20 minutes will change your brain--as well as your genes! Preliminary studies demonstrate gene expression is modified in those who meditate regularly leading to down- regulation of pro-inflammatory genes. This results in reduced inflammation, as well as improvements in the body's response to stress via the hormone cortisol, in the interventiongroups vs. the controls. Although more research is [...] and track your meditation practice. This is myabsolute favorite! Calm- (Free) Walking Meditations-($1.99)- Get your walk AND meditation done together. A good way to start out for individuals who feel they "just can't sit still" to begin a meditative practice. Please consider seeing Xuan MUNROE at least once. Medications/Supplements Recommended: No orders of the defined types were placed in this encounter. Follow up visit: I recommend the supplements from the [facility] Healthy Living Store at [email or web address] as we have thoroughly evaluated the research and use only highest quality supplements. Follow up in 8-10 weeks During the next 6-8 weeks you'll be working on your diet plan discussed with our nuclear powerplant mechanic helper, allowing for gentle detoxification and decreasing inflammation - while we are gathering your lab resultsand combining those with your complete history to formulate a very personalized treatment plan. LAB results: Due to the complexity of the testing performed, we are not able to review labs via LightArrowt or over the phone, but please know, [...] Also make sure to schedule with the nuclear powerplant mechanic helper (this will not happen) Time spend with patient: 30 minutes and more than 50% of the time spent counseling, as regards above Kerry Strong DO [facility] Diagnosis Hood's esophagus without dysplasia- Primary Hood's esophagus Mixed hyperlipidemia Borderline diabetes mellitus Other abnormal glucose Abnormal stool test Nonspecific abnormal finding in stool contents documented in this encounter [facility] note* Diagnosis 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 Deficiency of nutrient element Unspecified nutritional deficiency Mixed hyperlipidemia documented in this encounter [facility] note* Diagnosis Mixed hyperlipidemia- Primary Borderline diabetes mellitus Other abnormal glucose Hood's esophagus without dysplasia Hood's esophagus Abnormal stool test Nonspecific abnormal finding in stool contents [facility]* Diagnosis Onset Date Resolution Status Arthritis acute Arthritis of hand, right acu te Rash and nonspecific skin eruption acute Wrist pain acute [facility] Work Phone: Evaluation note* Diagnosis Onset Date Resolution Status Arthritis acute Arthritis of hand, right acu te Rash and nonspecific skin eruption acute Wrist pain acute Hood syndrome acute Screening for intestinal cancer acute [facility] Work Phone: Evaluation note* Diagnosis Hood's esophagus without dysplasia- Primary Hood's esophagus Vitamin deficiency Unspecified vitamin deficiency Mixed hyperlipidemia [facility]* Diagnosis Hood's esophagus without dysplasia- Primary Hood's esophagus Mixed hyperlipidemia Vitamin deficiency Unspecified vitamin deficiency documented in this encounter [facility] note* Diagnosis Increased glucose level- Primary Other abnormal glucose Hood's esophagus without dysplasia Hood's esophagus documented in this encounter [facility] note* Diagnosis Onset Date Resolution Status Hood syndrome acute [facility] Work Phone: Evaluation note* Diagnosis Onset Date Resolution Status Hood syndrome acute Abnormal findings on diagnos tic imaging of heart/coronary circulation acute Hyperlipidemia acute [facility] Work Phone: Evaluation note* Diagnosis Mixed hyperlipidemia- Primary Vitamin deficiency Unspecified vitamin deficiency Deficiency of nutrient element Unspecified nutritional deficiency Heavy metal exposure Contact with and (suspected) exposure to other hazardous metals [facility] Heavy metal exposure Contact with and (suspected) exposure to other hazardous metals [facility]* Diagnosis Heavy metal exposure Contact with and (suspected) exposure to other hazardous metals [facility] Diagnosis Mixed hyperlipidemia- Primary Vitamin deficiency Unspecified vitamin deficiency Deficiency of nutrient element Unspecified nutritional deficiency [facility]* Diagnosis Mixed hyperlipidemia- Primary Vitamin deficiency Unspecified vitamin deficiency Deficiency of nutrient element Unspecified nutritional deficiency [facility]* Diagnosis Mixed hyperlipidemia- Primary Vitamin deficiency Unspecified vitamin deficiency Deficiency of nutrient element Unspecified nutritional deficiency documented [facility]* Diagnosis Carpal tunnel syndrome, bilateral- Primary Carpal tunnel syndrome Bilateral hand pain Pain in limb [facility]* Diagnosis Carpal tunnel syndrome, bilateral- Primary Carpal tunnel syndrome Bilateral hand pain Pain in limb [facility]* Diagnosis Mixed hyperlipidemia- Primary Increased glucose level Other abnormal glucose Hood's esophagus without dysplasia Hood's esophagus Nutritional deficiency Unspecified nutritional deficiency documented [facility]* Diagnosis Carpal tunnel syndrome, bilateral- Primary Carpal tunnel syndrome Trigger little finger of right hand Trigger finger (acquired) Trigger middle finger of right hand Trigger finger (acquired) Trigger little finger of left hand Trigger finger (acquired) Arthritis of carpometacarpal (CMC) joint of left thumb Arthritis of carpometacarpal (CMC) joint of right thumb documented [facility]* Diagnosis Bilateral hand pain- Primary Pain in limb [facility] Author Cameron Cohen [facility] October 22, 2023 9:01am Note Date/Time October 22, 2023 9:01 am [facility] Medical Records Department [address] [place] [address] History & Physical Exam 10/22/23 0901 MR#: [id number] Acct: [id number] Name: JYOTI CHOI Rep #:[id number] : 1950 73 From: Cameron Cohen DO PCP: Dr. Omaira Weir MD Status:[facility] Location: [place] [address] History and Physical Date of Admission: 10/22/23 73 M who presents to the office today for initial consult. PCP OV 3.09.08 noting need for colonoscopy and history of Hood?s esophagus.? WSA established 12.19.22 noting GERD well managed with use of Pepcid.?EGD and colonoscopy 02.05.23?EGD medium hiatal hernia; Hood?s changes, metaplasia +; gastritis; duodenitis, gastric metaplasia +. H.pylori neg? Colonoscopy hemorrhoids; three hyperplastic polyps; diverticulosis? OV .24- Pt reports long hx of Hood's that was dx 4-5 years ago. Was instructed to follow up with us for management. Has been taking OTC Pepcid daily. Sx are under control with medication and diet. Kulwant dysphagia. BM are normal. No other concerns. ROS Const Constitutional: No fatigue ENT ENT: No difficulty swallowing Gastro GI: No abdominal pain, belching, bloating, change in bowel habits, change in stool character, coffee ground emesis, constipation, cramping, diarrhea, heartburn, difficulty swallowing, feeling full early, excessive flatus, incontinent of stools, Vomiting blood/hematemesis, Blood in stool, loose stools,Black,tarry stools, nausea/dyspepsia, pain with swallowing, vomiting or other Musc Musculoskeletal: Positive for joint pain, numbness, tingling and Arthritis Skin Skin: No yellowing of the eye or itchy eyes Neuro Neurology: Positive for numbness and tingling Psych Psychiatric: No anxiety and No depression Endo Endocrine: No fatigue Aller/Imm Allergy/Immunologic: No itchy eyes Edward/Lymp Hematologic/Lymphatic: No easy bleeding or easy bruising Exam Const General: cooperative and comfortable Nutritional Appearance: average body habitus and well nourished HENMT Head: normal to inspection Ears: hearing grossly normal bilaterally Nose: external nose normal Face and sinus: normal facial exam Mouth: oral mucosae normal Throat: posterior oropharynx normal Eyes General: appearance normal, both eyes and all related structures Neck Neck: normal visual inspection Chest Chest palpation & inspection: normal inspection of the chest and normal palpation of entire chest wall Resp Effort & Inspection: normal respiratory effort Auscultation: Bilateral: Clear to Auscultation Cardio Palpation: normal PMI Rate: regular rate Rhythm: regular rhythm GI Inspection: normal to inspection Auscultation: normal bowel sounds Percussion: normal to percussion Palpation: no hepatosplenomegaly Skin General: no rashes or lesions noted Neuro General: patient alert Extrem General: normal to inspection Psych Affect: normal affect Quality Reporting Tobacco Screening ([facility] 138) Smoking Status: Former smoker Assessment and Plan Assessment and Plan (1) Hood syndrome: Status: Acute Qualifiers: Hood's esophagus type: without dysplasia Qualified Code(s): K22.70 -Hood's esophagus without dysplasia Plan: Very pleasant 72-year-old gentleman referred by Dr. Rios Dockery for evaluation of long segment Hood's esophagus for possible ablation. He is history of long COVID Hood's esophagus that was discovered multiple years ago with a history of nicotine addiction for about 30 years which he had stopped several years ago. He has been on a H2 receptor bernadette for multiple years instead of a PPI becausehe does not want to have side effects from The proton pump inhibitors. He underwent a surveillance endoscopy back in January [address] Rios Dockery. During that endoscopy he was discovered to have 8 cm segment of Hood's esophagus. There was no hiatal hernia noted or signs of abnormal motility of the esophagus. Biopsies were positive for intestinal metaplasia and all the biopsies. There was no signs of low-grade, high-grade dysplasia or adenocarcinoma. He has lost a significant amount of weight and his reflux has gotten a lot better. He was getting symptoms more frequently but he does not have any symptoms with the use of famotidine and lifestyle changes. He does not drink any alcohol. Juan Ctill does not smoke any cigarettes. He has no family history of gastrointestinal cancer except for a first-degree relative that did have stomachcancer. I discussed with him the current guidelines from [place] [employer] and [place] Society for gastrointestinal endoscopy along with his recommendations from the [place] [employer] Association regarding nondysplastic Hood's esophagus. There have been some studies that have shownimproved outcome of the patients that have long segment Hood's esophagus without dysplasia. However this has not admitted to mainstream guidelines. I told him that is very difficult to do surveillance on very long Hood's esophagus. Therefore Iwould recommend that he undergo ablation with HALO 360. However I do not know if his insurance will cover the radiofrequency ablation procedure because it is 3 procedures and not 1 procedure for eradication of long segment Hood's esophagus. He said he would get in contact with his insurance company and he would let us know as he does not want to pay [id number] for this procedure atthis time. I did recommend him to take a proton pump inhibitor twice a day on a daily basisfor prophylaxis of progression of his Hood's esophagus. He is already makinglifestyle changes which I think are very beneficial. I have examined the patient and the H&P has been reviewed. There are no clinicalchanges since date of exam. 10/22/23 0901 <Electronically signed by Cameron Cohen DO> Cosigner Signature (if applicable): CC: Dr. Omaira Weir MD; Cameron Cohen DO~ Signed [facility] Work Phone: History and physical note Author Cameron Cohen [facility] December 03, 2023 6:45am Note Date/Time December 03, 2023 6:4 5am [facility] Medical Records Department [address] [place] [id number] History & Physical Exam 12/03/23 0645 MR#: [id number] Acct: [id number] Name: JYOTI CHOI Rep #:[id number] : 1950 73 From: Cameron Cohen DO PCP: Dr. Omaira Weir MD Status:[facility] Location: [place] [address] History and Physical Date of Admission: 12/03/23 73 M who presents to the office today for initial consult. PCP OV 3..23 noting need for colonoscopy and history of Hood?s esophagus.? WSA established 12.19.22 noting GERD well managed with use of Pepcid.?EGD and colonoscopy 02.05.23?EGD medium hiatal hernia; Hood?s changes, metaplasia +; gastritis; duodenitis, gastric metaplasia +. H.pylori neg? Colonoscopy hemorrhoids; three hyperplastic polyps; diverticulosis? OV .2.24- Pt reports long hx of Hood's that was dx 4-5 years ago. Was instructed to follow up with us for management. Has been taking OTC Pepcid daily. Sx are under control with medication and diet. Kulwant dysphagia. BM are normal. No other concerns. ROS Const Constitutional: No fatigue ENT ENT: No difficulty swallowing Gastro GI: No abdominal pain, belching, bloating, change in bowel habits, change in stool character, coffee ground emesis, constipation, cramping, diarrhea, heartburn, difficulty swallowing, feeling full early, excessive flatus, incontinent of stools, Vomiting blood/hematemesis, Blood in stool, loose stools,Black,tarry stools, nausea/dyspepsia, pain with swallowing, vomiting or other Musc Musculoskeletal: Positive for joint pain, numbness, tingling and Arthritis Skin Skin: No yellowing of the eye or itchy eyes Neuro Neurology: Positive for numbness and tingling Psych Psychiatric: No anxiety and No depression Endo Endocrine: No fatigue Aller/Imm Allergy/Immunologic: No itchy eyes Edward/Lymp Hematologic/Lymphatic: No easy bleeding or easy bruising Exam Const General: cooperative and comfortable Nutritional Appearance: average body habitus and well nourished HENMT Head: normal to inspection Ears: hearing grossly normal bilaterally Nose: external nose normal Face and sinus: normal facial exam Mouth: oral mucosae normal Throat: posterior oropharynx normal Eyes General: appearance normal, both eyes and all related structures Neck Neck: normal visual inspection Chest Chest palpation & inspection: normal inspection of the chest and normal palpation of entire chest wall Resp Effort & Inspection: normal respiratory effort Auscultation: Bilateral: Clear to Auscultation Cardio Palpation: normal PMI Rate: regular rate Rhythm: regular rhythm GI Inspection: normal to inspection Auscultation: normal bowel sounds Percussion: normal to percussion Palpation: no hepatosplenomegaly Skin General: no rashes or lesions noted Neuro General: patient alert Extrem General: normal to inspection Psych Affect: normal affect Quality Reporting Tobacco Screening ([facility] 138) Smoking Status: Former smoker Assessment and Plan Assessment and Plan (1) Hood syndrome: Status: Acute Qualifiers: Hood's esophagus type: without dysplasia Qualified Code(s): K22.70 -Hood's esophagus without dysplasia Plan: Very pleasant 72-year-old gentleman referred by Dr. Rios Dockery for evaluation of long segment Hood's esophagus for possible ablation. He is history of long COVID Hood's esophagus that was discovered multiple years ago with a history of nicotine addiction for about 30 years which he had stopped several years ago. He has been on a H2 receptor bernadette for multiple years instead of a PPI becausehe does not want to have side effects from The proton pump inhibitors. He underwent a surveillance endoscopy back in January [address] Rios Dockery. During that endoscopy he was discovered to have 8 cm segment of Hood's esophagus. There was no hiatal hernia noted or signs of abnormal motility of the esophagus. Biopsies were positive for intestinal metaplasia and all the biopsies. There was no signs of low-grade, high-grade dysplasia or adenocarcinoma. He has lost a significant amount of weight and his reflux has gotten a lot better. He was getting symptoms more frequently but he does not have any symptoms with the use of famotidine and lifestyle changes. He does not drink any alcohol. Hestill does not smoke any cigarettes. He has no family history of gastrointestinal cancer except for a first-degree relative that did have stomachcancer. I discussed with him the current guidelines from [place] [employer] and [place] Society for gastrointestinal endoscopy along with his recommendations from the [place] [employer] Association regarding nondysplastic Hood's esophagus. There have been some studies that have shownimproved outcome of the patients that have long segment Hood's esophagus without dysplasia. However this has not admitted to mainstream guidelines. I told him that is very difficult to do surveillance on very long Hood's esophagus. Therefore Iwould recommend that he undergo ablation with HALO 360. However I do not know if his insurance will cover the radiofrequency ablation procedure because it is 3 procedures and not 1 procedure for eradication of long segment Hood's esophagus. He said he would get in contact with his insurance company and he would let us know as he does not want to pay [id number] for this procedure atthis time. I did recommend him to take a proton pump inhibitor twice a day on a daily basisfor prophylaxis of progression of his Hood's esophagus. He is already makinglifestyle changes which I think are very beneficial. I have examined the patient and the H&P has been reviewed. There are no clinicalchanges since date of exam. 12/03/23 [id number] <Electronically signed by Cameron Cohen DO> Cosigner Signature (if applicable): CC: Dr. Omaira Weir MD; Cameron Cohen DO~ Signed [facility] Work Phone: Reason for referral (narrative)* Diagnostic Procedure Only (Routine) - New Request Specialty Diagnoses / Procedures Referred By Contac t Referred To Contact XR IMAGING Diagnoses Carpal tunnel syndrome, bilateral Bilateral hand pain Procedures XR HAND GENERAL 3V PA/LAT/OBL LEFT RADEX HAND MINIMUM 3 VIEWS Samara Covington MD [address] [place] [address] [place] [address] Referral ID Status Reason Start Date Expiration Date Visits Requested Visits Authorized [id number] New Request Auto-Generat ed Referral 4 07/01/2025 1 1 * Diagnostic Procedure Only (Routine) - New Request Specialty Diagnoses / Procedures Referred By Contac t Referred To Contact XR IMAGING Diagnoses Carpal tunnel syndrome, bilateral Bilateral hand pain Procedures XR HAND GENERAL 3V PA/LAT/OBL RIGHT RADEX HAND MINIMUM 3 VIEWS Samara Covington MD [address] [place] [address] [place] [address] Referral ID Status Reason Start Date Expiration Date Visits Requested Visits Authorized [id number] New Request Auto-Generat ed Referral 4 07/01/2025 1 1 [facility] ([facility]ative)No reason for referral information availableWHolzer [facility] Work Phone: Chief Complaint and Reason for Visit Chief Complaint Physical psa Reason for Visit Arthritis Arthritis of hand, right Rash and nonspecific skin eruption Wrist pain Chief Complaint Physical psa PROSTATE CA Reason for Visit Arthritis Arthritis of hand, right Rash and nonspecific skin eruption Wrist pain Chief Complaint Physical psa PROSTATE CA UPPER AND LOWER SCOPE Reason for Visit Arthritis Arthritis of hand, right Rash and nonspecific skin eruption Wrist pain Hood syndrome Screening for intestinal cancer Chief Complaint Consult HIGH CAD RISK Reason for Visit Hood syndrome Chief Complaint Consult HIGH CAD RISK HIGH CAD RISK HIGH CAD RISK Review Recent Test Results Reason for Visit Hood syndrome Abnormal findings on diagnostic imaging of heart/coronary circulation Hyperlipidemia Chief Complaint Consult HIGH CAD RISK HIGH CAD RISK HIGH CAD RISK Review Recent Test Results ABNORMAL CALCIUM CT ABNORMAL CALCIUM CT Reason for Visit Hood syndrome Abnormal findings on diagnostic imaging of heart/coronary circulation Hyperlipidemia Chief Complaint Consult HIGH CAD RISK HIGH CAD RISK HIGH CAD RISK Review Recent Test Results ABNORMAL CALCIUM CT ABNORMAL CALCIUM CT EORDER Reason for Visit Hood syndrome Abnormal findings on diagnostic imaging of heart/coronary circulation Hyperlipidemia Chief Complaint Admit Date Breathing July 21, 2024 1 0:50am 6 M FU July 28, 2024 7:32am ABN EKG/ Hyperlipidemia (Carmella) Augua 2024 8:24am E-ORDER September 01, 2024 7 :30am dyspnea September 06, 2024 6 :56am DYSPNEA September 21, 2024 8 :06am EORDERS October 12, 2024 7:27am AARON October 26, 2024 12: 36pm Reason for Visit Admit Date 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, 2024 7:32am Abnormal findings on diagnos tic imaging of heart/coronary circulation August 31, 2024 8:24am Dyspnea on exertion August 31, 2024 8 :24am Hyperlipidemia August 31, 2024 8 :24am Chief Complaint Admit Date Breathing July 21, 2024 1 0:50am 6 M FU July 28, 2024 7:32am ABN EKG/ Hyperlipidemia (Carmella) 2024 8:24am E-ORDER September 01, 2024 7 :30am dyspnea September 06, 2024 6 :56am DYSPNEA September 21, 2024 8 :06am EORDERS October 12, 2024 7:27am AARON October 26, 2024 12: 36pm AARON October 31, 2024 7:2 7am Reason for Visit Admit Date 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, 2024 7:32am Abnormal findings on diagnos tic imaging of heart/coronary circulation August 31, 2024 8:24am Dyspnea on exertion August 31, 2024 8 :24am Hyperlipidemia August 31, 2024 8 :24am Abnormal findings on diagnos tic imaging of heart/coronary circulation October 31, 2024 7:27am Dyspnea on exertion October 31, 2024 7:2 7am Chief Complaint Admit Date 6 M FU July 28, 2024 7:32am ABN EKG/ Hyperlipidemia (Carmella) Augua 2024 8:24am E-ORDER September 01, 2024 7 :30am dyspnea September 06, 2024 6 :56am DYSPNEA September 21, 2024 8 :06am EORDERS October 12, 2024 7:27am AARON October 26, 2024 12: 36pm AARON October 31, 2024 7:2 7am Cough/Congestion November 02, 2024 9:0 0am PSA November 18, 2024 4:47 pm Reason for Visit Admit Date 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, 2024 7:32am Abnormal findings on diagnos tic imaging of heart/coronary circulation August 31, 2024 8:24am Dyspnea on exertion August 31, 2024 8 :24am Hyperlipidemia August 31, 2024 8 :24am Abnormal findings on diagnos tic imaging of heart/coronary circulation October 31, 2024 7:27am Dyspnea on exertion October 31, 2024 7:2 7am Acute sinusitis November 02, 2024 9:0 0am Chief Complaint Admit Date ABN EKG/ Hyperlipidemia (Carmella) Janua ry 2024 8:24am E-ORDER September 01, 2024 7 :30am dyspnea September 06, 2024 6 :56am DYSPNEA September 21, 2024 8 :06am EORDERS October 12, 2024 7:27am AARON October 26, 2024 12: 36pm AARON October 31, 2024 7:2 7am Cough/Congestion November 02, 2024 9:0 0am PSA November 18, 2024 4:47 pm S/P [facility] 10/31 CATH November 29, 2024 10: 51am Reason for Visit Admit Date Abnormal findings on diagnos tic imaging of heart/coronary circulation August 31, 2024 8:24am Dyspnea on exertion August 31, 2024 8 :24am Hyperlipidemia August 31, 2024 8 :24am Abnormal findings on diagnos tic imaging of heart/coronary circulation October 31, 2024 7:27am Dyspnea on exertion October 31, 2024 7:2 7am Acute sinusitis November 02, 2024 9:0 0am Abnormal findings on diagnos tic imaging of heart/coronary circulation November 29, 2024 10:51am Hyperlipidemia November 29, 2024 10: 51am Hypertension November 29, 2024 10: 51am Chief Complaint Admit Date ABN EKG/ Hyperlipidemia (Carmella) Janua ry 5 8:24am E-ORDER September 01, 2024 7 :30am dyspnea September 06, 2024 6 :56am DYSPNEA September 21, 2024 8 :06am EORDERS October 12, 2024 7:27am AARON October 26, 2024 12: 36pm AARON October 31, 2024 7:2 7am Cough/Congestion November 02, 2024 9:0 0am PSA November 18, 2024 4:47 pm S/P [facility] 10/31 CATH November 29, 2024 10: 51am E-ORDER December 22, 2024 7:59am Chief Complaint Admit Date DYSPNEA September 21, 2024 8 :06am EORDERS October 12, 2024 7:27am AARON October 26, 2024 12: 36pm AARON October 31, 2024 7:2 7am Cough/Congestion November 02, 2024 9:0 0am PSA November 18, 2024 4:47 pm S/P WC 10/31 CATH November 29, 2024 10: 51am E-ORDER December 22, 2024 7:59am Palpitations December 29, 2024 12:06 pm CONCERN FOR UTI January 10, 2025 3:45p m Reason for Visit Admit Date Abnormal findings on diagnos tic imaging of heart/coronary circulation October 31, 2024 7:27am Dyspnea on exertion October 31, 2024 7:2 7am Acute sinusitis November 02, 2024 9:0 0am Abnormal findings on diagnos tic imaging of heart/coronary circulation November 29, 2024 10:51am Hyperlipidemia November 29, 2024 10: 51am Hypertension November 29, 2024 10: 51am Chief Complaint Admit Date DYSPNEA September 21, 2024 8 :06am EORDERS October 12, 2024 7:27am AARON October 26, 2024 12: 36pm AARON October 31, 2024 7:2 7am Cough/Congestion November 02, 2024 9:0 0am PSA November 18, 2024 4:47 pm S/P WC 10/31 CATH November 29, 2024 10: 51am E-ORDER December 22, 2024 7:59am Palpitations December 29, 2024 12:06 pm CONCERN FOR UTI January 10, 2025 3:45p m FU [facility] January 16, 2025 9:29a m Chief Complaint Admit Date AARON October 31, 2024 7:2 7am Cough/Congestion November 02, 2024 9:0 0am PSA November 18, 2024 4:47 pm S/P [facility] 10/31 CATH November 29, 2024 10: 51am E-ORDER December 22, 2024 7:59am 30 DAY MONITOR December 29, 2024 8:00a m Palpitations December 29, 2024 12:06 pm CONCERN FOR UTI January 10, 2025 3:45p m FU [facility] January 16, 2025 9:29a m 3 M FU February 28, 2025 7:58 am Reason for Visit Admit Date Abnormal findings on diagnos tic imaging of heart/coronary circulation October 31, 2024 7:27am Dyspnea on exertion October 31, 2024 7:2 7am Acute sinusitis November 02, 2024 9:0 0am Abnormal findings on diagnos tic imaging of heart/coronary circulation November 29, 2024 10:51am Hyperlipidemia November 29, 2024 10: 51am Hypertension November 29, 2024 10: 51am Dysuria January 16, 2025 9:29a m Enlarged prostate January 16, 2025 9:29a m Prostate cancer January 16, 2025 9:29a m CAD (coronary artery disease) February 28, 2025 7:58am Hyperlipidemia February 28, 2025 7:58 am Hypertension February 28, 2025 7:58 am Chief Complaint Admit Date E-ORDER December 22, 2024 7:59am 30 DAY MONITOR December 29, 2024 8:00a m Palpitations December 29, 2024 12:06 pm CONCERN FOR UTI January 10, 2025 3:45p m FU [facility] January 16, 2025 9:29a m 3 M FU February 28, 2025 7:58 am Insomnia April 20, 2025 7:53am Reason for Visit Admit Date Dysuria January 16, 2025 9:29a m Enlarged prostate January 16, 2025 9:29a m Prostate cancer January 16, 2025 9:29a m CAD (coronary artery disease) February 28, 2025 7:58am Hyperlipidemia February 28, 2025 7:58 am Hypertension February 28, 2025 7:58 am Difficulty sleeping April 20, 2025 7:53am Family History No Family History Records Found Relationship Condition Age at Onset Recorded Date/T betty Not Specified Disorder of liver Unknown Osteoporosis Unknown Alcoholism Unknown Malignant melanoma Unknown Anxiety and depression Unknown aunt Malignant neoplasm of breast Unknown uncle Malignant neoplasm of colon Unknown Diabetes mellitus Unknown Cardiac disease Unknown mother Malignant neoplasm Unknown Advance Directives No Advanced Directives Records Found Advance Directive Response Recorded Date/ Time Living Will No May 30 1:14pm Power of Door Clamper No May 30, 2016 1:14pm Advance Directive Response Recorded Date/ Time Name of Medical Power of Door Clamper February 02, 2023 2:35pm Living Will Yes February 02, 2023 2:35pm Power of Door Clamper Yes February 02 2:35pm Advance Directive Response Recorded Date/ Time Living Will Yes February 02, 2023 1:35pm Power of Door Clamper Yes February 02 1:35pm Advance Directive Response Recorded Date/ Time Living Will Yes August 28 8:57am Power of Door Clamper Yes August 28, 2023 8:57am Advance Directive Response Recorded Date/ Time Living Will Yes September 15 11:44am Power of Door Clamper No September 15, 2023 11:44am Advance Directive Response Recorded Date/ Time Name of Medical Power of Door Clamper RYANNE CHOI October 19, 2023 3:16pm Living Will Yes October 19, 2023 3:16pm Power of Door Clamper Yes October 18 3:16pm Advance Directive Response Recorded Date/ Time Name of Medical Power of Door Clamper RYANNE CHOI October 19, 2023 4:16pm Name of Medical Power of Door Clamper December 01, 2023 9:35am Living Will Yes December 01, 2023 9:35am Power of Door Clamper Yes November 30 9:35am Advance Directive Response Recorded Date/ Time Living Will Yes December 01, 2023 9:35am Power of Door Clamper Yes November 30 9:35am Advance Directive Response Recorded Date/ Time Living Will Yes December 01, 2023 9:35am Power of Door Clamper Yes November 30 9:35am Living Will No October 31, 2024 7:45am Power of Door Clamper No October 31 7:45am Advance Directives No October 31 7:45am Advance Directive Response Recorded Date/ Time Living Will Yes December 01, 2023 9:35am Do you have a Healthcare Power of Door Clamper? Yes December 01, 2023 9:35am Living Will No October 31, 2024 7:45am Do you have a Healthcare Power of Door Clamper? No October 31, 2024 7:45am Advance Directives No October 31 7:45am Advance Directive Response Recorded Date/ Time Living Will No October 31, 2024 7:45am Do you have a Healthcare Power of Door Clamper? No October 31, 2024 7:45am Advance Directives No October 31 7:45am Advance Directive Response Recorded Date/ Time Advance Directives No October 31 7:45am Summary Purpose Additional Source Comments Source Comments (unrecognize d section and content) In the event this informatio n is protected by the Federal Confidentiality of Alcohol and Drug Abuse Patient Records regulations: The Federal rules restrict any use of the information to criminally investigate or prosecute any alcohol or drug abuse patient.[facility] CenterIn the event this information is protected by the Federal Confidentiality of Alcohol and Drug Abuse Patient Records regulations: The Federal rules restrict any use of the information to criminally investigate or prosecute any alcohol or drug abuse patient.[facility] CenterIn the event this information is protected by the Federal Confidentiality of Alcohol and Drug Abuse Patient Records regulations: The Federal rules restrict any use of the information to criminally investigate or prosecute any alcohol or drug abuse patient.[facility] CenterIn the event this information is protected by the Federal Confidentiality of Alcohol and Drug Abuse Patient Records regulations: The Federal rules restrict any use of the information to criminally investigate or prosecute any alcohol or drug abuse patient.[facility] CenterIn the event this information is protected by the Federal Confidentiality of Alcohol and Drug Abuse Patient Records regulations: The Federal rules restrict any use of the information to criminally investigate or prosecute any alcohol or drug abuse patient.[facility] CenterIn the event this information is protected by the Federal Confidentiality of Alcohol and Drug Abuse Patient Records regulations: The Federal rules restrict any use of the information to criminally investigate or prosecute any alcohol or drug abuse patient.[facility] CenterIn the event this information is protected by the Federal Confidentiality of Alcohol and Drug Abuse Patient Records regulations: The Federal rules restrict any use of the information to criminally investigate or prosecute any alcohol or drug abuse patient.[facility] the event this information is protected by the Federal Confidentiality of Alcohol and Drug Abuse Patient Records regulations: The Federal rules restrict any use of the information to criminally investigate or prosecute any alcohol or drug abuse patient.[facility] CenterIn the event this information is protected by the Federal Confidentiality of Alcohol and Drug Abuse Patient Records regulations: The Federal rules restrict any use of the information to criminally investigate or prosecute any alcohol or drug abuse patient.[facility] CenterIn the event this information is protected by the Federal Confidentiality of Alcohol and Drug Abuse Patient Records regulations: The Federal rules restrict any use of the information to criminally investigate or prosecute any alcohol or drug abuse patient.[facility] the event this information is protected by the Federal Confidentiality of Alcohol and Drug Abuse Patient Records regulations: The Federal rules restrict any use of the information to criminally investigate or prosecute any alcohol or drug abuse patient.[facility] CenterIn the event this information is protected by the Federal Confidentiality of Alcohol and Drug Abuse Patient Records regulations: The Federal rules restrict any use of the information to criminally investigate or prosecute any alcohol or drug abuse patient.[facility] CenterIn the event this information is protected by the Federal Confidentiality of Alcohol and Drug Abuse Patient Records regulations: The Federal rules restrict any use of the information to criminally investigate or prosecute any alcohol or drug abuse patient.[facility] CenterIn the event this information is protected by the Federal Confidentiality of Alcohol and Drug Abuse Patient Records regulations: The Federal rules restrict any use of the information to criminally investigate or prosecute any alcohol or drug abuse patient.[facility] CenterIn the event this information is protected by the Federal Confidentiality of Alcohol and Drug Abuse Patient Records regulations: The Federal rules restrict any use of the information to criminally investigate or prosecute any alcohol or drug abuse patient.[facility] CenterIn the event this information is protected by the Federal Confidentiality of Alcohol and Drug Abuse Patient Records regulations: The Federal rules restrict any use of the information to criminally investigate or prosecute any alcohol or drug abuse patient.[facility] CenterIn the event this information is protected by the Federal Confidentiality of Alcohol and Drug Abuse Patient Records regulations: The Federal rules restrict any use of the information to criminally investigate or prosecute any alcohol or drug abuse patient.[facility] CenterIn the event this information is protected by the Federal Confidentiality of Alcohol and Drug Abuse Patient Records regulations: The Federal rules restrict any use of the information to criminally investigate or prosecute any alcohol or drug abuse patient.[facility] CenterIn the event this information is protected by the Federal Confidentiality of Alcohol and Drug Abuse Patient Records regulations: The Federal rules restrict any use of the information to criminally investigate or prosecute any alcohol or drug abuse patient.[facility] CenterIn the event this information is protected by the Federal Confidentiality of Alcohol and Drug Abuse Patient Records regulations: The Federal rules restrict any use of the information to criminally investigate or prosecute any alcohol or drug abuse patient.[facility] CenterIn the event this information is protected by the Federal Confidentiality of Alcohol and Drug Abuse Patient Records regulations: The Federal rules restrict any use of the information to criminally investigate or prosecute any alcohol or drug abuse patient.[facility] CenterIn the event this information is protected by the Federal Confidentiality of Alcohol and Drug Abuse Patient Records regulations: The Federal rules restrict any use of the information to criminally investigate or prosecute any alcohol or drug abuse patient.[facility] CenterIn the event this information is protected by the Federal Confidentiality of Alcohol and Drug Abuse Patient Records regulations: The Federal rules restrict any use of the information to criminally investigate or prosecute any alcohol or drug abuse patient.[facility] CenterIn the event this information is protected by the Federal Confidentiality of Alcohol and Drug Abuse Patient Records regulations: The Federal rules restrict any use of the information to criminally investigate or prosecute any alcohol or drug abuse patient.[facility] CenterIn the event this information is protected by the Federal Confidentiality of Alcohol and Drug Abuse Patient Records regulations: The Federal rules restrict any use of the information to criminally investigate or prosecute any alcohol or drug abuse patient.[facility] CenterIn the event this information is protected by the Federal Confidentiality of Alcohol and Drug Abuse Patient Records regulations: The Federal rules restrict any use of the information to criminally investigate or prosecute any alcohol or drug abuse patient.[facility] CenterIn the event this information is protected by the Federal Confidentiality of Alcohol and Drug Abuse Patient Records regulations: The Federal rules restrict any use of the information to criminally investigate or prosecute any alcohol or drug abuse patient.[facility] CenterIn the event this information is protected by the Federal Confidentiality of Alcohol and Drug Abuse Patient Records regulations: The Federal rules restrict any use of the information to criminally investigate or prosecute any alcohol or drug abuse patient.[facility] CenterIn the event this information is protected by the Federal Confidentiality of Alcohol and Drug Abuse Patient Records regulations: The Federal rules restrict any use of the information to criminally investigate or prosecute any alcohol or drug abuse patient.[facility] CenterIn the event this information is protected by the Federal Confidentiality of Alcohol and Drug Abuse Patient Records regulations: The Federal rules restrict any use of the information to criminally investigate or prosecute any alcohol or drug abuse patient.[facility] CenterIn the event this information is protected by the Federal Confidentiality of Alcohol and Drug Abuse Patient Records regulations: The Federal rules restrict any use of the information to criminally investigate or prosecute any alcohol or drug abuse patient.[facility] CenterIn the event this information is protected by the Federal Confidentiality of Alcohol and Drug Abuse Patient Records regulations: The Federal rules restrict any use of the information to criminally investigate or prosecute any alcohol or drug abuse patient.[facility] CenterIn the event this information is protected by the Federal Confidentiality of Alcohol and Drug Abuse Patient Records regulations: The Federal rules restrict any use of the information to criminally investigate or prosecute any alcohol or drug abuse patient.[facility] CenterIn the event this information is protected by the Federal Confidentiality of Alcohol and Drug Abuse Patient Records regulations: The Federal rules restrict any use of the information to criminally investigate or prosecute any alcohol or drug abuse patient.[facility] CenterIn the event this information is protected by the Federal Confidentiality of Alcohol and Drug Abuse Patient Records regulations: The Federal rules restrict any use of the information to criminally investigate or prosecute any alcohol or drug abuse patient.[facility] CenterIn the event this information is protected by the Federal Confidentiality of Alcohol and Drug Abuse Patient Records regulations: The Federal rules restrict any use of the information to criminally investigate or prosecute any alcohol or drug abuse patient.[facility] CenterIn the event this information is protected by the Federal Confidentiality of Alcohol and Drug Abuse Patient Records regulations: The Federal rules restrict any use of the information to criminally investigate or prosecute any alcohol or drug abuse patient.[facility] CenterIn the event this information is protected by the Federal Confidentiality of Alcohol and Drug Abuse Patient Records regulations: The Federal rules restrict any use of the information to criminally investigate or prosecute any alcohol or drug abuse patient.[facility] CenterIn the event this information is protected by the Federal Confidentiality of Alcohol and Drug Abuse Patient Records regulations: The Federal rules restrict any use of the information to criminally investigate or prosecute any alcohol or drug abuse patient.[facility] CenterIn the event this information is protected by the Federal Confidentiality of Alcohol and Drug Abuse Patient Records regulations: The Federal rules restrict any use of the information to criminally investigate or prosecute any alcohol or drug abuse patient.[facility] CenterIn the event this information is protected by the Federal Confidentiality of Alcohol and Drug Abuse Patient Records regulations: The Federal rules restrict any use of the information to criminally investigate or prosecute any alcohol or drug abuse patient.[facility] CenterIn the event this information is protected by the Federal Confidentiality of Alcohol and Drug Abuse Patient Records regulations: The Federal rules restrict any use of the information to criminally investigate or prosecute any alcohol or drug abuse patient.[facility] CenterIn the event this information is protected by the Federal Confidentiality of Alcohol and Drug Abuse Patient Records regulations: The Federal rules restrict any use of the information to criminally investigate or prosecute any alcohol or drug abuse patient.[facility] CenterIn the event this information is protected by the Federal Confidentiality of Alcohol and Drug Abuse Patient Records regulations: The Federal rules restrict any use of the information to criminally investigate or prosecute any alcohol or drug abuse patient.[facility] Reason for Visit (unrecogniz ed section and content) Reason Comments Established Patient Reason Comments NutrEval Reason Comments Established Patient Hood's esophagus Reason Comments Question Reason Comments Orders Reason Comments Patient Question DMSA Test question Patient is in need o f medical advise regarding instructions for test. Reason Comments New Pain Reason Comments New Pain Numbness Reason Comments Established Patient Follow up, see if cu rrent treatment is good? Reason Comments Follow Up Pain Reason Comments OT EVAL Specialty Diagnoses / Procedures Referred By Contac t Referred To Contact Diagnoses Carpal tunnel syndrome, bilateral Trigger little finger of right hand Trigger middle finger of right hand Trigger little finger of left hand Arthritis of carpometacarpal (CMC) joint of left thumb Arthritis of carpometacarpal (CMC) joint of right thumb Procedures CONSULT TO OCCUPATIONAL THERAPY/HAND THERAPY (AG) Laura Leon PA-C [address] [facility] [address] [place] [address] Phone: tel: fax: Referral ID Status Reason Start Date Expiration Date V isits Requested Visits Authorized [id number] Closed PCP Requested Referral 10/21/2024 01/19/2025 1 1 Reason Comments Occupational Therapy Specialty Diagnoses / Procedures Referred By Contact Referred To Contact OCCUPATIONAL THERAPY Diagnoses Carpal tunnel syndrome, bilateral Trigger little finger of right hand Trigger middle finger of right hand Trigger little finger of left hand Arthritis of carpometacarpal (CMC) joint of left thumb Arthritis of carpometacarpal (CMC) joint of right thumb Procedures CONSULT TO OCCUPATIONAL THERAPY/HAND THERAPY (AG) Laura Leon PA-C [address] [facility] [address] [place] [address] Phone: tel:[phone] fax:[phone] [facility] [address] [place] [address] Phone: tel: fax: Referral ID Status Reason Start Date Expiration Date Visits Requested Visits Authorized [id number] Authorized PCP Requested Referral 10/21/2024 08/16/2025 20 20 Care Teams (unrecognized sec tion and content) Web Consultant Relationship Specialty Start Date End Date Juan F Streeter MD [address] [facility] [facility] [place], [place] [id number] PCP - General Family Medicine 05/09/16 Web Consultant Relationship Specialty Start Date End Date Juan F Streeter MD [address] [place] [address] PCP - General Family Medicine 05/09/16 Web Consultant Relationship Specialty Start Date End Date Juan F Streeter MD [address] [facility] [place] [address] PCP - General Family Medicine 05/09/16 Web Consultant Relationship Specialty Start Date End Date Juan F Streeter MD [address] [facility] [place] [address] PCP - General Family Medicine 05/09/16 Web Consultant Relationship Specialty Start Date End Date Juan F Streeter MD [address] [facility] [place] [address] PCP - General Family Medicine 05/09/16 Web Consultant Relationship Specialty Start Date End Date Juan F Streeter MD [address] [facility] [place] [address] PCP - General Family Medicine 05/09/16 Web Consultant Relationship Specialty Start Date End Date Juan F Streeter MD [address] [facility] [place] [address] PCP - General Family Medicine 05/09/16 Team Status: Active Member Role Status Dates Dr. Perico Streeter MD Family Provider Active Dr. Omaira Weir MD Primary Care Provider Active Team Status: Inactive Member Role Status Dates Dr. Omaira Weir MD Primary Care Provider, Attendi ng Provider Active Team Status: Inactive Member Role Status Dates Dr. Omaira Weir MD Primary Care Provider Active Dr. Bertrand Zapien MD Attending Provider Active Team Status: Inactive Member Role Status Dates Dr. Omaira Weir MD Primary Care Provider Active Dr. Bertrand Zapien MD Attending Provider, Referr ing Provider Active Team Status: Inactive Member Role Status Dates Dr. Omaira Weir MD Primary Care Provider, Referri ng Provider Active Dr. Rios Dockery MD Attending Provider Active Team Status: Active Member Role Status Dates Dr. Omaira Weir MD Primary Care Provider, Referri ng Provider Active Dr. Rios Dockery MD Attending Provider, Other Prov ider Active Web Consultant Relationship Specialty Start Date End Date Juan F Streeter MD [address] [place] [address] PCP - General Family Medicine 05/09/16 Web Consultant Relationship Specialty Start Date End Date Juan F Streeter MD [address] [place] [address] PCP - General Family Medicine 05/09/16 Web Consultant Relationship Specialty Start Date End Date Juan F Streeter MD [address] [place] [address] PCP - General Family Medicine 05/09/16 Web Consultant Relationship Specialty Start Date End Date Juan F Streeter MD [address] [place] [address] PCP - General Family Medicine 05/09/16 Web Consultant Relationship Specialty Start Date End Date Juan F Streeter MD [address] [place] [address] PCP - General Family Medicine 05/09/16 Web Consultant Relationship Specialty Start Date End Date Juan F Streeter MD [address] [place] [address] PCP - General Family Medicine 05/09/16 Team Status: Inactive Member Role Status Dates Dr. Omaira Weir MD Primary Care Provider, Referri ng Provider Active Dr. Cameron Cohen DO Attending Provider Active Team Status: Inactive Member Role Status Dates Dr. Omaira Weir MD Primary Care Provider Active LIGIA LOPEZ Attending Provider, Referring Provid er Active Team Status: Active Member Role Status Dates Dr. Omaira Weir MD Primary Care Provider Active LIGIA LOPEZ Referring Provider, Other Provider A ctive Dr. Brendan Mantilla MD Attending Provider Active Team Status: Active Member Role Status Dates Dr. Omaira Weir MD Primary Care Provider, Referri ng Provider Active Dr. Cameron Cohen DO Attending Provider, Other Prov ider Active Team Status: Active Member Role Status Dates Dr. Omaira Weir MD Primary Care Pro vider, Referring Provider, Other Provider Active Dr. Ramses Conway MD Attending Provider Active Team Status: Inactive Member Role Status Dates Dr. Omaira Weir MD Primary Care Pro vider, Attending Provider, Referring Provider Active Team Status: Active Member Role Status Dates Dr. Juan F Streeter MD Family Provider Active Dr. Omaira Weir MD Primary Care Provider Active Team Status: Active Member Role Status Dates Dr. Omaira Weir MD Primary Care Provider Active Dr. Bertrand Zapien MD Attending Provider, Referr ing Provider Active Web Consultant Relationship Specialty Start Date End Date Juan F Streeter MD [address] [facility] [place] [address] PCP - General Family Medicine 05/09/16 Web Consultant Relationship Specialty Start Date End Date Juan F Streeter MD [address] [facility] [place] [address] PCP - General Family Medicine 05/09/16 Web Consultant Relationship Specialty Start Date End Date Juan F Streeter MD [address] [facility] [place] [address] PCP - General Family Medicine 05/09/16 Web Consultant Relationship Specialty Start Date End Date Juan F Streetre MD [address] [facility] [place] [address] PCP - General Family Medicine 05/09/16 Web Consultant Relationship Specialty Start Date End Date Juan F Streeter MD [address] [place] [address] PCP - General Family Medicine 05/09/16 Web Consultant Relationship Specialty Start Date End Date Juan F Streeter MD [address] [place] [address] PCP - General Family Medicine 05/09/16 Web Consultant Relationship Specialty Start Date End Date Juan F Streeter MD [address] [place] [address] PCP - General Family Medicine 05/09/16 Web Consultant Relationship Specialty Start Date End Date Juan F Streeter MD [address] [place] [address] PCP - General Family Medicine 05/09/16 Web Consultant Relationship Specialty Start Date End Date Juan F Streeter MD [address] [place] [address] PCP - General Family Medicine 05/09/16 Web Consultant Relationship Specialty Start Date End Date Juan F Streeter MD [address] [place] [address] PCP - General Family Medicine 05/09/16 Web Consultant Relationship Specialty Start Date End Date Juan F Streeter MD [address] [place] [address] PCP - General Family Medicine 05/09/16 Team Status: Active Member Role Status Dates Dr. Omaira Weir MD Primary Care Provider Active Team Status: Inactive Member Role Status Dates Dr. Omaira Weir MD Primary Care Provider Active Start: July 21, 2024 End: July 21, 2024 Dr. Omaira Weir MD Attending Provider Active Start: July 21, 2024 End: July 21, 2024 Team Status: Inactive Member Role Status Dates Dr. Omaira Weir MD Primary Care Provider Active Start: July 28, 2024 End: July 28, 2024 Dr. Omaira Weir MD Referring Provider Active Start: July 28, 2024 End: July 28, 2024 Dr. Cameron Cohen DO Attending Provider Active Start: July 28, 2024 End: July 28, 2024 Team Status: Inactive Member Role Status Dates Dr. Omaira Weir MD Primary Care Provider Active Start: August 31, 2024 End: August 31, 2024 Dr. Omaira Weir MD Referring Provider Active Start: August 31, 2024 End: August 31, 2024 Dr. Felipe Landis MD Attending Provider Active Start: August 31, 2024 End: August 31, 2024 Team Status: Inactive Member Role Status Dates Dr. Omaira Weir MD Primary Care Provider Active Start: September 01, 2024 End: September 01, 2024 Dr. Felipe Landis MD Attending Provider Active Start: September 01, 2024 End: September 01, 2024 Dr. Felipe Landis MD Referring Provider Active Start: September 01, 2024 End: September 01, 2024 Team Status: Inactive Member Role Status Dates Dr. Omaira Weir MD Primary Care Provider Active Start: September 06, 2024 End: September 06, 2024 Dr. Felipe Landis MD Attending Provider Active Start: September 06, 2024 End: September 06, 2024 Dr. Felipe Landis MD Referring Provider Active Start: September 06, 2024 End: September 06, 2024 Team Status: Inactive Member Role Status Dates Dr. Omaira Weir MD Primary Care Provider Active Start: September 21, 2024 End: September 21, 2024 Dr. Felipe Landis MD Attending Provider Active Start: September 21, 2024 End: September 21, 2024 Dr. Felipe Landis MD Referring Provider Active Start: September 21, 2024 End: September 21, 2024 Team Status: Active Member Role Status Dates Dr. Omaira Weir MD Primary Care Provider Active Start: September 21, 2024 Dr. Brendan Mantilla MD Attending Provider Active S tart: September 21, 2024 Team Status: Inactive Member Role Status Dates Dr. Omaira Weir MD Primary Care Provider Active Start: October 12, 2024 End: October 12, 2024 Dr. Felipe Landis MD Attending Provider Active Start: October 12, 2024 End: October 12, 2024 Dr. Felipe Landis MD Referring Provider Active Start: October 12, 2024 End: October 12, 2024 Team Status: Active Member Role Status Dates Dr. Omaira Weir MD Primary Care Provider Active Start: October 26, 2024 Dr. Brendan Mantilla MD Other Provider Active Start : October 26, 2024 Yuki Vicente PA, PA Attending Provider Active Start: October 26, 2024 Team Status: Inactive Member Role Status Dates Dr. Omaira Weir MD Primary Care Provider Active Start: October 31, 2024 End: October 31, 2024 Dr. Brendan Mantilla MD Attending Provider Active S tart: October 31, 2024 End: October 31, 2024 Dr. Brendan Mantilla MD Referring Provider Active S tart: October 31, 2024 End: October 31, 2024 Dr. Felipe Landis MD Other Provider Active St art: October 31, 2024 End: October 31, 2024 Team Status: Inactive Member Role Status Dates Dr. Omaira Weir MD Primary Care Provider Active Start: November 02, 2024 End: November 02, 2024 Dr. Omaira Weir MD Attending Provider Active Start: November 02, 2024 End: November 02, 2024 Team Status: Inactive Member Role Status Dates Dr. Omaira Weir MD Primary Care Provider Active Start: November 18, 2024 End: November 18, 2024 Dr. Bertrand Zapien MD Attending Provider Active Start: November 18, 2024 End: November 18, 2024 Dr. Bertrand Zapien MD Referring Provider Active Start: November 18, 2024 End: November 18, 2024 Team Status: Inactive Member Role Status Dates Dr. Omaira Weir MD Primary Care Provider Active Start: November 29, 2024 End: November 29, 2024 Dr. Omaira Weir MD Referring Provider Active Start: November 29, 2024 End: November 29, 2024 Dr. Felipe Landis MD Attending Provider Active Start: November 29, 2024 End: November 29, 2024 Team Status: Inactive Member Role Status Dates Dr. Omaira Weir MD Primary Care Provider Active Start: December 06, 2024 End: December 06, 2024 Dr. Bertrand Zapien MD Attending Provider Active Start: December 06, 2024 End: December 06, 2024 Dr. Bertrand Zapien MD Referring Provider Active Start: December 06, 2024 End: December 06, 2024 Web Consultant Relationship Specialty Start Date End Date Juan F Streeter MD [address] [place] [id number] PCP - General Family Medicine 05/09/16 Team Status: Inactive Member Role Status Dates Dr. Omaira Weir MD Primary Care Provider Active Start: December 22, 2024 End: December 22, 2024 Dr. Felipe Landis MD Attending Provider Active Start: December 22, 2024 End: December 22, 2024 Dr. Felipe Landis MD Referring Provider Active Start: December 22, 2024 End: December 22, 2024 Team Status: Active Member Role Status Dates Dr. Omaira Weir MD Primary Care Provider Active Start: December 29, 2024 Dr. Felipe Landis MD Attending Provider Active Start: December 29, 2024 Dr. Felipe Landis MD Referring Provider Active Start: December 29, 2024 Team Status: Inactive Member Role Status Dates Dr. Omaira Weir MD Primary Care Provider Active Start: January 10, 2025 End: January 10, 2025 Dr. Omaira Weir MD Referring Provider Active Start: January 10, 2025 End: January 10, 2025 Wan ESPINAL PA Attending Provider Active Start: January 10, 2025 End: January 10, 2025 Team Status: Inactive Member Role Status Dates Dr. Omaira Weir MD Primary Care Provider Active Start: January 10, 2025 End: January 10, 2025 Wan ESPINAL PA Attending Provider Active Start: January 10, 2025 End: January 10, 2025 Team Status: Inactive Member Role Status Dates Dr. Omaira Weir MD Primary Care Provider Active Start: January 16, 2025 End: January 16, 2025 Dr. Omaira Weir MD Attending Provider Active Start: January 16, 2025 End: January 16, 2025 Team Status: Active Member Role/Relationship Status Dates Dr. Omaira Weir MD Primary Care Provider Active Team Status: Inactive Member Role/Relationship Status Dates Dr. Omaira Weir MD Primary Care Provider Active Start: October 31, 2024 End: October 31, 2024 Dr. Brendan Mantilla MD Attending Provider Active S tart: October 31, 2024 End: October 31, 2024 Dr. Brendan Mantilla MD Referring Provider Active S tart: October 31, 2024 End: October 31, 2024 Dr. Felipe Landis MD Other Provider Active St art: October 31, 2024 End: October 31, 2024 Team Status: Inactive Member Role/Relationship Status Dates Dr. Omaira Weri MD Primary Care Provider Active Start: November 02, 2024 End: November 02, 2024 Dr. Omaira Weir MD Attending Provider Active Start: November 02, 2024 End: November 02, 2024 Team Status: Inactive Member Role/Relationship Status Dates Dr. Omaira Weir MD Primary Care Provider Active Start: November 18, 2024 End: November 18, 2024 Dr. Bertrand Zapien MD Attending Provider Active Start: November 18, 2024 End: November 18, 2024 Dr. Bertrand Zapien MD Referring Provider Active Start: November 18, 2024 End: November 18, 2024 Team Status: Inactive Member Role/Relationship Status Dates Dr. Omaira Weir MD Primary Care Provider Active Start: November 29, 2024 End: November 29, 2024 Dr. Omaira Weir MD Referring Provider Active Start: November 29, 2024 End: November 29, 2024 Dr. Felipe Landis MD Attending Provider Active Start: November 29, 2024 End: November 29, 2024 Team Status: Inactive Member Role/Relationship Status Dates Dr. Omaira Weir MD Primary Care Provider Active Start: December 06, 2024 End: December 06, 2024 Dr. Bertrand Zapien MD Attending Provider Active Start: December 06, 2024 End: December 06, 2024 Dr. Bertrand Zapien MD Referring Provider Active Start: December 06, 2024 End: December 06, 2024 Team Status: Inactive Member Role/Relationship Status Dates Dr. Omaira Weir MD Primary Care Provider Active Start: December 22, 2024 End: December 22, 2024 Dr. Felipe Landis MD Attending Provider Active Start: December 22, 2024 End: December 22, 2024 Dr. Felipe Landis MD Referring Provider Active Start: December 22, 2024 End: December 22, 2024 Team Status: Active Member Role/Relationship Status Dates Dr. Omaira Weir MD Primary Care Provider Active Start: December 29, 2024 Dr. Felipe Landis MD Attending Provider Active Start: December 29, 2024 Dr. Felipe Landis MD Referring Provider Active Start: December 29, 2024 Team Status: Active Member Role/Relationship Status Dates Dr. Omaira Weir MD Primary Care Provider Active Start: December 29, 2024 Dr. Felipe Landis MD Attending Provider Active Start: December 29, 2024 Dr. Felipe Landis MD Referring Provider Active Start: December 29, 2024 Team Status: Inactive Member Role/Relationship Status Dates Dr. Omaira Weir MD Primary Care Provider Active Start: January 10, 2025 End: January 10, 2025 Dr. Omaira Weir MD Referring Provider Active Start: January 10, 2025 End: January 10, 2025 KYLIE Sevilla Attending Provider Active Start: January 10, 2025 End: January 10, 2025 Team Status: Inactive Member Role/Relationship Status Dates Dr. Omaira Weir MD Primary Care Provider Active Start: January 10, 2025 End: January 10, 2025 KYLIE Sevilla Attending Provider Active Start: January 10, 2025 End: January 10, 2025 Team Status: Inactive Member Role/Relationship Status Dates Dr. Omaira Weir MD Primary Care Provider Active Start: January 16, 2025 End: January 16, 2025 Dr. Omaira Weir MD Attending Provider Active Start: January 16, 2025 End: January 16, 2025 Team Status: Inactive Member Role/Relationship Status Dates Dr. Omaira Weir MD Primary Care Provider Active Start: February 28, 2025 End: February 28, 2025 Dr. Omaira Weir MD Referring Provider Active Start: February 28, 2025 End: February 28, 2025 Yuki ESPINAL, PA Attending Provider Active Start: February 28, 2025 End: February 28, 2025 Team Status: Inactive Member Role/Relationship Status Dates Dr. Omaira Weir MD Primary Care Provider Active Start: December 22, 2024 End: December 22, 2024 Dr. Felipe Landis MD Attending Provider Active Start: December 22, 2024 End: December 22, 2024 Dr. Felipe Landis MD Referring Provider Active Start: December 22, 2024 End: December 22, 2024 Team Status: Active Member Role/Relationship Status Dates Dr. Omaira Weir MD Primary Care Provider Active Start: December 29, 2024 Dr. Felipe Landis MD Attending Provider Active Start: December 29, 2024 Dr. Felipe Landis MD Referring Provider Active Start: December 29, 2024 Team Status: Active Member Role/Relationship Status Dates Dr. Omaira Weir MD Primary Care Provider Active Start: December 29, 2024 Dr. Felipe Landis MD Attending Provider Active Start: December 29, 2024 Dr. Felipe Landis MD Referring Provider Active Start: December 29, 2024 Team Status: Inactive Member Role/Relationship Status Dates Dr. Omaira Weir MD Primary Care Provider Active Start: January 10, 2025 End: January 10, 2025 Dr. Omaira Weir MD Referring Provider Active Start: January 10, 2025 End: January 10, 2025 Wan ESPINAL, PA Attending Provider Active Start: January 10, 2025 End: January 10, 2025 Team Status: Inactive Member Role/Relationship Status Dates Dr. Omaira Weir MD Primary Care Provider Active Start: January 10, 2025 End: January 10, 2025 Wan ESPINAL PA Attending Provider Active Start: January 10, 2025 End: January 10, 2025 Team Status: Inactive Member Role/Relationship Status Dates Dr. Omaira Weir MD Primary Care Provider Active Start: January 16, 2025 End: January 16, 2025 Dr. Omaira Weir MD Attending Provider Active Start: January 16, 2025 End: January 16, 2025 Team Status: Inactive Member Role/Relationship Status Dates Dr. Omaira Weir MD Primary Care Provider Active Start: February 28, 2025 End: February 28, 2025 Dr. Omaira Weir MD Referring Provider Active Start: February 28, 2025 End: February 28, 2025 Yuki Vicente PA, PA Attending Provider Active Start: February 28, 2025 End: February 28, 2025 Team Status: Inactive Member Role/Relationship Status Dates Dr. Omaira Weir MD Primary Care Provider Active Start: April 20, 2025 End: April 20, 2025 Dr. Omaira Weir MD Attending Provider Active Start: April 20, 2025 End: April 20, 2025 Goals (unrecognized section and content) Goals may be documented in a n alternate sectionGoals may be documented in an alternate sectionGoals may be documented in an alternate sectionGoals may be documented in an alternate sectionGoals may be documented in an alternate sectionGoals may be documented in an alternate sectionGoals may be documented in an alternate sectionGoals may be documented in an alternate sectionGoals may be documented in an alternate sectionGoals may be documented in an alternate sectionGoals may be documented in an alternate sectionGoals may be documented in an alternate sectionGoals may be documented in an alternate sectionGoals may be documented in an alternate section (unrecognized sect ion and content) No Status Records FoundNo Status Records FoundNo Status Records Found INFORMATION SOURCE (unrecogn ized section and content) DATE CREATED AUTHOR 11/07/2024 [facility] DATE CREATED AUTHOR AUTHOR'S ORGANIZ ATION 01/01/2025 [facility] DATE CREATED AUTHOR AUTHOR'S ORGANIZ ATION 05/26/2025 [facility] FOR RECORDS PERTAINING TO PATIENTS WHO ARE [...] BE BASED ON THE PRIMARY CLINICAL RECORDS. [facility]. provides no warranty or guarantee of the accuracy or completeness of information in this document.
--- NOTE | 2025-06-07 07:00 | CT_ITS ---
PROCEDURE: CHEST WITHOUT CONTRAST 06/07/2025 REASON FOR EXAM: AARON, NEGATIVE STRESS/CATH/ECHO TECHNIQUE: Chest CT without contrast. Coronal and Sagittal reconstruction series were provided. One or more dose reduction techniques were used (e.g., Automated exposure control, adjustment of the mA and/or kV according to patient size, use of iterative reconstruction technique RADIATION DOSE SUMMARY: CTDlvol: 12.10 mGy DLP: 435.44 mGycm COMPARISON: CT chest without contrast, 08/27/2023. FINDINGS: Lower neck:The thyroid gland is normal. There is no supraclavicular lymphadenopathy. Mediastinum:No abnormal masses or lymphadenopathy. Heart and Vasculature:The heart size is normal. There is no pericardial effusion. 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 Esophagus:There is a small hiatal hernia. Upper Abdomen:There is calcific vascular disease of the visualized abdominal aorta. Chest wall:There is bilateral gynecomastia. There is no axillary lymphadenopathy. There is a healed fracture of the left humerus with severe arthritis of the glenohumeral joint. Lungs, airways and pleura: There is linear scarring in the basilar segment of both lower lobes. There are no pulmonary nodules or masses. There are no pleural effusions. CT/Chest without Contrast IMPRESSION: 1. There are no pulmonary nodules or masses. 2. There is calcific vascular disease. 3. Other findings as noted. Reading Location: [place] [id number]
== END | disposition home or self-care (01) ==
LOC: PSN 06:52
PROVIDERS: PCP Internal Medicine; Referring Provider Internal Medicine; Visit Provider Internal Medicine
DX: R06.09 Other forms of dyspnea (principal)
CPT/HCPCS: 71250; 94060; 94726; 94729

== ENCOUNTER → 2025-06-13 | Outpatient (CLI) | payer MEDICARE, SELFPAY ==
[2025-06-13 10:21] LABS: PSA,Total- Diagnostic 9.14 ng/mL (0.00-4.00)
== END | disposition home or self-care (01) ==
LOC: MTLAB 07:32
PROVIDERS: PCP Internal Medicine; Referring Provider Urology; Visit Provider Urology
DX: C61 Malignant neoplasm of prostate (principal)
CPT/HCPCS: 36415; 84153